=== PATIENT | male | born 1940 | race Caucasian/White ===

== ENCOUNTER 2016-09-10 22:28 | Inpatient (IN) | payer MEDICARE, MEDICAID ==
[~2016-09-10] VITALS: Ht 167.6 cm; Wt 72.6 kg
[~2016-09-10 22:28] MED LIST: ASPIRIN-LOW81 MG ORAL; ATIVAN2 MG ORAL; CELEBREX200 MG ORAL; FLOMAX0.4 MG ORAL; METFORMIN HCL500 M4 ORAL; MICARDIS HCT 81 EACH ORAL; NAMENDA5 MG ORAL; OSTERA TABLET1 EACH ORAL; TRADJENTA5 MG ORAL; ZYRTEC10 M3 ORAL
[2016-09-10] MEDS ORDERED: NS 1000ml 2,200 ML IVLG ONE (22:45)
[2016-09-10 23:05] VITALS: BP 90/38
[2016-09-10] MEDS ORDERED: NAMZARIC 28 MG1 EACH PO (23:11)
[2016-09-10] MEDS ORDERED: NITROFURANTOIN25 MG PO (23:11)
[2016-09-10] MEDS ORDERED: TRADJENTA5 MG PO (23:11)
[2016-09-10] MEDS ORDERED: ATORVASTATIN CA20 MG ORAL (23:11)
[2016-09-10] MEDS ORDERED: PROSCAR5 MG ORAL (23:11)
[2016-09-10] MEDS ORDERED: [UNRECOGNIZED DRUG - OTHER] PO (23:11)
[2016-09-10] MEDS ORDERED: METOPROLOL SUCC25 MG ORAL (23:11)
[2016-09-10 23:21] LABS: BASOPHILS % (AUTO) 1.3 % (0.0-2.0); EOSINOPHILS % (AUTO) 0.7 % (0.0-3.0); LYMPHOCYTES % (AUTO) 22.4 % (20.0-45.0); MEAN CORPUSCULAR HGB CONC 31.1 G/DL (32.0-36.0); MEAN CORPUSCULAR VOLUME 96 FL (80-99); MONOCYTES % (AUTO) 3.7 % (1.0-10.0); PLATELET COUNT 177 K/UL (150-450); RED CELL DISTRIBUTION WIDTH 15.7 % (11.6-14.8); WHITE BLOOD COUNT 9.8 K/UL (4.8-10.8)
[2016-09-10 23:27] LABS: INR 1.2 (0.9-1.1); PROTHROMBIN TIME 11.9 SEC (9.30-11.50)
[2016-09-10 23:46] LABS: APPEARANCE,URINE CLOUDY; PROTEIN,URINE 3+ (NEGATIVE)
[2016-09-10 23:47] LABS: KETONES,URINE 1+ (NEGATIVE); LEUKOCYTE ESTERASE ,URINE 3+ (NEGATIVE); NITRITE,URINE NEGATIVE (NEGATIVE); UROBILINOGEN,URINE NORMAL MG/DL (0.0-1.0)
[2016-09-10 23:48] LABS: BACTERIA,URINE MANY /HPF; COARSE GRANULAR CASTS,URINE 0-2 /LPF; RBC,URINE TNTC /HPF (0 - 0); WBC,URINE TNTC /HPF (0 - 0)
[2016-09-10 23:51] VITALS: BP 95/33
[2016-09-11] VITALS (38 sets, daily range): BP systolic 71–133; BP diastolic 35–96
[2016-09-11] MEDS ORDERED: cefTRIAXone 1 GM in NS 55 ML IVPB ONE ×2
[2016-09-11] MEDS ORDERED: NAMZARIC 28 MG1 EACH PO (00:11)
[2016-09-11] MEDS ORDERED: FERROUS GLUCON240 MG PO (00:11)
[2016-09-11] MEDS ORDERED: ASPIR 8181 MG ORAL (00:11)
[2016-09-11 00:22] LABS: TROPONIN I < 0.30 ng/mL (<=0.30)
[2016-09-11 00:26] LABS: ALANINE AMINOTRANSFERASE 8 U/L (3-41); ALBUMIN/GLOBULIN RATIO 1.3 (1.0-2.7); ANION GAP 36 (5-15); ASPARTATE AMINO TRANSFERASE 18 U/L (5-40); CALCIUM 8.7 mg/dL (8.6-10.2); CHLORIDE 96 mEQ/L (98-107); CREATININE 6.6 mg/dL (0.7-1.2); HEMOLYSIS 10; SODIUM 138 mEQ/L (135-145); TOTAL PROTEIN 6.6 g/dL (6.6-8.7)
[2016-09-11 00:30] LABS: REFLEX LACTIC ACID YES OR NO YES
[2016-09-11 00:31] LABS: CARBON DIOXIDE < 6 mEQ/L (20-30); POTASSIUM 7.8 mEQ/L (3.4-4.9)
[2016-09-11 00:36] LABS: CKMB 10.9 ng/mL (< 6.7)
[2016-09-11] MEDS ORDERED: NEXIUM40 MG ORAL (00:38)
[2016-09-11] MEDS ORDERED: Calcium Gluconate 1gm/10ml vial IVP ONE (00:45)
[2016-09-11] MEDS ORDERED: Sodium Bicarbonate 8.4% 50ml Carp IV ONE ×3 (00:45→09:45)
[2016-09-11] MEDS ORDERED: Levophed 4mg/4mL Inj IV ONE ×2 (01:02→05:29)
[2016-09-11] MEDS ORDERED: Vancomycin 1.5gm/D5W 300ml 325 ML IVPB ONE ×2 (02:30→08:00)
--- NOTE | 2016-09-11 03:14 | Emergency Room Report ---
History of Present Illness General Chief Complaint: Altered Level of Consciousness Source: Family Member, EMS Present Illness HPI Is a 76-year-old male with multiple medical history. He has a history of diabetes and hypertension. He has a history of UTI with recent course of Macrobid. He just finished a course of Cipro. He is running for chief complaint of altered mental status. At baseline he is awake and able to eat. He is bed bound however. According to his son, he is a full code. He hasn't been eating or drinking for the last 2 days. Has no appetite. Very weak. No fever or chills. No nausea or vomiting. Allergies: Coded Allergies: SULFA (SULFONAMIDE ANTIBIOTICS) (Verified Allergy, Unknown, 09/10/16) Uncoded Allergies: SULFA (Adverse Reaction, Mild, RASH, 04/01/13) Patient History Past Medical History: see triage record, old chart reviewed Past Surgical History: other Pertinent Family History: none Social History: Denies: smoking Immunizations: other Reviewed Nursing Documentation: PMH: Agreed, PSxH: Agreed Nursing Documentation-PMH Hx Cardiac Problems: Yes - HYPERLIPIDEMIA Hx Hypertension: Yes Hx Pacemaker: Yes Hx Diabetes: Yes Hx Cancer: No Hx Neurological Problems: No Hx Dementia: Yes Hx Alzheimer's Disease: Yes Hx Neurologic Surgery: No Review of Systems Constitutional: Reports: weakness Eye: Denies: blurred vision, eye pain ENT: Denies: ear pain, nose congestion, throat swelling Respiratory: Denies: cough, shortness of breath Cardiovascular: Denies: chest pain, palpitations Gastrointestinal: Denies: abdominal pain, diarrhea, nausea, vomiting Musculoskeletal: Denies: back pain, joint pain Skin: Denies: rash Neurological: Denies: headache, numbness Endocrine: Denies: increased thirst, increased urine Hematologic/Lymphatic: Denies: easy bruising All Other Systems: negative except mentioned in HPI Physical Exam Vital Signs Date Time Temp Pulse Resp B/P Pulse Ox O2 Delivery O2 Flow Rate FiO2 09/10/16 22:18 68 14 90/38 98 Room Air 09/10/16 23:05 97.9 09/11/16 02:44 50 diagnosed with hypotension and hypoxia Sp02 EP Interpretation: abnormal General Appearance: moderate distress, cachetic, Stupor Head: normocephalic, atraumatic Eyes: bilateral eye EOMI, bilateral eye PERRL ENT: dry mucus membranes - Extremely dry Neck: supple, no meningismus, limited range of motion - Secondary to arthritis Respiratory: chest non-tender, lungs clear, normal breath sounds Cardiovascular #1: regular rate, rhythm, no murmur Gastrointestinal: normal bowel sounds, non tender, no mass, no organomegaly, no bruit, non-distended Musculoskeletal: back normal, normal range of motion Neurologic: other - Patient moans to painful Stimuli Skin: warm/dry Procedures Critical Care Time Critical Care Time Critical care is mandated in this patient who presented with septic shock. Patient require my urgent intervention to attenuate the risks of metabolic collapse which may lead to cardiovascular collapse and . Critical care time is 75 minutes excluding any reportable procedure. Critical care time included evaluation, multiple reevaluation, looking at old charts, interpreting laboratory and diagnostic data, discussing case with patient and family and consultants, and charting. Central Line Central Line : Consent: Verbal - From son over the phone Central Line Lumen: triple Maximal Sterile Barrier Tech: yes cap, yes mask, yes sterile gown, yes sterile gloves, yes large sterile sheet, yes hand hygiene, yes chlorhexidine prep Central Line Postion: internal jugular (R) Anesthesia: Lidocaine cc's of anesthesia: 3 Complications: none Central Line Post Position: sutured, good blood return, position confirmed w / CXR Attempts: Other - 3 Patient Tolerated: Well Complications: None Progress Using ultrasound, was able to access the vein initially. It would only thread residential. This occurred twice. At that point he moved down to the right femoral vein. The vein was right on top of the artery. Was able to aspirated with a needle but when I went to inserted central line, it went through into the artery. I pulled this out and place pressure on it. I then went back to do the right internal jugular. This time I was able to canulized it in place a central line. There was no complication. X-ray confirm placement. Intubation Intubation : Consent: Emergent Intubation Method: orotracheal Tube Size (cm): 7.0 Medications: Etomidate, Succinylcholine Breath Sounds after Intubation: equal Intubation Complications: no complications Post Intubation Xray: Yes Progress/Xray Impression: Endotracheal tube in good position. No pneumothorax Attempts: Other - Twice. I gave the patient etomidate and succinylcholine. Oropharynx was very dry and sticky with food product. I removed this. I was unable to see the vocal cords with a Mac or Meyer blade. Using the Glidescope , I was able to intubate with 7-0 ETT. Patient Tolerated: Well Complications: None Medical Decision Making Diagnostic Impression: Primary Impression: Septic shock Additional Impressions: UTI (urinary tract infection) Qualified Codes: N30.00 - Acute cystitis without hematuria ARF (acute renal failure) Qualified Codes: N17.9 - Acute kidney failure, unspecified Dehydration, severe Respiratory failure requiring intubation Encephalopathy acute Anemia, chronic disease Hyperkalemia ER Course She presents with septic shock secondary to UTI and has multiorgan failure. Patient is intubated, central line placement on pressors. When spectrum antibiotics given. Prognosis extremely poor. I discussed the case with his son and grandson who were at bedside. He wanted to be a full code. He said that Dr. Sampson was one of his Dr. Will admit to him. Laboratory Tests Test 09/10/16 22:55 09/10/16 23:10 09/11/16 00:35 White Blood Count 9.8 K/UL (4.8-10.8) Red Blood Count 3.20 M/UL (4.70-6.10) L Hemoglobin 9.6 G/DL (14.2-18.0) L Hematocrit 30.8 % (42.0-52.0) L Mean Corpuscular Volume 96 FL (80-99) Mean Corpuscular Hemoglobin 30.0 PG (27.0-31.0) Mean Corpuscular Hemoglobin Concent 31.1 G/DL (32.0-36.0) L Red Cell Distribution Width 15.7 % (11.6-14.8) H Platelet Count 177 K/UL (150-450) Mean Platelet Volume 7.0 FL (6.5-10.1) Neutrophils (%) (Auto) 72.0 % (45.0-75.0) Lymphocytes (%) (Auto) 22.4 % (20.0-45.0) Monocytes (%) (Auto) 3.7 % (1.0-10.0) Eosinophils (%) (Auto) 0.7 % (0.0-3.0) Basophils (%) (Auto) 1.3 % (0.0-2.0) Prothrombin Time 11.9 SEC (9.30-11.50) H Prothromb Time International Ratio 1.2 (0.9-1.1) H Activated Partial Thromboplast Time 50 SEC (23-33) H Sodium Level 138 mEQ/L (135-145) Potassium Level 7.8 mEQ/L (3.4-4.9) *H Chloride Level 96 mEQ/L (98-107) L Carbon Dioxide Level < 6 mEQ/L (20-30) *L Anion Gap 36 (5-15) H Blood Urea Nitrogen 144 mg/dL (7-23) H Creatinine 6.6 mg/dL (0.7-1.2) H Estimat Glomerular Filtration Rate mL/min (>60) Glucose Level 155 mg/dL (74-106) H Calcium Level 8.7 mg/dL (8.6-10.2) Total Bilirubin 0.2 mg/dL (0.0-1.2) Aspartate Amino Transf (AST/SGOT) 18 U/L (5-40) Alanine Aminotransferase (ALT/SGPT) 8 U/L (3-41) Alkaline Phosphatase 66 U/L (40-129) Total Creatine Kinase 168 U/L (38-174) Creatine Kinase MB 10.9 ng/mL (< 6.7) H Creatine Kinase MB Relative Index 6.4 Troponin I < 0.30 ng/mL (<=0.30) Total Protein 6.6 g/dL (6.6-8.7) Albumin 3.8 g/dL (3.5-5.2) Globulin 2.8 g/dL Albumin/Globulin Ratio 1.3 (1.0-2.7) Urine Color Yellow Urine Appearance Cloudy Urine pH 5.0 (4.5-8.0) Urine Specific [place] 1.015 (1.005-1.035) Urine Protein 3+ (NEGATIVE) H Urine Glucose (UA) Negative (NEGATIVE) Urine Ketones 1+ (NEGATIVE) H Urine Occult Blood 5+ (NEGATIVE) H Urine Nitrite Negative (NEGATIVE) Urine Bilirubin Negative (NEGATIVE) Urine Urobilinogen Normal MG/DL (0.0-1.0) Urine Leukocyte Esterase 3+ (NEGATIVE) H Urine RBC Tntc /HPF (0 - 0) H Urine WBC Tntc /HPF (0 - 0) H Urine Squamous Epithelial Cells None /LPF (NONE/OCC) Urine Bacteria Many /HPF (NONE) H Urine Coarse Granular Casts 0-2 /LPF (NONE) H Lactic Acid Level 11.20 mmol/L (0.66-2.22) H 10.60 mmol/L (0.66-2.22) H Lab Results Impression Labs with multiple metabolic derangements. EKG Diagnostic Results Rate: normal Rhythm: NSR ST Segments: other - paced Rhythm Strip Diag. Results EP Interpretation: yes Rate: 70 Rhythm: NSR, no PVC's, no ectopy Chest X-Ray Diagnostic Results EP Interpretation: Yes Findings: no consolidation, no effusion, no pneumothorax, no acute cardiopulmonary disease Number of Views: 1 Other Impression CXR #2: interpreted by me. Central line in good position. ETT in good position. No PTX CT/MRI/US Diagnostic Results CT/MRI/US Diagnostic Results : Imaging Test Ordered: CT head Impression Read by radiologist. No acute process. Last Vital Signs Date Time Temp Pulse Resp B/P Pulse Ox O2 Delivery O2 Flow Rate FiO2 09/11/16 02:44 50 09/11/16 02:44 76 14 09/11/16 01:44 91/35 09/11/16 01:20 97.9 97 Room Air Status: worsened Disposition: ADMITTED INPATIENT Condition: Critical Referrals: NOT CHOSEN IPA/,REFERRING (PCP) INA MORENO M.D. Sep 11, 2016 03:14
[2016-09-11 03:51] LABS: CALCIUM 7.2 mg/dL (8.6-10.2); CHLORIDE 103 mEQ/L (98-107); CREATININE 5.3 mg/dL (0.7-1.2); HEMOLYSIS 5; SODIUM 140 mEQ/L (135-145)
[2016-09-11 03:52] LABS: ABG BASE EXCESS -36.1; ABG PCO2 19.9 mmHg (35.0-45.0)
[2016-09-11 03:53] LABS: ABG ALLEN TEST POSITIVE
[2016-09-11 03:56] LABS: ANION GAP 31 (5-15)
[2016-09-11] MEDS ORDERED: Sodium Bicarbonate 8.4% 50ml Inj ONE ×2 (03:57→04:05)
[2016-09-11] MEDS ORDERED: Sodium Bicarbonate 150 ML in D5W 1000ml 1,000 ML IV SCH (04:00)
[2016-09-11 04:01] LABS: CARBON DIOXIDE < 6 mEQ/L (20-30); POTASSIUM 6.8 mEQ/L (3.4-4.9)
[2016-09-11] MEDS ORDERED: Piperacillin/Tazobactam 2.25 GM in NS 55 ML IVPB ONE (08:00)
--- NOTE | 2016-09-11 08:04 | Consultation ---
History of Present Illness General Date patient seen: Sep 11, 2016 Time patient seen: 07:30 Chief Complaint: Altered Level of Consciousness Referring physician: dr Sampson Reason for Consultation: resp failure Present Illness HPI 76-year-old male with DM, HTN, recent UTI presented with a chief complaint of altered mental status. At baseline, as per his son, he is awake and able to eat, though bed bound . He was not eating or drinking for the last 2 days and was very weak. No fever or chills. No nausea or vomiting. Workup in ED revealed hypotension, the lowest 75/27, CL was placed for pressors ( RIJ) patient required emergent oral intubation patient was afebrile, lactic acid high K-7.8; BUN -144 and creat -6.6, HH with evidence of anemia troponin negative, ECG- NSR with pacing, CXR no acute process, verified correct placement of ET tube UA with gross evidence of UTI patient started on fluid resuscitation septic workup initiated patient was admitted to ICU for further management this am ABG with severe metabolic acidosis, minimal improvement on max dose of Levophed K down to 6.8; BUN down to 116 and creat to 5.3 Allergies: Coded Allergies: SULFA (SULFONAMIDE ANTIBIOTICS) (Verified Allergy, Unknown, 09/10/16) Uncoded Allergies: SULFA (Adverse Reaction, Mild, RASH, 04/01/13) Medication History Scheduled Aspirin (Aspirin EC), 81 MG ORAL DAILY, (Reported) Aspirin* (Aspir 81*), 81 MG ORAL DAILY, (Reported) Atorvastatin Calcium* (Atorvastatin Calcium*), 20 MG ORAL BEDTIME, (Reported) Celecoxib* (Celebrex*), 200 MG ORAL DAILY, (Reported) Cetirizine Hcl (Zyrtec), 10 MG ORAL DAILY, (Reported) Esomeprazole Magnesium (Nexium), 40 MG ORAL DAILY, (Reported) Finasteride* (Proscar*), 5 MG ORAL DAILY, (Reported) Linagliptin (Tradjenta), 5 MG ORAL DAILY, (Reported) Lorazepam* (Ativan*), 2 MG ORAL DAILY, (Reported) Memantine Hcl* (Namenda*), 5 MG ORAL BEDTIME, (Reported) Metformin Hcl (Metformin Hcl Er), 500 MG ORAL TWICE A DAY, (Reported) Metoprolol Succinate* (Metoprolol Succinate*), 25 MG ORAL DAILY, (Reported) Tamsulosin HCl (Flomax), 0.4 MG ORAL BEDTIME, (Reported) Telmisartan/Hydrochlorothiazid (Micardis Hct 80-12.5 Mg Tablet), 1 TAB ORAL DAILY, (Reported) Vit D3 & K/Berberine Hcl/Hops (Ostera Tablet), 1 TAB ORAL DAILY, (Reported) Miscellaneous Medications Cyproheptadine HCl (Cyproheptadine HCl), 4 MG PO, (Reported) Ferrous Gluconate (Ferrous Gluconate), 240 MG PO, (Reported) Linagliptin (Tradjenta), 5 MG PO, (Reported) Memantine HCl/Donepezil HCl (Namzaric 28 mg-10 mg Capsule), 1 EACH PO, (Reported ) Memantine HCl/Donepezil HCl (Namzaric 28 mg-10 mg Capsule), 1 EACH PO, (Reported ) Nitrofurantoin Macrocrystal (Nitrofurantoin), 50 MG PO, (Reported) Patient History Limited by: medical condition History Provided By: Medical Record Healthcare decision maker Resuscitation status Advanced Directive on File Past Medical/Surgical History Past Medical/Surgical History: (1) DM (diabetes mellitus) (2) HTN (hypertension) (3) Anemia, chronic disease Review of Systems ROS Narrative unable to obtain due to patient ALOC Physical Exam General Appearance: lethargic, other - intubated on vent AC 500-15-50% Lines, tubes and drains: central line - RIJ HEENT: normocephalic, atraumatic, anicteric, other - OP with ET in place, intact Neck: other - trachea midline Respiratory/Chest: no respiratory distress, decreased breath sounds Cardiovascular/Chest: normal peripheral pulses, normal rate, regular rhythm Abdomen: non tender, soft Extremities: normal capillary refill, no edema, no cyanosis Neurologic: abnormal gait - bedridden , other - lethargic Musculoskeletal: atrophy - BLE Last 24 Hour Vital Signs Date Time Temp Pulse Resp B/P Pulse Ox O2 Delivery O2 Flow Rate FiO2 09/11/16 07:15 97.9 59 23 113/43 99 Mechanical Ventilator 50 09/11/16 06:46 59 23 113/43 99 Mechanical Ventilator 50 09/11/16 05:54 97.9 66 15 115/46 100 Mechanical Ventilator 50 09/11/16 04:59 66 20 101/55 100 Mechanical Ventilator 09/11/16 04:56 96/46 09/11/16 04:50 64 21 97/43 100 Mechanical Ventilator 50 09/11/16 04:49 62 24 50 09/11/16 04:25 78/40 09/11/16 03:57 67 14 94/57 97 Mechanical Ventilator 50 09/11/16 03:30 92/39 09/11/16 03:25 89/42 09/11/16 03:12 90/49 09/11/16 03:07 89/48 09/11/16 02:44 50 09/11/16 02:44 76 14 50 09/11/16 01:44 91/35 09/11/16 01:39 89/40 09/11/16 01:34 86/36 09/11/16 01:29 84/36 09/11/16 01:24 75/27 09/11/16 01:20 97.9 67 21 71/35 97 Room Air 09/11/16 01:19 72/30 09/10/16 23:51 97.9 73 14 95/33 98 Room Air 09/10/16 23:05 97.9 60 14 90/38 98 Room Air 09/10/16 22:18 68 14 90/38 98 Room Air Intake and Output 09/10/16 09/11/16 19:00 07:00 Intake Total 5355 ml Output Total 10 ml Balance 5345 ml Intake IV Total 5355 ml Output Urine Total 10 ml Laboratory Tests Test 09/10/16 22:55 09/10/16 23:10 09/11/16 00:35 09/11/16 03:17 White Blood Count 9.8 K/UL (4.8-10.8) Red Blood Count 3.20 M/UL (4.70-6.10) L Hemoglobin 9.6 G/DL (14.2-18.0) L Hematocrit 30.8 % (42.0-52.0) L Mean Corpuscular Volume 96 FL (80-99) Mean Corpuscular Hemoglobin 30.0 PG (27.0-31.0) Mean Corpuscular Hemoglobin Concent 31.1 G/DL (32.0-36.0) L Red Cell Distribution Width 15.7 % (11.6-14.8) H Platelet Count 177 K/UL (150-450) Mean Platelet Volume 7.0 FL (6.5-10.1) Neutrophils (%) (Auto) 72.0 % (45.0-75.0) Lymphocytes (%) (Auto) 22.4 % (20.0-45.0) Monocytes (%) (Auto) 3.7 % (1.0-10.0) Eosinophils (%) (Auto) 0.7 % (0.0-3.0) Basophils (%) (Auto) 1.3 % (0.0-2.0) Prothrombin Time 11.9 SEC (9.30-11.50) H Prothromb Time International Ratio 1.2 (0.9-1.1) H Activated Partial Thromboplast Time 50 SEC (23-33) H Sodium Level 138 mEQ/L (135-145) Potassium Level 7.8 mEQ/L (3.4-4.9) *H Chloride Level 96 mEQ/L (98-107) L Carbon Dioxide Level < 6 mEQ/L (20-30) *L Anion Gap 36 (5-15) H Blood Urea Nitrogen 144 mg/dL (7-23) H Creatinine 6.6 mg/dL (0.7-1.2) H Estimat Glomerular Filtration Rate mL/min (>60) Glucose Level 155 mg/dL (74-106) H Calcium Level 8.7 mg/dL (8.6-10.2) Total Bilirubin 0.2 mg/dL (0.0-1.2) Aspartate Amino Transf (AST/SGOT) 18 U/L (5-40) Alanine Aminotransferase (ALT/SGPT) 8 U/L (3-41) Alkaline Phosphatase 66 U/L (40-129) Total Creatine Kinase 168 U/L (38-174) Creatine Kinase MB 10.9 ng/mL (< 6.7) H Creatine Kinase MB Relative Index 6.4 Troponin I < 0.30 ng/mL (<=0.30) Total Protein 6.6 g/dL (6.6-8.7) Albumin 3.8 g/dL (3.5-5.2) Globulin 2.8 g/dL Albumin/Globulin Ratio 1.3 (1.0-2.7) Urine Color Yellow Urine Appearance Cloudy Urine pH 5.0 (4.5-8.0) Urine Specific [place] 1.015 (1.005-1.035) Urine Protein 3+ (NEGATIVE) H Urine Glucose (UA) Negative (NEGATIVE) Urine Ketones 1+ (NEGATIVE) H Urine Occult Blood 5+ (NEGATIVE) H Urine Nitrite Negative (NEGATIVE) Urine Bilirubin Negative (NEGATIVE) Urine Urobilinogen Normal MG/DL (0.0-1.0) Urine Leukocyte Esterase 3+ (NEGATIVE) H Urine RBC Tntc /HPF (0 - 0) H Urine WBC Tntc /HPF (0 - 0) H Urine Squamous Epithelial Cells None /LPF (NONE/OCC) Urine Bacteria Many /HPF (NONE) H Urine Coarse Granular Casts 0-2 /LPF (NONE) H Lactic Acid Level 11.20 mmol/L (0.66-2.22) H 10.60 mmol/L (0.66-2.22) H Arterial Blood pH 6.512 (7.350-7.450) Arterial Blood Partial Pressure CO2 19.9 mmHg (35.0-45.0) *L Arterial Blood Partial Pressure O2 216.4 mmHg (75.0-100.0) H Arterial Blood HCO3 1.6 mmol/L (22.0-26.0) L Arterial Blood Oxygen Saturation 98.3 % (92.0-98.0) H Arterial Blood Base Excess -36.1 An[place]um Test Positive Test 09/11/16 03:30 Sodium Level 140 mEQ/L (135-145) Potassium Level 6.8 mEQ/L (3.4-4.9) *H Chloride Level 103 mEQ/L (98-107) Carbon Dioxide Level < 6 mEQ/L (20-30) *L Anion Gap 31 (5-15) H Blood Urea Nitrogen 116 mg/dL (7-23) #H Creatinine 5.3 mg/dL (0.7-1.2) H Estimat Glomerular Filtration Rate mL/min (>60) Glucose Level 230 mg/dL (74-106) H Calcium Level 7.2 mg/dL (8.6-10.2) L Height (Feet): 5 Height (Inches): 7.00 Weight (Pounds): 160 Medications Current Medications Medications (Trade) Dose Ordered Sig/Barrett Route PRN Reason Start Time Stop Time Status Last Admin Dose Admin Dextrose STAT PRN IV Hypoglycemia 09/11/16 05:30 5/30/17 05:29 Norepinephrine Bitartrate 4 mg/ Dextrose 250 ml @ 0 mls/hr Q24H IV 09/11/16 01:15 10/11/16 01:14 09/11/16 01:19 Piperacillin Sod/ Tazobactam Sod 2.25 gm/Sodium Chloride 55 ml @ 110 mls/hr ONCE ONCE IVPB 09/11/16 08:00 09/11/16 08:29 Sodium Bicarbonate/ Dextrose (Sodium Bicarbonate/D5W 1000ml) 1,150 ml @ 100 mls/hr [id number] IV 09/11/16 04:00 09/11/16 15:29 09/11/16 04:36 Sodium Chloride 1,000 ml @ 200 mls/hr Q5H IV 09/11/16 02:45 10/11/16 02:44 09/11/16 03:54 Vancomycin HCl/ Dextrose (Vancomycin 1.5gm/D5W 300ml) 325 ml @ 162.5 mls/ hr ONCE ONCE IVPB 09/11/16 08:00 09/11/16 09:59 Assessment/Plan Assessment/Plan ASSESSMENT septic shock sepsis acute metabolic acidosis UTI acute respiratory failure requiring intubation acute encephalopathy dehydration acute renal failure hyperkalemia anemia hypothermia PLAN OF CARE ICU care vent care pulmonary toilet CXR and ABG in am , initial CXR no acute findings cause of acute metabolic acidosis renal , not pulmonary pressure support, on Levophed, titrate to keep SBP above 90 abx, fup with cx ID consult pending IVF with bicarb , increase rate to 150 additional 1 amp of bicarb nephro consult pending renal US CT head no acute findings acute encephalopathy likely 2 to combination ofseptic shock and dehydration monitor anemia workup Venous Duplex BLE, SCD if negative Bare hugger condition guarded full code case discussed and evaluated by supervising physician Edita Alvares NP ([facility]) Sep 11, 2016 08:04
[2016-09-11 08:26] LABS: ABG BASE EXCESS -29.3; ABG PCO2 24.2 mmHg (35.0-45.0)
[2016-09-11 08:27] LABS: ABG ALLEN TEST POSITIVE
--- NOTE | 2016-09-11 08:42 | Diagnostic Imaging Report ---
Indications: Central line placement Technique: Portable AP chest Findings: Comparison: 09/10/16 Patient rotation limits evaluation. Endotracheal tube has been placed, tip 3 cm above kandace. Central venous catheter has been placed via right internal jugular vein, tip in right atrium. No pneumothorax, new apical pleural cap, or mediastinal widening demonstrated. Linear density persists in right lung base. Cardiac silhouette remains enlarged. Bilateral interstitial prominence is mildly increased. Left costophrenic angle indistinct. Gaseous distention of stomach has increased. IMPRESSION: Endotracheal tube in good position Central venous catheter deep in position and right atrium, recommend withdrawal 3 cm; no evidence of acute complication Apparent increase in interstitial markings may be technically related. Developing/worsening pulmonary edema in the setting of congestive heart failure must also be considered. Indistinctness of left costophrenic angle likely secondary to patient rotation. No pleural effusion not excludable. Increase in gastric gaseous distention, nonspecific. Consider nasogastric tube placement as clinically indicated.
--- NOTE | 2016-09-11 08:57 | Diagnostic Imaging Report ---
Indications: Altered mental status Technique: Continuous helical CT imaging of the brain was performed with automatic exposure control on a Siemens sensation [address] scanner. Axial and coronal images were reconstructed at 5 mm slice thickness and interval. CTDI volume(s): 70 mGy Total DLP: 1601 mGy-cm Findings: Comparison: None. Motion artifact degrades all images. Circumscribed foci of low attenuation/parenchymal loss and bilateral thalami, head of left caudate nucleus. Confluent low attenuation throughout the bilateral periventricular and deep white matter. Ventricles, cisterns, sulci are diffusely prominent. No evidence of mass or hemorrhage, other attenuation abnormality, mass effect, midline shift, hydrocephalus or increased intracranial pressure. Bone window images are unremarkable. Visualized paranasal sinuses and mastoid air cells are clear. 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 Chronic microvascular ischemic changes bilateral cerebral white matter Atrophy This correlates with [facility] preliminary report. The CT scanner at [facility] is accredited by the [employer] and the scans are performed using protocols designed to limit radiation exposure to as low as reasonably achievable to attain images of sufficient resolution adequate for diagnostic evaluation.
[2016-09-11] MEDS ORDERED: DuoNeb 0.5-3(2.5)mg/3ml neb HHN PRN (09:30)
--- NOTE | 2016-09-11 09:45 | Diagnostic Imaging Report ---
Indications: Shortness of breath Technique: Portable AP chest at 0813 Findings: Comparison: 0228 Left retrocardiac region now appears opacified. Left costophrenic angle remains indistinct. Linear density in right lung base has decreased. Cardiac silhouette remains mildly enlarged. Pulmonary vasculature remains within normal limits. Lines and tubes remain in place, central venous catheter tip still deep in the right atrium. Gaseous distention of the stomach has decreased. IMPRESSION: Suggestion of developing atelectasis versus pneumonia left lung base Persistent suggestion of small left pleural effusion Decrease in prominence of right basal atelectasis Persist in the position of central venous catheter, again recommend 3 cm withdrawal Partially decompression of stomach
[2016-09-11 10:42] LABS: MEAN CORPUSCULAR HEMOGLOBIN 29.2 PG (27.0-31.0); MEAN CORPUSCULAR HGB CONC 31.8 G/DL (32.0-36.0); MEAN CORPUSCULAR VOLUME 92 FL (80-99); MEAN PLATELET VOLUME 7.5 FL (6.5-10.1); PLATELET COUNT 143 K/UL (150-450); RED BLOOD COUNT 3.29 M/UL (4.70-6.10); RED CELL DISTRIBUTION WIDTH 15.6 % (11.6-14.8); WHITE BLOOD COUNT 5.7 K/UL (4.8-10.8)
--- NOTE | 2016-09-11 10:56 | Infectious Diseases Prog Note ---
Assessment/Plan Assessment/Plan ID consult dictated # [id number] Subjective Allergies: Coded Allergies: SULFA (SULFONAMIDE ANTIBIOTICS) (Verified Allergy, Unknown, 09/10/16) Uncoded Allergies: SULFA (Adverse Reaction, Mild, RASH, 04/01/13) Objective Vital Signs Last 24 Hour Vital Signs Date Time Temp Pulse Resp B/P Pulse Ox O2 Delivery O2 Flow Rate FiO2 09/11/16 08:44 73 25 45 09/11/16 08:30 45 09/11/16 07:15 97.9 59 23 113/43 99 Mechanical Ventilator 50 09/11/16 07:02 77 28 50 09/11/16 06:46 59 23 113/43 99 Mechanical Ventilator 50 09/11/16 05:54 97.9 66 15 115/46 100 Mechanical Ventilator 50 09/11/16 04:59 66 20 101/55 100 Mechanical Ventilator 09/11/16 04:56 96/46 09/11/16 04:50 64 21 97/43 100 Mechanical Ventilator 50 09/11/16 04:49 62 24 50 09/11/16 04:25 78/40 09/11/16 03:57 67 14 94/57 97 Mechanical Ventilator 50 09/11/16 03:30 92/39 09/11/16 03:25 89/42 09/11/16 03:12 90/49 09/11/16 03:07 89/48 09/11/16 02:44 50 09/11/16 02:44 76 14 50 09/11/16 01:44 91/35 09/11/16 01:39 89/40 09/11/16 01:34 86/36 09/11/16 01:29 84/36 09/11/16 01:24 75/27 09/11/16 01:20 97.9 67 21 71/35 97 Room Air 09/11/16 01:19 72/30 09/10/16 23:51 97.9 73 14 95/33 98 Room Air 09/10/16 23:05 97.9 60 14 90/38 98 Room Air 09/10/16 22:18 68 14 90/38 98 Room Air Height (Feet): 5 Height (Inches): 7.00 Weight (Pounds): 160 Laboratory Tests Test 09/10/16 22:55 09/10/16 23:10 09/11/16 00:35 09/11/16 03:17 White Blood Count 9.8 K/UL (4.8-10.8) Red Blood Count 3.20 M/UL (4.70-6.10) L Hemoglobin 9.6 G/DL (14.2-18.0) L Hematocrit 30.8 % (42.0-52.0) L Mean Corpuscular Volume 96 FL (80-99) Mean Corpuscular Hemoglobin 30.0 PG (27.0-31.0) Mean Corpuscular Hemoglobin Concent 31.1 G/DL (32.0-36.0) L Red Cell Distribution Width 15.7 % (11.6-14.8) H Platelet Count 177 K/UL (150-450) Mean Platelet Volume 7.0 FL (6.5-10.1) Neutrophils (%) (Auto) 72.0 % (45.0-75.0) Lymphocytes (%) (Auto) 22.4 % (20.0-45.0) Monocytes (%) (Auto) 3.7 % (1.0-10.0) Eosinophils (%) (Auto) 0.7 % (0.0-3.0) Basophils (%) (Auto) 1.3 % (0.0-2.0) Prothrombin Time 11.9 SEC (9.30-11.50) H Prothromb Time International Ratio 1.2 (0.9-1.1) H Activated Partial Thromboplast Time 50 SEC (23-33) H Sodium Level 138 mEQ/L (135-145) Potassium Level 7.8 mEQ/L (3.4-4.9) *H Chloride Level 96 mEQ/L (98-107) L Carbon Dioxide Level < 6 mEQ/L (20-30) *L Anion Gap 36 (5-15) H Blood Urea Nitrogen 144 mg/dL (7-23) H Creatinine 6.6 mg/dL (0.7-1.2) H Estimat Glomerular Filtration Rate mL/min (>60) Glucose Level 155 mg/dL (74-106) H Calcium Level 8.7 mg/dL (8.6-10.2) Total Bilirubin 0.2 mg/dL (0.0-1.2) Aspartate Amino Transf (AST/SGOT) 18 U/L (5-40) Alanine Aminotransferase (ALT/SGPT) 8 U/L (3-41) Alkaline Phosphatase 66 U/L (40-129) Total Creatine Kinase 168 U/L (38-174) Creatine Kinase MB 10.9 ng/mL (< 6.7) H Creatine Kinase MB Relative Index 6.4 Troponin I < 0.30 ng/mL (<=0.30) Total Protein 6.6 g/dL (6.6-8.7) Albumin 3.8 g/dL (3.5-5.2) Globulin 2.8 g/dL Albumin/Globulin Ratio 1.3 (1.0-2.7) Urine Color Yellow Urine Appearance Cloudy Urine pH 5.0 (4.5-8.0) Urine Specific [place] 1.015 (1.005-1.035) Urine Protein 3+ (NEGATIVE) H Urine Glucose (UA) Negative (NEGATIVE) Urine Ketones 1+ (NEGATIVE) H Urine Occult Blood 5+ (NEGATIVE) H Urine Nitrite Negative (NEGATIVE) Urine Bilirubin Negative (NEGATIVE) Urine Urobilinogen Normal MG/DL (0.0-1.0) Urine Leukocyte Esterase 3+ (NEGATIVE) H Urine RBC Tntc /HPF (0 - 0) H Urine WBC Tntc /HPF (0 - 0) H Urine Squamous Epithelial Cells None /LPF (NONE/OCC) Urine Bacteria Many /HPF (NONE) H Urine Coarse Granular Casts 0-2 /LPF (NONE) H Lactic Acid Level 11.20 mmol/L (0.66-2.22) H 10.60 mmol/L (0.66-2.22) H Arterial Blood pH 6.512 (7.350-7.450) Arterial Blood Partial Pressure CO2 19.9 mmHg (35.0-45.0) *L Arterial Blood Partial Pressure O2 216.4 mmHg (75.0-100.0) H Arterial Blood HCO3 1.6 mmol/L (22.0-26.0) L Arterial Blood Oxygen Saturation 98.3 % (92.0-98.0) H Arterial Blood Base Excess -36.1 Anjum Test Positive Test 09/11/16 03:30 09/11/16 08:00 09/11/16 10:15 Sodium Level 140 mEQ/L (135-145) Pending Potassium Level 6.8 mEQ/L (3.4-4.9) *H Pending Chloride Level 103 mEQ/L (98-107) Pending Carbon Dioxide Level < 6 mEQ/L (20-30) *L Pending Anion Gap 31 (5-15) H Blood Urea Nitrogen 116 mg/dL (7-23) #H Pending Creatinine 5.3 mg/dL (0.7-1.2) H Pending Estimat Glomerular Filtration Rate mL/min (>60) Pending Glucose Level 230 mg/dL (74-106) H Pending Calcium Level 7.2 mg/dL (8.6-10.2) L Pending Arterial Blood pH 6.800 (7.350-7.450) Arterial Blood Partial Pressure CO2 24.2 mmHg (35.0-45.0) *L Arterial Blood Partial Pressure O2 131.1 mmHg (75.0-100.0) H Arterial Blood HCO3 3.7 mmol/L (22.0-26.0) L Arterial Blood Oxygen Saturation 97.1 % (92.0-98.0) Arterial Blood Base Excess -29.3 Anjum Test Positive White Blood Count 5.7 K/UL (4.8-10.8) Red Blood Count 3.29 M/UL (4.70-6.10) L Hemoglobin 9.6 G/DL (14.2-18.0) L Hematocrit 30.2 % (42.0-52.0) L Mean Corpuscular Volume 92 FL (80-99) Mean Corpuscular Hemoglobin 29.2 PG (27.0-31.0) Mean Corpuscular Hemoglobin Concent 31.8 G/DL (32.0-36.0) L Red Cell Distribution Width 15.6 % (11.6-14.8) H Platelet Count 143 K/UL (150-450) L Mean Platelet Volume 7.5 FL (6.5-10.1) Neutrophils (%) (Auto) % (45.0-75.0) Lymphocytes (%) (Auto) % (20.0-45.0) Monocytes (%) (Auto) % (1.0-10.0) Eosinophils (%) (Auto) % (0.0-3.0) Basophils (%) (Auto) % (0.0-2.0) Neutrophils % (Manual) Pending Lymphocytes % (Manual) Pending Platelet Estimate Pending Platelet Morphology Pending Lactic Acid Level Pending Phosphorus Level Pending Magnesium Level Pending Current Medications Medications (Trade) Dose Ordered Sig/Barrett Route PRN Reason Start Time Stop Time Status Last Admin Dose Admin Albuterol/ Ipratropium 3 ml 3 ml Q4HRT PRN HHN sob 09/11/16 09:30 09/16/16 09:29 Dextrose (Dextrose 50%) STAT PRN IV Hypoglycemia 09/11/16 05:30 10/11/16 05:29 Norepinephrine Bitartrate/ Dextrose (Levophed/D5W) 250 ml @ 0 mls/hr Q24H IV 09/11/16 11:00 10/11/16 10:59 Sodium Bicarbonate 150 ml/Dextrose 1,150 ml @ 150 mls/hr Q0M IV 09/11/16 11:00 10/11/16 10:59 Sodium Chloride (Sodium Chloride 1000ml bag) 1,000 ml @ 200 mls/hr Q5H IV 09/11/16 02:45 10/11/16 02:44 09/11/16 03:54 REJI FLORES Sep 11, 2016 10:56
[2016-09-11] MEDS ORDERED: D5W IV SCH (11:00)
[2016-09-11] MEDS ORDERED: NOREPINEPHRINE IV SCH (11:00)
[2016-09-11 11:11] LABS: ANION GAP 34 (5-15); CHLORIDE 99 mEQ/L (98-107); CREATININE 5.4 mg/dL (0.7-1.2); HEMOLYSIS 9; MAGNESIUM 1.1 mg/dL (1.7-2.5); PHOSPHORUS 7.6 mg/dL (2.5-4.8); SODIUM 139 mEQ/L (135-145)
[2016-09-11 11:14] LABS: CARBON DIOXIDE 6 mEQ/L (20-30); POTASSIUM 6.7 mEQ/L (3.4-4.9)
[2016-09-11 11:16] LABS: REFLEX LACTIC ACID YES OR NO YES
[2016-09-11] MEDS ORDERED: Sodium Polystyrene Sulfonate 15gm Powder ORAL ONE (11:45)
[2016-09-11 11:46] LABS: ANISOCYTOSIS 1+; BAND NEUTROPHILS % (MANUAL) 0 % (0-8); BASOPHILS % (MANUAL) 0 % (0-2); EOSINOPHILS % (MANUAL) 0 % (0-3); HYPOCHROMASIA 2+; LYMPHOCYTES % (MANUAL) 4 % (20-45); NEUTROPHILS % (MANUAL) 87 % (45-75); PLATELET ESTIMATE DECREASED; PLATELET MORPHOLOGY NORMAL; TOTAL CELLS COUNTED 100
[2016-09-11] MEDS ORDERED: Zosyn 3.375gm q12h **Extended infusion IVPB SCH ×2 (12:00)
--- NOTE | 2016-09-11 13:57 | History & Physical ---
History and Physical History & Physicial Dictated for Int Med-Dr Sampson no. [id number]. ICU KING HAYNES Sep 11, 2016 13:57
[2016-09-11] MEDS ORDERED: Piperacillin/Tazobactam 2.25 GM in D5W 55 ML IVPB SCH (14:00)
[2016-09-11] MEDS: Sodium Bicarbonate 150 ML in D5W 1000ml 1,000 ML IV SCH (14:20)
--- NOTE | 2016-09-11 14:36 | Consultation ---
Consult Note Consult Note Is a 76-year-old male with multiple medical history. He has a history of diabetes and hypertension. He has a history of UTI with recent course of Macrobid. He just finished a course of Cipro. He is running for chief complaint of altered mental status. At baseline he is awake and able to eat. He is bed bound however. According to his son, he is a full code. He hasn't been eating or drinking for the last 2 days. Has no appetite. Very weak. No fever or chills. No nausea or vomiting. Allergies: Coded Allergies: SULFA (SULFONAMIDE ANTIBIOTICS) (Verified Allergy, Unknown, 09/10/16) Uncoded Allergies: SULFA (Adverse Reaction, Mild, RASH, 04/01/13) Hx Cardiac Problems: Yes - HYPERLIPIDEMIA Hx Hypertension: Yes Hx Pacemaker: Yes Hx Diabetes: Yes Hx Neurological Problems: No Hx Dementia: Yes Hx Alzheimer's Disease: Yes patient examined in ICU- [facility] Assessment/Plan status: Septic Shock leading to acute renal and multiOrgan failure Due to the above: Sever Acidosis , high Lactate , High K Sugg: Aggresive fluid challenge Hemodynamic support Bicarb Antibiotics POOR Prognosis not candidate for dialysis due to poor hemodynamics MARIAN KOTHARI Sep 11, 2016 14:36
[2016-09-11 16:43] LABS: ANION GAP 32 (5-15); CALCIUM 6.4 mg/dL (8.6-10.2); CARBON DIOXIDE 10 mEQ/L (20-30); CHLORIDE 95 mEQ/L (98-107); CREATININE 5.2 mg/dL (0.7-1.2); HEMOLYSIS 6; POTASSIUM 5.7 mEQ/L (3.4-4.9); SODIUM 137 mEQ/L (135-145)
[2016-09-11 17:05] LABS: REFLEX LACTIC ACID YES OR NO YES
[2016-09-11] MEDS ORDERED: Etomidate 40mg/20ml Inj IV ONE (19:37)
--- NOTE | 2016-09-11 22:08 | Consultation ---
DATE OF CONSULTATION: INFECTIOUS DISEASE CONSULTATION This consult is for coverage of Dr. Minor. PRIMARY ATTENDING PHYSICIAN: REASON FOR CONSULTATION: Sepsis, septic shock, pneumonia, and urinary tract infection. HISTORY OF PRESENT ILLNESS: The patient is a 76-year-old male admitted today from home with altered mental status. The patient was intubated in the ER. Central line placed in ER and transferred to ICU. The patient is on maximal dose of norepinephrine. He is hypothermic in addition has acute renal failure and lactic acidosis. The patient is getting sodium bicarbonate, norepinephrine, DuoNeb inhaler, dose of Zosyn, dose of vancomycin in the ER, getting sodium chloride. PAST MEDICAL HISTORY: Significant for diabetes mellitus, hypertension, history of pacemaker placement, Alzheimer dementia. SOCIAL HISTORY: . Bedbound before admission but could eat. REVIEW OF SYSTEMS: Unobtainable. PHYSICAL EXAMINATION: VITAL SIGNS: Temperature 97.9, pulse 73, respiratory rate 25, and blood pressure 113/43. HEENT: Head and neck, orally intubated. The patient has right intrajugular line. HEART: Pacemaker in the left side of the chest. . ABDOMEN: Soft. EXTREMITIES: No edema but has muscle atrophy. LABORATORY AND DIAGNOSTIC DATA: WBC 9.8, hemoglobin 9.6, and hematocrit 30.8, platelets 177,000. Sodium 140, potassium 6.8, chloride 103, carbon dioxide less than 6, BUN 116, creatinine 5.3. Lactic acid is 10.6. Chest x-ray showed atelectasis and pneumonia in the left lung base. Head CT was negative. Cultures are pending. UA showed WBC too numerous to count, RBC too numerous to count. IMPRESSION: Septic shock. The patient is on maximal dose of pressors. The patient has severe acidosis including lactic acidosis, has acute respiratory failure, acute renal failure, pneumonia, atelectasis in the left lung, pyuria, urinary tract infection, Alzheimer dementia. RECOMMENDATION: 1. We will continue with Zosyn. 2. We will followup culture. Prognosis seems to be poor. Stephan Schilling M.D. DR: Josefina JOB#: [id number] CC: PADMINI
[2016-09-11 22:43] LABS: REFLEX LACTIC ACID YES OR NO YES
--- NOTE | 2016-09-11 23:08 | History and Physical Report ---
DATE OF ADMISSION: 09/11/2016 CHIEF COMPLAINT: The patient is a 76-year-old Farsi-speaking male, who presents with a chief complaint of altered mental status. HISTORY OF PRESENT ILLNESS: The patient apparently is Farsi speaking. Much of the history and physical is obtained from the patient's son, who is at the bedside. According to the patient's son, the patient recently had a urinary tract infection. The patient was treated initially with Macrobid. The patient recently finished a course of ciprofloxacin. The patient's son states the patient has been having decreased appetite for the past several days. The patient presented to [facility] emergency room. The patient was found to be hypotensive in the 70s/40s. The patient then went into respiratory failure in the emergency room. The patient was emergently intubated in the emergency room. The patient is currently admitted to the intensive care unit with pressors. The patient was admitted for respiratory failure and probable sepsis secondary to urinary tract infection. PAST MEDICAL HISTORY: Significant for, 1. Type 2 diabetes. 2. Hypertension. 3. Recent urinary tract infection. 4. The patient is bedbound. PAST SURGICAL HISTORY: Unknown. CURRENT MEDICATIONS: 1. Aspirin 81 mg one tablet p.o. daily. 2. Lipitor 20 mg one tablet p.o. daily. 3. Celebrex 200 mg one tablet p.o. daily. 4. Zyrtec 10 mg one tablet p.o. daily. 5. Cyproheptadine 4 mg p.o. daily. 6. Nexium 40 mg one tablet p.o. daily. 7. Iron gluconate 240 mg one tablet p.o. daily. 8. Proscar 5 mg one tablet p.o. daily. 9. Tradjenta 5 mg one tablet p.o. daily. 10. Ativan 2 mg one tablet p.o. daily. 11. Namenda 5 mg one tablet p.o. at bedtime. 12. Methenamine/donepezil 28/10 one tablet p.o. daily. 13. Metformin 500 mg one tablet p.o. twice daily. 14. Metoprolol 25 mg one tablet p.o. daily. 15. Flomax 0.4 mg one tablet p.o. at bedtime. 16. Micardis/hydrochlorothiazide 80/12.5 mg one tablet p.o. daily. ALLERGIES: To sulfa. SOCIAL HISTORY: The patient is and lives with his . The patient denies tobacco or alcohol use. REVIEW OF SYSTEMS: Constitutional: Unable to assess secondary to the patient's mental condition. PHYSICAL EXAMINATION: VITAL SIGNS: Temperature 97.9 degrees, respirations 21, pulse 67, and blood pressure 71/35. GENERAL: The patient is thin-appearing white male, who is currently intubated and sedated. HEENT: Eyes, pupils are equal and responsive to light and accommodation. Extraocular movements are intact. NECK: Supple without lymphadenopathy. CHEST: Few scattered wheezes in bilateral bases, otherwise coarse upper breath sounds without wheezes or rales. CARDIOVASCULAR: Regular rate. S1 and S2. No murmurs, rubs, or gallops. ABDOMEN: Soft, nontender, and nondistended. Positive bowel sounds. No evidence of hepatosplenomegaly. Currently, no rebound or guarding noted. EXTREMITIES: No clubbing, cyanosis, or edema. RECTAL/GENITAL: Not performed. LABORATORY STUDIES: WBC 9.8, hemoglobin 9.6, hematocrit 30.8, and platelets 177,000. Sodium 138, potassium elevated at 7.8, chloride 96, CO2 less than 6, BUN 144, creatinine 6.6, and glucose 155. Chest x-ray revealed increased interstitial markings consistent with pulmonary edema. A CT scan of the brain revealed no acute hemorrhage or mass. ASSESSMENT: This is a 76-year-old white male. 1. Hypotension. 2. Altered mental status. 3. Respiratory failure. 4. Probable sepsis. 5. Urinary tract infection. 6. Renal failure. 7. Diabetes type 2. 8. Hypertension. 9. Benign prostatic hypertrophy. TREATMENT: 1. Hypotension/septic shock. An Infectious Disease consultation will be obtained with Dr. Castro. The patient has been started empirically on Zosyn. Urine and blood cultures are pending. We will follow recommendations of Infectious Disease. 2. Altered mental status probably secondary to hypotension and sepsis as above. Urine and blood cultures are pending. Sputum cultures are pending. We will follow recommendations of Infectious Disease. 3. Diabetes type 2. The patient will be placed on a NovoLog sliding scale. 4. Hypertension. The patient is currently hypotensive and on pressors. 5. Benign prostatic hypertrophy. Glynn Key M.D. DR: MAYA JOB#: [id number] CC:
[2016-09-11] MEDS: Zosyn 3.375gm q12h **Extended infusion IVPB SCH ×2 (23:31)
[2016-09-12] VITALS (32 sets, daily range): BP systolic 92–135; BP diastolic 44–84
[2016-09-12] MEDS: Sodium Bicarbonate 150 ML in D5W 1000ml 1,000 ML IV SCH ×3 (00:10→12:27)
[2016-09-12 06:31] LABS: TROPONIN I < 0.30 ng/mL (<=0.30)
[2016-09-12 06:38] LABS: ALANINE AMINOTRANSFERASE 80 U/L (3-41); ALBUMIN/GLOBULIN RATIO 1.1 (1.0-2.7); ANION GAP 26 (5-15); ASPARTATE AMINO TRANSFERASE 81 U/L (5-40); CALCIUM 6.3 mg/dL (8.6-10.2); CARBON DIOXIDE 17 mEQ/L (20-30); CHLORIDE 95 mEQ/L (98-107); CREATININE 5.6 mg/dL (0.7-1.2); FERRITIN 1329 ng/mL (10-230); HEMOLYSIS 8; POTASSIUM 4.5 mEQ/L (3.4-4.9); SODIUM 138 mEQ/L (135-145)
[2016-09-12 06:41] LABS: CRP QUANT 5.6 mg/dL (< 0.5); URIC ACID 12.3 mg/dL (3.0-7.5)
[2016-09-12 06:47] LABS: MAGNESIUM 0.8 mg/dL (1.7-2.5); REFLEX LACTIC ACID YES OR NO YES
[2016-09-12 07:26] LABS: HEMOLYSIS 18; IRON 109 ug/dL (59-158); TOTAL IRON BINDING CAPACITY 187 ug/dL (250-400)
[2016-09-12 08:02] LABS: MEAN CORPUSCULAR HEMOGLOBIN 28.5 PG (27.0-31.0); MEAN CORPUSCULAR VOLUME 84 FL (80-99); MEAN PLATELET VOLUME 7.6 FL (6.5-10.1); PLATELET COUNT 88 K/UL (150-450); RED BLOOD COUNT 2.73 M/UL (4.70-6.10); RED CELL DISTRIBUTION WIDTH 14.5 % (11.6-14.8); WHITE BLOOD COUNT 5.2 K/UL (4.8-10.8)
[2016-09-12 09:26] LABS: ABG ALLEN TEST POSITIVE; ABG BASE EXCESS -6.7; ABG PCO2 28.3 mmHg (35.0-45.0)
[2016-09-12 09:36] LABS: ANISOCYTOSIS 1+; BAND NEUTROPHILS % (MANUAL) 11 % (0-8); BASOPHILS % (MANUAL) 0 % (0-2); BURR CELLS OCCASIONAL; EOSINOPHILS % (MANUAL) 0 % (0-3); HYPOCHROMASIA 1+; LYMPHOCYTES % (MANUAL) 16 % (20-45); NEUTROPHILS % (MANUAL) 64 % (45-75); PLATELET ESTIMATE DECREASED; PLATELET MORPHOLOGY NORMAL; TOTAL CELLS COUNTED 100
--- NOTE | 2016-09-12 10:23 | Diagnostic Imaging Report ---
Indication: Abdominal pain Technique: Grayscale and duplex images of the kidneys, retroperitoneum, and bladder were obtained. Comparison:There is made to CT chest abdomen pelvis 04/10/2013 Findings: Right kidney measures 9 point cm in length. Left kidney measures 10 point cm in length. Both kidneys demonstrate increased echogenicity. No hydronephrosis. Calcifications are seen in the kidneys bilaterally. Uncertain as to whether these are calyceal, parenchymal, or both. Normal inferior vena cava. Bladder is empty, contains a catheter. Trace ascites fluid is demonstrated Impression: Bilateral echogenic kidneys, likely chronic medical renal disease Hydronephrosis Bilateral renal calyceal and/or parenchymal calcifications, nonobstructive Trace ascites.
--- NOTE | 2016-09-12 10:33 | Diagnostic Imaging Report ---
Indications: Chest pain Technique: Portable AP chest Findings: Comparison: None Cardiac silhouette enlarged. Pulmonary vasculature within normal limits. Linear density right lung base. Small nodular density left lung base. Lungs and pleura otherwise clear. Aortic arch calcified. Left chest wall pacemaker. IMPRESSION: No evidence of acute cardiopulmonary disease Subsegmental atelectasis versus scarring right lung base Apparent small nodule left lung base, may represent summation artifact, granuloma, less likely neoplasm Cardiomegaly with pacemaker Aortosclerosis
[2016-09-12] MEDS: Zosyn 3.375gm q12h **Extended infusion IVPB SCH ×4 (11:00→23:26)
--- NOTE | 2016-09-12 11:22 | Diagnostic Imaging Report ---
Indication: SOB Technique: One view of the chest Comparison: 09/11/2016 Findings: Stable satisfactory positions of endotracheal tube, right jugular central venous catheter, left chest pacemaker. There are placement of a nasogastric tube, tip which projects at the level gastric body antrum junction. Left-sided pleural fluid persists, unchanged. Right lung and pleural space are clear. Impression: Satisfactory nasogastric intubation Otherwise stable findings as described
--- NOTE | 2016-09-12 11:28 | Pulmonolgy Critical Care Note ---
Critical Care - Asmt/Plan Problems: (1) Respiratory failure requiring intubation (2) Septic shock (3) ARF (acute renal failure) (4) Encephalopathy acute (5) DM (diabetes mellitus) Respiratory: monitor respiratory rate, adjust FIO2, CXR, ABG Cardiac: continue to monitor HR/BP Renal: F/U I&O, keep IV fluid, check electrolytes Infectious Disease: check cultures, continue antibiotics Gastrointestinal: start feedings Endocrine: monitor blood sugar, start insulin drip, continue sliding scale insulin Hematologic: monitor H/H, transfuse if hgb<8.5 Neurologic: PRN Ativan Affect: PRN ativan Prophylaxis: Protonix Disposition: keep in ICU Time Spent (Minutes): 40 Notes 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, 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 Discussed with: nurses, consultants, 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 - Objective Last 24 Hour Vital Signs Date Time Temp Pulse Resp B/P Pulse Ox O2 Delivery O2 Flow Rate FiO2 09/12/16 11:03 98 17 45 09/12/16 10:00 76 18 114/59 100 Mechanical Ventilator 45 09/12/16 09:21 91 17 45 09/12/16 09:00 88 18 101/50 100 Mechanical Ventilator 45 09/12/16 08:00 98.5 93 18 114/60 100 Mechanical Ventilator 45 09/12/16 08:00 91 09/12/16 08:00 45 09/12/16 07:30 93 18 113/54 100 Mechanical Ventilator 45 09/12/16 07:23 124/50 09/12/16 07:00 92 20 45 09/12/16 07:00 92 18 124/50 100 Mechanical Ventilator 50 09/12/16 06:30 91 18 99/47 100 Mechanical Ventilator 50 09/12/16 06:00 91 19 112/56 100 Mechanical Ventilator 50 09/12/16 06:00 112/65 09/12/16 05:30 90 19 117/68 100 Mechanical Ventilator 50 09/12/16 05:02 70 19 45 09/12/16 05:00 113/61 09/12/16 05:00 88 20 113/61 100 Mechanical Ventilator 50 09/12/16 04:30 65 16 115/71 100 Mechanical Ventilator 50 09/12/16 04:00 45 09/12/16 04:00 66 09/12/16 04:00 119/50 09/12/16 04:00 98.0 66 18 119/50 100 Mechanical Ventilator 50 09/12/16 03:30 60 18 45 09/12/16 03:30 75 18 135/54 100 Mechanical Ventilator 50 09/12/16 03:00 80 16 129/63 100 Mechanical Ventilator 50 09/12/16 03:00 129/63 09/12/16 02:30 70 15 122/65 100 Mechanical Ventilator 50 09/12/16 02:00 67 17 115/53 100 Mechanical Ventilator 50 09/12/16 02:00 115/53 09/12/16 01:30 66 16 104/46 99 Mechanical Ventilator 50 09/12/16 01:30 66 17 45 09/12/16 01:00 66 17 124/70 99 Mechanical Ventilator 50 09/12/16 01:00 124/70 09/12/16 00:30 70 16 122/49 99 Mechanical Ventilator 50 09/12/16 00:00 98.5 68 16 132/55 100 Mechanical Ventilator 50 09/12/16 00:00 71 09/11/16 23:30 56 17 45 09/11/16 23:30 70 16 132/54 100 Mechanical Ventilator 50 09/11/16 23:00 68 18 120/59 100 Mechanical Ventilator 50 09/11/16 23:00 129/57 09/11/16 22:30 70 16 99/47 99 Mechanical Ventilator 50 09/11/16 22:00 108/64 09/11/16 22:00 69 16 108/64 100 Mechanical Ventilator 50 09/11/16 22:00 45 09/11/16 21:59 66 20 45 09/11/16 21:30 67 17 116/60 99 Mechanical Ventilator 50 09/11/16 21:00 108/38 09/11/16 21:00 70 19 108/38 100 Mechanical Ventilator 50 09/11/16 20:30 68 19 132/48 100 Mechanical Ventilator 50 09/11/16 20:00 97.5 77 18 119/40 100 Mechanical Ventilator 50 09/11/16 20:00 71 09/11/16 20:00 119/40 09/11/16 20:00 45 09/11/16 19:30 77 19 117/49 92 Mechanical Ventilator 50 09/11/16 19:30 70 18 45 09/11/16 19:00 117/49 09/11/16 19:00 79 24 124/79 99 Mechanical Ventilator 50 09/11/16 18:30 76 24 115/45 99 Mechanical Ventilator 50 09/11/16 18:00 117/42 09/11/16 18:00 84 24 117/42 99 Mechanical Ventilator 50 09/11/16 17:30 84 24 110/55 99 Mechanical Ventilator 50 09/11/16 17:00 77 24 117/75 99 Mechanical Ventilator 50 09/11/16 17:00 117/75 09/11/16 16:58 77 21 45 09/11/16 16:30 75 24 110/62 99 Mechanical Ventilator 50 09/11/16 16:00 45 09/11/16 16:00 97.3 74 24 94/40 99 Mechanical Ventilator 50 09/11/16 16:00 45 09/11/16 16:00 94/40 09/11/16 16:00 81 09/11/16 15:30 83 24 107/71 99 Mechanical Ventilator 50 09/11/16 15:18 71 25 45 09/11/16 15:00 111/96 09/11/16 15:00 84 24 111/96 99 Mechanical Ventilator 50 09/11/16 14:30 84 24 105/46 99 Mechanical Ventilator 50 09/11/16 14:22 128/30 09/11/16 14:00 85 23 130/75 99 Mechanical Ventilator 50 09/11/16 14:00 130/75 09/11/16 13:30 97.6 88 23 111/49 98 Mechanical Ventilator 50 09/11/16 13:04 90 27 45 09/11/16 13:00 115/42 09/11/16 13:00 87 24 115/42 98 Mechanical Ventilator 50 09/11/16 12:30 84 24 130/43 98 Mechanical Ventilator 50 09/11/16 12:00 98.4 87 23 113/43 99 Mechanical Ventilator 50 09/11/16 12:00 84 09/11/16 12:00 45 09/11/16 12:00 113/43 09/11/16 12:00 45 09/11/16 12:00 84 24 133/47 99 Mechanical Ventilator 50 09/11/16 11:30 83 23 130/44 99 Mechanical Ventilator 50 Status: sedated Condition: critical HEENT: atraumatic Neck: full ROM Lungs: chest wall tender Heart: HR/BP stable, HR/BP unstable Abdomen: feeding tube Extremities: no C/C/E, edema Decubiti: location Micro: Microbiology Date/Time Source Procedure Growth Status 09/10/16 23:00 Blood Blood Culture - Preliminary NO GROWTH AFTER 24 HOURS Resulted 09/10/16 22:55 Blood Blood Culture - Preliminary NO GROWTH AFTER 24 HOURS Resulted 09/11/16 17:45 Indwelling Cath Urine Culture - Preliminary Resulted 09/10/16 23:10 Urine,Clean Catch Urine Culture - Preliminary Resulted Accucheck: 219 Critical Care - Subjective ROS Limited/Unobtainable: Yes ICU Day: 2 Intubation Day: 2 Condition: critical EKG Rhythm: Sinus Rhythm FI02: 45 Vent Support Breath Rate: 15 Vent Support Mode: AC Vent Tidal Volume: 500 Sputum Amount: Small PEEP: 5.0 PIP: 15 Fluids: bicarb drip at 150 Drips: off levophed I&O: Intake and Output 09/11/16 09/12/16 19:00 07:00 Intake Total 759.67 ml 1192.30 ml Output Total 90 ml 120 ml Balance 669.67 ml 1072.30 ml Intake IV Total 759.67 ml 1192.30 ml Output Urine Total 90 ml 120 ml # Bowel Movements 4 CXR: no acute infiltrate ET-Tube: 7.0 ET Position: 24 Labs: Laboratory Tests Test 09/11/16 16:15 09/11/16 21:50 09/12/16 05:20 09/12/16 07:15 Sodium Level 137 mEQ/L (135-145) 138 mEQ/L (135-145) Potassium Level 5.7 mEQ/L (3.4-4.9) H 4.5 mEQ/L (3.4-4.9) Chloride Level 95 mEQ/L (98-107) L 95 mEQ/L (98-107) L Carbon Dioxide Level 10 mEQ/L (20-30) L 17 mEQ/L (20-30) L Anion Gap 32 (5-15) H 26 (5-15) H Blood Urea Nitrogen 121 mg/dL (7-23) H 120 mg/dL (7-23) H Creatinine 5.2 mg/dL (0.7-1.2) H 5.6 mg/dL (0.7-1.2) H Estimat Glomerular Filtration Rate mL/min (>60) mL/min (>60) Glucose Level 413 mg/dL (74-106) H 309 mg/dL (74-106) #H Lactic Acid Level 5.50 mmol/L (0.66-2.22) H 4.40 mmol/L (0.66-2.22) H 3.90 mmol/L (0.66-2.22) H Calcium Level 6.4 mg/dL (8.6-10.2) L 6.3 mg/dL (8.6-10.2) L Uric Acid 12.3 mg/dL (3.0-7.5) H Phosphorus Level 5.0 mg/dL (2.5-4.8) H Magnesium Level 0.8 mg/dL (1.7-2.5) *L Iron Level 109 ug/dL (59-158) Total Iron Binding Capacity 187 ug/dL (250-400) L Percent Iron Saturation 58 % (15-50) H Unsaturated Iron Binding 78 ug/dL (112-346) L Ferritin 1329 ng/mL (10-230) H Total Bilirubin < 0.2 mg/dL (0.0-1.2) Gamma Glutamyl Transpeptidase 29 U/L (8-61) Aspartate Amino Transf (AST/SGOT) 81 U/L (5-40) H Alanine Aminotransferase (ALT/SGPT) 80 U/L (3-41) H Alkaline Phosphatase 73 U/L (40-129) Total Creatine Kinase 697 U/L (38-174) H Troponin I < 0.30 ng/mL (<=0.30) C-Reactive Protein, Quantitative 5.6 mg/dL (< 0.5) H Pro-B-Type Natriuretic Peptide 50879 pg/mL (0-450) H Total Protein 5.0 g/dL (6.6-8.7) L Albumin 2.7 g/dL (3.5-5.2) L Globulin 2.3 g/dL Albumin/Globulin Ratio 1.1 (1.0-2.7) Vitamin B12 Level 1599 pg/mL (211-946) H Folate Pending White Blood Count 5.2 K/UL (4.8-10.8) Red Blood Count 2.73 M/UL (4.70-6.10) L Hemoglobin 7.8 G/DL (14.2-18.0) L Hematocrit 22.9 % (42.0-52.0) L Mean Corpuscular Volume 84 FL (80-99) # Mean Corpuscular Hemoglobin 28.5 PG (27.0-31.0) Mean Corpuscular Hemoglobin Concent 34.0 G/DL (32.0-36.0) Red Cell Distribution Width 14.5 % (11.6-14.8) Platelet Count 88 K/UL (150-450) L Mean Platelet Volume 7.6 FL (6.5-10.1) Neutrophils (%) (Auto) % (45.0-75.0) Lymphocytes (%) (Auto) % (20.0-45.0) Monocytes (%) (Auto) % (1.0-10.0) Eosinophils (%) (Auto) % (0.0-3.0) Basophils (%) (Auto) % (0.0-2.0) Differential Total Cells Counted 100 Neutrophils % (Manual) 64 % (45-75) Lymphocytes % (Manual) 16 % (20-45) L Monocytes % (Manual) 9 % (1-10) Eosinophils % (Manual) 0 % (0-3) Basophils % (Manual) 0 % (0-2) Band Neutrophils 11 % (0-8) H Platelet Estimate Decreased L Platelet Morphology Normal Hypochromasia 1+ Anisocytosis 1+ Dumas Cells Occasional Test 09/12/16 08:40 Arterial Blood pH 7.406 (7.350-7.450) Arterial Blood Partial Pressure CO2 28.3 mmHg (35.0-45.0) L Arterial Blood Partial Pressure O2 155.3 mmHg (75.0-100.0) H Arterial Blood HCO3 17.4 mmol/L (22.0-26.0) L Arterial Blood Oxygen Saturation 98.3 % (92.0-98.0) H Arterial Blood Base Excess -6.7 Anjum Test Positive LANDEN HERNANDEZ September 12, 2016 11:28
[2016-09-12] MEDS ORDERED: LORazepam Inj 2mg/ml 1ml IV PRN (11:30)
[2016-09-12] MEDS ORDERED: Morphine Sulfate 4mg/ml Inj IVP PRN (11:30)
--- NOTE | 2016-09-12 11:36 | Internal Med Progress Note ---
Subjective Date of Service: September 12, 2016 Physician Name King Haynes Attending Physician Jonathan Sampson MD Current Medications Medications (Trade) Dose Ordered Sig/Barrett Route PRN Reason Start Time Stop Time Status Last Admin Dose Admin Albuterol/ Ipratropium 3 ml 3 ml Q4HRT PRN HHN sob 09/11/16 09:30 09/16/16 09:29 Dextrose (Dextrose 50%) STAT PRN IV Hypoglycemia 09/11/16 05:30 10/11/16 05:29 Insulin Aspart (NovoLOG) BEFORE MEALS AND HS SUBQ 09/12/16 11:30 10/12/16 11:29 UNV Lorazepam (Ativan 2mg/ml 1ml) 2 mg Q4H PRN IV For Anxiety 09/12/16 11:30 09/19/16 11:29 UNV Magnesium Sulfate 100 ml @ 100 mls/hr Q1H IVPB 09/12/16 11:00 09/12/16 12:59 Morphine Sulfate (Morphine Sulfate) 4 mg Q4H PRN IVP For Pain 09/12/16 11:30 09/19/16 11:29 UNV Norepinephrine Bitartrate 16 mg/ Dextrose 516 ml @ 0 mls/hr Q24H IV 09/11/16 14:00 10/11/16 13:59 09/11/16 14:22 Pantoprazole (Protonix) 40 mg DAILY IV 09/13/16 09:00 10/13/16 08:59 UNV Piperacillin Sod/ Tazobactam Sod 3.375 gm/Dextrose 110 ml @ 27.5 mls/hr Q12H IVPB 09/11/16 23:00 09/18/16 22:59 09/11/16 23:31 Sodium Bicarbonate/ Dextrose (Sodium Bicarbonate/D5W 1000ml) 1,150 ml @ 50 mls/hr Q23H IV 09/13/16 11:00 10/13/16 10:59 UNV Allergies: Coded Allergies: SULFA (SULFONAMIDE ANTIBIOTICS) (Verified Allergy, Unknown, 09/10/16) Uncoded Allergies: SULFA (Adverse Reaction, Mild, RASH, 04/01/13) ROS Limited/Unobtainable: Yes Constitutional: Reports: no symptoms HEENT: Reports: no symptoms Cardiovascular: Reports: no symptoms Respiratory: Reports: no symptoms Gastrointestinal/Abdominal: Reports: no symptoms Genitourinary: Reports: no symptoms Neurologic/Psychiatric: Reports: no symptoms Subjective 76 YO M admitted with hypotension and sepsis. ICU. Intubated and sedated. Cover for Int Bart-Dr Sampson. Objective Last Vital Signs Date Time Temp Pulse Resp B/P Pulse Ox O2 Delivery O2 Flow Rate FiO2 09/12/16 11:03 98 17 45 09/12/16 10:00 114/59 100 Mechanical Ventilator 09/12/16 08:00 98.5 General Appearance: WD/WN, moderate distress EENT: normal ENT inspection Neck: non-tender, normal alignment, supple Cardiovascular: normal peripheral pulses, normal rate, regular rhythm, no gallop/murmur, no JVD Respiratory/Chest: respiratory distress, crackles/rales, rhonchi - bilaterally , expiratory wheezing Abdomen: normal bowel sounds, non tender, soft, no organomegaly, no mass Skin: normal pigmentation, warm/dry Laboratory Tests Test 09/11/16 16:15 09/11/16 21:50 09/12/16 05:20 09/12/16 07:15 Sodium Level 137 mEQ/L (135-145) 138 mEQ/L (135-145) Potassium Level 5.7 mEQ/L (3.4-4.9) H 4.5 mEQ/L (3.4-4.9) Chloride Level 95 mEQ/L (98-107) L 95 mEQ/L (98-107) L Carbon Dioxide Level 10 mEQ/L (20-30) L 17 mEQ/L (20-30) L Anion Gap 32 (5-15) H 26 (5-15) H Blood Urea Nitrogen 121 mg/dL (7-23) H 120 mg/dL (7-23) H Creatinine 5.2 mg/dL (0.7-1.2) H 5.6 mg/dL (0.7-1.2) H Estimat Glomerular Filtration Rate mL/min (>60) mL/min (>60) Glucose Level 413 mg/dL (74-106) H 309 mg/dL (74-106) #H Lactic Acid Level 5.50 mmol/L (0.66-2.22) H 4.40 mmol/L (0.66-2.22) H 3.90 mmol/L (0.66-2.22) H Calcium Level 6.4 mg/dL (8.6-10.2) L 6.3 mg/dL (8.6-10.2) L Uric Acid 12.3 mg/dL (3.0-7.5) H Phosphorus Level 5.0 mg/dL (2.5-4.8) H Magnesium Level 0.8 mg/dL (1.7-2.5) *L Iron Level 109 ug/dL (59-158) Total Iron Binding Capacity 187 ug/dL (250-400) L Percent Iron Saturation 58 % (15-50) H Unsaturated Iron Binding 78 ug/dL (112-346) L Ferritin 1329 ng/mL (10-230) H Total Bilirubin < 0.2 mg/dL (0.0-1.2) Gamma Glutamyl Transpeptidase 29 U/L (8-61) Aspartate Amino Transf (AST/SGOT) 81 U/L (5-40) H Alanine Aminotransferase (ALT/SGPT) 80 U/L (3-41) H Alkaline Phosphatase 73 U/L (40-129) Total Creatine Kinase 697 U/L (38-174) H Troponin I < 0.30 ng/mL (<=0.30) C-Reactive Protein, Quantitative 5.6 mg/dL (< 0.5) H Pro-B-Type Natriuretic Peptide 27637 pg/mL (0-450) H Total Protein 5.0 g/dL (6.6-8.7) L Albumin 2.7 g/dL (3.5-5.2) L Globulin 2.3 g/dL Albumin/Globulin Ratio 1.1 (1.0-2.7) Vitamin B12 Level 1599 pg/mL (211-946) H Folate Pending White Blood Count 5.2 K/UL (4.8-10.8) Red Blood Count 2.73 M/UL (4.70-6.10) L Hemoglobin 7.8 G/DL (14.2-18.0) L Hematocrit 22.9 % (42.0-52.0) L Mean Corpuscular Volume 84 FL (80-99) # Mean Corpuscular Hemoglobin 28.5 PG (27.0-31.0) Mean Corpuscular Hemoglobin Concent 34.0 G/DL (32.0-36.0) Red Cell Distribution Width 14.5 % (11.6-14.8) Platelet Count 88 K/UL (150-450) L Mean Platelet Volume 7.6 FL (6.5-10.1) Neutrophils (%) (Auto) % (45.0-75.0) Lymphocytes (%) (Auto) % (20.0-45.0) Monocytes (%) (Auto) % (1.0-10.0) Eosinophils (%) (Auto) % (0.0-3.0) Basophils (%) (Auto) % (0.0-2.0) Differential Total Cells Counted 100 Neutrophils % (Manual) 64 % (45-75) Lymphocytes % (Manual) 16 % (20-45) L Monocytes % (Manual) 9 % (1-10) Eosinophils % (Manual) 0 % (0-3) Basophils % (Manual) 0 % (0-2) Band Neutrophils 11 % (0-8) H Platelet Estimate Decreased L Platelet Morphology Normal Hypochromasia 1+ Anisocytosis 1+ Sharyn Cells Occasional Test 09/12/16 08:40 Arterial Blood pH 7.406 (7.350-7.450) Arterial Blood Partial Pressure CO2 28.3 mmHg (35.0-45.0) L Arterial Blood Partial Pressure O2 155.3 mmHg (75.0-100.0) H Arterial Blood HCO3 17.4 mmol/L (22.0-26.0) L Arterial Blood Oxygen Saturation 98.3 % (92.0-98.0) H Arterial Blood Base Excess -6.7 Anjum Test Positive Microbiology Date/Time Source Procedure Growth Status 09/10/16 23:00 Blood Blood Culture - Preliminary NO GROWTH AFTER 24 HOURS Resulted 09/10/16 22:55 Blood Blood Culture - Preliminary NO GROWTH AFTER 24 HOURS Resulted 09/11/16 17:45 Indwelling Cath Urine Culture - Preliminary Resulted 09/10/16 23:10 Urine,Clean Catch Urine Culture - Preliminary Resulted Intake and Output 09/11/16 09/12/16 19:00 07:00 Intake Total 759.67 ml 1192.30 ml Output Total 90 ml 120 ml Balance 669.67 ml 1072.30 ml Intake IV Total 759.67 ml 1192.30 ml Output Urine Total 90 ml 120 ml # Bowel Movements 4 Assessment/Plan Problem List: (1) Severe sepsis Assessment & Plan: Cont zosyn per ID. Await cultures. (2) Respiratory failure Assessment & Plan: Cont vent per pulmonary (3) Renal failure (4) Diabetes mellitus type II, uncontrolled Assessment & Plan: Cont novolog sliding scale. (5) BPH (benign prostatic hyperplasia) Status: not improved KING HAYNES September 12, 2016 11:36
--- NOTE | 2016-09-12 11:55 | Diagnostic Imaging Report ---
APPROVED REPORT CPT Code: 23596 Present Symptoms Lower Extremity Pain: BILATERAL: Imaging reveals a patent deep venous system bilaterally. There is no evidence of thrombus within the femoral, popliteal or tibial segments. The greater saphenous veins are also within normal limits. Doppler indicates normal spontaneous flow within these segments.
[2016-09-12 12:01] LABS: REFLEX LACTIC ACID YES OR NO YES
[2016-09-12] MEDS: NovoLOG Insulin Flexpen SUBQ SCH ×3 (12:37→21:00)
--- NOTE | 2016-09-12 13:28 | Infectious Diseases Prog Note ---
Assessment/Plan Assessment/Plan A: The patient is a 76-year-old male Sepsis improving Septic shock , off of pressors Pneumonia Chest x-ray : atelectasis and pneumonia in the left lung base UTI , probable LAC improving DM HTN SP pacemaker placement Alzheimer dementia [place] : may need HD soon P: Cont pt on Zosyn d# 2 Monitor culture Monitor CBC Monitor BMP Monitor LFT Nephro is following n Subjective Allergies: Coded Allergies: SULFA (SULFONAMIDE ANTIBIOTICS) (Verified Allergy, Unknown, 09/10/16) Uncoded Allergies: SULFA (Adverse Reaction, Mild, RASH, 04/01/13) Subjective afebrile Objective Vital Signs Last 24 Hour Vital Signs Date Time Temp Pulse Resp B/P Pulse Ox O2 Delivery O2 Flow Rate FiO2 09/12/16 12:55 93 19 45 09/12/16 12:00 45 09/12/16 11:03 98 17 45 09/12/16 10:00 76 18 114/59 100 Mechanical Ventilator 45 09/12/16 09:21 91 17 45 09/12/16 09:00 88 18 101/50 100 Mechanical Ventilator 45 09/12/16 08:00 98.5 93 18 114/60 100 Mechanical Ventilator 45 09/12/16 08:00 91 09/12/16 08:00 45 09/12/16 07:30 93 18 113/54 100 Mechanical Ventilator 45 09/12/16 07:23 124/50 09/12/16 07:00 92 20 45 09/12/16 07:00 92 18 124/50 100 Mechanical Ventilator 50 09/12/16 06:30 91 18 99/47 100 Mechanical Ventilator 50 09/12/16 06:00 91 19 112/56 100 Mechanical Ventilator 50 09/12/16 06:00 112/65 09/12/16 05:30 90 19 117/68 100 Mechanical Ventilator 50 09/12/16 05:02 70 19 45 09/12/16 05:00 113/61 09/12/16 05:00 88 20 113/61 100 Mechanical Ventilator 50 09/12/16 04:30 65 16 115/71 100 Mechanical Ventilator 50 09/12/16 04:00 45 09/12/16 04:00 66 09/12/16 04:00 119/50 09/12/16 04:00 98.0 66 18 119/50 100 Mechanical Ventilator 50 09/12/16 03:30 60 18 45 09/12/16 03:30 75 18 135/54 100 Mechanical Ventilator 50 09/12/16 03:00 80 16 129/63 100 Mechanical Ventilator 50 09/12/16 03:00 129/63 09/12/16 02:30 70 15 122/65 100 Mechanical Ventilator 50 09/12/16 02:00 67 17 115/53 100 Mechanical Ventilator 50 09/12/16 02:00 115/53 09/12/16 01:30 66 16 104/46 99 Mechanical Ventilator 50 09/12/16 01:30 66 17 45 09/12/16 01:00 66 17 124/70 99 Mechanical Ventilator 50 09/12/16 01:00 124/70 09/12/16 00:30 70 16 122/49 99 Mechanical Ventilator 50 09/12/16 00:00 98.5 68 16 132/55 100 Mechanical Ventilator 50 09/12/16 00:00 71 09/11/16 23:30 56 17 45 09/11/16 23:30 70 16 132/54 100 Mechanical Ventilator 50 09/11/16 23:00 68 18 120/59 100 Mechanical Ventilator 50 09/11/16 23:00 129/57 09/11/16 22:30 70 16 99/47 99 Mechanical Ventilator 50 09/11/16 22:00 108/64 09/11/16 22:00 69 16 108/64 100 Mechanical Ventilator 50 09/11/16 22:00 45 09/11/16 21:59 66 20 45 09/11/16 21:30 67 17 116/60 99 Mechanical Ventilator 50 09/11/16 21:00 108/38 09/11/16 21:00 70 19 108/38 100 Mechanical Ventilator 50 09/11/16 20:30 68 19 132/48 100 Mechanical Ventilator 50 09/11/16 20:00 97.5 77 18 119/40 100 Mechanical Ventilator 50 09/11/16 20:00 71 09/11/16 20:00 119/40 09/11/16 20:00 45 09/11/16 19:30 77 19 117/49 92 Mechanical Ventilator 50 09/11/16 19:30 70 18 45 09/11/16 19:00 117/49 09/11/16 19:00 79 24 124/79 99 Mechanical Ventilator 50 09/11/16 18:30 76 24 115/45 99 Mechanical Ventilator 50 09/11/16 18:00 117/42 09/11/16 18:00 84 24 117/42 99 Mechanical Ventilator 50 09/11/16 17:30 84 24 110/55 99 Mechanical Ventilator 50 09/11/16 17:00 77 24 117/75 99 Mechanical Ventilator 50 09/11/16 17:00 117/75 09/11/16 16:58 77 21 45 09/11/16 16:30 75 24 110/62 99 Mechanical Ventilator 50 09/11/16 16:00 45 09/11/16 16:00 97.3 74 24 94/40 99 Mechanical Ventilator 50 09/11/16 16:00 45 09/11/16 16:00 94/40 09/11/16 16:00 81 09/11/16 15:30 83 24 107/71 99 Mechanical Ventilator 50 09/11/16 15:18 71 25 45 09/11/16 15:00 111/96 09/11/16 15:00 84 24 111/96 99 Mechanical Ventilator 50 09/11/16 14:30 84 24 105/46 99 Mechanical Ventilator 50 09/11/16 14:22 128/30 09/11/16 14:00 85 23 130/75 99 Mechanical Ventilator 50 09/11/16 14:00 130/75 09/11/16 13:30 97.6 88 23 111/49 98 Mechanical Ventilator 50 Height (Feet): 5 Height (Inches): 6.00 Weight (Pounds): 160 HEENT: atraumatic Respiratory/Chest: lungs clear Cardiovascular: regularly irregular Abdomen: no organomegaly Microbiology Date/Time Source Procedure Growth Status 09/10/16 23:00 Blood Blood Culture - Preliminary NO GROWTH AFTER 24 HOURS Resulted 09/10/16 22:55 Blood Blood Culture - Preliminary NO GROWTH AFTER 24 HOURS Resulted 09/11/16 17:45 Indwelling Cath Urine Culture - Preliminary Resulted 09/10/16 23:10 Urine,Clean Catch Urine Culture - Preliminary Resulted Laboratory Tests Test 09/11/16 16:15 09/11/16 21:50 09/12/16 05:20 09/12/16 07:15 Sodium Level 137 mEQ/L (135-145) 138 mEQ/L (135-145) Potassium Level 5.7 mEQ/L (3.4-4.9) H 4.5 mEQ/L (3.4-4.9) Chloride Level 95 mEQ/L (98-107) L 95 mEQ/L (98-107) L Carbon Dioxide Level 10 mEQ/L (20-30) L 17 mEQ/L (20-30) L Anion Gap 32 (5-15) H 26 (5-15) H Blood Urea Nitrogen 121 mg/dL (7-23) H 120 mg/dL (7-23) H Creatinine 5.2 mg/dL (0.7-1.2) H 5.6 mg/dL (0.7-1.2) H Estimat Glomerular Filtration Rate mL/min (>60) mL/min (>60) Glucose Level 413 mg/dL (74-106) H 309 mg/dL (74-106) #H Lactic Acid Level 5.50 mmol/L (0.66-2.22) H 4.40 mmol/L (0.66-2.22) H 3.90 mmol/L (0.66-2.22) H Calcium Level 6.4 mg/dL (8.6-10.2) L 6.3 mg/dL (8.6-10.2) L Uric Acid 12.3 mg/dL (3.0-7.5) H Phosphorus Level 5.0 mg/dL (2.5-4.8) H Magnesium Level 0.8 mg/dL (1.7-2.5) *L Iron Level 109 ug/dL (59-158) Total Iron Binding Capacity 187 ug/dL (250-400) L Percent Iron Saturation 58 % (15-50) H Unsaturated Iron Binding 78 ug/dL (112-346) L Ferritin 1329 ng/mL (10-230) H Total Bilirubin < 0.2 mg/dL (0.0-1.2) Gamma Glutamyl Transpeptidase 29 U/L (8-61) Aspartate Amino Transf (AST/SGOT) 81 U/L (5-40) H Alanine Aminotransferase (ALT/SGPT) 80 U/L (3-41) H Alkaline Phosphatase 73 U/L (40-129) Total Creatine Kinase 697 U/L (38-174) H Troponin I < 0.30 ng/mL (<=0.30) C-Reactive Protein, Quantitative 5.6 mg/dL (< 0.5) H Pro-B-Type Natriuretic Peptide 70144 pg/mL (0-450) H Total Protein 5.0 g/dL (6.6-8.7) L Albumin 2.7 g/dL (3.5-5.2) L Globulin 2.3 g/dL Albumin/Globulin Ratio 1.1 (1.0-2.7) Vitamin B12 Level 1599 pg/mL (211-946) H Folate Pending White Blood Count 5.2 K/UL (4.8-10.8) Red Blood Count 2.73 M/UL (4.70-6.10) L Hemoglobin 7.8 G/DL (14.2-18.0) L Hematocrit 22.9 % (42.0-52.0) L Mean Corpuscular Volume 84 FL (80-99) # Mean Corpuscular Hemoglobin 28.5 PG (27.0-31.0) Mean Corpuscular Hemoglobin Concent 34.0 G/DL (32.0-36.0) Red Cell Distribution Width 14.5 % (11.6-14.8) Platelet Count 88 K/UL (150-450) L Mean Platelet Volume 7.6 FL (6.5-10.1) Neutrophils (%) (Auto) % (45.0-75.0) Lymphocytes (%) (Auto) % (20.0-45.0) Monocytes (%) (Auto) % (1.0-10.0) Eosinophils (%) (Auto) % (0.0-3.0) Basophils (%) (Auto) % (0.0-2.0) Differential Total Cells Counted 100 Neutrophils % (Manual) 64 % (45-75) Lymphocytes % (Manual) 16 % (20-45) L Monocytes % (Manual) 9 % (1-10) Eosinophils % (Manual) 0 % (0-3) Basophils % (Manual) 0 % (0-2) Band Neutrophils 11 % (0-8) H Platelet Estimate Decreased L Platelet Morphology Normal Hypochromasia 1+ Anisocytosis 1+ [place] Cells Occasional Test 09/12/16 08:40 09/12/16 11:25 Arterial Blood pH 7.406 (7.350-7.450) Arterial Blood Partial Pressure CO2 28.3 mmHg (35.0-45.0) L Arterial Blood Partial Pressure O2 155.3 mmHg (75.0-100.0) H Arterial Blood HCO3 17.4 mmol/L (22.0-26.0) L Arterial Blood Oxygen Saturation 98.3 % (92.0-98.0) H Arterial Blood Base Excess -6.7 [place] Test Positive Lactic Acid Level 3.50 mmol/L (0.66-2.22) H Current Medications Medications (Trade) Dose Ordered Sig/[place] Route PRN Reason Start Time Stop Time Status Last Admin Dose Admin Albuterol/ Ipratropium 3 ml 3 ml Q4HRT PRN HHN sob 09/11/16 09:30 09/16/16 09:29 Dextrose (Dextrose 50%) STAT PRN IV Hypoglycemia 09/11/16 05:30 10/11/16 05:29 Insulin Aspart (NovoLOG) BEFORE MEALS AND HS SUBQ 09/12/16 12:30 10/12/16 12:29 09/12/16 12:37 Lorazepam (Ativan 2mg/ml 1ml) 2 mg Q4H PRN IV For Anxiety 09/12/16 11:30 09/19/16 11:29 Morphine Sulfate (Morphine Sulfate) 4 mg Q4H PRN IVP PAIN 4-10 09/12/16 11:30 09/19/16 11:29 Norepinephrine Bitartrate 16 mg/ Dextrose 516 ml @ 0 mls/hr Q24H IV 09/11/16 14:00 10/11/16 13:59 09/11/16 14:22 Pantoprazole (Protonix) 40 mg DAILY IV 09/13/16 09:00 10/13/16 08:59 Piperacillin Sod/ Tazobactam Sod 3.375 gm/Dextrose 110 ml @ 27.5 mls/hr Q12H IVPB 09/11/16 23:00 09/18/16 22:59 09/12/16 11:00 Sodium Bicarbonate/ Dextrose (Sodium Bicarbonate/D5W 1000ml) 1,150 ml @ 50 mls/hr Q23H IV 09/12/16 12:30 10/12/16 12:29 09/12/16 12:27 CRISTEL DUFF M.D. September 12, 2016 13:28
--- NOTE | 2016-09-12 13:51 | Diagnostic Imaging Report ---
Indication: Post nasogastric tube placement Technique: Supine view of the abdomen Comparison: none Findings: There is a nasogastric tube in place, tip of which projects at the level gastric body fundus junction, proximal port below the gastroesophageal junction. There is a paucity of bowel gas. Pacemaker wires and a central venous catheter are seen in the lower chest Impression: Satisfactory nasogastric intubation This agrees with the preliminary interpretation provided overnight by Dr. [place]
--- NOTE | 2016-09-12 15:07 | Wound Care Consultation ---
Wound Assessment Wound Assessment #1: Wound Present on Admission: Yes New Wound: No Status Change of Wound: No Wound Location Body Site Modif: mid Wound Location Body Site: sacral Wound Type: pressure ulcer Mane Test: Does not Mane Pressure Ulcer Stage: deep tissue injury Wound Drainage Odor: None/Absent Tissue Surrounding Wound: Erythemic Wound General Appearance: Reddened Wound Assessment #2: Wound Number: #2 Wound Present on Admission: Yes New Wound: No Status Change of Wound: No Wound Location Body Site Modif: left, medial, dorsal Wound Location Body Site: foot Wound Type: scab Mane Test: Does not Mane Wound Thickness: Full Thickness Wound Length: 1.0 Wound Width: 2.0 Wound Depth: utd Percent of Wound Bed Yellow/Wh: 100 Wound Drainage Odor: None/Absent Tissue Surrounding Wound: Intact Wound General Appearance: Asymptomatic Wound Assessment #3: Wound Number: #3 Wound Present on Admission: Yes New Wound: No Status Change of Wound: No Wound Location Body Site Modif: left, lower Wound Location Body Site: leg Wound Type: scab - scattered scabs open small wounds Mane Test: Does not Mane Percent of Wound [place]/Red: 100 Wound Drainage Description: Serosanguineous Wound Drainage Odor: None/Absent Tissue Surrounding Wound: Intact Wound General Appearance: Reddened Wound Assessment #4: Wound Number: #4 Wound Present on Admission: Yes New Wound: No Status Change of Wound: No Wound Location Body Site Modif: left, upper Wound Location Body Site: back Wound Type: pressure ulcer Mane Test: Does not Mane Pressure Ulcer Stage: deep tissue injury Wound Thickness: Full Thickness Wound Length: 2.0 Wound Width: 3.0 Wound Depth: utd Percent of Wound Purple/Maroon: 100 Wound Drainage Amount: None Wound Drainage Odor: None/Absent Tissue Surrounding Wound: Intact Wound General Appearance: Asymptomatic, Reddened Wound Comment #1 Sacral DTI pressure ulcer #2 Left medial dorsal foot with dry scab #3 Left lower leg with scattered open and dry scabs #4 Left upper back DTI pressure ulcer Recommendation -Local wound care for DTI per protocol -Low air loss mattress -Optimize nutrition -Keep clean and dry -Turn and reposition -Offload both heels -Heel protector on both heels -Assess and f/u accordingly for any changes CLARIBEL ELISE RN September 12, 2016 15:07
--- NOTE | 2016-09-12 16:17 | General Progress Note ---
Assessment/Plan Status: unchanged Status Narrative probably more stable from hemodynamic stand Assessment/Plan Septic Shock leading to acute renal and multiOrgan failure Due to the above: Sever Acidosis , high Lactate , High K Sugg: Aggresive fluid challenge Hemodynamic support Bicarb Antibiotics POOR Prognosis trial of HD after dialysis cath inserted Subjective ROS Limited/Unobtainable: Yes Allergies: Coded Allergies: SULFA (SULFONAMIDE ANTIBIOTICS) (Verified Allergy, Unknown, 09/10/16) Uncoded Allergies: SULFA (Adverse Reaction, Mild, RASH, 04/01/13) Objective Last 24 Hour Vital Signs Date Time Temp Pulse Resp B/P Pulse Ox O2 Delivery O2 Flow Rate FiO2 09/12/16 15:01 89 15 45 09/12/16 15:00 87 18 112/57 100 Mechanical Ventilator 45 09/12/16 14:00 90 18 123/63 100 Mechanical Ventilator 45 09/12/16 14:00 104/49 09/12/16 13:00 90 18 114/53 100 Mechanical Ventilator 45 09/12/16 12:55 93 19 45 09/12/16 12:00 98.6 91 18 101/44 100 Mechanical Ventilator 45 09/12/16 12:00 45 09/12/16 11:03 98 17 45 09/12/16 11:00 76 18 92/55 100 Mechanical Ventilator 45 09/12/16 10:00 76 18 114/59 100 Mechanical Ventilator 45 09/12/16 09:21 91 17 45 09/12/16 09:00 88 18 101/50 100 Mechanical Ventilator 45 09/12/16 08:00 98.5 93 18 114/60 100 Mechanical Ventilator 45 09/12/16 08:00 91 09/12/16 08:00 45 09/12/16 07:30 93 18 113/54 100 Mechanical Ventilator 45 09/12/16 07:23 124/50 09/12/16 07:00 92 20 45 09/12/16 07:00 92 18 124/50 100 Mechanical Ventilator 50 09/12/16 06:30 91 18 99/47 100 Mechanical Ventilator 50 09/12/16 06:00 91 19 112/56 100 Mechanical Ventilator 50 09/12/16 06:00 112/65 09/12/16 05:30 90 19 117/68 100 Mechanical Ventilator 50 09/12/16 05:02 70 19 45 09/12/16 05:00 113/61 09/12/16 05:00 88 20 113/61 100 Mechanical Ventilator 50 09/12/16 04:30 65 16 115/71 100 Mechanical Ventilator 50 09/12/16 04:00 45 09/12/16 04:00 66 09/12/16 04:00 119/50 09/12/16 04:00 98.0 66 18 119/50 100 Mechanical Ventilator 50 09/12/16 03:30 60 18 45 09/12/16 03:30 75 18 135/54 100 Mechanical Ventilator 50 09/12/16 03:00 80 16 129/63 100 Mechanical Ventilator 50 09/12/16 03:00 129/63 09/12/16 02:30 70 15 122/65 100 Mechanical Ventilator 50 09/12/16 02:00 67 17 115/53 100 Mechanical Ventilator 50 09/12/16 02:00 115/53 09/12/16 01:30 66 16 104/46 99 Mechanical Ventilator 50 09/12/16 01:30 66 17 45 09/12/16 01:00 66 17 124/70 99 Mechanical Ventilator 50 09/12/16 01:00 124/70 09/12/16 00:30 70 16 122/49 99 Mechanical Ventilator 50 09/12/16 00:00 98.5 68 16 132/55 100 Mechanical Ventilator 50 09/12/16 00:00 71 09/11/16 23:30 56 17 45 09/11/16 23:30 70 16 132/54 100 Mechanical Ventilator 50 09/11/16 23:00 68 18 120/59 100 Mechanical Ventilator 50 09/11/16 23:00 129/57 09/11/16 22:30 70 16 99/47 99 Mechanical Ventilator 50 09/11/16 22:00 108/64 09/11/16 22:00 69 16 108/64 100 Mechanical Ventilator 50 09/11/16 22:00 45 09/11/16 21:59 66 20 45 09/11/16 21:30 67 17 116/60 99 Mechanical Ventilator 50 09/11/16 21:00 108/38 09/11/16 21:00 70 19 108/38 100 Mechanical Ventilator 50 09/11/16 20:30 68 19 132/48 100 Mechanical Ventilator 50 09/11/16 20:00 97.5 77 18 119/40 100 Mechanical Ventilator 50 09/11/16 20:00 71 09/11/16 20:00 119/40 09/11/16 20:00 45 09/11/16 19:30 77 19 117/49 92 Mechanical Ventilator 50 09/11/16 19:30 70 18 45 09/11/16 19:00 117/49 09/11/16 19:00 79 24 124/79 99 Mechanical Ventilator 50 09/11/16 18:30 76 24 115/45 99 Mechanical Ventilator 50 09/11/16 18:00 117/42 09/11/16 18:00 84 24 117/42 99 Mechanical Ventilator 50 09/11/16 17:30 84 24 110/55 99 Mechanical Ventilator 50 09/11/16 17:00 77 24 117/75 99 Mechanical Ventilator 50 09/11/16 17:00 117/75 09/11/16 16:58 77 21 45 09/11/16 16:30 75 24 110/62 99 Mechanical Ventilator 50 Intake and Output 09/11/16 09/12/16 19:00 07:00 Intake Total 759.67 ml 1192.30 ml Output Total 90 ml 120 ml Balance 669.67 ml 1072.30 ml Intake IV Total 759.67 ml 1192.30 ml Output Urine Total 90 ml 120 ml # Bowel Movements 4 Laboratory Tests 09/11/16 16:15: Sodium Level 137, Potassium Level 5.7H, Chloride Level 95L, Carbon Dioxide Level 10L, Anion Gap 32H, Blood Urea Nitrogen 121H, Creatinine 5.2H, Estimat Glomerular Filtration Rate , Glucose Level 413H, Lactic Acid Level 5.50H, Calcium Level 6.4L 09/11/16 21:50: Lactic Acid Level 4.40H 09/12/16 05:20: Sodium Level 138, Potassium Level 4.5, Chloride Level 95L, Carbon Dioxide Level 17L, Anion Gap 26H, Blood Urea Nitrogen 120H, Creatinine 5.6H, Estimat Glomerular Filtration Rate , Glucose Level 309#H, Lactic Acid Level 3.90H, Calcium Level 6.3L, Uric Acid 12.3H, Phosphorus Level 5.0H, Magnesium Level 0.8* L, Iron Level 109, Total Iron Binding Capacity 187L, Percent Iron Saturation 58H , Unsaturated Iron Binding 78L, Ferritin 1329H, Total Bilirubin < 0.2, Gamma Glutamyl Transpeptidase 29, Aspartate Amino Transf (AST/SGOT) 81H, Alanine Aminotransferase (ALT/SGPT) 80H, Alkaline Phosphatase 73, Total Creatine Kinase 697H, Troponin I < 0.30, C-Reactive Protein, Quantitative 5.6H, Pro-B-Type Natriuretic Peptide 26358H, Total Protein 5.0L, Albumin 2.7L, Globulin 2.3, Albumin/Globulin Ratio 1.1, Vitamin B12 Level 1599H, Folate [Pending] 09/12/16 07:15: White Blood Count 5.2, Red Blood Count 2.73L, Hemoglobin 7.8L, Hematocrit 22.9L , Mean Corpuscular Volume 84#, Mean Corpuscular Hemoglobin 28.5, Mean Corpuscular Hemoglobin Concent 34.0, Red Cell Distribution Width 14.5, Platelet Count 88L, Mean Platelet Volume 7.6, Neutrophils (%) (Auto) , Lymphocytes (%) ( Auto) , Monocytes (%) (Auto) , Eosinophils (%) (Auto) , Basophils (%) (Auto) , Differential Total Cells Counted 100, Neutrophils % (Manual) 64, Lymphocytes % ( Manual) 16L, Monocytes % (Manual) 9, Eosinophils % (Manual) 0, Basophils % ( Manual) 0, Band Neutrophils 11H, Platelet Estimate DecreasedL, Platelet Morphology Normal, Hypochromasia 1+, Anisocytosis 1+, [place] Cells Occasional 09/12/16 08:40: Arterial Blood pH 7.406, Arterial Blood Partial Pressure CO2 28.3L, Arterial Blood Partial Pressure O2 155.3H, Arterial Blood HCO3 17.4L, Arterial Blood Oxygen Saturation 98.3H, Arterial Blood Base Excess -6.7, Anjum Test Positive 09/12/16 11:25: Lactic Acid Level 3.50H Height (Feet): 5 Height (Inches): 6.00 Weight (Pounds): 160 General Appearance: no apparent distress Cardiovascular: tachycardia Respiratory/Chest: decreased breath sounds Abdomen: distended MARIAN KOTHARI September 12, 2016 16:17
--- NOTE | 2016-09-12 17:23 | Cardiology Progress Note ---
Assessment/Plan Assessment/Plan [id number] Objective Last 24 Hour Vital Signs Date Time Temp Pulse Resp B/P Pulse Ox O2 Delivery O2 Flow Rate FiO2 09/12/16 16:34 87 17 45 09/12/16 16:00 45 09/12/16 16:00 98.5 85 18 109/50 100 Mechanical Ventilator 45 09/12/16 15:01 89 15 45 09/12/16 15:00 87 18 112/57 100 Mechanical Ventilator 45 09/12/16 14:00 90 18 123/63 100 Mechanical Ventilator 45 09/12/16 14:00 104/49 09/12/16 13:00 90 18 114/53 100 Mechanical Ventilator 45 09/12/16 12:55 93 19 45 09/12/16 12:00 98.6 91 18 101/44 100 Mechanical Ventilator 45 09/12/16 12:00 45 09/12/16 11:03 98 17 45 09/12/16 11:00 76 18 92/55 100 Mechanical Ventilator 45 09/12/16 10:00 76 18 114/59 100 Mechanical Ventilator 45 09/12/16 09:21 91 17 45 09/12/16 09:00 88 18 101/50 100 Mechanical Ventilator 45 09/12/16 08:00 98.5 93 18 114/60 100 Mechanical Ventilator 45 09/12/16 08:00 91 09/12/16 08:00 45 09/12/16 07:30 93 18 113/54 100 Mechanical Ventilator 45 09/12/16 07:23 124/50 09/12/16 07:00 92 20 45 09/12/16 07:00 92 18 124/50 100 Mechanical Ventilator 50 09/12/16 06:30 91 18 99/47 100 Mechanical Ventilator 50 09/12/16 06:00 91 19 112/56 100 Mechanical Ventilator 50 09/12/16 06:00 112/65 09/12/16 05:30 90 19 117/68 100 Mechanical Ventilator 50 09/12/16 05:02 70 19 45 09/12/16 05:00 113/61 09/12/16 05:00 88 20 113/61 100 Mechanical Ventilator 50 09/12/16 04:30 65 16 115/71 100 Mechanical Ventilator 50 09/12/16 04:00 45 09/12/16 04:00 66 09/12/16 04:00 119/50 09/12/16 04:00 98.0 66 18 119/50 100 Mechanical Ventilator 50 09/12/16 03:30 60 18 45 09/12/16 03:30 75 18 135/54 100 Mechanical Ventilator 50 09/12/16 03:00 80 16 129/63 100 Mechanical Ventilator 50 09/12/16 03:00 129/63 09/12/16 02:30 70 15 122/65 100 Mechanical Ventilator 50 09/12/16 02:00 67 17 115/53 100 Mechanical Ventilator 50 09/12/16 02:00 115/53 09/12/16 01:30 66 16 104/46 99 Mechanical Ventilator 50 09/12/16 01:30 66 17 45 09/12/16 01:00 66 17 124/70 99 Mechanical Ventilator 50 09/12/16 01:00 124/70 09/12/16 00:30 70 16 122/49 99 Mechanical Ventilator 50 09/12/16 00:00 98.5 68 16 132/55 100 Mechanical Ventilator 50 09/12/16 00:00 71 09/11/16 23:30 56 17 45 09/11/16 23:30 70 16 132/54 100 Mechanical Ventilator 50 09/11/16 23:00 68 18 120/59 100 Mechanical Ventilator 50 09/11/16 23:00 129/57 09/11/16 22:30 70 16 99/47 99 Mechanical Ventilator 50 09/11/16 22:00 108/64 09/11/16 22:00 69 16 108/64 100 Mechanical Ventilator 50 09/11/16 22:00 45 09/11/16 21:59 66 20 45 09/11/16 21:30 67 17 116/60 99 Mechanical Ventilator 50 09/11/16 21:00 108/38 09/11/16 21:00 70 19 108/38 100 Mechanical Ventilator 50 09/11/16 20:30 68 19 132/48 100 Mechanical Ventilator 50 09/11/16 20:00 97.5 77 18 119/40 100 Mechanical Ventilator 50 09/11/16 20:00 71 09/11/16 20:00 119/40 09/11/16 20:00 45 09/11/16 19:30 77 19 117/49 92 Mechanical Ventilator 50 09/11/16 19:30 70 18 45 09/11/16 19:00 117/49 09/11/16 19:00 79 24 124/79 99 Mechanical Ventilator 50 09/11/16 18:30 76 24 115/45 99 Mechanical Ventilator 50 09/11/16 18:00 117/42 09/11/16 18:00 84 24 117/42 99 Mechanical Ventilator 50 09/11/16 17:30 84 24 110/55 99 Mechanical Ventilator 50 Intake and Output 09/11/16 09/12/16 19:00 07:00 Intake Total 759.67 ml 1192.30 ml Output Total 90 ml 120 ml Balance 669.67 ml 1072.30 ml Intake IV Total 759.67 ml 1192.30 ml Output Urine Total 90 ml 120 ml # Bowel Movements 4 Laboratory Tests Test 09/11/16 21:50 09/12/16 05:20 09/12/16 07:15 09/12/16 08:40 Lactic Acid Level 4.40 mmol/L (0.66-2.22) H 3.90 mmol/L (0.66-2.22) H Sodium Level 138 mEQ/L (135-145) Potassium Level 4.5 mEQ/L (3.4-4.9) Chloride Level 95 mEQ/L (98-107) L Carbon Dioxide Level 17 mEQ/L (20-30) L Anion Gap 26 (5-15) H Blood Urea Nitrogen 120 mg/dL (7-23) H Creatinine 5.6 mg/dL (0.7-1.2) H Estimat Glomerular Filtration Rate mL/min (>60) Glucose Level 309 mg/dL (74-106) #H Uric Acid 12.3 mg/dL (3.0-7.5) H Calcium Level 6.3 mg/dL (8.6-10.2) L Phosphorus Level 5.0 mg/dL (2.5-4.8) H Magnesium Level 0.8 mg/dL (1.7-2.5) *L Iron Level 109 ug/dL (59-158) Total Iron Binding Capacity 187 ug/dL (250-400) L Percent Iron Saturation 58 % (15-50) H Unsaturated Iron Binding 78 ug/dL (112-346) L Ferritin 1329 ng/mL (10-230) H Total Bilirubin < 0.2 mg/dL (0.0-1.2) Gamma Glutamyl Transpeptidase 29 U/L (8-61) Aspartate Amino Transf (AST/SGOT) 81 U/L (5-40) H Alanine Aminotransferase (ALT/SGPT) 80 U/L (3-41) H Alkaline Phosphatase 73 U/L (40-129) Total Creatine Kinase 697 U/L (38-174) H Troponin I < 0.30 ng/mL (<=0.30) C-Reactive Protein, Quantitative 5.6 mg/dL (< 0.5) H Pro-B-Type Natriuretic Peptide 25351 pg/mL (0-450) H Total Protein 5.0 g/dL (6.6-8.7) L Albumin 2.7 g/dL (3.5-5.2) L Globulin 2.3 g/dL Albumin/Globulin Ratio 1.1 (1.0-2.7) Vitamin B12 Level 1599 pg/mL (211-946) H Folate Pending White Blood Count 5.2 K/UL (4.8-10.8) Red Blood Count 2.73 M/UL (4.70-6.10) L Hemoglobin 7.8 G/DL (14.2-18.0) L Hematocrit 22.9 % (42.0-52.0) L Mean Corpuscular Volume 84 FL (80-99) # Mean Corpuscular Hemoglobin 28.5 PG (27.0-31.0) Mean Corpuscular Hemoglobin Concent 34.0 G/DL (32.0-36.0) Red Cell Distribution Width 14.5 % (11.6-14.8) Platelet Count 88 K/UL (150-450) L Mean Platelet Volume 7.6 FL (6.5-10.1) Neutrophils (%) (Auto) % (45.0-75.0) Lymphocytes (%) (Auto) % (20.0-45.0) Monocytes (%) (Auto) % (1.0-10.0) Eosinophils (%) (Auto) % (0.0-3.0) Basophils (%) (Auto) % (0.0-2.0) Differential Total Cells Counted 100 Neutrophils % (Manual) 64 % (45-75) Lymphocytes % (Manual) 16 % (20-45) L Monocytes % (Manual) 9 % (1-10) Eosinophils % (Manual) 0 % (0-3) Basophils % (Manual) 0 % (0-2) Band Neutrophils 11 % (0-8) H Platelet Estimate Decreased L Platelet Morphology Normal Hypochromasia 1+ Anisocytosis 1+ Sharyn Cells Occasional Arterial Blood pH 7.406 (7.350-7.450) Arterial Blood Partial Pressure CO2 28.3 mmHg (35.0-45.0) L Arterial Blood Partial Pressure O2 155.3 mmHg (75.0-100.0) H Arterial Blood HCO3 17.4 mmol/L (22.0-26.0) L Arterial Blood Oxygen Saturation 98.3 % (92.0-98.0) H Arterial Blood Base Excess -6.7 Anjum Test Positive Test 09/12/16 11:25 Lactic Acid Level 3.50 mmol/L (0.66-2.22) H Microbiology Date/Time Source Procedure Growth Status 09/10/16 23:00 Blood Blood Culture - Preliminary NO GROWTH AFTER 24 HOURS Resulted 09/10/16 22:55 Blood Blood Culture - Preliminary NO GROWTH AFTER 24 HOURS Resulted 09/11/16 17:45 Indwelling Cath Urine Culture - Preliminary Resulted 09/10/16 23:10 Urine,Clean Catch Urine Culture - Preliminary Resulted RAJ DEL ROSARIO September 12, 2016 17:23
--- NOTE | 2016-09-12 23:58 | Consultation ---
DATE OF CONSULTATION: 09/12/2016 CARDIOLOGY CONSULTATION CONSULTING PHYSICIAN: Paxton Olivarez M.D. REFERRING PHYSICIAN: Jonathan Sampson M.D. REASON FOR REFERRAL: Hypotension. HISTORY OF PRESENT ILLNESS: This is an elderly gentleman, who was brought to the emergency room at [facility] for altered mentation. He has just recently been treated with a course of antibiotics and has not been eating or drinking for the past two days. Very weak. No fevers. No chills. Subsequently, admitted to the hospital, he was intubated with hypotension, significantly, he was on pressors until this morning and those pressors were eventually discontinued. He received some intravenous fluids overnight as well. He is on a ventilator at the present time. He is not able to communicate at this time. PAST MEDICAL HISTORY: According to the [facility] record, he has history of Influenza A, status post transurethral resection of prostate, hematuria, bradycardia, anemia, upper gastrointestinal bleed, duodenal ulcers, elevated troponin, demand ischemia of myocardium, melena, coffee-grounds emesis status post 7 units of packed red cells, duodenal ulcer with visible bleeding vessel, H. pylori infection, acute on chronic renal sufficiency, metabolic acidosis, dementia, diabetes mellitus, history of bladder tumor/transitional cell carcinoma, Alzheimer's dementia, hyperkalemia, severe protein-calorie malnutrition, toxic metabolic encephalopathy, hyperlipidemia, and ischemia secondary to gastrointestinal bleed. SURGICAL HISTORY: He has a history of a transurethral resection of prostate in 2013 and status post coronary angioplasty and stent in 2013. SOCIAL HISTORY: Past smoker. Smoked infrequently. Denies alcohol use. Lives with son and at home. 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 REVIEW OF SYSTEMS: Unable to obtain. PHYSICAL EXAMINATION: GENERAL: Shows elderly gentleman, on a mechanical ventilator, awake, and responsive. NECK: Supple. No jugular venous distention. Good carotid upstrokes noted. LUNGS: Appear to be clear to auscultation and percussion bilaterally. CARDIAC: Regular rhythm. Tachycardic. No heaves or thrills noted. ABDOMEN: Soft and nontender. Positive bowel sounds. EXTREMITIES: There is no clubbing, cyanosis, nor is there any edema. NEUROLOGIC: The patient is responsive. LABORATORY DATA: White count is 5.2 with a hemoglobin of 11.8 and a platelet count of 88,000 down from 177,000 at peak. Lactic acid level is down to 3.5. Troponin on two separate occasions are normal. ProBNP of 12,000. Sodium 138, potassium 4.4, chloride 95, bicarbonate of 17, BUN of 120, creatinine of 5.6, and a glucose of 309. Magnesium was 0.8. Iron of 109, there is a 58% saturation, ferritin 1300, and vitamin B12 of . INR 1.2 and PTT of 20. Urinalysis, too numerous to count WBC and RBCs. Chest x-ray, satisfactory nasogastric tube in place with a left-sided pacemaker and left-sided pleural effusion persists and unchanged. Right lung and pleural spaces appear to be clear. The duplex has been negative. ASSESSMENT: 1. Globally weak/septic shock. 2. Renal failure, acute on chronic. 3. 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 4. Anemia. 5. History of upper gastrointestinal bleed with treatment of the visible bleeding vessel previously. 6. Chronic renal insufficiency. 7. Coronary artery disease status post percutaneous coronary intervention with what was felt to be a demand related ischemia. 8. History of aspiration. 9. Altered mental status. He has had some disease based on a report. 10. Hypertension. 11. Diabetes mellitus. PLAN: Dr. Sampson, this patient was seen in cardiac consultation. Hemodynamically, he seems much improved over the last few days, however, he has developed renal failure. This significant azotemia requires dialysis, which I understand is planned for tomorrow. Cardiovascularly, he is intact. There is no evidence of significant myonecroses and his electrocardiogram shows right bundle-branch conduction defect. His echocardiogram showed ejection fraction of 50% on a preliminary report, moderate tricuspid regurgitation, and elevated RA pressure as well as right ventricular systolic pressure suggestive of pulmonary hypertension. Venous duplex as well was negative. I will follow the patient along with you. Paxton Olivarez M.D. DR: ROSSI JOB#: [id number] CC:
[2016-09-13] VITALS (24 sets, daily range): BP systolic 113–149; BP diastolic 49–79
[2016-09-13] MEDS ORDERED: Lidocaine 1% Plain 30 ml INJ ONE (06:00)
[2016-09-13] MEDS ORDERED: Sodium Bicarbonate 8.4% 50ml Inj IV ONE (06:00)
[2016-09-13] MEDS ORDERED: Heparin 2000 units/Ns 1000ml IV ONE (06:00)
[2016-09-13] MEDS: NovoLOG Insulin Flexpen SUBQ SCH ×4 (06:17→21:55)
[2016-09-13 06:19] LABS: MEAN CORPUSCULAR HEMOGLOBIN 29.9 PG (27.0-31.0); MEAN CORPUSCULAR HGB CONC 35.4 G/DL (32.0-36.0); MEAN CORPUSCULAR VOLUME 84 FL (80-99); MEAN PLATELET VOLUME 7.5 FL (6.5-10.1); PLATELET COUNT 64 K/UL (150-450); RED BLOOD COUNT 2.57 M/UL (4.70-6.10); RED CELL DISTRIBUTION WIDTH 14.2 % (11.6-14.8); WHITE BLOOD COUNT 7.1 K/UL (4.8-10.8)
[2016-09-13 06:43] LABS: CRP QUANT 4.2 mg/dL (< 0.5); URIC ACID 11.9 mg/dL (3.0-7.5)
[2016-09-13 06:49] LABS: ALANINE AMINOTRANSFERASE 50 U/L (3-41); ALBUMIN/GLOBULIN RATIO 1.1 (1.0-2.7); ANION GAP 23 (5-15); ASPARTATE AMINO TRANSFERASE 41 U/L (5-40); CALCIUM 6.5 mg/dL (8.6-10.2); CARBON DIOXIDE 21 mEQ/L (20-30); CHLORIDE 95 mEQ/L (98-107); CREATININE 5.5 mg/dL (0.7-1.2); HEMOLYSIS 3; PHOSPHORUS 4.3 mg/dL (2.5-4.8); POTASSIUM 3.7 mEQ/L (3.4-4.9); SODIUM 139 mEQ/L (135-145); TOTAL PROTEIN 4.9 g/dL (6.6-8.7)
[2016-09-13 06:56] LABS: MAGNESIUM 0.9 mg/dL (1.7-2.5)
[2016-09-13] MEDS: Pantoprazole Inj IV SCH (08:10)
[2016-09-13 08:30] LABS: ANISOCYTOSIS 1+; BAND NEUTROPHILS % (MANUAL) 0 % (0-8); BASOPHILS % (MANUAL) 0 % (0-2); EOSINOPHILS % (MANUAL) 0 % (0-3); HYPOCHROMASIA 3+; LYMPHOCYTES % (MANUAL) 22 % (20-45); NEUTROPHILS % (MANUAL) 69 % (45-75); PLATELET ESTIMATE DECREASED; SPHEROCYTES 2+; TOTAL CELLS COUNTED 100
[2016-09-13 08:31] LABS: PLATELET MORPHOLOGY NORMAL
--- NOTE | 2016-09-13 08:32 | Cardiology Report ---
APPROVED REPORT EXAM: Two-dimensional and M-mode echocardiogram with Doppler and color Doppler. INDICATION Left ventricular function M-Mode DIMENSIONS IVSd1.0 (0.7-1.1cm)Left Atrium (MM)3.7 (1.6-4.0cm) LVDd4.5 (3.5-5.6cm)Aortic Root2.2 (2.0-3.7cm) PWd1.0 (0.7-1.1cm)Aortic Cusp Exc.1.5 (1.5-2.0cm) LVDs3.3 (2.5-4.0cm) PWs0.8 cm Normal left ventricular chamber size, systolic function and wall motion. Left ventricular ejection fraction estimated to be 50%. Apical wall hypokinesia may be due to ventricular paced effect. Mild left ventricular hypertrophy. No evidence of pericardial fat or effusion. Left cardiac chamber sizes are within normal limits. Mild right atrial enlargement by 2D. Focal aortic valve sclerosis with adequate cusp excursion Thickened mitral valve leaflets with normal excursion. Mitral annulus and aortic root calcification. Pulmonic valve not well visualized. Normal tricuspid valve structure. IVC dilated at 2.4cm with no physiological collapse. RA pressure of 20mmHg. Probable pacemaker wire present in the right side chambers. A color flow and spectral Doppler study was performed and revealed: Trace aortic regurgitation. No mitral regurgitation. Left ventricular diastolic dysfunction grade 1. Moderate tricuspid regurgitation. Tricuspid systolic velocities suggests peak right ventricular systolic pressure of 55 mmHg Consistent with severe pulmonary hypertension.
[2016-09-13 08:33] LABS: REFLEX LACTIC ACID YES OR NO YES
[2016-09-13 08:34] LABS: OTHERS PATHOLOGIST COMMENT
[2016-09-13 08:46] LABS: ABG PCO2 30.9 mmHg (35.0-45.0)
[2016-09-13 08:47] LABS: ABG ALLEN TEST POSITIVE
[2016-09-13] MEDS: Sodium Bicarbonate 150 ML in D5W 1000ml 1,000 ML IV SCH (08:53)
[2016-09-13] MEDS: Zosyn 3.375gm q12h **Extended infusion IVPB SCH ×2 (10:52)
--- NOTE | 2016-09-13 10:54 | Pulmonolgy Critical Care Note ---
Critical Care - Asmt/Plan Problems: (1) Respiratory failure requiring intubation (2) Septic shock (3) ARF (acute renal failure) (4) Encephalopathy acute (5) DM (diabetes mellitus) Respiratory: monitor respiratory rate, adjust FIO2 Cardiac: continue to monitor HR/BP Renal: F/U I&O, keep IV fluid, check electrolytes Infectious Disease: check cultures, continue antibiotics, other - GNB in urine Gastrointestinal: continue feedings/current rate Endocrine: monitor blood sugar, continue sliding scale insulin Hematologic: monitor H/H, transfuse if hgb<8.5 Neurologic: PRN Ativan, keep patient comfortable Affect: PRN ativan Prophylaxis: Protonix Disposition: keep in ICU Notes Reviewed: community outreach specialist, cardio, renal Discussed with: nurses, consultants, major case detectivemember certification manager - Objective Last 24 Hour Vital Signs Date Time Temp Pulse Resp B/P Pulse Ox O2 Delivery O2 Flow Rate FiO2 09/13/16 10:00 84 18 124/60 100 Mechanical Ventilator 45 09/13/16 09:29 88 15 45 09/13/16 09:00 89 18 127/64 100 Mechanical Ventilator 45 09/13/16 08:00 98.0 82 12 123/50 100 Mechanical Ventilator 45 09/13/16 08:00 45 09/13/16 07:29 78 15 45 09/13/16 07:00 80 16 120/67 100 Mechanical Ventilator 45 09/13/16 06:00 89 17 129/58 100 Mechanical Ventilator 45 09/13/16 05:09 89 19 45 09/13/16 05:00 89 16 127/78 100 Mechanical Ventilator 45 09/13/16 04:00 82 09/13/16 04:00 98.4 82 14 123/79 100 Mechanical Ventilator 45 09/13/16 04:00 45 09/13/16 03:30 92 17 45 09/13/16 03:00 88 16 116/58 100 Mechanical Ventilator 45 09/13/16 02:00 75 17 113/57 100 Mechanical Ventilator 45 09/13/16 01:30 89 16 45 09/13/16 01:00 87 17 122/57 100 Mechanical Ventilator 45 09/13/16 00:00 45 09/13/16 00:00 98.6 85 16 117/65 100 Mechanical Ventilator 45 09/13/16 00:00 85 09/12/16 23:30 92 16 45 09/12/16 23:00 85 16 118/84 100 Mechanical Ventilator 45 09/12/16 22:00 83 15 130/67 100 Mechanical Ventilator 45 09/12/16 21:12 93 16 45 09/12/16 21:00 80 15 118/57 100 Mechanical Ventilator 45 09/12/16 20:00 45 09/12/16 20:00 86 09/12/16 20:00 97.3 86 15 109/50 100 Mechanical Ventilator 45 09/12/16 19:30 95 18 45 09/12/16 19:00 85 18 118/65 100 Mechanical Ventilator 45 09/12/16 18:00 81 18 120/58 100 Mechanical Ventilator 45 09/12/16 17:00 86 18 120/62 100 Mechanical Ventilator 45 09/12/16 16:34 87 17 45 09/12/16 16:00 82 09/12/16 16:00 45 09/12/16 16:00 98.5 85 18 109/50 100 Mechanical Ventilator 45 09/12/16 15:01 89 15 45 09/12/16 15:00 87 18 112/57 100 Mechanical Ventilator 45 09/12/16 14:00 90 18 123/63 100 Mechanical Ventilator 45 09/12/16 14:00 104/49 09/12/16 13:00 90 18 114/53 100 Mechanical Ventilator 45 09/12/16 12:55 93 19 45 09/12/16 12:00 82 09/12/16 12:00 98.6 91 18 101/44 100 Mechanical Ventilator 45 09/12/16 12:00 45 09/12/16 11:03 98 17 45 09/12/16 11:00 76 18 92/55 100 Mechanical Ventilator 45 Status: awake Condition: critical, grave HEENT: atraumatic Lungs: clear Heart: HR/BP stable, HR/BP unstable Abdomen: soft, non-tender, active bowel sounds Decubiti: location Micro: Microbiology Date/Time Source Procedure Growth Status 09/10/16 23:00 Blood Blood Culture - Preliminary NO GROWTH AFTER 48 HOURS Resulted 09/10/16 22:55 Blood Blood Culture - Preliminary NO GROWTH AFTER 48 HOURS Resulted 09/11/16 03:50 Nasal Nares MRSA Culture - Final NO METHICILLIN RESISTANT STAPH AUREUS... Complete 09/11/16 17:45 Indwelling Cath Urine Culture - Preliminary Gram Negative Bacillus 1 Resulted 09/10/16 23:10 Urine,Clean Catch Urine Culture - Preliminary Gram Negative Bacillus 1 Resulted 09/11/16 03:50 Rectum VRE Culture - Final NO VANCOMYCIN RESISTANT ENTEROCOCCUS ... Complete Accucheck: 99 Critical Care - Subjective ROS Limited/Unobtainable: Yes ICU Day: 3 Intubation Day: 3 Condition: critical EKG Rhythm: Sinus Rhythm FI02: 45 Vent Support Breath Rate: 15 Vent Support Mode: AC Vent Tidal Volume: 500 Sputum Amount: Large PEEP: 5.0 PIP: 20 Fluids: bicarb drip 50 cc hour Tube Feeding Amount: 26 I&O: Intake and Output 09/12/16 09/13/16 19:00 07:00 Intake Total 1083.43 ml 922.00 ml Output Total 35 ml 190 ml Balance 1048.43 ml 732.00 ml Intake IV Total 979.43 ml 710.00 ml Tube Feeding 104 ml 212 ml Output Urine Total 35 ml 190 ml CXR: no changes ET-Tube: 7.0 ET Position: 24 Labs: Laboratory Tests Test 09/12/16 11:25 09/13/16 05:00 09/13/16 07:50 09/13/16 08:15 Lactic Acid Level 3.50 mmol/L (0.66-2.22) H 2.60 mmol/L (0.66-2.22) H White Blood Count 7.1 K/UL (4.8-10.8) Red Blood Count 2.57 M/UL (4.70-6.10) L Hemoglobin 7.7 G/DL (14.2-18.0) L Hematocrit 21.7 % (42.0-52.0) L Mean Corpuscular Volume 84 FL (80-99) Mean Corpuscular Hemoglobin 29.9 PG (27.0-31.0) Mean Corpuscular Hemoglobin Concent 35.4 G/DL (32.0-36.0) Red Cell Distribution Width 14.2 % (11.6-14.8) Platelet Count 64 K/UL (150-450) L Mean Platelet Volume 7.5 FL (6.5-10.1) Neutrophils (%) (Auto) % (45.0-75.0) Lymphocytes (%) (Auto) % (20.0-45.0) Monocytes (%) (Auto) % (1.0-10.0) Eosinophils (%) (Auto) % (0.0-3.0) Basophils (%) (Auto) % (0.0-2.0) Differential Total Cells Counted 100 Neutrophils % (Manual) 69 % (45-75) Lymphocytes % (Manual) 22 % (20-45) Monocytes % (Manual) 9 % (1-10) Eosinophils % (Manual) 0 % (0-3) Basophils % (Manual) 0 % (0-2) Band Neutrophils 0 % (0-8) Platelet Estimate Decreased L Platelet Morphology Normal Hypochromasia 3+ Anisocytosis 1+ Spherocytes 2+ Sodium Level 139 mEQ/L (135-145) Potassium Level 3.7 mEQ/L (3.4-4.9) Chloride Level 95 mEQ/L (98-107) L Carbon Dioxide Level 21 mEQ/L (20-30) Anion Gap 23 (5-15) H Blood Urea Nitrogen 114 mg/dL (7-23) H Creatinine 5.5 mg/dL (0.7-1.2) H Estimat Glomerular Filtration Rate mL/min (>60) Glucose Level 91 mg/dL (74-106) # Uric Acid 11.9 mg/dL (3.0-7.5) H Calcium Level 6.5 mg/dL (8.6-10.2) L Phosphorus Level 4.3 mg/dL (2.5-4.8) Magnesium Level 0.9 mg/dL (1.7-2.5) *L Total Bilirubin 0.2 mg/dL (0.0-1.2) Gamma Glutamyl Transpeptidase 24 U/L (8-61) Aspartate Amino Transf (AST/SGOT) 41 U/L (5-40) H Alanine Aminotransferase (ALT/SGPT) 50 U/L (3-41) H Alkaline Phosphatase 51 U/L (40-129) C-Reactive Protein, Quantitative 4.2 mg/dL (< 0.5) H Pro-B-Type Natriuretic Peptide 16349 pg/mL (0-450) H Total Protein 4.9 g/dL (6.6-8.7) L Albumin 2.6 g/dL (3.5-5.2) L Globulin 2.3 g/dL Albumin/Globulin Ratio 1.1 (1.0-2.7) Arterial Blood pH 7.475 (7.350-7.450) Arterial Blood Partial Pressure CO2 30.9 mmHg (35.0-45.0) L Arterial Blood Partial Pressure O2 189.0 mmHg (75.0-100.0) H Arterial Blood HCO3 22.2 mmol/L (22.0-26.0) Arterial Blood Oxygen Saturation 98.3 % (92.0-98.0) H Arterial Blood Base Excess -1.0 Anjum Test Positive LANDEN HERNANDEZ September 13, 2016 10:54
--- NOTE | 2016-09-13 11:04 | Diagnostic Imaging Report ---
Indication: Dyspnea Comparison: 09/12/16 A single view chest radiograph was obtained. Findings: Dense retrocardiac opacification again demonstrated. Suspect a small left pleural effusion. Heart size is stable. Tubes and lines are stable. Impression: No electronic data interchange specialist the last day
--- NOTE | 2016-09-13 11:06 | Cardiology Progress Note ---
Assessment/Plan Assessment/Plan 1. Globally weak/septic shock. 2. Renal failure, acute on chronic. 3. 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 4. Anemia. 5. History of upper gastrointestinal bleed with treatment of the visible bleeding vessel previously. 6. Chronic renal insufficiency. 7. Coronary artery disease status post percutaneous coronary intervention with what was felt to be a demand related ischemia. 8. History of aspiration. 9. Altered mental status. 10. Hypertension. 11. Diabetes mellitus bp is better vent ssupport dilaysis planned wean soon abx off pressors Subjective ROS Limited/Unobtainable: Yes Subjective on a vent havign ryan cath placed Objective Last 24 Hour Vital Signs Date Time Temp Pulse Resp B/P Pulse Ox O2 Delivery O2 Flow Rate FiO2 09/13/16 10:00 84 18 124/60 100 Mechanical Ventilator 45 09/13/16 09:29 88 15 45 09/13/16 09:00 89 18 127/64 100 Mechanical Ventilator 45 09/13/16 08:00 98.0 82 12 123/50 100 Mechanical Ventilator 45 09/13/16 08:00 45 09/13/16 07:29 78 15 45 09/13/16 07:00 80 16 120/67 100 Mechanical Ventilator 45 09/13/16 06:00 89 17 129/58 100 Mechanical Ventilator 45 09/13/16 05:09 89 19 45 09/13/16 05:00 89 16 127/78 100 Mechanical Ventilator 45 09/13/16 04:00 82 09/13/16 04:00 98.4 82 14 123/79 100 Mechanical Ventilator 45 09/13/16 04:00 45 09/13/16 03:30 92 17 45 09/13/16 03:00 88 16 116/58 100 Mechanical Ventilator 45 09/13/16 02:00 75 17 113/57 100 Mechanical Ventilator 45 09/13/16 01:30 89 16 45 09/13/16 01:00 87 17 122/57 100 Mechanical Ventilator 45 09/13/16 00:00 45 09/13/16 00:00 98.6 85 16 117/65 100 Mechanical Ventilator 45 09/13/16 00:00 85 09/12/16 23:30 92 16 45 09/12/16 23:00 85 16 118/84 100 Mechanical Ventilator 45 09/12/16 22:00 83 15 130/67 100 Mechanical Ventilator 45 09/12/16 21:12 93 16 45 09/12/16 21:00 80 15 118/57 100 Mechanical Ventilator 45 09/12/16 20:00 45 09/12/16 20:00 86 09/12/16 20:00 97.3 86 15 109/50 100 Mechanical Ventilator 45 09/12/16 19:30 95 18 45 09/12/16 19:00 85 18 118/65 100 Mechanical Ventilator 45 09/12/16 18:00 81 18 120/58 100 Mechanical Ventilator 45 09/12/16 17:00 86 18 120/62 100 Mechanical Ventilator 45 09/12/16 16:34 87 17 45 09/12/16 16:00 82 09/12/16 16:00 45 09/12/16 16:00 98.5 85 18 109/50 100 Mechanical Ventilator 45 09/12/16 15:01 89 15 45 09/12/16 15:00 87 18 112/57 100 Mechanical Ventilator 45 09/12/16 14:00 90 18 123/63 100 Mechanical Ventilator 45 09/12/16 14:00 104/49 09/12/16 13:00 90 18 114/53 100 Mechanical Ventilator 45 09/12/16 12:55 93 19 45 09/12/16 12:00 82 09/12/16 12:00 98.6 91 18 101/44 100 Mechanical Ventilator 45 09/12/16 12:00 45 General Appearance: no apparent distress, on vent Intake and Output 09/12/16 09/13/16 19:00 07:00 Intake Total 1083.43 ml 922.00 ml Output Total 35 ml 190 ml Balance 1048.43 ml 732.00 ml Intake IV Total 979.43 ml 710.00 ml Tube Feeding 104 ml 212 ml Output Urine Total 35 ml 190 ml Laboratory Tests Test 09/12/16 11:25 09/13/16 05:00 09/13/16 07:50 09/13/16 08:15 Lactic Acid Level 3.50 mmol/L (0.66-2.22) H 2.60 mmol/L (0.66-2.22) H White Blood Count 7.1 K/UL (4.8-10.8) Red Blood Count 2.57 M/UL (4.70-6.10) L Hemoglobin 7.7 G/DL (14.2-18.0) L Hematocrit 21.7 % (42.0-52.0) L Mean Corpuscular Volume 84 FL (80-99) Mean Corpuscular Hemoglobin 29.9 PG (27.0-31.0) Mean Corpuscular Hemoglobin Concent 35.4 G/DL (32.0-36.0) Red Cell Distribution Width 14.2 % (11.6-14.8) Platelet Count 64 K/UL (150-450) L Mean Platelet Volume 7.5 FL (6.5-10.1) Neutrophils (%) (Auto) % (45.0-75.0) Lymphocytes (%) (Auto) % (20.0-45.0) Monocytes (%) (Auto) % (1.0-10.0) Eosinophils (%) (Auto) % (0.0-3.0) Basophils (%) (Auto) % (0.0-2.0) Differential Total Cells Counted 100 Neutrophils % (Manual) 69 % (45-75) Lymphocytes % (Manual) 22 % (20-45) Monocytes % (Manual) 9 % (1-10) Eosinophils % (Manual) 0 % (0-3) Basophils % (Manual) 0 % (0-2) Band Neutrophils 0 % (0-8) Platelet Estimate Decreased L Platelet Morphology Normal Hypochromasia 3+ Anisocytosis 1+ Spherocytes 2+ Sodium Level 139 mEQ/L (135-145) Potassium Level 3.7 mEQ/L (3.4-4.9) Chloride Level 95 mEQ/L (98-107) L Carbon Dioxide Level 21 mEQ/L (20-30) Anion Gap 23 (5-15) H Blood Urea Nitrogen 114 mg/dL (7-23) H Creatinine 5.5 mg/dL (0.7-1.2) H Estimat Glomerular Filtration Rate mL/min (>60) Glucose Level 91 mg/dL (74-106) # Uric Acid 11.9 mg/dL (3.0-7.5) H Calcium Level 6.5 mg/dL (8.6-10.2) L Phosphorus Level 4.3 mg/dL (2.5-4.8) Magnesium Level 0.9 mg/dL (1.7-2.5) *L Total Bilirubin 0.2 mg/dL (0.0-1.2) Gamma Glutamyl Transpeptidase 24 U/L (8-61) Aspartate Amino Transf (AST/SGOT) 41 U/L (5-40) H Alanine Aminotransferase (ALT/SGPT) 50 U/L (3-41) H Alkaline Phosphatase 51 U/L (40-129) C-Reactive Protein, Quantitative 4.2 mg/dL (< 0.5) H Pro-B-Type Natriuretic Peptide 00114 pg/mL (0-450) H Total Protein 4.9 g/dL (6.6-8.7) L Albumin 2.6 g/dL (3.5-5.2) L Globulin 2.3 g/dL Albumin/Globulin Ratio 1.1 (1.0-2.7) Arterial Blood pH 7.475 (7.350-7.450) Arterial Blood Partial Pressure CO2 30.9 mmHg (35.0-45.0) L Arterial Blood Partial Pressure O2 189.0 mmHg (75.0-100.0) H Arterial Blood HCO3 22.2 mmol/L (22.0-26.0) Arterial Blood Oxygen Saturation 98.3 % (92.0-98.0) H Arterial Blood Base Excess -1.0 Anjum Test Positive Microbiology Date/Time Source Procedure Growth Status 09/10/16 23:00 Blood Blood Culture - Preliminary NO GROWTH AFTER 48 HOURS Resulted 09/10/16 22:55 Blood Blood Culture - Preliminary NO GROWTH AFTER 48 HOURS Resulted 09/11/16 03:50 Nasal Nares MRSA Culture - Final NO METHICILLIN RESISTANT STAPH AUREUS... Complete 09/11/16 17:45 Indwelling Cath Urine Culture - Preliminary Gram Negative Bacillus 1 Resulted 09/10/16 23:10 Urine,Clean Catch Urine Culture - Preliminary Gram Negative Bacillus 1 Resulted 09/11/16 03:50 Rectum VRE Culture - Final NO VANCOMYCIN RESISTANT ENTEROCOCCUS ... Complete RAJ DEL ROSARIO September 13, 2016 11:06
--- NOTE | 2016-09-13 11:21 | Infectious Diseases Prog Note ---
Assessment/Plan Assessment/Plan A: The patient is a 76-year-old male Sepsis improving Septic shock , off of pressors Pneumonia Chest x-ray : atelectasis and pneumonia in the left lung base UTI , UCc: GNR LAC improving DM HTN SP pacemaker placement Alzheimer dementia [place] : may need HD soon P: Cont pt on Zosyn d# 3 / 14 Monitor culture Monitor CBC Monitor BMP Monitor LFT Nephro is following HD Cath Subjective Allergies: Coded Allergies: SULFA (SULFONAMIDE ANTIBIOTICS) (Verified Allergy, Unknown, 09/10/16) Uncoded Allergies: SULFA (Adverse Reaction, Mild, RASH, 04/01/13) Subjective getting an HD cath , afebrile Objective Vital Signs Last 24 Hour Vital Signs Date Time Temp Pulse Resp B/P Pulse Ox O2 Delivery O2 Flow Rate FiO2 09/13/16 10:00 84 18 124/60 100 Mechanical Ventilator 45 09/13/16 09:29 88 15 45 09/13/16 09:00 89 18 127/64 100 Mechanical Ventilator 45 09/13/16 08:00 98.0 82 12 123/50 100 Mechanical Ventilator 45 09/13/16 08:00 45 09/13/16 07:29 78 15 45 09/13/16 07:00 80 16 120/67 100 Mechanical Ventilator 45 09/13/16 06:00 89 17 129/58 100 Mechanical Ventilator 45 09/13/16 05:09 89 19 45 09/13/16 05:00 89 16 127/78 100 Mechanical Ventilator 45 09/13/16 04:00 82 09/13/16 04:00 98.4 82 14 123/79 100 Mechanical Ventilator 45 09/13/16 04:00 45 09/13/16 03:30 92 17 45 09/13/16 03:00 88 16 116/58 100 Mechanical Ventilator 45 09/13/16 02:00 75 17 113/57 100 Mechanical Ventilator 45 09/13/16 01:30 89 16 45 09/13/16 01:00 87 17 122/57 100 Mechanical Ventilator 45 09/13/16 00:00 45 09/13/16 00:00 98.6 85 16 117/65 100 Mechanical Ventilator 45 09/13/16 00:00 85 09/12/16 23:30 92 16 45 09/12/16 23:00 85 16 118/84 100 Mechanical Ventilator 45 09/12/16 22:00 83 15 130/67 100 Mechanical Ventilator 45 09/12/16 21:12 93 16 45 09/12/16 21:00 80 15 118/57 100 Mechanical Ventilator 45 09/12/16 20:00 45 09/12/16 20:00 86 09/12/16 20:00 97.3 86 15 109/50 100 Mechanical Ventilator 45 09/12/16 19:30 95 18 45 09/12/16 19:00 85 18 118/65 100 Mechanical Ventilator 45 09/12/16 18:00 81 18 120/58 100 Mechanical Ventilator 45 09/12/16 17:00 86 18 120/62 100 Mechanical Ventilator 45 09/12/16 16:34 87 17 45 09/12/16 16:00 82 09/12/16 16:00 45 09/12/16 16:00 98.5 85 18 109/50 100 Mechanical Ventilator 45 09/12/16 15:01 89 15 45 09/12/16 15:00 87 18 112/57 100 Mechanical Ventilator 45 09/12/16 14:00 90 18 123/63 100 Mechanical Ventilator 45 09/12/16 14:00 104/49 09/12/16 13:00 90 18 114/53 100 Mechanical Ventilator 45 09/12/16 12:55 93 19 45 09/12/16 12:00 82 09/12/16 12:00 98.6 91 18 101/44 100 Mechanical Ventilator 45 09/12/16 12:00 45 Height (Feet): 5 Height (Inches): 6.00 Weight (Pounds): 160 HEENT: atraumatic Respiratory/Chest: accessory muscle use Abdomen: soft, non tender Skin: no rash Microbiology Date/Time Source Procedure Growth Status 09/10/16 23:00 Blood Blood Culture - Preliminary NO GROWTH AFTER 48 HOURS Resulted 09/10/16 22:55 Blood Blood Culture - Preliminary NO GROWTH AFTER 48 HOURS Resulted 09/11/16 03:50 Nasal Nares MRSA Culture - Final NO METHICILLIN RESISTANT STAPH AUREUS... Complete 09/11/16 17:45 Indwelling Cath Urine Culture - Preliminary Gram Negative Bacillus 1 Resulted 09/10/16 23:10 Urine,Clean Catch Urine Culture - Preliminary Gram Negative Bacillus 1 Resulted 09/11/16 03:50 Rectum VRE Culture - Final NO VANCOMYCIN RESISTANT ENTEROCOCCUS ... Complete Laboratory Tests Test 09/12/16 11:25 09/13/16 05:00 09/13/16 07:50 09/13/16 08:15 Lactic Acid Level 3.50 mmol/L (0.66-2.22) H 2.60 mmol/L (0.66-2.22) H White Blood Count 7.1 K/UL (4.8-10.8) Red Blood Count 2.57 M/UL (4.70-6.10) L Hemoglobin 7.7 G/DL (14.2-18.0) L Hematocrit 21.7 % (42.0-52.0) L Mean Corpuscular Volume 84 FL (80-99) Mean Corpuscular Hemoglobin 29.9 PG (27.0-31.0) Mean Corpuscular Hemoglobin Concent 35.4 G/DL (32.0-36.0) Red Cell Distribution Width 14.2 % (11.6-14.8) Platelet Count 64 K/UL (150-450) L Mean Platelet Volume 7.5 FL (6.5-10.1) Neutrophils (%) (Auto) % (45.0-75.0) Lymphocytes (%) (Auto) % (20.0-45.0) Monocytes (%) (Auto) % (1.0-10.0) Eosinophils (%) (Auto) % (0.0-3.0) Basophils (%) (Auto) % (0.0-2.0) Differential Total Cells Counted 100 Neutrophils % (Manual) 69 % (45-75) Lymphocytes % (Manual) 22 % (20-45) Monocytes % (Manual) 9 % (1-10) Eosinophils % (Manual) 0 % (0-3) Basophils % (Manual) 0 % (0-2) Band Neutrophils 0 % (0-8) Platelet Estimate Decreased L Platelet Morphology Normal Hypochromasia 3+ Anisocytosis 1+ Spherocytes 2+ Sodium Level 139 mEQ/L (135-145) Potassium Level 3.7 mEQ/L (3.4-4.9) Chloride Level 95 mEQ/L (98-107) L Carbon Dioxide Level 21 mEQ/L (20-30) Anion Gap 23 (5-15) H Blood Urea Nitrogen 114 mg/dL (7-23) H Creatinine 5.5 mg/dL (0.7-1.2) H Estimat Glomerular Filtration Rate mL/min (>60) Glucose Level 91 mg/dL (74-106) # Uric Acid 11.9 mg/dL (3.0-7.5) H Calcium Level 6.5 mg/dL (8.6-10.2) L Phosphorus Level 4.3 mg/dL (2.5-4.8) Magnesium Level 0.9 mg/dL (1.7-2.5) *L Total Bilirubin 0.2 mg/dL (0.0-1.2) Gamma Glutamyl Transpeptidase 24 U/L (8-61) Aspartate Amino Transf (AST/SGOT) 41 U/L (5-40) H Alanine Aminotransferase (ALT/SGPT) 50 U/L (3-41) H Alkaline Phosphatase 51 U/L (40-129) C-Reactive Protein, Quantitative 4.2 mg/dL (< 0.5) H Pro-B-Type Natriuretic Peptide 03597 pg/mL (0-450) H Total Protein 4.9 g/dL (6.6-8.7) L Albumin 2.6 g/dL (3.5-5.2) L Globulin 2.3 g/dL Albumin/Globulin Ratio 1.1 (1.0-2.7) Arterial Blood pH 7.475 (7.350-7.450) Arterial Blood Partial Pressure CO2 30.9 mmHg (35.0-45.0) L Arterial Blood Partial Pressure O2 189.0 mmHg (75.0-100.0) H Arterial Blood HCO3 22.2 mmol/L (22.0-26.0) Arterial Blood Oxygen Saturation 98.3 % (92.0-98.0) H Arterial Blood Base Excess -1.0 Anjum Test Positive Current Medications Medications (Trade) Dose Ordered Sig/Barrett Route PRN Reason Start Time Stop Time Status Last Admin Dose Admin Albuterol/ Ipratropium 3 ml 3 ml Q4HRT PRN HHN sob 09/11/16 09:30 09/16/16 09:29 Dextrose (Dextrose 50%) STAT PRN IV Hypoglycemia 09/11/16 05:30 10/11/16 05:29 Insulin Aspart BEFORE MEALS AND HS SUBQ 09/12/16 12:30 10/12/16 12:29 09/12/16 17:14 Lorazepam (Ativan 2mg/ml 1ml) 2 mg Q4H PRN IV For Anxiety 09/12/16 11:30 09/19/16 11:29 Magnesium Sulfate (Magnesium Sulfate 1gm/100ml) 100 ml @ 100 mls/hr Q1H IVPB 09/13/16 12:00 09/13/16 13:59 Morphine Sulfate (Morphine Sulfate) 4 mg Q4H PRN IVP PAIN 4-10 09/12/16 11:30 09/19/16 11:29 Norepinephrine Bitartrate 16 mg/ Dextrose 516 ml @ 0 mls/hr Q24H IV 09/11/16 14:00 10/11/16 13:59 09/11/16 14:22 Pantoprazole (Protonix) 40 mg DAILY IV 09/13/16 09:00 10/13/16 08:59 09/13/16 08:10 Piperacillin Sod/ Tazobactam Sod 3.375 gm/Dextrose 110 ml @ 27.5 mls/hr Q12H IVPB 09/11/16 23:00 09/18/16 22:59 09/13/16 10:52 Sodium Bicarbonate/ Dextrose (Sodium Bicarbonate/D5W 1000ml) 1,150 ml @ 50 mls/hr Q23H IV 09/12/16 12:30 10/12/16 12:29 09/13/16 08:53 CRISTEL DUFF M.D. September 13, 2016 11:21
--- NOTE | 2016-09-13 13:05 | General Progress Note ---
Assessment/Plan Status: unchanged Assessment/Plan status: Septic Shock leading to acute renal and multiOrgan failure Due to the above: Sever Acidosis , high Lactate , High K Sugg: Aggresive fluid challenge Hemodynamic support Bicarb Antibiotics POOR Prognosis trial of HD after dialysis cath inserted discussed with RN Subjective ROS Limited/Unobtainable: Yes Allergies: Coded Allergies: SULFA (SULFONAMIDE ANTIBIOTICS) (Verified Allergy, Unknown, 09/10/16) Uncoded Allergies: SULFA (Adverse Reaction, Mild, RASH, 04/01/13) Objective Last 24 Hour Vital Signs Date Time Temp Pulse Resp B/P Pulse Ox O2 Delivery O2 Flow Rate FiO2 09/13/16 12:00 45 09/13/16 12:00 98.5 86 18 129/72 100 Mechanical Ventilator 45 09/13/16 11:29 79 16 45 09/13/16 11:00 88 18 140/66 100 Mechanical Ventilator 45 09/13/16 10:00 84 18 124/60 100 Mechanical Ventilator 45 09/13/16 09:29 88 15 45 09/13/16 09:00 89 18 127/64 100 Mechanical Ventilator 45 09/13/16 08:00 98.0 82 12 123/50 100 Mechanical Ventilator 45 09/13/16 08:00 45 09/13/16 07:29 78 15 45 09/13/16 07:00 80 16 120/67 100 Mechanical Ventilator 45 09/13/16 06:00 89 17 129/58 100 Mechanical Ventilator 45 09/13/16 05:09 89 19 45 09/13/16 05:00 89 16 127/78 100 Mechanical Ventilator 45 09/13/16 04:00 82 09/13/16 04:00 98.4 82 14 123/79 100 Mechanical Ventilator 45 09/13/16 04:00 45 09/13/16 03:30 92 17 45 09/13/16 03:00 88 16 116/58 100 Mechanical Ventilator 45 09/13/16 02:00 75 17 113/57 100 Mechanical Ventilator 45 09/13/16 01:30 89 16 45 09/13/16 01:00 87 17 122/57 100 Mechanical Ventilator 45 09/13/16 00:00 45 09/13/16 00:00 98.6 85 16 117/65 100 Mechanical Ventilator 45 09/13/16 00:00 85 09/12/16 23:30 92 16 45 09/12/16 23:00 85 16 118/84 100 Mechanical Ventilator 45 09/12/16 22:00 83 15 130/67 100 Mechanical Ventilator 45 09/12/16 21:12 93 16 45 09/12/16 21:00 80 15 118/57 100 Mechanical Ventilator 45 09/12/16 20:00 45 09/12/16 20:00 86 09/12/16 20:00 97.3 86 15 109/50 100 Mechanical Ventilator 45 09/12/16 19:30 95 18 45 09/12/16 19:00 85 18 118/65 100 Mechanical Ventilator 45 09/12/16 18:00 81 18 120/58 100 Mechanical Ventilator 45 09/12/16 17:00 86 18 120/62 100 Mechanical Ventilator 45 09/12/16 16:34 87 17 45 09/12/16 16:00 82 09/12/16 16:00 45 09/12/16 16:00 98.5 85 18 109/50 100 Mechanical Ventilator 45 09/12/16 15:01 89 15 45 09/12/16 15:00 87 18 112/57 100 Mechanical Ventilator 45 09/12/16 14:00 90 18 123/63 100 Mechanical Ventilator 45 09/12/16 14:00 104/49 Intake and Output 09/12/16 09/13/16 19:00 07:00 Intake Total 1083.43 ml 922.00 ml Output Total 35 ml 190 ml Balance 1048.43 ml 732.00 ml Intake IV Total 979.43 ml 710.00 ml Tube Feeding 104 ml 212 ml Output Urine Total 35 ml 190 ml Laboratory Tests 09/13/16 05:00: White Blood Count 7.1, Red Blood Count 2.57L, Hemoglobin 7.7L, Hematocrit 21.7L , Mean Corpuscular Volume 84, Mean Corpuscular Hemoglobin 29.9, Mean Corpuscular Hemoglobin Concent 35.4, Red Cell Distribution Width 14.2, Platelet Count 64L, Mean Platelet Volume 7.5, Neutrophils (%) (Auto) , Lymphocytes (%) ( Auto) , Monocytes (%) (Auto) , Eosinophils (%) (Auto) , Basophils (%) (Auto) , Differential Total Cells Counted 100, Neutrophils % (Manual) 69, Lymphocytes % ( Manual) 22, Monocytes % (Manual) 9, Eosinophils % (Manual) 0, Basophils % ( Manual) 0, Band Neutrophils 0, Platelet Estimate DecreasedL, Platelet Morphology Normal, Hypochromasia 3+, Anisocytosis 1+, Spherocytes 2+, Sodium Level 139, Potassium Level 3.7, Chloride Level 95L, Carbon Dioxide Level 21, Anion Gap 23H, Blood Urea Nitrogen 114H, Creatinine 5.5H, Estimat Glomerular Filtration Rate , Glucose Level 91#, Uric Acid 11.9H, Calcium Level 6.5L, Phosphorus Level 4.3, Magnesium Level 0.9*L, Total Bilirubin 0.2, Gamma Glutamyl Transpeptidase 24, Aspartate Amino Transf (AST/SGOT) 41H, Alanine Aminotransferase (ALT/SGPT) 50H, Alkaline Phosphatase 51, C-Reactive Protein, Quantitative 4.2H, Pro-B-Type Natriuretic Peptide 75631L, Total Protein 4.9L, Albumin 2.6L, Globulin 2.3, Albumin/Globulin Ratio 1.1 09/13/16 07:50: Lactic Acid Level 2.60H 09/13/16 08:15: Arterial Blood pH 7.475H, Arterial Blood Partial Pressure CO2 30.9L, Arterial Blood Partial Pressure O2 189.0H, Arterial Blood HCO3 22.2, Arterial Blood Oxygen Saturation 98.3H, Arterial Blood Base Excess -1.0, Anjum Test Positive Height (Feet): 5 Height (Inches): 6.00 Weight (Pounds): 160 General Appearance: mild distress Cardiovascular: tachycardia Respiratory/Chest: decreased breath sounds Abdomen: soft Objective no change in PE MARIAN KOTHARI September 13, 2016 13:05
[2016-09-13] MEDS ORDERED: NS 275ml ONE (14:00)
[2016-09-13] MEDS ORDERED: Tubing IV Secondary IV ONE (14:00)
--- NOTE | 2016-09-13 14:10 | Diagnostic Imaging Report ---
Indication: Attempted Duc at the bedside. Removal of right jugular central venous catheter Comparison: Earlier at 07:35 A single view chest radiograph was obtained. Findings: Current study performed 13:43 Interval removal of a right jugular central line noted. Portable bedside attempted placement of a right jugular Marco Antonio catheter was not successful. The procedure was attempted as an exchange. Radiographically no significant change seen. There is dense left basilar opacification again noted. Some limitation due to rotation. Endotracheal tube and nasogastric tubes appear in good position unchanged. Pacemaker again noted. Impression: Status post right jugular central venous catheter removal. No significant radiographically changed otherwise. Bedside right femoral Marco Antonio catheter placement is pending.
[2016-09-13 14:22] LABS: REFLEX LACTIC ACID YES OR NO YES
--- NOTE | 2016-09-13 18:21 | Internal Med Progress Note ---
Subjective Date of Service: September 13, 2016 Physician Name King Haynes Attending Physician Jonathan Sampson MD Current Medications Medications (Trade) Dose Ordered Sig/Barrett Route PRN Reason Start Time Stop Time Status Last Admin Dose Admin Albuterol/ Ipratropium 3 ml 3 ml Q4HRT PRN HHN sob 09/11/16 09:30 09/16/16 09:29 Dextrose (Dextrose 50%) STAT PRN IV Hypoglycemia 09/11/16 05:30 10/11/16 05:29 Insulin Aspart BEFORE MEALS AND HS SUBQ 09/12/16 12:30 10/12/16 12:29 09/12/16 17:14 Lorazepam (Ativan 2mg/ml 1ml) 2 mg Q4H PRN IV For Anxiety 09/12/16 11:30 09/19/16 11:29 Morphine Sulfate (Morphine Sulfate) 4 mg Q4H PRN IVP PAIN 4-10 09/12/16 11:30 09/19/16 11:29 Norepinephrine Bitartrate 16 mg/ Dextrose 516 ml @ 0 mls/hr Q24H IV 09/11/16 14:00 10/11/16 13:59 09/11/16 14:22 Pantoprazole (Protonix) 40 mg DAILY IV 09/13/16 09:00 10/13/16 08:59 09/13/16 08:10 Piperacillin Sod/ Tazobactam Sod/ Dextrose (Zosyn/D5W) 55 ml @ 110 mls/hr Q8HR IV 09/13/16 22:00 09/18/16 21:59 Sodium Bicarbonate/ Dextrose (Sodium Bicarbonate/D5W 1000ml) 1,150 ml @ 50 mls/hr Q23H IV 09/12/16 12:30 10/12/16 12:29 09/13/16 08:53 Allergies: Coded Allergies: SULFA (SULFONAMIDE ANTIBIOTICS) (Verified Allergy, Unknown, 09/10/16) Uncoded Allergies: SULFA (Adverse Reaction, Mild, RASH, 04/01/13) ROS Limited/Unobtainable: Yes Subjective 76 YO M admitted with hypotension and sepsis. ICU. Intubated and sedated. Cover for Int Bryanna Sampson. Objective Last Vital Signs Date Time Temp Pulse Resp B/P Pulse Ox O2 Delivery O2 Flow Rate FiO2 09/13/16 18:00 73 7 116/54 98 Mechanical Ventilator 45 09/13/16 16:00 98.3 Laboratory Tests Test 09/13/16 05:00 09/13/16 07:50 09/13/16 08:15 09/13/16 13:40 White Blood Count 7.1 K/UL (4.8-10.8) Red Blood Count 2.57 M/UL (4.70-6.10) L Hemoglobin 7.7 G/DL (14.2-18.0) L Hematocrit 21.7 % (42.0-52.0) L Mean Corpuscular Volume 84 FL (80-99) Mean Corpuscular Hemoglobin 29.9 PG (27.0-31.0) Mean Corpuscular Hemoglobin Concent 35.4 G/DL (32.0-36.0) Red Cell Distribution Width 14.2 % (11.6-14.8) Platelet Count 64 K/UL (150-450) L Mean Platelet Volume 7.5 FL (6.5-10.1) Neutrophils (%) (Auto) % (45.0-75.0) Lymphocytes (%) (Auto) % (20.0-45.0) Monocytes (%) (Auto) % (1.0-10.0) Eosinophils (%) (Auto) % (0.0-3.0) Basophils (%) (Auto) % (0.0-2.0) Differential Total Cells Counted 100 Neutrophils % (Manual) 69 % (45-75) Lymphocytes % (Manual) 22 % (20-45) Monocytes % (Manual) 9 % (1-10) Eosinophils % (Manual) 0 % (0-3) Basophils % (Manual) 0 % (0-2) Band Neutrophils 0 % (0-8) Platelet Estimate Decreased L Platelet Morphology Normal Hypochromasia 3+ Anisocytosis 1+ Spherocytes 2+ Sodium Level 139 mEQ/L (135-145) Potassium Level 3.7 mEQ/L (3.4-4.9) Chloride Level 95 mEQ/L (98-107) L Carbon Dioxide Level 21 mEQ/L (20-30) Anion Gap 23 (5-15) H Blood Urea Nitrogen 114 mg/dL (7-23) H Creatinine 5.5 mg/dL (0.7-1.2) H Estimat Glomerular Filtration Rate mL/min (>60) Glucose Level 91 mg/dL (74-106) # Uric Acid 11.9 mg/dL (3.0-7.5) H Calcium Level 6.5 mg/dL (8.6-10.2) L Phosphorus Level 4.3 mg/dL (2.5-4.8) Magnesium Level 0.9 mg/dL (1.7-2.5) *L Total Bilirubin 0.2 mg/dL (0.0-1.2) Gamma Glutamyl Transpeptidase 24 U/L (8-61) Aspartate Amino Transf (AST/SGOT) 41 U/L (5-40) H Alanine Aminotransferase (ALT/SGPT) 50 U/L (3-41) H Alkaline Phosphatase 51 U/L (40-129) C-Reactive Protein, Quantitative 4.2 mg/dL (< 0.5) H Pro-B-Type Natriuretic Peptide 11603 pg/mL (0-450) H Total Protein 4.9 g/dL (6.6-8.7) L Albumin 2.6 g/dL (3.5-5.2) L Globulin 2.3 g/dL Albumin/Globulin Ratio 1.1 (1.0-2.7) Lactic Acid Level 2.60 mmol/L (0.66-2.22) H 2.50 mmol/L (0.66-2.22) H Arterial Blood pH 7.475 (7.350-7.450) Arterial Blood Partial Pressure CO2 30.9 mmHg (35.0-45.0) L Arterial Blood Partial Pressure O2 189.0 mmHg (75.0-100.0) H Arterial Blood HCO3 22.2 mmol/L (22.0-26.0) Arterial Blood Oxygen Saturation 98.3 % (92.0-98.0) H Arterial Blood Base Excess -1.0 Anjum Test Positive Microbiology Date/Time Source Procedure Growth Status 09/10/16 23:00 Blood Blood Culture - Preliminary NO GROWTH AFTER 48 HOURS Resulted 09/10/16 22:55 Blood Blood Culture - Preliminary NO GROWTH AFTER 48 HOURS Resulted 09/11/16 03:50 Nasal Nares MRSA Culture - Final NO METHICILLIN RESISTANT STAPH AUREUS... Complete 09/11/16 17:45 Indwelling Cath Urine Culture - Preliminary Gram Negative Bacillus 1 Resulted 09/10/16 23:10 Urine,Clean Catch Urine Culture - Preliminary Gram Negative Bacillus 1 Resulted 09/11/16 03:50 Rectum VRE Culture - Final NO VANCOMYCIN RESISTANT ENTEROCOCCUS ... Complete Intake and Output 09/12/16 09/13/16 19:00 07:00 Intake Total 1083.43 ml 922.00 ml Output Total 35 ml 190 ml Balance 1048.43 ml 732.00 ml Intake IV Total 979.43 ml 710.00 ml Tube Feeding 104 ml 212 ml Output Urine Total 35 ml 190 ml Objective General Appearance: WD/WN, moderate distress EENT: normal ENT inspection Neck: non-tender, normal alignment, supple Cardiovascular: normal peripheral pulses, normal rate, regular rhythm, no gallop/murmur, no JVD Respiratory/Chest: Mech Vent; respiratory distress, crackles/rales, rhonchi - bilaterally, expiratory wheezing Abdomen: normal bowel sounds, non tender, soft, no organomegaly, no mass Skin: normal pigmentation, warm/dry Assessment/Plan Problem List: (1) Severe sepsis Assessment & Plan: Cont zosyn per ID. Await cultures. (2) Respiratory failure Assessment & Plan: Cont vent per pulmonary (3) Renal failure (4) Diabetes mellitus type II, uncontrolled Assessment & Plan: Cont novolog sliding scale. (5) BPH (benign prostatic hyperplasia) Status: not improved KING HAYNES September 13, 2016 18:21
[2016-09-13] MEDS: Zosyn 2.25 gm in D5W 55ml IV SCH (22:05)
[2016-09-14] VITALS (24 sets, daily range): BP systolic 110–145; BP diastolic 41–68
[2016-09-14 05:47] LABS: MEAN CORPUSCULAR HEMOGLOBIN 28.8 PG (27.0-31.0); MEAN CORPUSCULAR HGB CONC 34.3 G/DL (32.0-36.0); MEAN CORPUSCULAR VOLUME 84 FL (80-99); MEAN PLATELET VOLUME 8.3 FL (6.5-10.1); PLATELET COUNT 53 K/UL (150-450); RED BLOOD COUNT 2.95 M/UL (4.70-6.10); RED CELL DISTRIBUTION WIDTH 13.5 % (11.6-14.8); WHITE BLOOD COUNT 7.8 K/UL (4.8-10.8)
[2016-09-14 06:14] LABS: ALANINE AMINOTRANSFERASE 36 U/L (3-41); ANION GAP 22 (5-15); ASPARTATE AMINO TRANSFERASE 30 U/L (5-40); CALCIUM 6.6 mg/dL (8.6-10.2); CARBON DIOXIDE 22 mEQ/L (20-30); CHLORIDE 93 mEQ/L (98-107); CREATININE 5.8 mg/dL (0.7-1.2); HEMOLYSIS 8; MAGNESIUM 1.6 mg/dL (1.7-2.5); PHOSPHORUS 4.2 mg/dL (2.5-4.8); POTASSIUM 3.2 mEQ/L (3.4-4.9); SODIUM 137 mEQ/L (135-145); TOTAL PROTEIN 4.8 g/dL (6.6-8.7)
[2016-09-14 06:20] LABS: URIC ACID 12.2 mg/dL (3.0-7.5)
[2016-09-14] MEDS: NovoLOG Insulin Flexpen SUBQ SCH ×3 (06:30→16:51)
[2016-09-14] MEDS: Zosyn 2.25 gm in D5W 55ml IV SCH ×2 (06:43→13:26)
[2016-09-14 08:08] LABS: BAND NEUTROPHILS % (MANUAL) 0 % (0-8); BASOPHILS % (MANUAL) 0 % (0-2); EOSINOPHILS % (MANUAL) 1 % (0-3); LYMPHOCYTES % (MANUAL) 16 % (20-45); NEUTROPHILS % (MANUAL) 81 % (45-75); PLATELET ESTIMATE DECREASED; PLATELET MORPHOLOGY NORMAL; TOTAL CELLS COUNTED 100
[2016-09-14 08:09] LABS: ANISOCYTOSIS 1+; HYPOCHROMASIA 1+
--- NOTE | 2016-09-14 08:27 | Diagnostic Imaging Report ---
Indication: Patient requires hemodialysis. Findings: After the indications, procedure, risks, complications, and alternatives of the procedure were explained, written informed consent was obtained. The neck was prepped with alcohol. All elements of maximal sterile barrier technique were followed including usage of a cap, mask, sterile gown, sterile gloves, hand hygiene and a large sterile sheet. 1% lidocaine was used to anesthetize the skin. Sonographic evaluation was performed demonstrating a patent and compressible jugular vein. Access was obtained under real-time ultrasound guidance using an 18 gauge needle and a digital image was saved in archive. An 0.035 wire was then advanced into the vein. Needle exchanged for a dilator. A temporary hemodialysis catheter was then advanced over the wire. Wire was removed. Catheter was secured to the skin using 2-0 Prolene suture. Both ports aspirate and flush easily. The procedure was performed at the bedside. Final position of the catheter was determined by chest x-ray which shows the catheter tip in the SVC. Impression: Successful placement of right jugular hemodialysis catheter.
[2016-09-14 08:35] LABS: ABG ALLEN TEST POSITIVE; ABG BASE EXCESS 1.8
[2016-09-14] MEDS: Pantoprazole Inj IV SCH (09:04)
--- NOTE | 2016-09-14 10:37 | Pulmonolgy Critical Care Note ---
Critical Care - Asmt/Plan Problems: (1) Respiratory failure requiring intubation (2) Septic shock (3) ARF (acute renal failure) (4) Encephalopathy acute (5) DM (diabetes mellitus) Respiratory: monitor respiratory rate, adjust FIO2, CXR, ABG Cardiac: stop pressors Renal: F/U I&O, other - dc bicarb drip Infectious Disease: check cultures, continue antibiotics Gastrointestinal: continue feedings/current rate Endocrine: monitor blood sugar, continue sliding scale insulin Hematologic: monitor H/H, transfuse if hgb<8.5 Neurologic: PRN Ativan, PRN Morphine, keep patient comfortable Affect: PRN ativan Prophylaxis: Protonix, Heparin Disposition: keep in ICU Notes Reviewed: ux researcher, cardio, renal Discussed with: nurses, consultants, lead case manager, family member Critical Care - Objective Last 24 Hour Vital Signs Date Time Temp Pulse Resp B/P Pulse Ox O2 Delivery O2 Flow Rate FiO2 09/14/16 10:00 62 17 118/53 100 Mechanical Ventilator 30 09/14/16 09:26 73 15 30 09/14/16 09:00 59 16 112/56 100 Mechanical Ventilator 30 09/14/16 09:00 30 09/14/16 08:00 98.7 66 16 121/58 100 Mechanical Ventilator 45 09/14/16 08:00 66 09/14/16 08:00 45 09/14/16 07:02 76 18 45 09/14/16 07:00 71 15 122/61 100 Mechanical Ventilator 45 09/14/16 06:00 67 17 127/67 99 Mechanical Ventilator 45 09/14/16 05:29 73 16 45 09/14/16 05:00 74 17 117/58 100 Mechanical Ventilator 45 09/14/16 04:00 97.6 65 16 125/63 100 Mechanical Ventilator 45 09/14/16 04:00 45 09/14/16 04:00 65 09/14/16 03:30 82 17 45 09/14/16 03:00 70 17 112/59 100 Mechanical Ventilator 45 09/14/16 02:00 70 16 119/59 100 Mechanical Ventilator 45 09/14/16 01:30 78 17 45 09/14/16 01:00 68 15 119/54 100 Mechanical Ventilator 45 09/14/16 00:00 70 09/14/16 00:00 45 09/14/16 00:00 97.6 70 18 118/63 100 Mechanical Ventilator 45 09/13/16 23:01 63 15 45 09/13/16 23:00 66 15 117/57 100 Mechanical Ventilator 45 09/13/16 22:00 65 16 119/49 100 Mechanical Ventilator 45 09/13/16 21:09 80 16 45 17 21:00 63 15 113/65 98 Mechanical Ventilator 45 09/13/16 20:00 98.4 78 16 116/60 93 Mechanical Ventilator 45 09/13/16 20:00 45 09/13/16 20:00 78 09/13/16 19:30 82 19 45 09/13/16 19:00 79 7 129/60 98 Mechanical Ventilator 45 09/13/16 18:00 73 7 116/54 98 Mechanical Ventilator 45 09/13/16 17:00 69 7 119/54 98 Mechanical Ventilator 45 09/13/16 16:56 81 20 45 09/13/16 16:00 67 09/13/16 16:00 45 09/13/16 16:00 98.3 75 7 135/67 98 Mechanical Ventilator 45 09/13/16 15:28 84 16 45 09/13/16 15:00 66 7 117/57 98 Mechanical Ventilator 45 09/13/16 14:00 104 16 149/66 100 Mechanical Ventilator 45 09/13/16 13:28 80 16 45 09/13/16 13:00 71 16 126/56 100 Mechanical Ventilator 45 09/13/16 12:00 71 09/13/16 12:00 45 09/13/16 12:00 98.5 86 18 129/72 100 Mechanical Ventilator 45 09/13/16 11:29 79 16 45 09/13/16 11:00 88 18 140/66 100 Mechanical Ventilator 45 Status: sedated Condition: critical HEENT: atraumatic, normocephalic Neck: full ROM Lungs: rales, rhonchi Heart: HR/BP stable Abdomen: soft, non-tender Micro: Microbiology Date/Time Source Procedure Growth Status 09/11/16 17:45 Indwelling Cath Urine Culture - Final Enterobacter Cloacae Complex Complete Accucheck: 104 Critical Care - Subjective ROS Limited/Unobtainable: Yes ICU Day: 3 Intubation Day: 3 Condition: critical IV Access: central EKG Rhythm: Sinus Rhythm FI02: 30 Vent Support Breath Rate: 15 Vent Support Mode: AC Vent Tidal Volume: 500 Sputum Amount: Moderate PEEP: 5.0 PIP: 20 Fluids: NHCO3 50 cc/hour Tube Feeding Amount: 30 I&O: Intake and Output 09/13/16 09/14/16 19:00 07:00 Intake Total 1146.0 ml 1300 ml Output Total 445 ml 410 ml Balance 701.0 ml 890 ml Intake IV Total 810.0 ml 660 ml Tube Feeding 336 ml 390 ml Blood Product 250 ml Output Urine Total 445 ml 410 ml CXR: No change, ET in good position ET-Tube: 7.0 ET Position: 24 Labs: Laboratory Tests Test 09/13/16 13:40 09/14/16 04:20 09/14/16 07:50 Lactic Acid Level 2.50 mmol/L (0.66-2.22) H White Blood Count 7.8 K/UL (4.8-10.8) Red Blood Count 2.95 M/UL (4.70-6.10) L Hemoglobin 8.5 G/DL (14.2-18.0) L Hematocrit 24.8 % (42.0-52.0) L Mean Corpuscular Volume 84 FL (80-99) Mean Corpuscular Hemoglobin 28.8 PG (27.0-31.0) Mean Corpuscular Hemoglobin Concent 34.3 G/DL (32.0-36.0) Red Cell Distribution Width 13.5 % (11.6-14.8) Platelet Count 53 K/UL (150-450) L Mean Platelet Volume 8.3 FL (6.5-10.1) Neutrophils (%) (Auto) % (45.0-75.0) Lymphocytes (%) (Auto) % (20.0-45.0) Monocytes (%) (Auto) % (1.0-10.0) Eosinophils (%) (Auto) % (0.0-3.0) Basophils (%) (Auto) % (0.0-2.0) Differential Total Cells Counted 100 Neutrophils % (Manual) 81 % (45-75) H Lymphocytes % (Manual) 16 % (20-45) L Monocytes % (Manual) 2 % (1-10) Eosinophils % (Manual) 1 % (0-3) Basophils % (Manual) 0 % (0-2) Band Neutrophils 0 % (0-8) Platelet Estimate Decreased L Platelet Morphology Normal Hypochromasia 1+ Anisocytosis 1+ Sodium Level 137 mEQ/L (135-145) Potassium Level 3.2 mEQ/L (3.4-4.9) L Chloride Level 93 mEQ/L (98-107) L Carbon Dioxide Level 22 mEQ/L (20-30) Anion Gap 22 (5-15) H Blood Urea Nitrogen 112 mg/dL (7-23) H Creatinine 5.8 mg/dL (0.7-1.2) H Estimat Glomerular Filtration Rate mL/min (>60) Glucose Level 91 mg/dL (74-106) Uric Acid 12.2 mg/dL (3.0-7.5) H Calcium Level 6.6 mg/dL (8.6-10.2) L Phosphorus Level 4.2 mg/dL (2.5-4.8) Magnesium Level 1.6 mg/dL (1.7-2.5) L Total Bilirubin 0.5 mg/dL (0.0-1.2) Aspartate Amino Transf (AST/SGOT) 30 U/L (5-40) Alanine Aminotransferase (ALT/SGPT) 36 U/L (3-41) Alkaline Phosphatase 49 U/L (40-129) Total Creatine Kinase 345 U/L (38-174) H C-Reactive Protein, Quantitative 4.0 mg/dL (< 0.5) H Pro-B-Type Natriuretic Peptide 18947 pg/mL (0-450) H Total Protein 4.8 g/dL (6.6-8.7) L Albumin 2.5 g/dL (3.5-5.2) L Globulin 2.3 g/dL Albumin/Globulin Ratio 1.0 (1.0-2.7) Arterial Blood pH 7.493 (7.350-7.450) Arterial Blood Partial Pressure CO2 33.0 mmHg (35.0-45.0) L Arterial Blood Partial Pressure O2 174.1 mmHg (75.0-100.0) H Arterial Blood HCO3 24.8 mmol/L (22.0-26.0) Arterial Blood Oxygen Saturation 98.3 % (92.0-98.0) H Arterial Blood Base Excess 1.8 Anjum Test Positive LANDEN HERNANDEZ September 14, 2016 10:37
--- NOTE | 2016-09-14 10:52 | General Progress Note ---
Assessment/Plan Status: unchanged Assessment/Plan status: Septic Shock leading to acute renal and multiOrgan failure Due to the above: Sever Acidosis , high Lactate , High K Sugg: Hemodynamic support Bicarb Antibiotics POOR Prognosis trial of HD today discussed with RN Subjective ROS Limited/Unobtainable: Yes Allergies: Coded Allergies: SULFA (SULFONAMIDE ANTIBIOTICS) (Verified Allergy, Unknown, 09/10/16) Uncoded Allergies: SULFA (Adverse Reaction, Mild, RASH, 04/01/13) Objective Last 24 Hour Vital Signs Date Time Temp Pulse Resp B/P Pulse Ox O2 Delivery O2 Flow Rate FiO2 09/14/16 10:00 62 17 118/53 100 Mechanical Ventilator 30 09/14/16 09:26 73 15 30 09/14/16 09:00 59 16 112/56 100 Mechanical Ventilator 30 09/14/16 09:00 30 09/14/16 08:00 98.7 66 16 121/58 100 Mechanical Ventilator 45 09/14/16 08:00 66 09/14/16 08:00 45 09/14/16 07:02 76 18 45 09/14/16 07:00 71 15 122/61 100 Mechanical Ventilator 45 09/14/16 06:00 67 17 127/67 99 Mechanical Ventilator 45 09/14/16 05:29 73 16 45 09/14/16 05:00 74 17 117/58 100 Mechanical Ventilator 45 09/14/16 04:00 97.6 65 16 125/63 100 Mechanical Ventilator 45 09/14/16 04:00 45 09/14/16 04:00 65 09/14/16 03:30 82 17 45 09/14/16 03:00 70 17 112/59 100 Mechanical Ventilator 45 09/14/16 02:00 70 16 119/59 100 Mechanical Ventilator 45 09/14/16 01:30 78 17 45 09/14/16 01:00 68 15 119/54 100 Mechanical Ventilator 45 09/14/16 00:00 70 09/14/16 00:00 45 09/14/16 00:00 97.6 70 18 118/63 100 Mechanical Ventilator 45 09/13/16 23:01 63 15 45 09/13/16 23:00 66 15 117/57 100 Mechanical Ventilator 45 09/13/16 22:00 65 16 119/49 100 Mechanical Ventilator 45 09/13/16 21:09 80 16 45 09/13/16 21:00 63 15 113/65 98 Mechanical Ventilator 45 09/13/16 20:00 98.4 78 16 116/60 93 Mechanical Ventilator 45 09/13/16 20:00 45 09/13/16 20:00 78 09/13/16 19:30 82 19 45 09/13/16 19:00 79 7 129/60 98 Mechanical Ventilator 45 09/13/16 18:00 73 7 116/54 98 Mechanical Ventilator 45 09/13/16 17:00 69 7 119/54 98 Mechanical Ventilator 45 09/13/16 16:56 81 20 45 09/13/16 16:00 67 09/13/16 16:00 45 09/13/16 16:00 98.3 75 7 135/67 98 Mechanical Ventilator 45 09/13/16 15:28 84 16 45 09/13/16 15:00 66 7 117/57 98 Mechanical Ventilator 45 09/13/16 14:00 104 16 149/66 100 Mechanical Ventilator 45 09/13/16 13:28 80 16 45 09/13/16 13:00 71 16 126/56 100 Mechanical Ventilator 45 09/13/16 12:00 71 09/13/16 12:00 45 09/13/16 12:00 98.5 86 18 129/72 100 Mechanical Ventilator 45 09/13/16 11:29 79 16 45 09/13/16 11:00 88 18 140/66 100 Mechanical Ventilator 45 Intake and Output 09/13/16 09/14/16 19:00 07:00 Intake Total 1146.0 ml 1300 ml Output Total 445 ml 410 ml Balance 701.0 ml 890 ml Intake IV Total 810.0 ml 660 ml Tube Feeding 336 ml 390 ml Blood Product 250 ml Output Urine Total 445 ml 410 ml Laboratory Tests 09/13/16 13:40: Lactic Acid Level 2.50H 09/14/16 04:20: White Blood Count 7.8, Red Blood Count 2.95L, Hemoglobin 8.5L, Hematocrit 24.8L , Mean Corpuscular Volume 84, Mean Corpuscular Hemoglobin 28.8, Mean Corpuscular Hemoglobin Concent 34.3, Red Cell Distribution Width 13.5, Platelet Count 53L, Mean Platelet Volume 8.3, Neutrophils (%) (Auto) , Lymphocytes (%) ( Auto) , Monocytes (%) (Auto) , Eosinophils (%) (Auto) , Basophils (%) (Auto) , Differential Total Cells Counted 100, Neutrophils % (Manual) 81H, Lymphocytes % (Manual) 16L, Monocytes % (Manual) 2, Eosinophils % (Manual) 1, Basophils % ( Manual) 0, Band Neutrophils 0, Platelet Estimate DecreasedL, Platelet Morphology Normal, Hypochromasia 1+, Anisocytosis 1+, Sodium Level 137, Potassium Level 3.2L, Chloride Level 93L, Carbon Dioxide Level 22, Anion Gap 22H , Blood Urea Nitrogen 112H, Creatinine 5.8H, Estimat Glomerular Filtration Rate , Glucose Level 91, Uric Acid 12.2H, Calcium Level 6.6L, Phosphorus Level 4.2, Magnesium Level 1.6L, Total Bilirubin 0.5, Aspartate Amino Transf (AST/SGOT) 30 , Alanine Aminotransferase (ALT/SGPT) 36, Alkaline Phosphatase 49, Total Creatine Kinase 345H, C-Reactive Protein, Quantitative 4.0H, Pro-B-Type Natriuretic Peptide 58277R, Total Protein 4.8L, Albumin 2.5L, Globulin 2.3, Albumin/Globulin Ratio 1.0 09/14/16 07:50: Arterial Blood pH 7.493H, Arterial Blood Partial Pressure CO2 33.0L, Arterial Blood Partial Pressure O2 174.1H, Arterial Blood HCO3 24.8, Arterial Blood Oxygen Saturation 98.3H, Arterial Blood Base Excess 1.8, Anjum Test Positive Height (Feet): 5 Height (Inches): 6.00 Weight (Pounds): 160 General Appearance: lethargic EENT: other - intubated Neck: limited range of motion Cardiovascular: normal rate Respiratory/Chest: decreased breath sounds Objective no change in PE MARIAN KOTHARI September 14, 2016 10:52
--- NOTE | 2016-09-14 12:03 | Internal Med Progress Note ---
Subjective Date of Service: September 14, 2016 Physician Name King Haynes Attending Physician Jonathan Sampson MD Current Medications Medications (Trade) Dose Ordered Sig/Barrett Route PRN Reason Start Time Stop Time Status Last Admin Dose Admin Albuterol/ Ipratropium 3 ml 3 ml Q4HRT PRN HHN sob 09/11/16 09:30 09/16/16 09:29 Dextrose (Dextrose 50%) STAT PRN IV Hypoglycemia 09/11/16 05:30 10/11/16 05:29 Insulin Aspart BEFORE MEALS AND HS SUBQ 09/12/16 12:30 10/12/16 12:29 09/14/16 11:45 Lorazepam (Ativan 2mg/ml 1ml) 2 mg Q4H PRN IV For Anxiety 09/12/16 11:30 09/19/16 11:29 Morphine Sulfate (Morphine Sulfate) 4 mg Q4H PRN IVP PAIN 4-10 09/12/16 11:30 09/19/16 11:29 Norepinephrine Bitartrate/ Dextrose (Levophed/D5W) 516 ml @ 0 mls/hr Q24H IV 09/11/16 14:00 10/11/16 13:59 09/11/16 14:22 Pantoprazole (Protonix) 40 mg DAILY IV 09/13/16 09:00 10/13/16 08:59 09/14/16 09:04 Piperacillin Sod/ Tazobactam Sod/ Dextrose (Zosyn/D5W) 55 ml @ 110 mls/hr Q8HR IV 09/13/16 22:00 09/18/16 21:59 09/14/16 06:43 Allergies: Coded Allergies: SULFA (SULFONAMIDE ANTIBIOTICS) (Verified Allergy, Unknown, 09/10/16) Uncoded Allergies: SULFA (Adverse Reaction, Mild, RASH, 04/01/13) ROS Limited/Unobtainable: Yes Subjective 76 YO M admitted with hypotension and sepsis. ICU. Intubated and sedated. Cover for Int Med-Dr Sampson. Objective Last Vital Signs Date Time Temp Pulse Resp B/P Pulse Ox O2 Delivery O2 Flow Rate FiO2 09/14/16 11:20 65 15 30 09/14/16 11:00 117/68 100 Mechanical Ventilator 09/14/16 08:00 98.7 Laboratory Tests Test 09/13/16 13:40 09/14/16 04:20 09/14/16 07:50 Lactic Acid Level 2.50 mmol/L (0.66-2.22) H White Blood Count 7.8 K/UL (4.8-10.8) Red Blood Count 2.95 M/UL (4.70-6.10) L Hemoglobin 8.5 G/DL (14.2-18.0) L Hematocrit 24.8 % (42.0-52.0) L Mean Corpuscular Volume 84 FL (80-99) Mean Corpuscular Hemoglobin 28.8 PG (27.0-31.0) Mean Corpuscular Hemoglobin Concent 34.3 G/DL (32.0-36.0) Red Cell Distribution Width 13.5 % (11.6-14.8) Platelet Count 53 K/UL (150-450) L Mean Platelet Volume 8.3 FL (6.5-10.1) Neutrophils (%) (Auto) % (45.0-75.0) Lymphocytes (%) (Auto) % (20.0-45.0) Monocytes (%) (Auto) % (1.0-10.0) Eosinophils (%) (Auto) % (0.0-3.0) Basophils (%) (Auto) % (0.0-2.0) Differential Total Cells Counted 100 Neutrophils % (Manual) 81 % (45-75) H Lymphocytes % (Manual) 16 % (20-45) L Monocytes % (Manual) 2 % (1-10) Eosinophils % (Manual) 1 % (0-3) Basophils % (Manual) 0 % (0-2) Band Neutrophils 0 % (0-8) Platelet Estimate Decreased L Platelet Morphology Normal Hypochromasia 1+ Anisocytosis 1+ Sodium Level 137 mEQ/L (135-145) Potassium Level 3.2 mEQ/L (3.4-4.9) L Chloride Level 93 mEQ/L (98-107) L Carbon Dioxide Level 22 mEQ/L (20-30) Anion Gap 22 (5-15) H Blood Urea Nitrogen 112 mg/dL (7-23) H Creatinine 5.8 mg/dL (0.7-1.2) H Estimat Glomerular Filtration Rate mL/min (>60) Glucose Level 91 mg/dL (74-106) Uric Acid 12.2 mg/dL (3.0-7.5) H Calcium Level 6.6 mg/dL (8.6-10.2) L Phosphorus Level 4.2 mg/dL (2.5-4.8) Magnesium Level 1.6 mg/dL (1.7-2.5) L Total Bilirubin 0.5 mg/dL (0.0-1.2) Aspartate Amino Transf (AST/SGOT) 30 U/L (5-40) Alanine Aminotransferase (ALT/SGPT) 36 U/L (3-41) Alkaline Phosphatase 49 U/L (40-129) Total Creatine Kinase 345 U/L (38-174) H C-Reactive Protein, Quantitative 4.0 mg/dL (< 0.5) H Pro-B-Type Natriuretic Peptide 10376 pg/mL (0-450) H Total Protein 4.8 g/dL (6.6-8.7) L Albumin 2.5 g/dL (3.5-5.2) L Globulin 2.3 g/dL Albumin/Globulin Ratio 1.0 (1.0-2.7) Arterial Blood pH 7.493 (7.350-7.450) Arterial Blood Partial Pressure CO2 33.0 mmHg (35.0-45.0) L Arterial Blood Partial Pressure O2 174.1 mmHg (75.0-100.0) H Arterial Blood HCO3 24.8 mmol/L (22.0-26.0) Arterial Blood Oxygen Saturation 98.3 % (92.0-98.0) H Arterial Blood Base Excess 1.8 Anjum Test Positive Microbiology Date/Time Source Procedure Growth Status 09/11/16 17:45 Indwelling Cath Urine Culture - Final Enterobacter Cloacae Complex Complete Intake and Output 09/13/16 09/14/16 19:00 07:00 Intake Total 1146.0 ml 1300 ml Output Total 445 ml 410 ml Balance 701.0 ml 890 ml Intake IV Total 810.0 ml 660 ml Tube Feeding 336 ml 390 ml Blood Product 250 ml Output Urine Total 445 ml 410 ml Objective General Appearance: WD/WN, moderate distress EENT: normal ENT inspection Neck: non-tender, normal alignment, supple Cardiovascular: normal peripheral pulses, normal rate, regular rhythm, no gallop/murmur, no JVD Respiratory/Chest: Mech Vent; respiratory distress, crackles/rales, rhonchi - bilaterally, expiratory wheezing Abdomen: normal bowel sounds, non tender, soft, no organomegaly, no mass Skin: normal pigmentation, warm/dry Assessment/Plan Problem List: (1) Severe sepsis Assessment & Plan: Cont zosyn per ID. Await cultures. (2) Respiratory failure Assessment & Plan: Cont vent per pulmonary (3) Renal failure Assessment & Plan: Hemodialysis today per nephrology. (4) Diabetes mellitus type II, uncontrolled Assessment & Plan: Cont novolog sliding scale. (5) BPH (benign prostatic hyperplasia) (6) Hypokalemia Status: not improved KING HAYNES September 14, 2016 12:03
--- NOTE | 2016-09-14 14:40 | Diagnostic Imaging Report ---
Indication: DYSPNEA Technique: One view of the chest Comparison: 09/13/2016 post dialysis catheter placement radiograph Findings: There is suggestion of slightly increased bilateral left greater than right interstitial congestion. Left sided pleural effusion persists, unchanged. There may be some pleural fluid now present on the right. Right jugular temporary dialysis catheter, nasogastric tube, endotracheal tube remain in stable satisfactory positions. Left chest pacemaker remains. Coronary stent is again demonstrated. Impression: Suggestive slightly increased bilateral left greater than right interstitial congestion and possible new right pleural effusion, since 09/13/2016. Other stable findings as described
--- NOTE | 2016-09-14 18:43 | Infectious Diseases Prog Note ---
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 ) LAC improving DM HTN SP pacemaker placement Alzheimer dementia [place] : on HD started 09/14 P: Change Zosyn d# 4 , to cefepime d# 1 Monitor culture Monitor CBC Monitor BMP Monitor LFT Nephro is following HD Cath Subjective Allergies: Coded Allergies: SULFA (SULFONAMIDE ANTIBIOTICS) (Verified Allergy, Unknown, 09/10/16) Uncoded Allergies: SULFA (Adverse Reaction, Mild, RASH, 04/01/13) Subjective getting HD cath , afebrile Objective Vital Signs Last 24 Hour Vital Signs Date Time Temp Pulse Resp B/P Pulse Ox O2 Delivery O2 Flow Rate FiO2 09/14/16 18:00 74 17 124/48 98 Mechanical Ventilator 30 09/14/16 17:00 61 17 122/56 98 Mechanical Ventilator 30 09/14/16 16:38 63 15 30 09/14/16 16:25 Mechanical Ventilator 30 09/14/16 16:00 98.7 65 16 110/52 100 Mechanical Ventilator 30 09/14/16 16:00 30 09/14/16 16:00 65 09/14/16 15:21 70 16 30 09/14/16 15:00 67 17 126/57 100 Mechanical Ventilator 30 09/14/16 14:00 62 17 114/54 99 Mechanical Ventilator 30 09/14/16 13:25 116/53 09/14/16 13:04 67 17 30 09/14/16 13:00 63 16 116/53 100 Mechanical Ventilator 30 09/14/16 12:00 98.5 61 16 117/55 100 Mechanical Ventilator 30 09/14/16 12:00 66 09/14/16 11:20 65 15 30 09/14/16 11:00 63 16 117/68 100 Mechanical Ventilator 30 09/14/16 10:00 62 17 118/53 100 Mechanical Ventilator 30 09/14/16 09:26 73 15 30 09/14/16 09:00 59 16 112/56 100 Mechanical Ventilator 30 09/14/16 09:00 30 09/14/16 08:00 98.7 66 16 121/58 100 Mechanical Ventilator 45 09/14/16 08:00 66 09/14/16 08:00 45 09/14/16 07:02 76 18 45 09/14/16 07:00 71 15 122/61 100 Mechanical Ventilator 45 09/14/16 06:00 67 17 127/67 99 Mechanical Ventilator 45 09/14/16 05:29 73 16 45 09/14/16 05:00 74 17 117/58 100 Mechanical Ventilator 45 09/14/16 04:00 97.6 65 16 125/63 100 Mechanical Ventilator 45 09/14/16 04:00 45 09/14/16 04:00 65 09/14/16 03:30 82 17 45 09/14/16 03:00 70 17 112/59 100 Mechanical Ventilator 45 09/14/16 02:00 70 16 119/59 100 Mechanical Ventilator 45 09/14/16 01:30 78 17 45 09/14/16 01:00 68 15 119/54 100 Mechanical Ventilator 45 09/14/16 00:00 70 09/14/16 00:00 45 09/14/16 00:00 97.6 70 18 118/63 100 Mechanical Ventilator 45 09/13/16 23:01 63 15 45 09/13/16 23:00 66 15 117/57 100 Mechanical Ventilator 45 09/13/16 22:00 65 16 119/49 100 Mechanical Ventilator 45 09/13/16 21:09 80 16 45 09/13/16 21:00 63 15 113/65 98 Mechanical Ventilator 45 09/13/16 20:00 98.4 78 16 116/60 93 Mechanical Ventilator 45 09/13/16 20:00 45 09/13/16 20:00 78 09/13/16 19:30 82 19 45 09/13/16 19:00 79 7 129/60 98 Mechanical Ventilator 45 Height (Feet): 5 Height (Inches): 6.00 Weight (Pounds): 160 HEENT: mucous membranes moist Respiratory/Chest: no accessory muscle use Abdomen: non distended Laboratory Tests Test 09/14/16 04:20 09/14/16 07:50 White Blood Count 7.8 K/UL (4.8-10.8) Red Blood Count 2.95 M/UL (4.70-6.10) L Hemoglobin 8.5 G/DL (14.2-18.0) L Hematocrit 24.8 % (42.0-52.0) L Mean Corpuscular Volume 84 FL (80-99) Mean Corpuscular Hemoglobin 28.8 PG (27.0-31.0) Mean Corpuscular Hemoglobin Concent 34.3 G/DL (32.0-36.0) Red Cell Distribution Width 13.5 % (11.6-14.8) Platelet Count 53 K/UL (150-450) L Mean Platelet Volume 8.3 FL (6.5-10.1) Neutrophils (%) (Auto) % (45.0-75.0) Lymphocytes (%) (Auto) % (20.0-45.0) Monocytes (%) (Auto) % (1.0-10.0) Eosinophils (%) (Auto) % (0.0-3.0) Basophils (%) (Auto) % (0.0-2.0) Differential Total Cells Counted 100 Neutrophils % (Manual) 81 % (45-75) H Lymphocytes % (Manual) 16 % (20-45) L Monocytes % (Manual) 2 % (1-10) Eosinophils % (Manual) 1 % (0-3) Basophils % (Manual) 0 % (0-2) Band Neutrophils 0 % (0-8) Platelet Estimate Decreased L Platelet Morphology Normal Hypochromasia 1+ Anisocytosis 1+ Sodium Level 137 mEQ/L (135-145) Potassium Level 3.2 mEQ/L (3.4-4.9) L Chloride Level 93 mEQ/L (98-107) L Carbon Dioxide Level 22 mEQ/L (20-30) Anion Gap 22 (5-15) H Blood Urea Nitrogen 112 mg/dL (7-23) H Creatinine 5.8 mg/dL (0.7-1.2) H Estimat Glomerular Filtration Rate mL/min (>60) Glucose Level 91 mg/dL (74-106) Uric Acid 12.2 mg/dL (3.0-7.5) H Calcium Level 6.6 mg/dL (8.6-10.2) L Phosphorus Level 4.2 mg/dL (2.5-4.8) Magnesium Level 1.6 mg/dL (1.7-2.5) L Total Bilirubin 0.5 mg/dL (0.0-1.2) Aspartate Amino Transf (AST/SGOT) 30 U/L (5-40) Alanine Aminotransferase (ALT/SGPT) 36 U/L (3-41) Alkaline Phosphatase 49 U/L (40-129) Total Creatine Kinase 345 U/L (38-174) H C-Reactive Protein, Quantitative 4.0 mg/dL (< 0.5) H Pro-B-Type Natriuretic Peptide 88499 pg/mL (0-450) H Total Protein 4.8 g/dL (6.6-8.7) L Albumin 2.5 g/dL (3.5-5.2) L Globulin 2.3 g/dL Albumin/Globulin Ratio 1.0 (1.0-2.7) Arterial Blood pH 7.493 (7.350-7.450) Arterial Blood Partial Pressure CO2 33.0 mmHg (35.0-45.0) L Arterial Blood Partial Pressure O2 174.1 mmHg (75.0-100.0) H Arterial Blood HCO3 24.8 mmol/L (22.0-26.0) Arterial Blood Oxygen Saturation 98.3 % (92.0-98.0) H Arterial Blood Base Excess 1.8 Anjum Test Positive Current Medications Medications (Trade) Dose Ordered Sig/Barrett Route PRN Reason Start Time Stop Time Status Last Admin Dose Admin Albuterol/ Ipratropium 3 ml 3 ml Q4HRT PRN HHN sob 09/11/16 09:30 09/16/16 09:29 Dextrose (Dextrose 50%) STAT PRN IV Hypoglycemia 09/11/16 05:30 10/11/16 05:29 Insulin Aspart BEFORE MEALS AND HS SUBQ 09/12/16 12:30 10/12/16 12:29 09/14/16 16:51 Lorazepam (Ativan 2mg/ml 1ml) 2 mg Q4H PRN IV For Anxiety 09/12/16 11:30 09/19/16 11:29 Morphine Sulfate (Morphine Sulfate) 4 mg Q4H PRN IVP PAIN 4-10 09/12/16 11:30 09/19/16 11:29 Norepinephrine Bitartrate/ Dextrose (Levophed/D5W) 516 ml @ 0 mls/hr Q24H IV 09/11/16 14:00 10/11/16 13:59 09/11/16 14:22 Pantoprazole (Protonix) 40 mg DAILY IV 09/13/16 09:00 10/13/16 08:59 09/14/16 09:04 Piperacillin Sod/ Tazobactam Sod/ Dextrose (Zosyn/D5W) 55 ml @ 110 mls/hr Q8HR IV 09/13/16 22:00 09/18/16 21:59 09/14/16 13:26 CRISTEL DUFF M.D. September 14, 2016 18:43
--- NOTE | 2016-09-14 19:30 | Cardiology Progress Note ---
Assessment/Plan Assessment/Plan 1. Globally weak/septic shock. 2. Renal failure, acute on chronic. 3. 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 4. Anemia. 5. History of upper gastrointestinal bleed with treatment of the visible bleeding vessel previously. 6. Chronic renal insufficiency. 7. Coronary artery disease status post percutaneous coronary intervention with what was felt to be a demand related ischemia. 8. History of aspiration. 9. Altered mental status. 10. Hypertension. 11. Diabetes mellitus 12. thrombocytopenia watch plt count consider heme eval check pt ptt bp is stable dialysis vent support wean as possible abx off pressors Subjective Subjective on a vent on dialysis Objective Last 24 Hour Vital Signs Date Time Temp Pulse Resp B/P Pulse Ox O2 Delivery O2 Flow Rate FiO2 09/14/16 19:00 68 17 145/63 100 Mechanical Ventilator 30 09/14/16 18:00 74 17 124/48 98 Mechanical Ventilator 30 09/14/16 17:00 61 17 122/56 98 Mechanical Ventilator 30 09/14/16 16:38 63 15 30 09/14/16 16:25 Mechanical Ventilator 30 09/14/16 16:00 98.7 65 16 110/52 100 Mechanical Ventilator 30 09/14/16 16:00 30 09/14/16 16:00 65 09/14/16 15:21 70 16 30 09/14/16 15:00 67 17 126/57 100 Mechanical Ventilator 30 09/14/16 14:00 62 17 114/54 99 Mechanical Ventilator 30 09/14/16 13:25 116/53 09/14/16 13:04 67 17 30 09/14/16 13:00 63 16 116/53 100 Mechanical Ventilator 30 09/14/16 12:00 98.5 61 16 117/55 100 Mechanical Ventilator 30 09/14/16 12:00 66 09/14/16 11:20 65 15 30 09/14/16 11:00 63 16 117/68 100 Mechanical Ventilator 30 09/14/16 10:00 62 17 118/53 100 Mechanical Ventilator 30 09/14/16 09:26 73 15 30 09/14/16 09:00 59 16 112/56 100 Mechanical Ventilator 30 09/14/16 09:00 30 09/14/16 08:00 98.7 66 16 121/58 100 Mechanical Ventilator 45 09/14/16 08:00 66 09/14/16 08:00 45 09/14/16 07:02 76 18 45 09/14/16 07:00 71 15 122/61 100 Mechanical Ventilator 45 09/14/16 06:00 67 17 127/67 99 Mechanical Ventilator 45 09/14/16 05:29 73 16 45 09/14/16 05:00 74 17 117/58 100 Mechanical Ventilator 45 09/14/16 04:00 97.6 65 16 125/63 100 Mechanical Ventilator 45 09/14/16 04:00 45 09/14/16 04:00 65 09/14/16 03:30 82 17 45 09/14/16 03:00 70 17 112/59 100 Mechanical Ventilator 45 09/14/16 02:00 70 16 119/59 100 Mechanical Ventilator 45 09/14/16 01:30 78 17 45 09/14/16 01:00 68 15 119/54 100 Mechanical Ventilator 45 09/14/16 00:00 70 09/14/16 00:00 45 09/14/16 00:00 97.6 70 18 118/63 100 Mechanical Ventilator 45 09/13/16 23:01 63 15 45 09/13/16 23:00 66 15 117/57 100 Mechanical Ventilator 45 09/13/16 22:00 65 16 119/49 100 Mechanical Ventilator 45 09/13/16 21:09 80 16 45 09/13/16 21:00 63 15 113/65 98 Mechanical Ventilator 45 09/13/16 20:00 98.4 78 16 116/60 93 Mechanical Ventilator 45 09/13/16 20:00 45 09/13/16 20:00 78 09/13/16 19:30 82 19 45 General Appearance: on vent, patient on isolation Intake and Output 09/13/16 09/14/16 19:00 07:00 Intake Total 1146.0 ml 1300 ml Output Total 445 ml 410 ml Balance 701.0 ml 890 ml Intake IV Total 810.0 ml 660 ml Tube Feeding 336 ml 390 ml Blood Product 250 ml Output Urine Total 445 ml 410 ml Laboratory Tests Test 09/14/16 04:20 09/14/16 07:50 White Blood Count 7.8 K/UL (4.8-10.8) Red Blood Count 2.95 M/UL (4.70-6.10) L Hemoglobin 8.5 G/DL (14.2-18.0) L Hematocrit 24.8 % (42.0-52.0) L Mean Corpuscular Volume 84 FL (80-99) Mean Corpuscular Hemoglobin 28.8 PG (27.0-31.0) Mean Corpuscular Hemoglobin Concent 34.3 G/DL (32.0-36.0) Red Cell Distribution Width 13.5 % (11.6-14.8) Platelet Count 53 K/UL (150-450) L Mean Platelet Volume 8.3 FL (6.5-10.1) Neutrophils (%) (Auto) % (45.0-75.0) Lymphocytes (%) (Auto) % (20.0-45.0) Monocytes (%) (Auto) % (1.0-10.0) Eosinophils (%) (Auto) % (0.0-3.0) Basophils (%) (Auto) % (0.0-2.0) Differential Total Cells Counted 100 Neutrophils % (Manual) 81 % (45-75) H Lymphocytes % (Manual) 16 % (20-45) L Monocytes % (Manual) 2 % (1-10) Eosinophils % (Manual) 1 % (0-3) Basophils % (Manual) 0 % (0-2) Band Neutrophils 0 % (0-8) Platelet Estimate Decreased L Platelet Morphology Normal Hypochromasia 1+ Anisocytosis 1+ Sodium Level 137 mEQ/L (135-145) Potassium Level 3.2 mEQ/L (3.4-4.9) L Chloride Level 93 mEQ/L (98-107) L Carbon Dioxide Level 22 mEQ/L (20-30) Anion Gap 22 (5-15) H Blood Urea Nitrogen 112 mg/dL (7-23) H Creatinine 5.8 mg/dL (0.7-1.2) H Estimat Glomerular Filtration Rate mL/min (>60) Glucose Level 91 mg/dL (74-106) Uric Acid 12.2 mg/dL (3.0-7.5) H Calcium Level 6.6 mg/dL (8.6-10.2) L Phosphorus Level 4.2 mg/dL (2.5-4.8) Magnesium Level 1.6 mg/dL (1.7-2.5) L Total Bilirubin 0.5 mg/dL (0.0-1.2) Aspartate Amino Transf (AST/SGOT) 30 U/L (5-40) Alanine Aminotransferase (ALT/SGPT) 36 U/L (3-41) Alkaline Phosphatase 49 U/L (40-129) Total Creatine Kinase 345 U/L (38-174) H C-Reactive Protein, Quantitative 4.0 mg/dL (< 0.5) H Pro-B-Type Natriuretic Peptide 45615 pg/mL (0-450) H Total Protein 4.8 g/dL (6.6-8.7) L Albumin 2.5 g/dL (3.5-5.2) L Globulin 2.3 g/dL Albumin/Globulin Ratio 1.0 (1.0-2.7) Arterial Blood pH 7.493 (7.350-7.450) Arterial Blood Partial Pressure CO2 33.0 mmHg (35.0-45.0) L Arterial Blood Partial Pressure O2 174.1 mmHg (75.0-100.0) H Arterial Blood HCO3 24.8 mmol/L (22.0-26.0) Arterial Blood Oxygen Saturation 98.3 % (92.0-98.0) H Arterial Blood Base Excess 1.8 Anjum Test Positive RAJ DEL ROSARIO September 14, 2016 19:30
[2016-09-14] MEDS ORDERED: Cefepime HCl 1 GM in D5W 110 ML IVPB ONE (20:00)
[2016-09-15] VITALS (24 sets, daily range): BP systolic 89–141; BP diastolic 47–68
[2016-09-15 06:02] LABS: MEAN CORPUSCULAR HEMOGLOBIN 29.5 PG (27.0-31.0); MEAN CORPUSCULAR HGB CONC 34.8 G/DL (32.0-36.0); MEAN CORPUSCULAR VOLUME 85 FL (80-99); MEAN PLATELET VOLUME 8.7 FL (6.5-10.1); PLATELET COUNT 51 K/UL (150-450); RED BLOOD COUNT 3.09 M/UL (4.70-6.10); RED CELL DISTRIBUTION WIDTH 13.8 % (11.6-14.8); WHITE BLOOD COUNT 7.7 K/UL (4.8-10.8)
[2016-09-15 06:21] LABS: INR 1.1 (0.9-1.1); PROTHROMBIN TIME 11.3 SEC (9.30-11.50)
[2016-09-15] MEDS: NovoLOG Insulin Flexpen SUBQ SCH ×4 (06:21→17:15)
[2016-09-15 06:32] LABS: ALANINE AMINOTRANSFERASE 28 U/L (3-41); ALBUMIN/GLOBULIN RATIO 0.8 (1.0-2.7); ANION GAP 18 (5-15); ASPARTATE AMINO TRANSFERASE 27 U/L (5-40); CALCIUM 7.3 mg/dL (8.6-10.2); CARBON DIOXIDE 28 mEQ/L (20-30); CHLORIDE 95 mEQ/L (98-107); CREATININE 3.9 mg/dL (0.7-1.2); HEMOLYSIS 4; MAGNESIUM 1.6 mg/dL (1.7-2.5); PHOSPHORUS 2.7 mg/dL (2.5-4.8); POTASSIUM 2.9 mEQ/L (3.4-4.9); SODIUM 141 mEQ/L (135-145); TOTAL PROTEIN 4.9 g/dL (6.6-8.7)
[2016-09-15] MEDS: Pantoprazole Inj IV SCH (08:15)
[2016-09-15 08:45] LABS: BAND NEUTROPHILS % (MANUAL) 0 % (0-8); BASOPHILS % (MANUAL) 0 % (0-2); EOSINOPHILS % (MANUAL) 0 % (0-3); LYMPHOCYTES % (MANUAL) 11 % (20-45); NEUTROPHILS % (MANUAL) 84 % (45-75); PLATELET ESTIMATE DECREASED; TOTAL CELLS COUNTED 100
[2016-09-15 08:46] LABS: ANISOCYTOSIS 1+; HYPOCHROMASIA 2+; PLATELET MORPHOLOGY NORMAL; SPHEROCYTES 2+
[2016-09-15] MEDS ORDERED: KCl 10% 40mEq/30ml liquid NG ONE (09:30)
[2016-09-15 09:45] LABS: ABG BASE EXCESS 7.4
--- NOTE | 2016-09-15 10:17 | Pulmonolgy Critical Care Note ---
Critical Care - Asmt/Plan Problems: (1) Respiratory failure requiring intubation (2) Septic shock (3) ARF (acute renal failure) (4) Encephalopathy acute (5) DM (diabetes mellitus) Respiratory: adjust tidal volume, monitor respiratory rate, adjust FIO2, CXR, ABG, other Cardiac: continue to monitor HR/BP, cardiac imaging Renal: F/U I&O, keep IV fluid Infectious Disease: check cultures, continue antibiotics Gastrointestinal: continue feedings/current rate, hold feedings Endocrine: monitor blood sugar, check HgA1C Hematologic: monitor H/H Neurologic: PRN Ativan, PRN Morphine Affect: PRN ativan Prophylaxis: Protonix, Heparin Time Spent (Minutes): 30 Notes 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, 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, 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 Discussed with: nurses, consultants, case resource managerconfiguration management manager - Objective Last 24 Hour Vital Signs Date Time Temp Pulse Resp B/P Pulse Ox O2 Delivery O2 Flow Rate FiO2 09/15/16 08:54 76 22 30 09/15/16 08:00 67 09/15/16 08:00 30 09/15/16 08:00 98.2 68 17 141/68 100 Mechanical Ventilator 30 09/15/16 07:00 68 16 110/54 100 Mechanical Ventilator 30 09/15/16 06:58 86 16 30 09/15/16 06:00 72 17 134/66 100 Mechanical Ventilator 30 09/15/16 05:24 72 15 30 09/15/16 05:00 70 16 120/60 100 Mechanical Ventilator 30 09/15/16 04:00 30 09/15/16 04:00 98.1 69 17 108/60 100 Mechanical Ventilator 30 09/15/16 04:00 69 09/15/16 03:00 67 18 110/58 100 Mechanical Ventilator 30 09/15/16 03:00 61 15 30 09/15/16 02:00 63 16 114/58 100 Mechanical Ventilator 30 09/15/16 01:06 65 18 30 09/15/16 01:00 63 18 123/51 100 Mechanical Ventilator 30 09/15/16 00:00 98.0 65 17 121/56 100 Mechanical Ventilator 30 09/15/16 00:00 30 09/15/16 00:00 73 09/14/16 23:20 59 15 30 09/14/16 23:00 68 18 116/51 100 Mechanical Ventilator 30 09/14/16 22:00 68 17 123/41 100 Mechanical Ventilator 30 09/14/16 21:00 70 18 126/57 100 Mechanical Ventilator 30 09/14/16 20:57 70 17 30 09/14/16 20:00 66 09/14/16 20:00 30 09/14/16 20:00 98.2 66 17 131/62 100 Mechanical Ventilator 30 09/14/16 19:30 Mechanical Ventilator 30.0 09/14/16 19:06 62 15 30 09/14/16 19:00 68 17 145/63 100 Mechanical Ventilator 30 09/14/16 18:00 74 17 124/48 98 Mechanical Ventilator 30 09/14/16 17:00 61 17 122/56 98 Mechanical Ventilator 30 09/14/16 16:38 63 15 30 09/14/16 16:25 Mechanical Ventilator 30 09/14/16 16:00 98.7 65 16 110/52 100 Mechanical Ventilator 30 09/14/16 16:00 30 09/14/16 16:00 65 09/14/16 15:21 70 16 30 09/14/16 15:00 67 17 126/57 100 Mechanical Ventilator 30 09/14/16 14:00 62 17 114/54 99 Mechanical Ventilator 30 09/14/16 13:25 116/53 09/14/16 13:04 67 17 30 09/14/16 13:00 63 16 116/53 100 Mechanical Ventilator 30 09/14/16 12:00 98.5 61 16 117/55 100 Mechanical Ventilator 30 09/14/16 12:00 66 09/14/16 11:20 65 15 30 09/14/16 11:00 63 16 117/68 100 Mechanical Ventilator 30 Status: sedated Condition: critical HEENT: atraumatic, normocephalic Neck: full ROM Lungs: clear Heart: HR/BP stable Abdomen: soft, non-tender, feeding tube Extremities: no C/C/E, edema Decubiti: location Accucheck: 126 Critical Care - Subjective ROS Limited/Unobtainable: Yes ICU Day: 4 Intubation Day: 4 Interval Events: self extubated but couldn't tolerate.off levophed. HD yesterday, Ultrafiltration EKG Rhythm: Sinus Rhythm FI02: 30 Vent Support Breath Rate: 15 Vent Support Mode: AC Vent Tidal Volume: 500 Sputum Amount: Moderate PEEP: 5.0 PIP: 24 Fluids: none Tube Feeding Amount: 30 I&O: Intake and Output 09/14/16 09/15/16 19:00 07:00 Intake Total 580 ml 420 ml Output Total 445 ml 410 ml Balance 135 ml 10 ml Intake Free Water 60 ml IV Total 310 ml Tube Feeding 270 ml 360 ml Output Urine Total 445 ml 410 ml Hemodialysis UF 0 ml # Bowel Movements 2 4 CXR: worsening infiltrate ET-Tube: 7.0 ET Position: 24 Labs: Laboratory Tests Test 09/15/16 04:30 09/15/16 09:29 White Blood Count 7.7 K/UL (4.8-10.8) Red Blood Count 3.09 M/UL (4.70-6.10) L Hemoglobin 9.1 G/DL (14.2-18.0) L Hematocrit 26.2 % (42.0-52.0) L Mean Corpuscular Volume 85 FL (80-99) Mean Corpuscular Hemoglobin 29.5 PG (27.0-31.0) Mean Corpuscular Hemoglobin Concent 34.8 G/DL (32.0-36.0) Red Cell Distribution Width 13.8 % (11.6-14.8) Platelet Count 51 K/UL (150-450) L Mean Platelet Volume 8.7 FL (6.5-10.1) Neutrophils (%) (Auto) % (45.0-75.0) Lymphocytes (%) (Auto) % (20.0-45.0) Monocytes (%) (Auto) % (1.0-10.0) Eosinophils (%) (Auto) % (0.0-3.0) Basophils (%) (Auto) % (0.0-2.0) Differential Total Cells Counted 100 Neutrophils % (Manual) 84 % (45-75) H Lymphocytes % (Manual) 11 % (20-45) L Monocytes % (Manual) 5 % (1-10) Eosinophils % (Manual) 0 % (0-3) Basophils % (Manual) 0 % (0-2) Band Neutrophils 0 % (0-8) Platelet Estimate Decreased L Platelet Morphology Normal Hypochromasia 2+ Anisocytosis 1+ Spherocytes 2+ Prothrombin Time 11.3 SEC (9.30-11.50) Prothromb Time International Ratio 1.1 (0.9-1.1) Activated Partial Thromboplast Time 33 SEC (23-33) Sodium Level 141 mEQ/L (135-145) Potassium Level 2.9 mEQ/L (3.4-4.9) L Chloride Level 95 mEQ/L (98-107) L Carbon Dioxide Level 28 mEQ/L (20-30) Anion Gap 18 (5-15) H Blood Urea Nitrogen 66 mg/dL (7-23) #H Creatinine 3.9 mg/dL (0.7-1.2) H Estimat Glomerular Filtration Rate mL/min (>60) Glucose Level 114 mg/dL (74-106) H Lactic Acid Level 1.50 mmol/L (0.66-2.22) Calcium Level 7.3 mg/dL (8.6-10.2) L Phosphorus Level 2.7 mg/dL (2.5-4.8) Magnesium Level 1.6 mg/dL (1.7-2.5) L Total Bilirubin 0.4 mg/dL (0.0-1.2) Aspartate Amino Transf (AST/SGOT) 27 U/L (5-40) Alanine Aminotransferase (ALT/SGPT) 28 U/L (3-41) Alkaline Phosphatase 65 U/L (40-129) Total Protein 4.9 g/dL (6.6-8.7) L Albumin 2.3 g/dL (3.5-5.2) L Globulin 2.6 g/dL Albumin/Globulin Ratio 0.8 (1.0-2.7) L Arterial Blood pH 7.590 (7.350-7.450) Arterial Blood Partial Pressure CO2 32.0 mmHg (35.0-45.0) L Arterial Blood Partial Pressure O2 109.0 mmHg (75.0-100.0) H Arterial Blood HCO3 29.3 mmol/L (22.0-26.0) H Arterial Blood Oxygen Saturation 98.0 % (92.0-98.0) Arterial Blood Base Excess 7.4 LANDEN Rivers September 15, 2016 10:17
--- NOTE | 2016-09-15 10:25 | Infectious Diseases Prog Note ---
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 ) LAC improving DM HTN SP pacemaker placement Alzheimer dementia [place] : on HD started 09/14 P: Cefepime d# 2 / 14 ( 09/14 SP Zosyn d# 4 ) Monitor culture Monitor CBC Monitor BMP Monitor LFT Nephro is following HD Cath Subjective Allergies: Coded Allergies: SULFA (SULFONAMIDE ANTIBIOTICS) (Verified Allergy, Unknown, 09/10/16) Uncoded Allergies: SULFA (Adverse Reaction, Mild, RASH, 04/01/13) Subjective SP HD , on vent Objective Vital Signs Last 24 Hour Vital Signs Date Time Temp Pulse Resp B/P Pulse Ox O2 Delivery O2 Flow Rate FiO2 09/15/16 08:54 76 22 30 09/15/16 08:00 67 09/15/16 08:00 30 09/15/16 08:00 98.2 68 17 141/68 100 Mechanical Ventilator 30 09/15/16 07:00 68 16 110/54 100 Mechanical Ventilator 30 09/15/16 06:58 86 16 30 09/15/16 06:00 72 17 134/66 100 Mechanical Ventilator 30 09/15/16 05:24 72 15 30 09/15/16 05:00 70 16 120/60 100 Mechanical Ventilator 30 09/15/16 04:00 30 09/15/16 04:00 98.1 69 17 108/60 100 Mechanical Ventilator 30 09/15/16 04:00 69 09/15/16 03:00 67 18 110/58 100 Mechanical Ventilator 30 09/15/16 03:00 61 15 30 09/15/16 02:00 63 16 114/58 100 Mechanical Ventilator 30 09/15/16 01:06 65 18 30 09/15/16 01:00 63 18 123/51 100 Mechanical Ventilator 30 09/15/16 00:00 98.0 65 17 121/56 100 Mechanical Ventilator 30 09/15/16 00:00 30 09/15/16 00:00 73 09/14/16 23:20 59 15 30 09/14/16 23:00 68 18 116/51 100 Mechanical Ventilator 30 09/14/16 22:00 68 17 123/41 100 Mechanical Ventilator 30 09/14/16 21:00 70 18 126/57 100 Mechanical Ventilator 30 09/14/16 20:57 70 17 30 09/14/16 20:00 66 09/14/16 20:00 30 09/14/16 20:00 98.2 66 17 131/62 100 Mechanical Ventilator 30 09/14/16 19:30 Mechanical Ventilator 30.0 09/14/16 19:06 62 15 30 09/14/16 19:00 68 17 145/63 100 Mechanical Ventilator 30 09/14/16 18:00 74 17 124/48 98 Mechanical Ventilator 30 09/14/16 17:00 61 17 122/56 98 Mechanical Ventilator 30 09/14/16 16:38 63 15 30 09/14/16 16:25 Mechanical Ventilator 30 09/14/16 16:00 98.7 65 16 110/52 100 Mechanical Ventilator 30 09/14/16 16:00 30 09/14/16 16:00 65 09/14/16 15:21 70 16 30 09/14/16 15:00 67 17 126/57 100 Mechanical Ventilator 30 09/14/16 14:00 62 17 114/54 99 Mechanical Ventilator 30 09/14/16 13:25 116/53 09/14/16 13:04 67 17 30 09/14/16 13:00 63 16 116/53 100 Mechanical Ventilator 30 09/14/16 12:00 98.5 61 16 117/55 100 Mechanical Ventilator 30 09/14/16 12:00 66 09/14/16 11:20 65 15 30 09/14/16 11:00 63 16 117/68 100 Mechanical Ventilator 30 Height (Feet): 5 Height (Inches): 6.00 Weight (Pounds): 160 HEENT: anicteric Respiratory/Chest: no respiratory distress Cardiovascular: no gallop/murmur Abdomen: no mass Laboratory Tests Test 09/15/16 04:30 09/15/16 09:29 White Blood Count 7.7 K/UL (4.8-10.8) Red Blood Count 3.09 M/UL (4.70-6.10) L Hemoglobin 9.1 G/DL (14.2-18.0) L Hematocrit 26.2 % (42.0-52.0) L Mean Corpuscular Volume 85 FL (80-99) Mean Corpuscular Hemoglobin 29.5 PG (27.0-31.0) Mean Corpuscular Hemoglobin Concent 34.8 G/DL (32.0-36.0) Red Cell Distribution Width 13.8 % (11.6-14.8) Platelet Count 51 K/UL (150-450) L Mean Platelet Volume 8.7 FL (6.5-10.1) Neutrophils (%) (Auto) % (45.0-75.0) Lymphocytes (%) (Auto) % (20.0-45.0) Monocytes (%) (Auto) % (1.0-10.0) Eosinophils (%) (Auto) % (0.0-3.0) Basophils (%) (Auto) % (0.0-2.0) Differential Total Cells Counted 100 Neutrophils % (Manual) 84 % (45-75) H Lymphocytes % (Manual) 11 % (20-45) L Monocytes % (Manual) 5 % (1-10) Eosinophils % (Manual) 0 % (0-3) Basophils % (Manual) 0 % (0-2) Band Neutrophils 0 % (0-8) Platelet Estimate Decreased L Platelet Morphology Normal Hypochromasia 2+ Anisocytosis 1+ Spherocytes 2+ Prothrombin Time 11.3 SEC (9.30-11.50) Prothromb Time International Ratio 1.1 (0.9-1.1) Activated Partial Thromboplast Time 33 SEC (23-33) Sodium Level 141 mEQ/L (135-145) Potassium Level 2.9 mEQ/L (3.4-4.9) L Chloride Level 95 mEQ/L (98-107) L Carbon Dioxide Level 28 mEQ/L (20-30) Anion Gap 18 (5-15) H Blood Urea Nitrogen 66 mg/dL (7-23) #H Creatinine 3.9 mg/dL (0.7-1.2) H Estimat Glomerular Filtration Rate mL/min (>60) Glucose Level 114 mg/dL (74-106) H Lactic Acid Level 1.50 mmol/L (0.66-2.22) Calcium Level 7.3 mg/dL (8.6-10.2) L Phosphorus Level 2.7 mg/dL (2.5-4.8) Magnesium Level 1.6 mg/dL (1.7-2.5) L Total Bilirubin 0.4 mg/dL (0.0-1.2) Aspartate Amino Transf (AST/SGOT) 27 U/L (5-40) Alanine Aminotransferase (ALT/SGPT) 28 U/L (3-41) Alkaline Phosphatase 65 U/L (40-129) Total Protein 4.9 g/dL (6.6-8.7) L Albumin 2.3 g/dL (3.5-5.2) L Globulin 2.6 g/dL Albumin/Globulin Ratio 0.8 (1.0-2.7) L Arterial Blood pH 7.590 (7.350-7.450) Arterial Blood Partial Pressure CO2 32.0 mmHg (35.0-45.0) L Arterial Blood Partial Pressure O2 109.0 mmHg (75.0-100.0) H Arterial Blood HCO3 29.3 mmol/L (22.0-26.0) H Arterial Blood Oxygen Saturation 98.0 % (92.0-98.0) Arterial Blood Base Excess 7.4 Anjum Test Current Medications Medications (Trade) Dose Ordered Sig/Barrett Route PRN Reason Start Time Stop Time Status Last Admin Dose Admin Albuterol/ Ipratropium 3 ml 3 ml Q4HRT PRN HHN sob 09/11/16 09:30 09/16/16 09:29 Cefepime HCl/ Dextrose (Maxipime/D5W) 55 ml @ 110 mls/hr Q24H IVPB 09/15/16 21:00 09/22/16 20:59 Dextrose (Dextrose 50%) STAT PRN IV Hypoglycemia 09/11/16 05:30 10/11/16 05:29 Insulin Aspart (NovoLOG) Q6HR SUBQ 09/15/16 00:00 10/15/16 00:00 09/15/16 06:21 Lorazepam (Ativan 2mg/ml 1ml) 2 mg Q4H PRN IV For Anxiety 09/12/16 11:30 09/19/16 11:29 Morphine Sulfate (Morphine Sulfate) 4 mg Q4H PRN IVP PAIN 4-10 09/12/16 11:30 09/19/16 11:29 Norepinephrine Bitartrate/ Dextrose (Levophed/D5W) 516 ml @ 0 mls/hr Q24H IV 09/11/16 14:00 10/11/16 13:59 09/11/16 14:22 Pantoprazole 40 mg 40 mg DAILY IV 09/13/16 09:00 10/13/16 08:59 09/15/16 08:15 CRISTEL DUFF M.D. September 15, 2016 10:25
--- NOTE | 2016-09-15 11:27 | General Progress Note ---
Assessment/Plan Assessment/Plan status: Septic Shock leading to acute renal and multiOrgan failure Due to the above: Sever Acidosis , high Lactate , High K ALL IMPROVED Sugg: K supplement Mag supplement Hemodynamic support Antibiotics HD done 08/15 discussed with RN monitor renal parameters and HD as needed Subjective ROS Limited/Unobtainable: Yes Allergies: Coded Allergies: SULFA (SULFONAMIDE ANTIBIOTICS) (Verified Allergy, Unknown, 09/10/16) Uncoded Allergies: SULFA (Adverse Reaction, Mild, RASH, 04/01/13) Objective Last 24 Hour Vital Signs Date Time Temp Pulse Resp B/P Pulse Ox O2 Delivery O2 Flow Rate FiO2 09/15/16 11:00 67 16 116/48 100 Mechanical Ventilator 30 09/15/16 10:50 71 22 30 09/15/16 10:00 68 16 114/61 100 Mechanical Ventilator 30 09/15/16 09:00 75 15 132/65 100 Mechanical Ventilator 30 09/15/16 08:54 76 22 30 09/15/16 08:00 67 09/15/16 08:00 30 09/15/16 08:00 98.2 68 17 141/68 100 Mechanical Ventilator 30 09/15/16 07:00 68 16 110/54 100 Mechanical Ventilator 30 09/15/16 06:58 86 16 30 09/15/16 06:00 72 17 134/66 100 Mechanical Ventilator 30 09/15/16 05:24 72 15 30 09/15/16 05:00 70 16 120/60 100 Mechanical Ventilator 30 09/15/16 04:00 30 09/15/16 04:00 98.1 69 17 108/60 100 Mechanical Ventilator 30 09/15/16 04:00 69 09/15/16 03:00 67 18 110/58 100 Mechanical Ventilator 30 09/15/16 03:00 61 15 30 09/15/16 02:00 63 16 114/58 100 Mechanical Ventilator 30 09/15/16 01:06 65 18 30 09/15/16 01:00 63 18 123/51 100 Mechanical Ventilator 30 09/15/16 00:00 98.0 65 17 121/56 100 Mechanical Ventilator 30 09/15/16 00:00 30 09/15/16 00:00 73 09/14/16 23:20 59 15 30 09/14/16 23:00 68 18 116/51 100 Mechanical Ventilator 30 09/14/16 22:00 68 17 123/41 100 Mechanical Ventilator 30 09/14/16 21:00 70 18 126/57 100 Mechanical Ventilator 30 09/14/16 20:57 70 17 30 09/14/16 20:00 66 09/14/16 20:00 30 09/14/16 20:00 98.2 66 17 131/62 100 Mechanical Ventilator 30 09/14/16 19:30 Mechanical Ventilator 30.0 09/14/16 19:06 62 15 30 09/14/16 19:00 68 17 145/63 100 Mechanical Ventilator 30 09/14/16 18:00 74 17 124/48 98 Mechanical Ventilator 30 09/14/16 17:00 61 17 122/56 98 Mechanical Ventilator 30 09/14/16 16:38 63 15 30 09/14/16 16:25 Mechanical Ventilator 30 09/14/16 16:00 98.7 65 16 110/52 100 Mechanical Ventilator 30 09/14/16 16:00 30 09/14/16 16:00 65 09/14/16 15:21 70 16 30 09/14/16 15:00 67 17 126/57 100 Mechanical Ventilator 30 09/14/16 14:00 62 17 114/54 99 Mechanical Ventilator 30 09/14/16 13:25 116/53 09/14/16 13:04 67 17 30 09/14/16 13:00 63 16 116/53 100 Mechanical Ventilator 30 09/14/16 12:00 98.5 61 16 117/55 100 Mechanical Ventilator 30 09/14/16 12:00 66 Intake and Output 09/14/16 09/15/16 19:00 07:00 Intake Total 580 ml 420 ml Output Total 445 ml 410 ml Balance 135 ml 10 ml Intake Free Water 60 ml IV Total 310 ml Tube Feeding 270 ml 360 ml Output Urine Total 445 ml 410 ml Hemodialysis UF 0 ml # Bowel Movements 2 4 Laboratory Tests 09/15/16 04:30: White Blood Count 7.7, Red Blood Count 3.09L, Hemoglobin 9.1L, Hematocrit 26.2L , Mean Corpuscular Volume 85, Mean Corpuscular Hemoglobin 29.5, Mean Corpuscular Hemoglobin Concent 34.8, Red Cell Distribution Width 13.8, Platelet Count 51L, Mean Platelet Volume 8.7, Neutrophils (%) (Auto) , Lymphocytes (%) ( Auto) , Monocytes (%) (Auto) , Eosinophils (%) (Auto) , Basophils (%) (Auto) , Differential Total Cells Counted 100, Neutrophils % (Manual) 84H, Lymphocytes % (Manual) 11L, Monocytes % (Manual) 5, Eosinophils % (Manual) 0, Basophils % ( Manual) 0, Band Neutrophils 0, Platelet Estimate DecreasedL, Platelet Morphology Normal, Hypochromasia 2+, Anisocytosis 1+, Spherocytes 2+, Prothrombin Time 11.3, Prothromb Time International Ratio 1.1, Activated Partial Thromboplast Time 33, Sodium Level 141, Potassium Level 2.9L, Chloride Level 95L, Carbon Dioxide Level 28, Anion Gap 18H, Blood Urea Nitrogen 66#H, Creatinine 3.9H, Estimat Glomerular Filtration Rate , Glucose Level 114H, Lactic Acid Level 1.50, Calcium Level 7.3L, Phosphorus Level 2.7, Magnesium Level 1.6L, Total Bilirubin 0.4, Aspartate Amino Transf (AST/SGOT) 27, Alanine Aminotransferase (ALT/SGPT) 28, Alkaline Phosphatase 65, Total Protein 4.9L, Albumin 2.3L, Globulin 2.6, Albumin/Globulin Ratio 0.8L 09/15/16 09:29: Arterial Blood pH 7.590*H, Arterial Blood Partial Pressure CO2 32.0L, Arterial Blood Partial Pressure O2 109.0H, Arterial Blood HCO3 29.3H, Arterial Blood Oxygen Saturation 98.0, Arterial Blood Base Excess 7.4, Anjum Test Height (Feet): 5 Height (Inches): 6.00 Weight (Pounds): 160 General Appearance: mild distress Neck: limited range of motion Cardiovascular: normal rate Respiratory/Chest: decreased breath sounds Abdomen: distended Objective no change in PE MARIAN KOTHARI September 15, 2016 11:27
--- NOTE | 2016-09-15 11:48 | Diagnostic Imaging Report ---
Indications: DYSPNEA Technique: Portable AP chest Findings: Comparison: 09/14/2016 Image remains blurred by motion. Cardiomegaly, bilateral interstitial infiltrates, hazy opacities in the/over both lung bases, left retrocardiac opacification, bibasal pleural effusions persist, unchanged. Lines and tubes remain in place. No new abnormality identified. IMPRESSION: Stable bilateral congestive changes
[2016-09-15] MEDS ORDERED: Tubing Blood Filter IV ONE (15:23)
[2016-09-15] MEDS ORDERED: NS 275ml ONE (15:23)
[2016-09-15] MEDS ORDERED: Tubing IV Secondary IV ONE (15:23)
--- NOTE | 2016-09-15 18:49 | Internal Med Progress Note ---
Subjective Date of Service: September 15, 2016 Physician Name King Haynes Attending Physician Jonathan Sampson MD Current Medications Medications (Trade) Dose Ordered Sig/Barrett Route PRN Reason Start Time Stop Time Status Last Admin Dose Admin Albuterol/ Ipratropium 3 ml 3 ml Q4HRT PRN HHN sob 09/11/16 09:30 09/16/16 09:29 Cefepime HCl/ Dextrose (Maxipime/D5W) 55 ml @ 110 mls/hr Q24H IVPB 09/15/16 21:00 09/22/16 20:59 Dextrose (Dextrose 50%) STAT PRN IV Hypoglycemia 09/11/16 05:30 10/11/16 05:29 Insulin Aspart (NovoLOG) Q6HR SUBQ 09/15/16 00:00 10/15/16 00:00 09/15/16 17:15 Lorazepam (Ativan 2mg/ml 1ml) 2 mg Q4H PRN IV For Anxiety 09/12/16 11:30 09/19/16 11:29 Morphine Sulfate (Morphine Sulfate) 4 mg Q4H PRN IVP PAIN 4-10 09/12/16 11:30 09/19/16 11:29 Norepinephrine Bitartrate/ Dextrose (Levophed/D5W) 516 ml @ 0 mls/hr Q24H IV 09/11/16 14:00 10/11/16 13:59 09/11/16 14:22 Pantoprazole 40 mg 40 mg DAILY IV 09/13/16 09:00 10/13/16 08:59 09/15/16 08:15 Allergies: Coded Allergies: SULFA (SULFONAMIDE ANTIBIOTICS) (Verified Allergy, Unknown, 09/10/16) Uncoded Allergies: SULFA (Adverse Reaction, Mild, RASH, 04/01/13) ROS Limited/Unobtainable: Yes Subjective 76 YO M admitted with hypotension and sepsis. ICU. Intubated and sedated. Cover for Int Bart-Dr Sampson. Objective Last Vital Signs Date Time Temp Pulse Resp B/P Pulse Ox O2 Delivery O2 Flow Rate FiO2 09/15/16 18:00 63 17 103/47 100 Mechanical Ventilator 30 09/15/16 16:00 97.9 09/14/16 19:30 30.0 Laboratory Tests Test 09/15/16 04:30 09/15/16 09:29 White Blood Count 7.7 K/UL (4.8-10.8) Red Blood Count 3.09 M/UL (4.70-6.10) L Hemoglobin 9.1 G/DL (14.2-18.0) L Hematocrit 26.2 % (42.0-52.0) L Mean Corpuscular Volume 85 FL (80-99) Mean Corpuscular Hemoglobin 29.5 PG (27.0-31.0) Mean Corpuscular Hemoglobin Concent 34.8 G/DL (32.0-36.0) Red Cell Distribution Width 13.8 % (11.6-14.8) Platelet Count 51 K/UL (150-450) L Mean Platelet Volume 8.7 FL (6.5-10.1) Neutrophils (%) (Auto) % (45.0-75.0) Lymphocytes (%) (Auto) % (20.0-45.0) Monocytes (%) (Auto) % (1.0-10.0) Eosinophils (%) (Auto) % (0.0-3.0) Basophils (%) (Auto) % (0.0-2.0) Differential Total Cells Counted 100 Neutrophils % (Manual) 84 % (45-75) H Lymphocytes % (Manual) 11 % (20-45) L Monocytes % (Manual) 5 % (1-10) Eosinophils % (Manual) 0 % (0-3) Basophils % (Manual) 0 % (0-2) Band Neutrophils 0 % (0-8) Platelet Estimate Decreased L Platelet Morphology Normal Hypochromasia 2+ Anisocytosis 1+ Spherocytes 2+ Prothrombin Time 11.3 SEC (9.30-11.50) Prothromb Time International Ratio 1.1 (0.9-1.1) Activated Partial Thromboplast Time 33 SEC (23-33) Sodium Level 141 mEQ/L (135-145) Potassium Level 2.9 mEQ/L (3.4-4.9) L Chloride Level 95 mEQ/L (98-107) L Carbon Dioxide Level 28 mEQ/L (20-30) Anion Gap 18 (5-15) H Blood Urea Nitrogen 66 mg/dL (7-23) #H Creatinine 3.9 mg/dL (0.7-1.2) H Estimat Glomerular Filtration Rate mL/min (>60) Glucose Level 114 mg/dL (74-106) H Lactic Acid Level 1.50 mmol/L (0.66-2.22) Calcium Level 7.3 mg/dL (8.6-10.2) L Phosphorus Level 2.7 mg/dL (2.5-4.8) Magnesium Level 1.6 mg/dL (1.7-2.5) L Total Bilirubin 0.4 mg/dL (0.0-1.2) Aspartate Amino Transf (AST/SGOT) 27 U/L (5-40) Alanine Aminotransferase (ALT/SGPT) 28 U/L (3-41) Alkaline Phosphatase 65 U/L (40-129) Total Protein 4.9 g/dL (6.6-8.7) L Albumin 2.3 g/dL (3.5-5.2) L Globulin 2.6 g/dL Albumin/Globulin Ratio 0.8 (1.0-2.7) L Arterial Blood pH 7.590 (7.350-7.450) Arterial Blood Partial Pressure CO2 32.0 mmHg (35.0-45.0) L Arterial Blood Partial Pressure O2 109.0 mmHg (75.0-100.0) H Arterial Blood HCO3 29.3 mmol/L (22.0-26.0) H Arterial Blood Oxygen Saturation 98.0 % (92.0-98.0) Arterial Blood Base Excess 7.4 Anjum Test Microbiology Date/Time Source Procedure Growth Status 09/14/16 10:45 Sputum Gram Stain - Final Resulted 09/14/16 10:45 Sputum Sputum Culture Pending Resulted Intake and Output 09/14/16 09/15/16 19:00 07:00 Intake Total 580 ml 420 ml Output Total 445 ml 410 ml Balance 135 ml 10 ml Intake Free Water 60 ml IV Total 310 ml Tube Feeding 270 ml 360 ml Output Urine Total 445 ml 410 ml Hemodialysis UF 0 ml # Bowel Movements 2 4 Objective General Appearance: WD/WN, moderate distress EENT: normal ENT inspection Neck: non-tender, normal alignment, supple Cardiovascular: normal peripheral pulses, normal rate, regular rhythm, no gallop/murmur, no JVD Respiratory/Chest: Mech Vent; respiratory distress, crackles/rales, rhonchi - bilaterally, expiratory wheezing Abdomen: normal bowel sounds, non tender, soft, no organomegaly, no mass Skin: normal pigmentation, warm/dry Assessment/Plan Problem List: (1) Severe sepsis Assessment & Plan: Cont zosyn per ID. Await cultures. (2) Respiratory failure Assessment & Plan: Cont vent per pulmonary (3) Renal failure Assessment & Plan: Last Hemodialysis 09/14/16 per nephrology. (4) Diabetes mellitus type II, uncontrolled Assessment & Plan: Cont novolog sliding scale. (5) BPH (benign prostatic hyperplasia) (6) Hypokalemia (7) Infection caused by Enterobacter cloacae (8) UTI (urinary tract infection) Assessment & Plan: Enterobacter. D/C zosyn. Start cefepime per ID Status: not improved KING HAYNES September 15, 2016 18:49
--- NOTE | 2016-09-15 20:20 | Cardiology Progress Note ---
Assessment/Plan Assessment/Plan 1. Globally weak/septic shock. 2. Renal failure, acute on chronic. 3. 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 4. Anemia. 5. History of upper gastrointestinal bleed with treatment of the visible bleeding vessel previously. 6. Chronic renal insufficiency. 7. Coronary artery disease status post percutaneous coronary intervention with what was felt to be a demand related ischemia. 8. History of aspiration. 9. Altered mental status. 10. Hypertension. 11. Diabetes mellitus 12. thrombocytopenia watch plt count consider heme eval pt , ptt normla so unlikey DIC bp is intermittenly low dialysis vent support wean as possible abx off pressors for nwo Subjective ROS Limited/Unobtainable: Yes Subjective on a vent not communicative Objective Last 24 Hour Vital Signs Date Time Temp Pulse Resp B/P Pulse Ox O2 Delivery O2 Flow Rate FiO2 09/15/16 19:04 70 19 30 09/15/16 19:03 63 17 30 09/15/16 18:00 63 17 103/47 100 Mechanical Ventilator 30 09/15/16 17:10 59 19 30 09/15/16 17:00 56 14 119/53 100 Mechanical Ventilator 30 09/15/16 16:00 30 09/15/16 16:00 67 09/15/16 16:00 97.9 66 17 114/52 100 Mechanical Ventilator 30 09/15/16 15:00 64 16 109/49 100 Mechanical Ventilator 30 09/15/16 14:39 66 16 30 09/15/16 14:00 65 18 103/54 100 Mechanical Ventilator 30 09/15/16 13:29 104/54 09/15/16 13:00 63 16 104/54 100 Mechanical Ventilator 30 09/15/16 12:38 63 16 30 09/15/16 12:00 98.1 59 17 111/57 100 Mechanical Ventilator 30 09/15/16 12:00 30 09/15/16 12:00 62 09/15/16 11:00 67 16 116/48 100 Mechanical Ventilator 30 09/15/16 10:50 71 22 30 09/15/16 10:00 68 16 114/61 100 Mechanical Ventilator 30 09/15/16 09:00 75 15 132/65 100 Mechanical Ventilator 30 09/15/16 08:54 76 22 30 09/15/16 08:00 67 09/15/16 08:00 30 09/15/16 08:00 98.2 68 17 141/68 100 Mechanical Ventilator 30 09/15/16 07:00 68 16 110/54 100 Mechanical Ventilator 30 09/15/16 06:58 86 16 30 09/15/16 06:00 72 17 134/66 100 Mechanical Ventilator 30 09/15/16 05:24 72 15 30 09/15/16 05:00 70 16 120/60 100 Mechanical Ventilator 09/15/16 04:00 30 09/15/16 04:00 98.1 69 17 108/60 100 Mechanical Ventilator 09/15/16 04:00 69 09/15/16 03:00 67 18 110/58 100 Mechanical Ventilator 30 09/15/16 03:00 61 15 30 09/15/16 02:00 63 16 114/58 100 Mechanical Ventilator 30 09/15/16 01:06 65 18 30 09/15/16 01:00 63 18 123/51 100 Mechanical Ventilator 30 09/15/16 00:00 98.0 65 17 121/56 100 Mechanical Ventilator 09/15/16 00:00 30 09/15/16 00:00 73 09/14/16 23:20 59 15 30 09/14/16 23:00 68 18 116/51 100 Mechanical Ventilator 30 09/14/16 22:00 68 17 123/41 100 Mechanical Ventilator 30 09/14/16 21:00 70 18 126/57 100 Mechanical Ventilator 30 09/14/16 20:57 70 17 30 General Appearance: no apparent distress, on vent Neck: supple Cardiovascular: normal rate, regular rhythm Respiratory/Chest: lungs clear - antriroly Abdomen: normal bowel sounds, non tender, soft Extremities: moderate edema Intake and Output 09/14/16 09/15/16 19:00 07:00 Intake Total 580 ml 420 ml Output Total 445 ml 410 ml Balance 135 ml 10 ml Intake Free Water 60 ml IV Total 310 ml Tube Feeding 270 ml 360 ml Output Urine Total 445 ml 410 ml Hemodialysis UF 0 ml # Bowel Movements 2 4 Laboratory Tests Test 09/15/16 04:30 09/15/16 09:29 White Blood Count 7.7 K/UL (4.8-10.8) Red Blood Count 3.09 M/UL (4.70-6.10) L Hemoglobin 9.1 G/DL (14.2-18.0) L Hematocrit 26.2 % (42.0-52.0) L Mean Corpuscular Volume 85 FL (80-99) Mean Corpuscular Hemoglobin 29.5 PG (27.0-31.0) Mean Corpuscular Hemoglobin Concent 34.8 G/DL (32.0-36.0) Red Cell Distribution Width 13.8 % (11.6-14.8) Platelet Count 51 K/UL (150-450) L Mean Platelet Volume 8.7 FL (6.5-10.1) Neutrophils (%) (Auto) % (45.0-75.0) Lymphocytes (%) (Auto) % (20.0-45.0) Monocytes (%) (Auto) % (1.0-10.0) Eosinophils (%) (Auto) % (0.0-3.0) Basophils (%) (Auto) % (0.0-2.0) Differential Total Cells Counted 100 Neutrophils % (Manual) 84 % (45-75) H Lymphocytes % (Manual) 11 % (20-45) L Monocytes % (Manual) 5 % (1-10) Eosinophils % (Manual) 0 % (0-3) Basophils % (Manual) 0 % (0-2) Band Neutrophils 0 % (0-8) Platelet Estimate Decreased L Platelet Morphology Normal Hypochromasia 2+ Anisocytosis 1+ Spherocytes 2+ Prothrombin Time 11.3 SEC (9.30-11.50) Prothromb Time International Ratio 1.1 (0.9-1.1) Activated Partial Thromboplast Time 33 SEC (23-33) Sodium Level 141 mEQ/L (135-145) Potassium Level 2.9 mEQ/L (3.4-4.9) L Chloride Level 95 mEQ/L (98-107) L Carbon Dioxide Level 28 mEQ/L (20-30) Anion Gap 18 (5-15) H Blood Urea Nitrogen 66 mg/dL (7-23) #H Creatinine 3.9 mg/dL (0.7-1.2) H Estimat Glomerular Filtration Rate mL/min (>60) Glucose Level 114 mg/dL (74-106) H Lactic Acid Level 1.50 mmol/L (0.66-2.22) Calcium Level 7.3 mg/dL (8.6-10.2) L Phosphorus Level 2.7 mg/dL (2.5-4.8) Magnesium Level 1.6 mg/dL (1.7-2.5) L Total Bilirubin 0.4 mg/dL (0.0-1.2) Aspartate Amino Transf (AST/SGOT) 27 U/L (5-40) Alanine Aminotransferase (ALT/SGPT) 28 U/L (3-41) Alkaline Phosphatase 65 U/L (40-129) Total Protein 4.9 g/dL (6.6-8.7) L Albumin 2.3 g/dL (3.5-5.2) L Globulin 2.6 g/dL Albumin/Globulin Ratio 0.8 (1.0-2.7) L Arterial Blood pH 7.590 (7.350-7.450) Arterial Blood Partial Pressure CO2 32.0 mmHg (35.0-45.0) L Arterial Blood Partial Pressure O2 109.0 mmHg (75.0-100.0) H Arterial Blood HCO3 29.3 mmol/L (22.0-26.0) H Arterial Blood Oxygen Saturation 98.0 % (92.0-98.0) Arterial Blood Base Excess 7.4 Anjum Test Microbiology Date/Time Source Procedure Growth Status 09/14/16 10:45 Sputum Gram Stain - Final Resulted 09/14/16 10:45 Sputum Sputum Culture Pending Resulted RAJ DEL ROSARIO September 15, 2016 20:20
[2016-09-15] MEDS: Cefepime 500mg in D5W 55ml IVPB SCH (21:24)
[2016-09-16] VITALS (24 sets, daily range): BP systolic 101–156; BP diastolic 49–87
[2016-09-16] MEDS: NovoLOG Insulin Flexpen SUBQ SCH ×4 (00:05→17:21)
[2016-09-16 05:26] LABS: MEAN CORPUSCULAR HEMOGLOBIN 29.2 PG (27.0-31.0); MEAN CORPUSCULAR HGB CONC 33.9 G/DL (32.0-36.0); MEAN CORPUSCULAR VOLUME 86 FL (80-99); MEAN PLATELET VOLUME 7.8 FL (6.5-10.1); PLATELET COUNT 53 K/UL (150-450); RED BLOOD COUNT 3.09 M/UL (4.70-6.10); RED CELL DISTRIBUTION WIDTH 13.8 % (11.6-14.8); WHITE BLOOD COUNT 6.1 K/UL (4.8-10.8)
[2016-09-16 06:01] LABS: ALANINE AMINOTRANSFERASE 24 U/L (3-41); ALBUMIN/GLOBULIN RATIO 0.8 (1.0-2.7); ANION GAP 15 (5-15); ASPARTATE AMINO TRANSFERASE 20 U/L (5-40); CALCIUM 7.6 mg/dL (8.6-10.2); CARBON DIOXIDE 29 mEQ/L (20-30); CHLORIDE 99 mEQ/L (98-107); CREATININE 4.1 mg/dL (0.7-1.2); HEMOLYSIS 5; PHOSPHORUS 2.5 mg/dL (2.5-4.8); POTASSIUM 3.5 mEQ/L (3.4-4.9); SODIUM 143 mEQ/L (135-145)
[2016-09-16 06:04] LABS: CRP QUANT 6.5 mg/dL (< 0.5)
[2016-09-16 07:21] LABS: ABG ALLEN TEST POSITIVE; ABG BASE EXCESS 8.3; ABG PCO2 32.5 mmHg (35.0-45.0)
[2016-09-16] MEDS: Pantoprazole Inj IV SCH (09:17)
--- NOTE | 2016-09-16 10:39 | Pulmonolgy Critical Care Note ---
Critical Care - Asmt/Plan Problems: (1) Respiratory failure requiring intubation (2) Septic shock (3) ARF (acute renal failure) (4) Encephalopathy acute (5) DM (diabetes mellitus) Respiratory: adjust tidal volume, monitor respiratory rate, adjust FIO2, CXR, weaning trial Cardiac: continue to monitor HR/BP Renal: F/U I&O, keep IV fluid, check electrolytes Infectious Disease: check cultures, continue antibiotics Gastrointestinal: continue feedings/current rate Endocrine: monitor blood sugar, check TSH, continue sliding scale insulin Hematologic: monitor H/H, transfuse if hgb<8.5 Neurologic: PRN Ativan, keep patient comfortable Prophylaxis: Heparin Notes Reviewed: manager of housekeeping, cardio, renal Discussed with: nurses, consultants, casework managerskilled nursing case manager - Objective Last 24 Hour Vital Signs Date Time Temp Pulse Resp B/P Pulse Ox O2 Delivery O2 Flow Rate FiO2 09/16/16 10:00 74 14 132/58 100 Mechanical Ventilator 30 09/16/16 09:12 59 16 30 09/16/16 09:00 61 16 112/56 97 Mechanical Ventilator 09/16/16 08:00 98.0 61 16 119/51 96 Mechanical Ventilator 30 09/16/16 08:00 30 09/16/16 08:00 65 09/16/16 07:14 74 17 30 09/16/16 07:00 65 17 109/51 97 Mechanical Ventilator 09/16/16 06:00 68 17 117/69 94 Mechanical Ventilator 30 09/16/16 05:29 77 19 30 09/16/16 05:00 66 16 117/69 98 Mechanical Ventilator 30 09/16/16 04:00 30 09/16/16 04:00 65 09/16/16 04:00 98.2 63 16 122/50 94 Mechanical Ventilator 30 09/16/16 03:21 69 16 30 09/16/16 03:00 65 16 130/65 94 Mechanical Ventilator 09/16/16 02:00 62 16 117/62 100 Mechanical Ventilator 09/16/16 01:17 73 22 30 09/16/16 01:00 71 17 101/71 99 Mechanical Ventilator 30 09/16/16 00:00 30 09/16/16 00:00 98.3 63 16 122/50 100 Mechanical Ventilator 30 09/16/16 00:00 69 09/15/16 23:25 61 17 30 09/15/16 23:00 64 17 122/50 99 Mechanical Ventilator 30 09/15/16 22:00 65 19 117/48 99 Mechanical Ventilator 30 09/15/16 21:07 61 18 30 09/15/16 21:00 63 19 112/52 99 Mechanical Ventilator 30 09/15/16 20:00 30 09/15/16 20:00 61 16 98/48 99 Mechanical Ventilator 30 09/15/16 20:00 61 09/15/16 19:04 70 19 30 09/15/16 19:03 63 17 30 09/15/16 19:00 66 18 89/54 99 Mechanical Ventilator 30 09/15/16 18:00 63 17 103/47 100 Mechanical Ventilator 30 09/15/16 17:10 59 19 30 09/15/16 17:00 56 14 119/53 100 Mechanical Ventilator 30 09/15/16 16:00 30 09/15/16 16:00 67 09/15/16 16:00 97.9 66 17 114/52 100 Mechanical Ventilator 30 09/15/16 15:00 64 16 109/49 100 Mechanical Ventilator 30 09/15/16 14:39 66 16 30 09/15/16 14:00 65 18 103/54 100 Mechanical Ventilator 30 09/15/16 13:29 104/54 09/15/16 13:00 63 16 104/54 100 Mechanical Ventilator 30 09/15/16 12:38 63 16 30 09/15/16 12:00 98.1 59 17 111/57 100 Mechanical Ventilator 30 09/15/16 12:00 30 09/15/16 12:00 62 09/15/16 11:00 67 16 116/48 100 Mechanical Ventilator 30 09/15/16 10:50 71 22 30 Status: awake Condition: critical HEENT: atraumatic, normocephalic Neck: full ROM Lungs: clear Heart: HR/BP stable Abdomen: soft, non-tender Extremities: no C/C/E, edema Decubiti: location, stage Micro: Microbiology Date/Time Source Procedure Growth Status 09/14/16 10:45 Sputum Gram Stain - Final Resulted 09/14/16 10:45 Sputum Culture - Preliminary Yeast Species Resulted Accucheck: 157 Critical Care - Subjective ROS Limited/Unobtainable: No ICU Day: 5 Intubation Day: 5 Condition: critical EKG Rhythm: Sinus Rhythm FI02: 30 Vent Support Breath Rate: 16 Vent Support Mode: IMV/SIMV Vent Tidal Volume: 500 Sputum Amount: Moderate PEEP: 5.0 PIP: 27 Secretions: small Tube Feeding Amount: 35 I&O: Intake and Output 09/15/16 09/16/16 19:00 07:00 Intake Total 330 ml 510 ml Output Total 375 ml 451 ml Balance -45 ml 59 ml Intake Free Water 90 ml Tube Feeding 330 ml 420 ml Output Urine Total 375 ml 450 ml Stool Total 1 ml # Bowel Movements 3 4 CXR: bilateral edema, ET in good position ET-Tube: 7.0 ET Position: 24 Labs: Laboratory Tests Test 09/16/16 03:45 09/16/16 07:00 White Blood Count 6.1 K/UL (4.8-10.8) Red Blood Count 3.09 M/UL (4.70-6.10) L Hemoglobin 9.0 G/DL (14.2-18.0) L Hematocrit 26.6 % (42.0-52.0) L Mean Corpuscular Volume 86 FL (80-99) Mean Corpuscular Hemoglobin 29.2 PG (27.0-31.0) Mean Corpuscular Hemoglobin Concent 33.9 G/DL (32.0-36.0) Red Cell Distribution Width 13.8 % (11.6-14.8) Platelet Count 53 K/UL (150-450) L Mean Platelet Volume 7.8 FL (6.5-10.1) Neutrophils (%) (Auto) % (45.0-75.0) Lymphocytes (%) (Auto) % (20.0-45.0) Monocytes (%) (Auto) % (1.0-10.0) Eosinophils (%) (Auto) % (0.0-3.0) Basophils (%) (Auto) % (0.0-2.0) Neutrophils % (Manual) Pending Lymphocytes % (Manual) Pending Platelet Estimate Pending Platelet Morphology Pending Sodium Level 143 mEQ/L (135-145) Potassium Level 3.5 mEQ/L (3.4-4.9) Chloride Level 99 mEQ/L (98-107) Carbon Dioxide Level 29 mEQ/L (20-30) Anion Gap 15 (5-15) Blood Urea Nitrogen 68 mg/dL (7-23) H Creatinine 4.1 mg/dL (0.7-1.2) H Estimat Glomerular Filtration Rate mL/min (>60) Glucose Level 149 mg/dL (74-106) H Uric Acid 7.2 mg/dL (3.0-7.5) Calcium Level 7.6 mg/dL (8.6-10.2) L Phosphorus Level 2.5 mg/dL (2.5-4.8) Magnesium Level 2.0 mg/dL (1.7-2.5) Total Bilirubin 0.4 mg/dL (0.0-1.2) Aspartate Amino Transf (AST/SGOT) 20 U/L (5-40) Alanine Aminotransferase (ALT/SGPT) 24 U/L (3-41) Alkaline Phosphatase 60 U/L (40-129) C-Reactive Protein, Quantitative 6.5 mg/dL (< 0.5) H Pro-B-Type Natriuretic Peptide 38084 pg/mL (0-450) H Total Protein 5.0 g/dL (6.6-8.7) L Albumin 2.3 g/dL (3.5-5.2) L Globulin 2.7 g/dL Albumin/Globulin Ratio 0.8 (1.0-2.7) L Arterial Blood pH 7.580 (7.350-7.450) Arterial Blood Partial Pressure CO2 32.5 mmHg (35.0-45.0) L Arterial Blood Partial Pressure O2 106.2 mmHg (75.0-100.0) H Arterial Blood HCO3 30.3 mmol/L (22.0-26.0) H Arterial Blood Oxygen Saturation 97.3 % (92.0-98.0) Arterial Blood Base Excess 8.3 Anjum Test Positive LANDEN HERNANDEZ September 16, 2016 10:39
--- NOTE | 2016-09-16 11:15 | Diagnostic Imaging Report ---
Indication: Dyspnea Comparison: 09/15/16 A single view chest radiograph was obtained. Findings: Perihilar and basilar groundglass opacities and prominent pulmonary vascularity are noted once again. There may be small pleural effusions bilaterally. Right jugular Marco Antonio catheter, endotracheal tube, nasogastric tube remain in good position. Impression: Suspected mild interstitial edema. No significant change
[2016-09-16 11:28] LABS: BAND NEUTROPHILS % (MANUAL) 0 % (0-8); BASOPHILS % (MANUAL) 0 % (0-2); EOSINOPHILS % (MANUAL) 1 % (0-3); HYPOCHROMASIA 1+; LYMPHOCYTES % (MANUAL) 19 % (20-45); NEUTROPHILS % (MANUAL) 78 % (45-75); PLATELET ESTIMATE DECREASED; PLATELET MORPHOLOGY NORMAL; TOTAL CELLS COUNTED 100
--- NOTE | 2016-09-16 13:35 | General Progress Note ---
Assessment/Plan Status: unchanged Status Narrative Cr higher Assessment/Plan status: Septic Shock leading to acute renal and multiOrgan failure Due to the above: Sever Acidosis , high Lactate , High K ALL IMPROVED Sugg: HD in am again Hemodynamic support Antibiotics discussed with RN monitor renal parameters and HD as needed Subjective ROS Limited/Unobtainable: Yes Constitutional: Reports: malaise Allergies: Coded Allergies: SULFA (SULFONAMIDE ANTIBIOTICS) (Verified Allergy, Unknown, 09/10/16) Uncoded Allergies: SULFA (Adverse Reaction, Mild, RASH, 04/01/13) Objective Last 24 Hour Vital Signs Date Time Temp Pulse Resp B/P Pulse Ox O2 Delivery O2 Flow Rate FiO2 09/16/16 13:00 58 17 104/54 100 Mechanical Ventilator 30 09/16/16 12:43 78 16 30 09/16/16 12:00 98.4 68 17 120/62 96 Mechanical Ventilator 30 09/16/16 12:00 30 09/16/16 12:00 60 09/16/16 11:00 65 17 110/57 100 Mechanical Ventilator 30 09/16/16 10:45 66 16 30 09/16/16 10:00 74 14 132/58 100 Mechanical Ventilator 30 09/16/16 09:12 59 16 30 09/16/16 09:00 61 16 112/56 97 Mechanical Ventilator 30 09/16/16 08:00 98.0 61 16 119/51 96 Mechanical Ventilator 30 09/16/16 08:00 30 09/16/16 08:00 65 09/16/16 07:14 74 17 30 09/16/16 07:00 65 17 109/51 97 Mechanical Ventilator 30 09/16/16 06:00 68 17 117/69 94 Mechanical Ventilator 30 09/16/16 05:29 77 19 30 09/16/16 05:00 66 16 117/69 98 Mechanical Ventilator 30 09/16/16 04:00 30 09/16/16 04:00 65 09/16/16 04:00 98.2 63 16 122/50 94 Mechanical Ventilator 30 09/16/16 03:21 69 16 30 09/16/16 03:00 65 16 130/65 94 Mechanical Ventilator 30 09/16/16 02:00 62 16 117/62 100 Mechanical Ventilator 30 09/16/16 01:17 73 22 30 09/16/16 01:00 71 17 101/71 99 Mechanical Ventilator 30 09/16/16 00:00 30 09/16/16 00:00 98.3 63 16 122/50 100 Mechanical Ventilator 30 09/16/16 00:00 69 09/15/16 23:25 61 17 30 09/15/16 23:00 64 17 122/50 99 Mechanical Ventilator 30 09/15/16 22:00 65 19 117/48 99 Mechanical Ventilator 30 09/15/16 21:07 61 18 30 09/15/16 21:00 63 19 112/52 99 Mechanical Ventilator 30 09/15/16 20:00 30 09/15/16 20:00 61 16 98/48 99 Mechanical Ventilator 30 09/15/16 20:00 61 09/15/16 19:04 70 19 30 09/15/16 19:03 63 17 30 09/15/16 19:00 66 18 89/54 99 Mechanical Ventilator 30 09/15/16 18:00 63 17 103/47 100 Mechanical Ventilator 30 09/15/16 17:10 59 19 30 09/15/16 17:00 56 14 119/53 100 Mechanical Ventilator 30 09/15/16 16:00 30 09/15/16 16:00 67 09/15/16 16:00 97.9 66 17 114/52 100 Mechanical Ventilator 30 09/15/16 15:00 64 16 109/49 100 Mechanical Ventilator 30 09/15/16 14:39 66 16 30 09/15/16 14:00 65 18 103/54 100 Mechanical Ventilator 30 Intake and Output 09/15/16 09/16/16 19:00 07:00 Intake Total 330 ml 510 ml Output Total 375 ml 451 ml Balance -45 ml 59 ml Intake Free Water 90 ml Tube Feeding 330 ml 420 ml Output Urine Total 375 ml 450 ml Stool Total 1 ml # Bowel Movements 3 4 Laboratory Tests 09/16/16 03:45: White Blood Count 6.1, Red Blood Count 3.09L, Hemoglobin 9.0L, Hematocrit 26.6L , Mean Corpuscular Volume 86, Mean Corpuscular Hemoglobin 29.2, Mean Corpuscular Hemoglobin Concent 33.9, Red Cell Distribution Width 13.8, Platelet Count 53L, Mean Platelet Volume 7.8, Neutrophils (%) (Auto) , Lymphocytes (%) ( Auto) , Monocytes (%) (Auto) , Eosinophils (%) (Auto) , Basophils (%) (Auto) , Differential Total Cells Counted 100, Neutrophils % (Manual) 78H, Lymphocytes % (Manual) 19L, Monocytes % (Manual) 2, Eosinophils % (Manual) 1, Basophils % ( Manual) 0, Band Neutrophils 0, Platelet Estimate DecreasedL, Platelet Morphology Normal, Hypochromasia 1+, Sodium Level 143, Potassium Level 3.5, Chloride Level 99, Carbon Dioxide Level 29, Anion Gap 15, Blood Urea Nitrogen 68H, Creatinine 4.1H, Estimat Glomerular Filtration Rate , Glucose Level 149H, Uric Acid 7.2, Calcium Level 7.6L, Phosphorus Level 2.5, Magnesium Level 2.0, Total Bilirubin 0.4, Aspartate Amino Transf (AST/SGOT) 20, Alanine Aminotransferase (ALT/SGPT) 24, Alkaline Phosphatase 60, C-Reactive Protein, Quantitative 6.5H, Pro-B-Type Natriuretic Peptide 20968V, Total Protein 5.0L, Albumin 2.3L, Globulin 2.7, Albumin/Globulin Ratio 0.8L 09/16/16 07:00: Arterial Blood pH 7.580*H, Arterial Blood Partial Pressure CO2 32.5L, Arterial Blood Partial Pressure O2 106.2H, Arterial Blood HCO3 30.3H, Arterial Blood Oxygen Saturation 97.3, Arterial Blood Base Excess 8.3, Anjum Test Positive Height (Feet): 5 Height (Inches): 6.00 Weight (Pounds): 160 General Appearance: no apparent distress Cardiovascular: normal rate Respiratory/Chest: decreased breath sounds Abdomen: soft Objective no change in PE MARIAN KOTHARI September 16, 2016 13:35
[2016-09-16] MEDS ORDERED: NS 275ml ONE (15:47)
--- NOTE | 2016-09-16 18:24 | Internal Med Progress Note ---
Subjective Date of Service: September 16, 2016 Physician Name King Haynes Attending Physician Jonathan Sampson MD Current Medications Medications (Trade) Dose Ordered Sig/Barrett Route PRN Reason Start Time Stop Time Status Last Admin Dose Admin Cefepime HCl/ Dextrose (Maxipime/D5W) 55 ml @ 110 mls/hr Q24H IVPB 09/15/16 21:00 09/22/16 20:59 09/15/16 21:24 Dextrose STAT PRN IV Hypoglycemia 09/11/16 05:30 10/11/16 05:29 Insulin Aspart (NovoLOG) Q6HR SUBQ 09/15/16 00:00 10/15/16 00:00 09/16/16 17:21 Lorazepam (Ativan 2mg/ml 1ml) 2 mg Q4H PRN IV For Anxiety 09/12/16 11:30 09/19/16 11:29 Morphine Sulfate (Morphine Sulfate) 4 mg Q4H PRN IVP PAIN 4-10 09/12/16 11:30 09/19/16 11:29 Norepinephrine Bitartrate/ Dextrose (Levophed/D5W) 516 ml @ 0 mls/hr Q24H IV 09/11/16 14:00 10/11/16 13:59 09/11/16 14:22 Pantoprazole 40 mg 40 mg DAILY IV 09/13/16 09:00 10/13/16 08:59 09/16/16 09:17 Allergies: Coded Allergies: SULFA (SULFONAMIDE ANTIBIOTICS) (Verified Allergy, Unknown, 09/10/16) Uncoded Allergies: SULFA (Adverse Reaction, Mild, RASH, 04/01/13) ROS Limited/Unobtainable: Yes Subjective 76 YO M admitted with hypotension and sepsis. ICU. Intubated and sedated. Cover for Int Med-Dr Sampson. Objective Last Vital Signs Date Time Temp Pulse Resp B/P Pulse Ox O2 Delivery O2 Flow Rate FiO2 09/16/16 18:00 63 17 139/64 100 Mechanical Ventilator 30 09/16/16 16:00 98.1 09/14/16 19:30 30.0 Laboratory Tests Test 09/16/16 03:45 09/16/16 07:00 White Blood Count 6.1 K/UL (4.8-10.8) Red Blood Count 3.09 M/UL (4.70-6.10) L Hemoglobin 9.0 G/DL (14.2-18.0) L Hematocrit 26.6 % (42.0-52.0) L Mean Corpuscular Volume 86 FL (80-99) Mean Corpuscular Hemoglobin 29.2 PG (27.0-31.0) Mean Corpuscular Hemoglobin Concent 33.9 G/DL (32.0-36.0) Red Cell Distribution Width 13.8 % (11.6-14.8) Platelet Count 53 K/UL (150-450) L Mean Platelet Volume 7.8 FL (6.5-10.1) Neutrophils (%) (Auto) % (45.0-75.0) Lymphocytes (%) (Auto) % (20.0-45.0) Monocytes (%) (Auto) % (1.0-10.0) Eosinophils (%) (Auto) % (0.0-3.0) Basophils (%) (Auto) % (0.0-2.0) Differential Total Cells Counted 100 Neutrophils % (Manual) 78 % (45-75) H Lymphocytes % (Manual) 19 % (20-45) L Monocytes % (Manual) 2 % (1-10) Eosinophils % (Manual) 1 % (0-3) Basophils % (Manual) 0 % (0-2) Band Neutrophils 0 % (0-8) Platelet Estimate Decreased L Platelet Morphology Normal Hypochromasia 1+ Sodium Level 143 mEQ/L (135-145) Potassium Level 3.5 mEQ/L (3.4-4.9) Chloride Level 99 mEQ/L (98-107) Carbon Dioxide Level 29 mEQ/L (20-30) Anion Gap 15 (5-15) Blood Urea Nitrogen 68 mg/dL (7-23) H Creatinine 4.1 mg/dL (0.7-1.2) H Estimat Glomerular Filtration Rate mL/min (>60) Glucose Level 149 mg/dL (74-106) H Uric Acid 7.2 mg/dL (3.0-7.5) Calcium Level 7.6 mg/dL (8.6-10.2) L Phosphorus Level 2.5 mg/dL (2.5-4.8) Magnesium Level 2.0 mg/dL (1.7-2.5) Total Bilirubin 0.4 mg/dL (0.0-1.2) Aspartate Amino Transf (AST/SGOT) 20 U/L (5-40) Alanine Aminotransferase (ALT/SGPT) 24 U/L (3-41) Alkaline Phosphatase 60 U/L (40-129) C-Reactive Protein, Quantitative 6.5 mg/dL (< 0.5) H Pro-B-Type Natriuretic Peptide 73454 pg/mL (0-450) H Total Protein 5.0 g/dL (6.6-8.7) L Albumin 2.3 g/dL (3.5-5.2) L Globulin 2.7 g/dL Albumin/Globulin Ratio 0.8 (1.0-2.7) L Arterial Blood pH 7.580 (7.350-7.450) Arterial Blood Partial Pressure CO2 32.5 mmHg (35.0-45.0) L Arterial Blood Partial Pressure O2 106.2 mmHg (75.0-100.0) H Arterial Blood HCO3 30.3 mmol/L (22.0-26.0) H Arterial Blood Oxygen Saturation 97.3 % (92.0-98.0) Arterial Blood Base Excess 8.3 Anjum Test Positive Microbiology Date/Time Source Procedure Growth Status 09/14/16 10:45 Sputum Gram Stain - Final Resulted 09/14/16 10:45 Sputum Culture - Preliminary Yeast Species Resulted Intake and Output 09/15/16 09/16/16 19:00 07:00 Intake Total 330 ml 510 ml Output Total 375 ml 451 ml Balance -45 ml 59 ml Intake Free Water 90 ml Tube Feeding 330 ml 420 ml Output Urine Total 375 ml 450 ml Stool Total 1 ml # Bowel Movements 3 4 Objective General Appearance: WD/WN, moderate distress EENT: normal ENT inspection Neck: non-tender, normal alignment, supple Cardiovascular: normal peripheral pulses, normal rate, regular rhythm, no gallop/murmur, no JVD Respiratory/Chest: Mech Vent; respiratory distress, crackles/rales, rhonchi - bilaterally, expiratory wheezing Abdomen: normal bowel sounds, non tender, soft, no organomegaly, no mass Skin: normal pigmentation, warm/dry Assessment/Plan Problem List: (1) Severe sepsis Assessment & Plan: Cont cefepime per ID (2) Respiratory failure Assessment & Plan: Cont vent per pulmonary (3) Renal failure Assessment & Plan: Last Hemodialysis 09/14/16 per nephrology. (4) Diabetes mellitus type II, uncontrolled Assessment & Plan: Cont novolog sliding scale. (5) BPH (benign prostatic hyperplasia) (6) Hypokalemia (7) Infection caused by Enterobacter cloacae (8) UTI (urinary tract infection) Assessment & Plan: Enterobacter. D/C zosyn. Start cefepime per ID Status: not improved KING HAYNES September 16, 2016 18:24
--- NOTE | 2016-09-16 19:30 | Cardiology Progress Note ---
Assessment/Plan Assessment/Plan 1. Globally weak/septic shock. 2. Renal failure, acute on chronic. 3. 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 4. Anemia. 5. History of upper gastrointestinal bleed with treatment of the visible bleeding vessel previously. 6. Chronic renal insufficiency. 7. Coronary artery disease status post percutaneous coronary intervention with what was felt to be a demand related ischemia. 8. History of aspiration. 9. Altered mental status. 10. Hypertension. 11. Diabetes mellitus 12. thrombocytopenia watch plt count consider heme eval pt , ptt normla so unlikey DIC bp is ok to day dialysis vent support wean as possible abx off pressors for nwo Subjective ROS Limited/Unobtainable: Yes Subjective on a vent not communicative Objective Last 24 Hour Vital Signs Date Time Temp Pulse Resp B/P Pulse Ox O2 Delivery O2 Flow Rate FiO2 09/16/16 19:00 65 18 121/54 100 Mechanical Ventilator 30 09/16/16 18:59 56 16 30 09/16/16 18:00 63 17 139/64 100 Mechanical Ventilator 30 09/16/16 18:00 66 16 139/64 100 Mechanical Ventilator 30 09/16/16 17:00 61 16 116/52 100 Mechanical Ventilator 30 09/16/16 16:45 68 16 30 09/16/16 16:00 98.1 72 14 119/51 100 Mechanical Ventilator 30 09/16/16 16:00 70 09/16/16 16:00 30 09/16/16 15:00 71 16 116/49 100 Mechanical Ventilator 30 09/16/16 14:57 66 14 30 09/16/16 14:00 60 16 110/52 100 Mechanical Ventilator 30 09/16/16 13:48 104/54 09/16/16 13:00 58 17 104/54 100 Mechanical Ventilator 30 09/16/16 12:43 78 16 30 09/16/16 12:00 98.4 68 17 120/62 96 Mechanical Ventilator 30 09/16/16 12:00 30 09/16/16 12:00 60 09/16/16 11:00 65 17 110/57 100 Mechanical Ventilator 30 09/16/16 10:45 66 16 30 09/16/16 10:00 74 14 132/58 100 Mechanical Ventilator 30 09/16/16 09:12 59 16 30 09/16/16 09:00 61 16 112/56 97 Mechanical Ventilator 30 09/16/16 08:00 98.0 61 16 119/51 96 Mechanical Ventilator 30 09/16/16 08:00 30 09/16/16 08:00 65 09/16/16 07:14 74 17 30 09/16/16 07:00 65 17 109/51 97 Mechanical Ventilator 30 09/16/16 06:00 68 17 117/69 94 Mechanical Ventilator 09/16/16 05:29 77 19 30 09/16/16 05:00 66 16 117/69 98 Mechanical Ventilator 09/16/16 04:00 30 09/16/16 04:00 65 09/16/16 04:00 98.2 63 16 122/50 94 Mechanical Ventilator 09/16/16 03:21 69 16 30 09/16/16 03:00 65 16 130/65 94 Mechanical Ventilator 09/16/16 02:00 62 16 117/62 100 Mechanical Ventilator 30 09/16/16 01:17 73 22 30 09/16/16 01:00 71 17 101/71 99 Mechanical Ventilator 09/16/16 00:00 30 09/16/16 00:00 98.3 63 16 122/50 100 Mechanical Ventilator 30 09/16/16 00:00 69 09/15/16 23:25 61 17 30 09/15/16 23:00 64 17 122/50 99 Mechanical Ventilator 30 09/15/16 22:00 65 19 117/48 99 Mechanical Ventilator 30 09/15/16 21:07 61 18 30 09/15/16 21:00 63 19 112/52 99 Mechanical Ventilator 30 09/15/16 20:00 30 09/15/16 20:00 61 16 98/48 99 Mechanical Ventilator 09/15/16 20:00 61 General Appearance: on vent, other - min responsive Cardiovascular: normal rate Respiratory/Chest: lungs clear - anteriroly Abdomen: normal bowel sounds, non tender, soft Extremities: no swelling Intake and Output 09/15/16 09/16/16 19:00 07:00 Intake Total 330 ml 510 ml Output Total 375 ml 451 ml Balance -45 ml 59 ml Intake Free Water 90 ml Tube Feeding 330 ml 420 ml Output Urine Total 375 ml 450 ml Stool Total 1 ml # Bowel Movements 3 4 Laboratory Tests Test 09/16/16 03:45 09/16/16 07:00 White Blood Count 6.1 K/UL (4.8-10.8) Red Blood Count 3.09 M/UL (4.70-6.10) L Hemoglobin 9.0 G/DL (14.2-18.0) L Hematocrit 26.6 % (42.0-52.0) L Mean Corpuscular Volume 86 FL (80-99) Mean Corpuscular Hemoglobin 29.2 PG (27.0-31.0) Mean Corpuscular Hemoglobin Concent 33.9 G/DL (32.0-36.0) Red Cell Distribution Width 13.8 % (11.6-14.8) Platelet Count 53 K/UL (150-450) L Mean Platelet Volume 7.8 FL (6.5-10.1) Neutrophils (%) (Auto) % (45.0-75.0) Lymphocytes (%) (Auto) % (20.0-45.0) Monocytes (%) (Auto) % (1.0-10.0) Eosinophils (%) (Auto) % (0.0-3.0) Basophils (%) (Auto) % (0.0-2.0) Differential Total Cells Counted 100 Neutrophils % (Manual) 78 % (45-75) H Lymphocytes % (Manual) 19 % (20-45) L Monocytes % (Manual) 2 % (1-10) Eosinophils % (Manual) 1 % (0-3) Basophils % (Manual) 0 % (0-2) Band Neutrophils 0 % (0-8) Platelet Estimate Decreased L Platelet Morphology Normal Hypochromasia 1+ Sodium Level 143 mEQ/L (135-145) Potassium Level 3.5 mEQ/L (3.4-4.9) Chloride Level 99 mEQ/L (98-107) Carbon Dioxide Level 29 mEQ/L (20-30) Anion Gap 15 (5-15) Blood Urea Nitrogen 68 mg/dL (7-23) H Creatinine 4.1 mg/dL (0.7-1.2) H Estimat Glomerular Filtration Rate mL/min (>60) Glucose Level 149 mg/dL (74-106) H Uric Acid 7.2 mg/dL (3.0-7.5) Calcium Level 7.6 mg/dL (8.6-10.2) L Phosphorus Level 2.5 mg/dL (2.5-4.8) Magnesium Level 2.0 mg/dL (1.7-2.5) Total Bilirubin 0.4 mg/dL (0.0-1.2) Aspartate Amino Transf (AST/SGOT) 20 U/L (5-40) Alanine Aminotransferase (ALT/SGPT) 24 U/L (3-41) Alkaline Phosphatase 60 U/L (40-129) C-Reactive Protein, Quantitative 6.5 mg/dL (< 0.5) H Pro-B-Type Natriuretic Peptide 64724 pg/mL (0-450) H Total Protein 5.0 g/dL (6.6-8.7) L Albumin 2.3 g/dL (3.5-5.2) L Globulin 2.7 g/dL Albumin/Globulin Ratio 0.8 (1.0-2.7) L Arterial Blood pH 7.580 (7.350-7.450) Arterial Blood Partial Pressure CO2 32.5 mmHg (35.0-45.0) L Arterial Blood Partial Pressure O2 106.2 mmHg (75.0-100.0) H Arterial Blood HCO3 30.3 mmol/L (22.0-26.0) H Arterial Blood Oxygen Saturation 97.3 % (92.0-98.0) Arterial Blood Base Excess 8.3 Anjum Test Positive Microbiology Date/Time Source Procedure Growth Status 09/14/16 10:45 Sputum Gram Stain - Final Resulted 09/14/16 10:45 Sputum Culture - Preliminary Yeast Species Resulted RAJ DEL ROSARIO September 16, 2016 19:30
--- NOTE | 2016-09-16 19:39 | Infectious Diseases Prog Note ---
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 ) LAC improving DM HTN SP pacemaker placement Alzheimer dementia [place] : on HD started 09/14 P: Cefepime d# 3 / 14 ( 09/14 SP Zosyn d# 4 ) Monitor culture Monitor CBC Monitor BMP Monitor LFT Nephro is following HD Cath Subjective Constitutional: Denies: anorexia, chills, drenching sweats, fatigue, fever, no symptoms, other Allergies: Coded Allergies: SULFA (SULFONAMIDE ANTIBIOTICS) (Verified Allergy, Unknown, 09/10/16) Uncoded Allergies: SULFA (Adverse Reaction, Mild, RASH, 04/01/13) Subjective SP HD , on vent Objective Vital Signs Last 24 Hour Vital Signs Date Time Temp Pulse Resp B/P Pulse Ox O2 Delivery O2 Flow Rate FiO2 09/16/16 19:00 65 18 121/54 100 Mechanical Ventilator 30 09/16/16 18:59 56 16 30 09/16/16 18:00 63 17 139/64 100 Mechanical Ventilator 30 09/16/16 18:00 66 16 139/64 100 Mechanical Ventilator 30 09/16/16 17:00 61 16 116/52 100 Mechanical Ventilator 30 09/16/16 16:45 68 16 30 09/16/16 16:00 98.1 72 14 119/51 100 Mechanical Ventilator 30 09/16/16 16:00 70 09/16/16 16:00 30 09/16/16 15:00 71 16 116/49 100 Mechanical Ventilator 30 09/16/16 14:57 66 14 30 09/16/16 14:00 60 16 110/52 100 Mechanical Ventilator 30 09/16/16 13:48 104/54 09/16/16 13:00 58 17 104/54 100 Mechanical Ventilator 30 09/16/16 12:43 78 16 30 09/16/16 12:00 98.4 68 17 120/62 96 Mechanical Ventilator 30 09/16/16 12:00 30 09/16/16 12:00 60 09/16/16 11:00 65 17 110/57 100 Mechanical Ventilator 30 09/16/16 10:45 66 16 30 09/16/16 10:00 74 14 132/58 100 Mechanical Ventilator 30 09/16/16 09:12 59 16 30 09/16/16 09:00 61 16 112/56 97 Mechanical Ventilator 30 09/16/16 08:00 98.0 61 16 119/51 96 Mechanical Ventilator 30 09/16/16 08:00 30 09/16/16 08:00 65 09/16/16 07:14 74 17 30 09/16/16 07:00 65 17 109/51 97 Mechanical Ventilator 30 09/16/16 06:00 68 17 117/69 94 Mechanical Ventilator 30 09/16/16 05:29 77 19 30 09/16/16 05:00 66 16 117/69 98 Mechanical Ventilator 30 09/16/16 04:00 30 09/16/16 04:00 65 09/16/16 04:00 98.2 63 16 122/50 94 Mechanical Ventilator 30 09/16/16 03:21 69 16 30 09/16/16 03:00 65 16 130/65 94 Mechanical Ventilator 30 09/16/16 02:00 62 16 117/62 100 Mechanical Ventilator 30 09/16/16 01:17 73 22 30 09/16/16 01:00 71 17 101/71 99 Mechanical Ventilator 30 09/16/16 00:00 30 09/16/16 00:00 98.3 63 16 122/50 100 Mechanical Ventilator 30 09/16/16 00:00 69 09/15/16 23:25 61 17 30 09/15/16 23:00 64 17 122/50 99 Mechanical Ventilator 30 09/15/16 22:00 65 19 117/48 99 Mechanical Ventilator 30 09/15/16 21:07 61 18 30 09/15/16 21:00 63 19 112/52 99 Mechanical Ventilator 30 09/15/16 20:00 30 09/15/16 20:00 61 16 98/48 99 Mechanical Ventilator 30 09/15/16 20:00 61 Height (Feet): 5 Height (Inches): 6.00 Weight (Pounds): 160 HEENT: anicteric Respiratory/Chest: no respiratory distress Cardiovascular: regular rhythm Abdomen: no organomegaly Microbiology Date/Time Source Procedure Growth Status 09/14/16 10:45 Sputum Gram Stain - Final Resulted 09/14/16 10:45 Sputum Culture - Preliminary Yeast Species Resulted Laboratory Tests Test 09/16/16 03:45 09/16/16 07:00 White Blood Count 6.1 K/UL (4.8-10.8) Red Blood Count 3.09 M/UL (4.70-6.10) L Hemoglobin 9.0 G/DL (14.2-18.0) L Hematocrit 26.6 % (42.0-52.0) L Mean Corpuscular Volume 86 FL (80-99) Mean Corpuscular Hemoglobin 29.2 PG (27.0-31.0) Mean Corpuscular Hemoglobin Concent 33.9 G/DL (32.0-36.0) Red Cell Distribution Width 13.8 % (11.6-14.8) Platelet Count 53 K/UL (150-450) L Mean Platelet Volume 7.8 FL (6.5-10.1) Neutrophils (%) (Auto) % (45.0-75.0) Lymphocytes (%) (Auto) % (20.0-45.0) Monocytes (%) (Auto) % (1.0-10.0) Eosinophils (%) (Auto) % (0.0-3.0) Basophils (%) (Auto) % (0.0-2.0) Differential Total Cells Counted 100 Neutrophils % (Manual) 78 % (45-75) H Lymphocytes % (Manual) 19 % (20-45) L Monocytes % (Manual) 2 % (1-10) Eosinophils % (Manual) 1 % (0-3) Basophils % (Manual) 0 % (0-2) Band Neutrophils 0 % (0-8) Platelet Estimate Decreased L Platelet Morphology Normal Hypochromasia 1+ Sodium Level 143 mEQ/L (135-145) Potassium Level 3.5 mEQ/L (3.4-4.9) Chloride Level 99 mEQ/L (98-107) Carbon Dioxide Level 29 mEQ/L (20-30) Anion Gap 15 (5-15) Blood Urea Nitrogen 68 mg/dL (7-23) H Creatinine 4.1 mg/dL (0.7-1.2) H Estimat Glomerular Filtration Rate mL/min (>60) Glucose Level 149 mg/dL (74-106) H Uric Acid 7.2 mg/dL (3.0-7.5) Calcium Level 7.6 mg/dL (8.6-10.2) L Phosphorus Level 2.5 mg/dL (2.5-4.8) Magnesium Level 2.0 mg/dL (1.7-2.5) Total Bilirubin 0.4 mg/dL (0.0-1.2) Aspartate Amino Transf (AST/SGOT) 20 U/L (5-40) Alanine Aminotransferase (ALT/SGPT) 24 U/L (3-41) Alkaline Phosphatase 60 U/L (40-129) C-Reactive Protein, Quantitative 6.5 mg/dL (< 0.5) H Pro-B-Type Natriuretic Peptide 71684 pg/mL (0-450) H Total Protein 5.0 g/dL (6.6-8.7) L Albumin 2.3 g/dL (3.5-5.2) L Globulin 2.7 g/dL Albumin/Globulin Ratio 0.8 (1.0-2.7) L Arterial Blood pH 7.580 (7.350-7.450) Arterial Blood Partial Pressure CO2 32.5 mmHg (35.0-45.0) L Arterial Blood Partial Pressure O2 106.2 mmHg (75.0-100.0) H Arterial Blood HCO3 30.3 mmol/L (22.0-26.0) H Arterial Blood Oxygen Saturation 97.3 % (92.0-98.0) Arterial Blood Base Excess 8.3 Anjum Test Positive Current Medications Medications (Trade) Dose Ordered Sig/Barrett Route PRN Reason Start Time Stop Time Status Last Admin Dose Admin Cefepime HCl/ Dextrose (Maxipime/D5W) 55 ml @ 110 mls/hr Q24H IVPB 09/15/16 21:00 09/22/16 20:59 09/15/16 21:24 Dextrose STAT PRN IV Hypoglycemia 09/11/16 05:30 10/11/16 05:29 Insulin Aspart (NovoLOG) Q6HR SUBQ 09/15/16 00:00 10/15/16 00:00 09/16/16 17:21 Lorazepam (Ativan 2mg/ml 1ml) 2 mg Q4H PRN IV For Anxiety 09/12/16 11:30 09/19/16 11:29 Morphine Sulfate (Morphine Sulfate) 4 mg Q4H PRN IVP PAIN 4-10 09/12/16 11:30 09/19/16 11:29 Norepinephrine Bitartrate/ Dextrose (Levophed/D5W) 516 ml @ 0 mls/hr Q24H IV 09/11/16 14:00 10/11/16 13:59 09/11/16 14:22 Pantoprazole 40 mg 40 mg DAILY IV 09/13/16 09:00 10/13/16 08:59 09/16/16 09:17 CRISTEL DUFF M.D. September 16, 2016 19:39
[2016-09-16] MEDS: Cefepime 500mg in D5W 55ml IVPB SCH (21:29)
[2016-09-17] VITALS (23 sets, daily range): BP systolic 109–160; BP diastolic 46–80
[2016-09-17] MEDS: NovoLOG Insulin Flexpen SUBQ SCH ×4 (00:06→18:00)
[2016-09-17 06:23] LABS: MEAN CORPUSCULAR HEMOGLOBIN 29.5 PG (27.0-31.0); MEAN CORPUSCULAR HGB CONC 33.3 G/DL (32.0-36.0); MEAN CORPUSCULAR VOLUME 88 FL (80-99); MEAN PLATELET VOLUME 12.3 FL (6.5-10.1); PLATELET COUNT 62 K/UL (150-450); RED BLOOD COUNT 3.45 M/UL (4.70-6.10); RED CELL DISTRIBUTION WIDTH 13.9 % (11.6-14.8); WHITE BLOOD COUNT 5.3 K/UL (4.8-10.8)
[2016-09-17 06:39] LABS: ALANINE AMINOTRANSFERASE 22 U/L (3-41); ALBUMIN/GLOBULIN RATIO 0.8 (1.0-2.7); ANION GAP 14 (5-15); ASPARTATE AMINO TRANSFERASE 21 U/L (5-40); CALCIUM 8.3 mg/dL (8.6-10.2); CARBON DIOXIDE 31 mEQ/L (20-30); CHLORIDE 98 mEQ/L (98-107); CREATININE 4.3 mg/dL (0.7-1.2); HEMOLYSIS 3; MAGNESIUM 2.2 mg/dL (1.7-2.5); PHOSPHORUS 2.9 mg/dL (2.5-4.8); POTASSIUM 3.3 mEQ/L (3.4-4.9); SODIUM 143 mEQ/L (135-145); TOTAL PROTEIN 5.8 g/dL (6.6-8.7)
[2016-09-17] MEDS: Pantoprazole Inj IV SCH (08:56)
--- NOTE | 2016-09-17 09:13 | Pulmonolgy Critical Care Note ---
Critical Care - Asmt/Plan Problems: (1) Respiratory failure requiring intubation (2) Septic shock (3) ARF (acute renal failure) (4) Encephalopathy acute (5) DM (diabetes mellitus) Respiratory: monitor respiratory rate, adjust FIO2, CXR Cardiac: continue to monitor HR/BP Renal: F/U I&O, keep IV fluid, check electrolytes Infectious Disease: check cultures Gastrointestinal: continue feedings/current rate, hold feedings Endocrine: monitor blood sugar, continue sliding scale insulin Hematologic: transfuse if hgb<8.5 Neurologic: PRN Ativan, PRN Morphine, keep patient comfortable Affect: PRN ativan Prophylaxis: Protonix, Heparin Time Spent (Minutes): 40 Notes Reviewed: 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 officer, cardio, renal Discussed with: nurses, consultants, 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 - Objective Last 24 Hour Vital Signs Date Time Temp Pulse Resp B/P Pulse Ox O2 Delivery O2 Flow Rate FiO2 09/17/16 07:10 72 16 30 09/17/16 07:00 78 18 122/80 100 Mechanical Ventilator 30 09/17/16 06:00 70 18 141/78 100 Mechanical Ventilator 30 09/17/16 05:16 86 16 30 09/17/16 05:00 72 18 145/73 100 Mechanical Ventilator 30 09/17/16 04:00 71 09/17/16 04:00 30 09/17/16 04:00 98.0 71 18 112/80 100 Mechanical Ventilator 30 09/17/16 03:10 71 16 30 09/17/16 03:00 68 16 155/74 100 Mechanical Ventilator 30 09/17/16 02:00 65 16 160/49 100 Mechanical Ventilator 30 09/17/16 01:05 67 14 30 09/17/16 01:00 73 16 147/77 100 Mechanical Ventilator 30 09/17/16 00:00 98.4 67 16 151/75 100 Mechanical Ventilator 30 09/17/16 00:00 71 09/17/16 00:00 30 09/16/16 23:13 70 15 30 09/16/16 23:00 65 16 153/79 100 Mechanical Ventilator 30 09/16/16 22:00 63 16 156/76 100 Mechanical Ventilator 30 09/16/16 21:00 30 09/16/16 21:00 63 16 143/87 100 Mechanical Ventilator 30 09/16/16 20:56 66 19 30 09/16/16 20:00 70 09/16/16 20:00 99.0 62 16 151/77 100 Mechanical Ventilator 30 09/16/16 19:00 65 18 121/54 100 Mechanical Ventilator 30 09/16/16 18:59 56 16 30 09/16/16 18:00 63 17 139/64 100 Mechanical Ventilator 30 09/16/16 18:00 66 16 139/64 100 Mechanical Ventilator 30 09/16/16 17:00 61 16 116/52 100 Mechanical Ventilator 30 09/16/16 16:45 68 16 30 09/16/16 16:00 98.1 72 14 119/51 100 Mechanical Ventilator 30 09/16/16 16:00 70 09/16/16 16:00 30 09/16/16 15:00 71 16 116/49 100 Mechanical Ventilator 30 09/16/16 14:57 66 14 30 09/16/16 14:00 60 16 110/52 100 Mechanical Ventilator 30 09/16/16 13:48 104/54 09/16/16 13:00 58 17 104/54 100 Mechanical Ventilator 30 09/16/16 12:43 78 16 30 09/16/16 12:00 98.4 68 17 120/62 96 Mechanical Ventilator 30 09/16/16 12:00 30 09/16/16 12:00 60 09/16/16 11:00 65 17 110/57 100 Mechanical Ventilator 30 09/16/16 10:45 66 16 30 09/16/16 10:00 74 14 132/58 100 Mechanical Ventilator 30 Status: awake Condition: critical HEENT: atraumatic Neck: full ROM Heart: HR/BP stable, HR/BP unstable Abdomen: soft, non-tender, feeding tube Extremities: no C/C/E Decubiti: location Micro: Microbiology Date/Time Source Procedure Growth Status 09/14/16 10:45 Sputum Gram Stain - Final Complete 09/14/16 10:45 Sputum Culture - Final Lori Albicans Complete Accucheck: 154 Critical Care - Subjective ROS Limited/Unobtainable: No ICU Day: 7 Intubation Day: 7 Interval Events: looks comfortable, no new events. FI02: 30 Vent Support Breath Rate: 16 Vent Support Mode: IMV/SIMV Vent Tidal Volume: 500 Sputum Amount: Moderate PEEP: 5.0 PIP: 23 Tube Feeding Amount: 35 I&O: Intake and Output 09/16/16 09/17/16 19:00 07:00 Intake Total 420 ml 480 ml Output Total 360 ml 530 ml Balance 60 ml -50 ml Intake Free Water 60 ml Tube Feeding 420 ml 420 ml Output Urine Total 360 ml 530 ml # Bowel Movements 3 2 CXR: ET in good position ET-Tube: 7.0 ET Position: 24 Labs: Laboratory Tests Test 09/17/16 05:00 White Blood Count 5.3 K/UL (4.8-10.8) Red Blood Count 3.45 M/UL (4.70-6.10) L Hemoglobin 10.2 G/DL (14.2-18.0) L Hematocrit 30.5 % (42.0-52.0) L Mean Corpuscular Volume 88 FL (80-99) Mean Corpuscular Hemoglobin 29.5 PG (27.0-31.0) Mean Corpuscular Hemoglobin Concent 33.3 G/DL (32.0-36.0) Red Cell Distribution Width 13.9 % (11.6-14.8) Platelet Count 62 K/UL (150-450) L Mean Platelet Volume 12.3 FL (6.5-10.1) H Neutrophils (%) (Auto) % (45.0-75.0) Lymphocytes (%) (Auto) % (20.0-45.0) Monocytes (%) (Auto) % (1.0-10.0) Eosinophils (%) (Auto) % (0.0-3.0) Basophils (%) (Auto) % (0.0-2.0) Sodium Level 143 mEQ/L (135-145) Potassium Level 3.3 mEQ/L (3.4-4.9) L Chloride Level 98 mEQ/L (98-107) Carbon Dioxide Level 31 mEQ/L (20-30) H Anion Gap 14 (5-15) Blood Urea Nitrogen 76 mg/dL (7-23) H Creatinine 4.3 mg/dL (0.7-1.2) H Estimat Glomerular Filtration Rate mL/min (>60) Glucose Level 166 mg/dL (74-106) H Calcium Level 8.3 mg/dL (8.6-10.2) L Phosphorus Level 2.9 mg/dL (2.5-4.8) Magnesium Level 2.2 mg/dL (1.7-2.5) Total Bilirubin 0.4 mg/dL (0.0-1.2) Aspartate Amino Transf (AST/SGOT) 21 U/L (5-40) Alanine Aminotransferase (ALT/SGPT) 22 U/L (3-41) Alkaline Phosphatase 64 U/L (40-129) Total Protein 5.8 g/dL (6.6-8.7) L Albumin 2.7 g/dL (3.5-5.2) L Globulin 3.1 g/dL Albumin/Globulin Ratio 0.8 (1.0-2.7) L LANDEN HERNANDEZ September 17, 2016 09:13
[2016-09-17 09:37] LABS: ABG ALLEN TEST POSITIVE; ABG BASE EXCESS 6.9; ABG PCO2 40.6 mmHg (35.0-45.0)
--- NOTE | 2016-09-17 10:01 | General Progress Note ---
Assessment/Plan Status: unchanged Assessment/Plan status: Septic Shock leading to acute renal and multiOrgan failure Due to the above: Sever Acidosis , high Lactate , High K ALL IMPROVED Sugg: HD today Hemodynamic support Antibiotics discussed with RN monitor renal parameters Subjective ROS Limited/Unobtainable: Yes Allergies: Coded Allergies: SULFA (SULFONAMIDE ANTIBIOTICS) (Verified Allergy, Unknown, 09/10/16) Uncoded Allergies: SULFA (Adverse Reaction, Mild, RASH, 04/01/13) Objective Last 24 Hour Vital Signs Date Time Temp Pulse Resp B/P Pulse Ox O2 Delivery O2 Flow Rate FiO2 09/17/16 09:10 71 16 30 09/17/16 08:00 30 09/17/16 07:10 72 16 30 09/17/16 07:00 78 18 122/80 100 Mechanical Ventilator 09/17/16 06:00 70 18 141/78 100 Mechanical Ventilator 09/17/16 05:16 86 16 30 09/17/16 05:00 72 18 145/73 100 Mechanical Ventilator 09/17/16 04:00 71 09/17/16 04:00 30 09/17/16 04:00 98.0 71 18 112/80 100 Mechanical Ventilator 30 09/17/16 03:10 71 16 30 09/17/16 03:00 68 16 155/74 100 Mechanical Ventilator 30 09/17/16 02:00 65 16 160/49 100 Mechanical Ventilator 30 09/17/16 01:05 67 14 30 09/17/16 01:00 73 16 147/77 100 Mechanical Ventilator 09/17/16 00:00 98.4 67 16 151/75 100 Mechanical Ventilator 09/17/16 00:00 71 09/17/16 00:00 30 09/16/16 23:13 70 15 30 09/16/16 23:00 65 16 153/79 100 Mechanical Ventilator 30 09/16/16 22:00 63 16 156/76 100 Mechanical Ventilator 30 09/16/16 21:00 30 09/16/16 21:00 63 16 143/87 100 Mechanical Ventilator 30 09/16/16 20:56 66 19 30 09/16/16 20:00 70 09/16/16 20:00 99.0 62 16 151/77 100 Mechanical Ventilator 09/16/16 19:00 65 18 121/54 100 Mechanical Ventilator 30 09/16/16 18:59 56 16 30 09/16/16 18:00 63 17 139/64 100 Mechanical Ventilator 30 09/16/16 18:00 66 16 139/64 100 Mechanical Ventilator 30 09/16/16 17:00 61 16 116/52 100 Mechanical Ventilator 30 09/16/16 16:45 68 16 30 09/16/16 16:00 98.1 72 14 119/51 100 Mechanical Ventilator 30 09/16/16 16:00 70 09/16/16 16:00 30 09/16/16 15:00 71 16 116/49 100 Mechanical Ventilator 30 09/16/16 14:57 66 14 30 09/16/16 14:00 60 16 110/52 100 Mechanical Ventilator 30 09/16/16 13:48 104/54 09/16/16 13:00 58 17 104/54 100 Mechanical Ventilator 30 09/16/16 12:43 78 16 30 09/16/16 12:00 98.4 68 17 120/62 96 Mechanical Ventilator 30 09/16/16 12:00 30 09/16/16 12:00 60 09/16/16 11:00 65 17 110/57 100 Mechanical Ventilator 30 09/16/16 10:45 66 16 30 09/16/16 10:00 74 14 132/58 100 Mechanical Ventilator 30 Intake and Output 09/16/16 09/17/16 19:00 07:00 Intake Total 420 ml 480 ml Output Total 360 ml 530 ml Balance 60 ml -50 ml Intake Free Water 60 ml Tube Feeding 420 ml 420 ml Output Urine Total 360 ml 530 ml # Bowel Movements 3 2 Laboratory Tests 09/17/16 05:00: White Blood Count 5.3, Red Blood Count 3.45L, Hemoglobin 10.2L, Hematocrit 30.5L , Mean Corpuscular Volume 88, Mean Corpuscular Hemoglobin 29.5, Mean Corpuscular Hemoglobin Concent 33.3, Red Cell Distribution Width 13.9, Platelet Count 62L, Mean Platelet Volume 12.3H, Neutrophils (%) (Auto) , Lymphocytes (%) (Auto) , Monocytes (%) (Auto) , Eosinophils (%) (Auto) , Basophils (%) (Auto) , Sodium Level 143, Potassium Level 3.3L, Chloride Level 98, Carbon Dioxide Level 31H, Anion Gap 14, Blood Urea Nitrogen 76H, Creatinine 4.3H, Estimat Glomerular Filtration Rate , Glucose Level 166H, Calcium Level 8.3L, Phosphorus Level 2.9, Magnesium Level 2.2, Total Bilirubin 0.4, Aspartate Amino Transf (AST/SGOT) 21, Alanine Aminotransferase (ALT/SGPT) 22, Alkaline Phosphatase 64, Total Protein 5.8L, Albumin 2.7L, Globulin 3.1, Albumin/Globulin Ratio 0.8L 09/17/16 09:30: Arterial Blood pH 7.496H, Arterial Blood Partial Pressure CO2 40.6, Arterial Blood Partial Pressure O2 86.6, Arterial Blood HCO3 30.7H, Arterial Blood Oxygen Saturation 95.6, Arterial Blood Base Excess 6.9, Anjum Test Positive Height (Feet): 5 Height (Inches): 6.00 Weight (Pounds): 160 General Appearance: no apparent distress EENT: other - intubated Cardiovascular: normal rate Respiratory/Chest: decreased breath sounds Abdomen: soft Objective no change in PE MARIAN KOTHARI September 17, 2016 10:01
--- NOTE | 2016-09-17 14:27 | Internal Med Progress Note ---
Subjective Date of Service: September 17, 2016 Physician Name King Haynes Attending Physician Jonathan Sampson MD Current Medications Medications (Trade) Dose Ordered Sig/Barrett Route PRN Reason Start Time Stop Time Status Last Admin Dose Admin Cefepime HCl/ Dextrose (Maxipime/D5W) 55 ml @ 110 mls/hr Q24H IVPB 09/15/16 21:00 09/22/16 20:59 09/16/16 21:29 Dextrose STAT PRN IV Hypoglycemia 09/11/16 05:30 10/11/16 05:29 Insulin Aspart (NovoLOG) Q6HR SUBQ 09/15/16 00:00 10/15/16 00:00 09/17/16 12:00 Lorazepam (Ativan 2mg/ml 1ml) 2 mg Q4H PRN IV For Anxiety 09/12/16 11:30 09/19/16 11:29 Morphine Sulfate (Morphine Sulfate) 4 mg Q4H PRN IVP PAIN 4-10 09/12/16 11:30 09/19/16 11:29 Norepinephrine Bitartrate/ Dextrose (Levophed/D5W) 516 ml @ 0 mls/hr Q24H IV 09/11/16 14:00 10/11/16 13:59 09/11/16 14:22 Pantoprazole 40 mg 40 mg DAILY IV 09/13/16 09:00 10/13/16 08:59 09/17/16 08:56 Allergies: Coded Allergies: SULFA (SULFONAMIDE ANTIBIOTICS) (Verified Allergy, Unknown, 09/10/16) Uncoded Allergies: SULFA (Adverse Reaction, Mild, RASH, 04/01/13) ROS Limited/Unobtainable: Yes Subjective 76 YO M admitted with hypotension and sepsis. ICU. Intubated and sedated. Cover for Int Med-Dr Sampson. Objective Last Vital Signs Date Time Temp Pulse Resp B/P Pulse Ox O2 Delivery O2 Flow Rate FiO2 09/17/16 14:00 125/67 09/17/16 14:00 76 17 97 Mechanical Ventilator 30 09/17/16 12:00 98.4 09/14/16 19:30 30.0 Laboratory Tests Test 09/17/16 05:00 09/17/16 09:30 White Blood Count 5.3 K/UL (4.8-10.8) Red Blood Count 3.45 M/UL (4.70-6.10) L Hemoglobin 10.2 G/DL (14.2-18.0) L Hematocrit 30.5 % (42.0-52.0) L Mean Corpuscular Volume 88 FL (80-99) Mean Corpuscular Hemoglobin 29.5 PG (27.0-31.0) Mean Corpuscular Hemoglobin Concent 33.3 G/DL (32.0-36.0) Red Cell Distribution Width 13.9 % (11.6-14.8) Platelet Count 62 K/UL (150-450) L Mean Platelet Volume 12.3 FL (6.5-10.1) H Neutrophils (%) (Auto) % (45.0-75.0) Lymphocytes (%) (Auto) % (20.0-45.0) Monocytes (%) (Auto) % (1.0-10.0) Eosinophils (%) (Auto) % (0.0-3.0) Basophils (%) (Auto) % (0.0-2.0) Sodium Level 143 mEQ/L (135-145) Potassium Level 3.3 mEQ/L (3.4-4.9) L Chloride Level 98 mEQ/L (98-107) Carbon Dioxide Level 31 mEQ/L (20-30) H Anion Gap 14 (5-15) Blood Urea Nitrogen 76 mg/dL (7-23) H Creatinine 4.3 mg/dL (0.7-1.2) H Estimat Glomerular Filtration Rate mL/min (>60) Glucose Level 166 mg/dL (74-106) H Calcium Level 8.3 mg/dL (8.6-10.2) L Phosphorus Level 2.9 mg/dL (2.5-4.8) Magnesium Level 2.2 mg/dL (1.7-2.5) Total Bilirubin 0.4 mg/dL (0.0-1.2) Aspartate Amino Transf (AST/SGOT) 21 U/L (5-40) Alanine Aminotransferase (ALT/SGPT) 22 U/L (3-41) Alkaline Phosphatase 64 U/L (40-129) Total Protein 5.8 g/dL (6.6-8.7) L Albumin 2.7 g/dL (3.5-5.2) L Globulin 3.1 g/dL Albumin/Globulin Ratio 0.8 (1.0-2.7) L Arterial Blood pH 7.496 (7.350-7.450) Arterial Blood Partial Pressure CO2 40.6 mmHg (35.0-45.0) Arterial Blood Partial Pressure O2 86.6 mmHg (75.0-100.0) Arterial Blood HCO3 30.7 mmol/L (22.0-26.0) H Arterial Blood Oxygen Saturation 95.6 % (92.0-98.0) Arterial Blood Base Excess 6.9 Anjum Test Positive Intake and Output 09/16/16 09/17/16 19:00 07:00 Intake Total 420 ml 480 ml Output Total 360 ml 530 ml Balance 60 ml -50 ml Intake Free Water 60 ml Tube Feeding 420 ml 420 ml Output Urine Total 360 ml 530 ml # Bowel Movements 3 2 Objective General Appearance: WD/WN, moderate distress EENT: normal ENT inspection Neck: non-tender, normal alignment, supple Cardiovascular: normal peripheral pulses, normal rate, regular rhythm, no gallop/murmur, no JVD Respiratory/Chest: Mech Vent; respiratory distress, crackles/rales, rhonchi - bilaterally, expiratory wheezing Abdomen: normal bowel sounds, non tender, soft, no organomegaly, no mass Skin: normal pigmentation, warm/dry Assessment/Plan Problem List: (1) Severe sepsis Assessment & Plan: Cont cefepime per ID (2) Respiratory failure Assessment & Plan: Cont vent per pulmonary (3) Renal failure Assessment & Plan: Last Hemodialysis 09/14/16 per nephrology. (4) Diabetes mellitus type II, uncontrolled Assessment & Plan: Cont novolog sliding scale. (5) BPH (benign prostatic hyperplasia) (6) Hypokalemia (7) Infection caused by Enterobacter cloacae (8) UTI (urinary tract infection) Assessment & Plan: Enterobacter. D/C zosyn. Start cefepime per ID Status: not improved KING HAYNES September 17, 2016 14:27
--- NOTE | 2016-09-17 15:57 | Cardiology Progress Note ---
Assessment/Plan Problem List: (1) ARF (acute renal failure) (2) Respiratory failure (3) Renal failure (4) Sepsis (5) UTI (urinary tract infection) (6) Infection caused by Enterobacter cloacae Status: stable, progressing Status Narrative Pt tolerating HD - 1 L fluid removed today. Appears w/ mild pulm congestion (CXR). BNP signif elevated, but inaccurate in setting of ARF Sepsis - improving - rx for Enterobact uti Assessment/Plan Continue fluid removal w HD Supportive care. ? weaning from vent as latoya Subjective ROS Limited/Unobtainable: Yes Subjective Intubated/ sedated Pt completing hemodialysis Objective Last 24 Hour Vital Signs Date Time Temp Pulse Resp B/P Pulse Ox O2 Delivery O2 Flow Rate FiO2 09/17/16 15:00 Mechanical Ventilator 30 09/17/16 15:00 71 16 111/48 100 Mechanical Ventilator 30 09/17/16 14:00 125/67 09/17/16 14:00 76 17 125/67 97 Mechanical Ventilator 30 09/17/16 13:20 76 16 30 09/17/16 13:00 78 16 109/51 98 Mechanical Ventilator 30 09/17/16 12:00 30 09/17/16 12:00 77 09/17/16 12:00 98.4 72 16 119/47 100 Mechanical Ventilator 30 09/17/16 11:55 Mechanical Ventilator 30 09/17/16 11:10 74 17 30 09/17/16 11:00 73 16 119/46 100 Mechanical Ventilator 30 09/17/16 10:00 70 16 116/51 100 Mechanical Ventilator 30 09/17/16 09:10 71 16 30 09/17/16 09:00 74 17 130/50 100 Mechanical Ventilator 30 09/17/16 08:00 30 09/17/16 08:00 81 09/17/16 08:00 97.8 74 16 138/79 100 Mechanical Ventilator 30 09/17/16 07:10 72 16 30 09/17/16 07:00 78 18 122/80 100 Mechanical Ventilator 30 09/17/16 06:00 70 18 141/78 100 Mechanical Ventilator 30 09/17/16 05:16 86 16 30 09/17/16 05:00 72 18 145/73 100 Mechanical Ventilator 30 09/17/16 04:00 71 09/17/16 04:00 30 09/17/16 04:00 98.0 71 18 112/80 100 Mechanical Ventilator 30 09/17/16 03:10 71 16 30 09/17/16 03:00 68 16 155/74 100 Mechanical Ventilator 30 09/17/16 02:00 65 16 160/49 100 Mechanical Ventilator 30 09/17/16 01:05 67 14 30 09/17/16 01:00 73 16 147/77 100 Mechanical Ventilator 09/17/16 00:00 98.4 67 16 151/75 100 Mechanical Ventilator 09/17/16 00:00 71 09/17/16 00:00 30 09/16/16 23:13 70 15 30 09/16/16 23:00 65 16 153/79 100 Mechanical Ventilator 09/16/16 22:00 63 16 156/76 100 Mechanical Ventilator 09/16/16 21:00 30 09/16/16 21:00 63 16 143/87 100 Mechanical Ventilator 30 09/16/16 20:56 66 19 30 09/16/16 20:00 70 09/16/16 20:00 99.0 62 16 151/77 100 Mechanical Ventilator 30 09/16/16 19:00 65 18 121/54 100 Mechanical Ventilator 30 09/16/16 18:59 56 16 30 09/16/16 18:00 63 17 139/64 100 Mechanical Ventilator 30 09/16/16 18:00 66 16 139/64 100 Mechanical Ventilator 30 09/16/16 17:00 61 16 116/52 100 Mechanical Ventilator 30 09/16/16 16:45 68 16 30 09/16/16 16:00 98.1 72 14 119/51 100 Mechanical Ventilator 09/16/16 16:00 70 09/16/16 16:00 30 General Appearance: other - thin, elderly wm on vent Neck: supple, other - R tunnelled ij HD catheter Rhythm: NSR Cardiovascular: normal rate, regular rhythm, no gallop/murmur Respiratory/Chest: lungs clear Abdomen: non tender, soft Extremities: no swelling Intake and Output 09/16/16 09/17/16 19:00 07:00 Intake Total 420 ml 480 ml Output Total 360 ml 530 ml Balance 60 ml -50 ml Intake Free Water 60 ml Tube Feeding 420 ml 420 ml Output Urine Total 360 ml 530 ml # Bowel Movements 3 2 Laboratory Tests Test 09/17/16 05:00 09/17/16 09:30 White Blood Count 5.3 K/UL (4.8-10.8) Red Blood Count 3.45 M/UL (4.70-6.10) L Hemoglobin 10.2 G/DL (14.2-18.0) L Hematocrit 30.5 % (42.0-52.0) L Mean Corpuscular Volume 88 FL (80-99) Mean Corpuscular Hemoglobin 29.5 PG (27.0-31.0) Mean Corpuscular Hemoglobin Concent 33.3 G/DL (32.0-36.0) Red Cell Distribution Width 13.9 % (11.6-14.8) Platelet Count 62 K/UL (150-450) L Mean Platelet Volume 12.3 FL (6.5-10.1) H Neutrophils (%) (Auto) % (45.0-75.0) Lymphocytes (%) (Auto) % (20.0-45.0) Monocytes (%) (Auto) % (1.0-10.0) Eosinophils (%) (Auto) % (0.0-3.0) Basophils (%) (Auto) % (0.0-2.0) Sodium Level 143 mEQ/L (135-145) Potassium Level 3.3 mEQ/L (3.4-4.9) L Chloride Level 98 mEQ/L (98-107) Carbon Dioxide Level 31 mEQ/L (20-30) H Anion Gap 14 (5-15) Blood Urea Nitrogen 76 mg/dL (7-23) H Creatinine 4.3 mg/dL (0.7-1.2) H Estimat Glomerular Filtration Rate mL/min (>60) Glucose Level 166 mg/dL (74-106) H Calcium Level 8.3 mg/dL (8.6-10.2) L Phosphorus Level 2.9 mg/dL (2.5-4.8) Magnesium Level 2.2 mg/dL (1.7-2.5) Total Bilirubin 0.4 mg/dL (0.0-1.2) Aspartate Amino Transf (AST/SGOT) 21 U/L (5-40) Alanine Aminotransferase (ALT/SGPT) 22 U/L (3-41) Alkaline Phosphatase 64 U/L (40-129) Total Protein 5.8 g/dL (6.6-8.7) L Albumin 2.7 g/dL (3.5-5.2) L Globulin 3.1 g/dL Albumin/Globulin Ratio 0.8 (1.0-2.7) L Arterial Blood pH 7.496 (7.350-7.450) Arterial Blood Partial Pressure CO2 40.6 mmHg (35.0-45.0) Arterial Blood Partial Pressure O2 86.6 mmHg (75.0-100.0) Arterial Blood HCO3 30.7 mmol/L (22.0-26.0) H Arterial Blood Oxygen Saturation 95.6 % (92.0-98.0) Arterial Blood Base Excess 6.9 Anjum Test Positive JOHN HAND September 17, 2016 15:57
--- NOTE | 2016-09-17 18:39 | Infectious Diseases Prog Note ---
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 ) LAC improving DM HTN SP pacemaker placement Alzheimer dementia [place] : on HD started 09/14 P: Cefepime d# 4 / 14 ( 09/14 SP Zosyn d# 4 ) Monitor culture Monitor CBC Monitor BMP Monitor LFT Nephro is following HD Cath Subjective Allergies: Coded Allergies: SULFA (SULFONAMIDE ANTIBIOTICS) (Verified Allergy, Unknown, 09/10/16) Uncoded Allergies: SULFA (Adverse Reaction, Mild, RASH, 04/01/13) Subjective SP HD , on vent Objective Vital Signs Last 24 Hour Vital Signs Date Time Temp Pulse Resp B/P Pulse Ox O2 Delivery O2 Flow Rate FiO2 09/17/16 18:00 78 16 119/53 96 Mechanical Ventilator 30 09/17/16 17:10 60 16 30 09/17/16 17:00 55 16 141/46 100 Mechanical Ventilator 30 09/17/16 16:00 98.1 65 16 119/57 98 Mechanical Ventilator 30 09/17/16 16:00 30 09/17/16 15:10 66 16 30 09/17/16 15:00 Mechanical Ventilator 30 09/17/16 15:00 71 16 111/48 100 Mechanical Ventilator 30 09/17/16 14:00 125/67 09/17/16 14:00 76 17 125/67 97 Mechanical Ventilator 30 09/17/16 13:20 76 16 30 09/17/16 13:00 78 16 109/51 98 Mechanical Ventilator 30 09/17/16 12:00 30 09/17/16 12:00 77 09/17/16 12:00 98.4 72 16 119/47 100 Mechanical Ventilator 30 09/17/16 11:55 Mechanical Ventilator 30 09/17/16 11:10 74 17 30 09/17/16 11:00 73 16 119/46 100 Mechanical Ventilator 30 09/17/16 10:00 70 16 116/51 100 Mechanical Ventilator 30 09/17/16 09:10 71 16 30 09/17/16 09:00 74 17 130/50 100 Mechanical Ventilator 30 09/17/16 08:00 30 09/17/16 08:00 81 09/17/16 08:00 97.8 74 16 138/79 100 Mechanical Ventilator 30 09/17/16 07:10 72 16 30 09/17/16 07:00 78 18 122/80 100 Mechanical Ventilator 30 09/17/16 06:00 70 18 141/78 100 Mechanical Ventilator 30 09/17/16 05:16 86 16 30 09/17/16 05:00 72 18 145/73 100 Mechanical Ventilator 30 09/17/16 04:00 71 09/17/16 04:00 30 09/17/16 04:00 98.0 71 18 112/80 100 Mechanical Ventilator 30 09/17/16 03:10 71 16 30 09/17/16 03:00 68 16 155/74 100 Mechanical Ventilator 30 09/17/16 02:00 65 16 160/49 100 Mechanical Ventilator 30 09/17/16 01:05 67 14 30 09/17/16 01:00 73 16 147/77 100 Mechanical Ventilator 30 09/17/16 00:00 98.4 67 16 151/75 100 Mechanical Ventilator 30 09/17/16 00:00 71 09/17/16 00:00 30 09/16/16 23:13 70 15 30 09/16/16 23:00 65 16 153/79 100 Mechanical Ventilator 30 09/16/16 22:00 63 16 156/76 100 Mechanical Ventilator 30 09/16/16 21:00 30 09/16/16 21:00 63 16 143/87 100 Mechanical Ventilator 30 09/16/16 20:56 66 19 30 09/16/16 20:00 70 09/16/16 20:00 99.0 62 16 151/77 100 Mechanical Ventilator 30 09/16/16 19:00 65 18 121/54 100 Mechanical Ventilator 30 09/16/16 18:59 56 16 30 Height (Feet): 5 Height (Inches): 6.00 Weight (Pounds): 160 HEENT: atraumatic Respiratory/Chest: no respiratory distress Cardiovascular: regular rhythm Abdomen: normal bowel sounds Laboratory Tests Test 09/17/16 05:00 09/17/16 09:30 White Blood Count 5.3 K/UL (4.8-10.8) Red Blood Count 3.45 M/UL (4.70-6.10) L Hemoglobin 10.2 G/DL (14.2-18.0) L Hematocrit 30.5 % (42.0-52.0) L Mean Corpuscular Volume 88 FL (80-99) Mean Corpuscular Hemoglobin 29.5 PG (27.0-31.0) Mean Corpuscular Hemoglobin Concent 33.3 G/DL (32.0-36.0) Red Cell Distribution Width 13.9 % (11.6-14.8) Platelet Count 62 K/UL (150-450) L Mean Platelet Volume 12.3 FL (6.5-10.1) H Neutrophils (%) (Auto) % (45.0-75.0) Lymphocytes (%) (Auto) % (20.0-45.0) Monocytes (%) (Auto) % (1.0-10.0) Eosinophils (%) (Auto) % (0.0-3.0) Basophils (%) (Auto) % (0.0-2.0) Sodium Level 143 mEQ/L (135-145) Potassium Level 3.3 mEQ/L (3.4-4.9) L Chloride Level 98 mEQ/L (98-107) Carbon Dioxide Level 31 mEQ/L (20-30) H Anion Gap 14 (5-15) Blood Urea Nitrogen 76 mg/dL (7-23) H Creatinine 4.3 mg/dL (0.7-1.2) H Estimat Glomerular Filtration Rate mL/min (>60) Glucose Level 166 mg/dL (74-106) H Calcium Level 8.3 mg/dL (8.6-10.2) L Phosphorus Level 2.9 mg/dL (2.5-4.8) Magnesium Level 2.2 mg/dL (1.7-2.5) Total Bilirubin 0.4 mg/dL (0.0-1.2) Aspartate Amino Transf (AST/SGOT) 21 U/L (5-40) Alanine Aminotransferase (ALT/SGPT) 22 U/L (3-41) Alkaline Phosphatase 64 U/L (40-129) Total Protein 5.8 g/dL (6.6-8.7) L Albumin 2.7 g/dL (3.5-5.2) L Globulin 3.1 g/dL Albumin/Globulin Ratio 0.8 (1.0-2.7) L Arterial Blood pH 7.496 (7.350-7.450) Arterial Blood Partial Pressure CO2 40.6 mmHg (35.0-45.0) Arterial Blood Partial Pressure O2 86.6 mmHg (75.0-100.0) Arterial Blood HCO3 30.7 mmol/L (22.0-26.0) H Arterial Blood Oxygen Saturation 95.6 % (92.0-98.0) Arterial Blood Base Excess 6.9 Anjum Test Positive Current Medications Medications (Trade) Dose Ordered Sig/Barrett Route PRN Reason Start Time Stop Time Status Last Admin Dose Admin Cefepime HCl/ Dextrose (Maxipime/D5W) 55 ml @ 110 mls/hr Q24H IVPB 09/15/16 21:00 09/22/16 20:59 09/16/16 21:29 Dextrose STAT PRN IV Hypoglycemia 09/11/16 05:30 10/11/16 05:29 Insulin Aspart (NovoLOG) Q6HR SUBQ 09/15/16 00:00 10/15/16 00:00 09/17/16 12:00 Lorazepam (Ativan 2mg/ml 1ml) 2 mg Q4H PRN IV For Anxiety 09/12/16 11:30 09/19/16 11:29 Morphine Sulfate (Morphine Sulfate) 4 mg Q4H PRN IVP PAIN 4-10 09/12/16 11:30 09/19/16 11:29 Norepinephrine Bitartrate/ Dextrose (Levophed/D5W) 516 ml @ 0 mls/hr Q24H IV 09/11/16 14:00 10/11/16 13:59 09/11/16 14:22 Pantoprazole 40 mg 40 mg DAILY IV 09/13/16 09:00 10/13/16 08:59 09/17/16 08:56 CRISTEL DUFF M.D. September 17, 2016 18:39
[2016-09-17] MEDS: Cefepime 500mg in D5W 55ml IVPB SCH (21:21)
[2016-09-18] VITALS (23 sets, daily range): BP systolic 101–151; BP diastolic 50–98
[2016-09-18] MEDS: NovoLOG Insulin Flexpen SUBQ SCH ×4 (00:13→17:39)
[2016-09-18 06:37] LABS: MEAN CORPUSCULAR HEMOGLOBIN 29.4 PG (27.0-31.0); MEAN CORPUSCULAR HGB CONC 32.2 G/DL (32.0-36.0); MEAN CORPUSCULAR VOLUME 91 FL (80-99); MEAN PLATELET VOLUME 8.8 FL (6.5-10.1); PLATELET COUNT 55 K/UL (150-450); RED BLOOD COUNT 3.45 M/UL (4.70-6.10); RED CELL DISTRIBUTION WIDTH 13.9 % (11.6-14.8); WHITE BLOOD COUNT 5.3 K/UL (4.8-10.8)
[2016-09-18 07:25] LABS: ALANINE AMINOTRANSFERASE 18 U/L (3-41); ALBUMIN/GLOBULIN RATIO 0.7 (1.0-2.7); ANION GAP 14 (5-15); ASPARTATE AMINO TRANSFERASE 20 U/L (5-40); CALCIUM 8.1 mg/dL (8.6-10.2); CARBON DIOXIDE 32 mEQ/L (20-30); CHLORIDE 99 mEQ/L (98-107); CREATININE 3.1 mg/dL (0.7-1.2); HEMOLYSIS 5; MAGNESIUM 1.9 mg/dL (1.7-2.5); POTASSIUM 3.6 mEQ/L (3.4-4.9); SODIUM 145 mEQ/L (135-145); TOTAL PROTEIN 5.3 g/dL (6.6-8.7)
[2016-09-18] MEDS: Pantoprazole Inj IV SCH (08:26)
--- NOTE | 2016-09-18 09:40 | Infectious Diseases Prog Note ---
Assessment/Plan Assessment/Plan A: Sepsis Pneumonia Enterobacter UTI Acute renal failure on HD Respiratory failure Alzheimer dementia DM P; Continue Cefepime Subjective ROS Limited/Unobtainable: Yes Allergies: Coded Allergies: SULFA (SULFONAMIDE ANTIBIOTICS) (Verified Allergy, Unknown, 09/10/16) Uncoded Allergies: SULFA (Adverse Reaction, Mild, RASH, 04/01/13) Objective Vital Signs Last 24 Hour Vital Signs Date Time Temp Pulse Resp B/P Pulse Ox O2 Delivery O2 Flow Rate FiO2 09/18/16 09:20 81 9 30 09/18/16 09:19 100 09/18/16 07:07 70 9 30 09/18/16 07:00 76 16 129/64 99 Mechanical Ventilator 30 09/18/16 06:00 65 16 120/52 99 Mechanical Ventilator 30 09/18/16 05:10 64 16 30 09/18/16 05:00 64 16 128/52 100 Mechanical Ventilator 30 09/18/16 04:00 98.4 59 16 127/55 100 Mechanical Ventilator 30 09/18/16 04:00 30 09/18/16 04:00 59 09/18/16 03:11 61 14 30 09/18/16 03:00 61 16 112/50 100 Mechanical Ventilator 30 09/18/16 02:00 69 17 151/51 99 Mechanical Ventilator 30 09/18/16 01:00 71 17 145/77 99 Mechanical Ventilator 30 09/18/16 00:59 78 22 30 09/18/16 00:00 30 09/18/16 00:00 98.2 69 17 126/52 100 Mechanical Ventilator 30 09/18/16 00:00 65 09/17/16 23:00 64 16 124/52 100 Mechanical Ventilator 30 09/17/16 22:49 73 18 30 09/17/16 22:00 66 16 133/51 100 Mechanical Ventilator 30 09/17/16 21:00 65 16 118/51 96 Mechanical Ventilator 30 09/17/16 20:52 76 16 30 09/17/16 20:00 30 09/17/16 20:00 65 09/17/16 20:00 98.0 68 16 121/51 96 Mechanical Ventilator 30 09/17/16 18:48 68 16 30 09/17/16 18:00 78 16 119/53 96 Mechanical Ventilator 30 09/17/16 17:10 60 16 30 09/17/16 17:00 55 16 141/46 100 Mechanical Ventilator 30 09/17/16 16:00 68 09/17/16 16:00 98.1 65 16 119/57 98 Mechanical Ventilator 30 09/17/16 16:00 30 09/17/16 15:10 66 16 30 09/17/16 15:00 Mechanical Ventilator 30 09/17/16 15:00 71 16 111/48 100 Mechanical Ventilator 30 09/17/16 14:00 125/67 09/17/16 14:00 76 17 125/67 97 Mechanical Ventilator 30 09/17/16 13:20 76 16 30 09/17/16 13:00 78 16 109/51 98 Mechanical Ventilator 30 09/17/16 12:00 30 09/17/16 12:00 77 09/17/16 12:00 98.4 72 16 119/47 100 Mechanical Ventilator 30 09/17/16 11:55 Mechanical Ventilator 30 09/17/16 11:10 74 17 30 09/17/16 11:00 73 16 119/46 100 Mechanical Ventilator 30 09/17/16 10:00 70 16 116/51 100 Mechanical Ventilator 30 Height (Feet): 5 Height (Inches): 6.00 Weight (Pounds): 160 HEENT: other - orally intubated Respiratory/Chest: lungs clear, other - on ventilator Cardiovascular: normal rate, other - RIJ Marco Antonio catheter Abdomen: soft, non tender, other - orogastric tube Extremities: no edema Laboratory Tests Test 09/18/16 05:25 White Blood Count 5.3 K/UL (4.8-10.8) Red Blood Count 3.45 M/UL (4.70-6.10) L Hemoglobin 10.1 G/DL (14.2-18.0) L Hematocrit 31.4 % (42.0-52.0) L Mean Corpuscular Volume 91 FL (80-99) Mean Corpuscular Hemoglobin 29.4 PG (27.0-31.0) Mean Corpuscular Hemoglobin Concent 32.2 G/DL (32.0-36.0) Red Cell Distribution Width 13.9 % (11.6-14.8) Platelet Count 55 K/UL (150-450) L Mean Platelet Volume 8.8 FL (6.5-10.1) Neutrophils (%) (Auto) % (45.0-75.0) Lymphocytes (%) (Auto) % (20.0-45.0) Monocytes (%) (Auto) % (1.0-10.0) Eosinophils (%) (Auto) % (0.0-3.0) Basophils (%) (Auto) % (0.0-2.0) Neutrophils % (Manual) Pending Lymphocytes % (Manual) Pending Platelet Estimate Pending Platelet Morphology Pending Sodium Level 145 mEQ/L (135-145) Potassium Level 3.6 mEQ/L (3.4-4.9) Chloride Level 99 mEQ/L (98-107) Carbon Dioxide Level 32 mEQ/L (20-30) H Anion Gap 14 (5-15) Blood Urea Nitrogen 44 mg/dL (7-23) #H Creatinine 3.1 mg/dL (0.7-1.2) H Estimat Glomerular Filtration Rate mL/min (>60) Glucose Level 151 mg/dL (74-106) H Calcium Level 8.1 mg/dL (8.6-10.2) L Phosphorus Level 2.0 mg/dL (2.5-4.8) L Magnesium Level 1.9 mg/dL (1.7-2.5) Total Bilirubin 0.5 mg/dL (0.0-1.2) Aspartate Amino Transf (AST/SGOT) 20 U/L (5-40) Alanine Aminotransferase (ALT/SGPT) 18 U/L (3-41) Alkaline Phosphatase 54 U/L (40-129) Total Protein 5.3 g/dL (6.6-8.7) L Albumin 2.3 g/dL (3.5-5.2) L Globulin 3.0 g/dL Albumin/Globulin Ratio 0.7 (1.0-2.7) L Current Medications Medications (Trade) Dose Ordered Sig/Barrett Route PRN Reason Start Time Stop Time Status Last Admin Dose Admin Cefepime HCl/ Dextrose (Maxipime/D5W) 55 ml @ 110 mls/hr Q24H IVPB 09/15/16 21:00 09/22/16 20:59 09/17/16 21:21 Dextrose STAT PRN IV Hypoglycemia 09/11/16 05:30 10/11/16 05:29 Insulin Aspart (NovoLOG) Q6HR SUBQ 09/15/16 00:00 6/3/17 00:00 09/18/16 05:48 Lorazepam (Ativan 2mg/ml 1ml) 2 mg Q4H PRN IV For Anxiety 09/12/16 11:30 09/19/16 11:29 09/18/16 02:00 Morphine Sulfate (Morphine Sulfate) 4 mg Q4H PRN IVP PAIN 4-10 09/12/16 11:30 09/19/16 11:29 Norepinephrine Bitartrate/ Dextrose (Levophed/D5W) 516 ml @ 0 mls/hr Q24H IV 09/11/16 14:00 10/11/16 13:59 09/11/16 14:22 Pantoprazole 40 mg 40 mg DAILY IV 09/13/16 09:00 10/13/16 08:59 09/18/16 08:26 REJI FLORES September 18, 2016 09:40
[2016-09-18 09:49] LABS: ABG ALLEN TEST POSITIVE; ABG BASE EXCESS 11.1; ABG PCO2 42.8 mmHg (35.0-45.0)
[2016-09-18 10:11] LABS: BAND NEUTROPHILS % (MANUAL) 0 % (0-8); BASOPHILS % (MANUAL) 0 % (0-2); EOSINOPHILS % (MANUAL) 0 % (0-3); HYPOCHROMASIA 1+; LYMPHOCYTES % (MANUAL) 32 % (20-45); NEUTROPHILS % (MANUAL) 57 % (45-75); PLATELET ESTIMATE DECREASED; PLATELET MORPHOLOGY NORMAL; TOTAL CELLS COUNTED 100
--- NOTE | 2016-09-18 10:53 | Diagnostic Imaging Report ---
Indication: Dyspnea Comparison: 09/16/16 A single view chest radiograph was obtained. Findings: Hazy perihilar and basilar opacities are demonstrated likely combination of atelectasis and pleural effusions. Tubes and lines are stable. Mild interstitial edema again demonstrated. Impression: No change compared to the prior day
--- NOTE | 2016-09-18 11:53 | General Progress Note ---
Assessment/Plan Status: stable Assessment/Plan status: Septic Shock leading to acute renal and multiOrgan failure Due to the above: Sever Acidosis , high Lactate , High K ALL IMPROVED Sugg: HD 09/17 Phos supplement Hemodynamic support Antibiotics discussed with RN monitor renal parameters Subjective ROS Limited/Unobtainable: Yes Constitutional: Reports: malaise Allergies: Coded Allergies: SULFA (SULFONAMIDE ANTIBIOTICS) (Verified Allergy, Unknown, 09/10/16) Uncoded Allergies: SULFA (Adverse Reaction, Mild, RASH, 04/01/13) Objective Last 24 Hour Vital Signs Date Time Temp Pulse Resp B/P Pulse Ox O2 Delivery O2 Flow Rate FiO2 09/18/16 10:45 69 11 30 09/18/16 09:20 81 9 30 09/18/16 09:19 100 09/18/16 09:00 70 16 122/55 99 Mechanical Ventilator 30 09/18/16 08:00 30 09/18/16 08:00 98.6 70 16 125/65 99 Mechanical Ventilator 30 09/18/16 07:07 70 9 30 09/18/16 07:00 76 16 129/64 99 Mechanical Ventilator 30 09/18/16 06:00 65 16 120/52 99 Mechanical Ventilator 30 09/18/16 05:10 64 16 30 09/18/16 05:00 64 16 128/52 100 Mechanical Ventilator 30 09/18/16 04:00 98.4 59 16 127/55 100 Mechanical Ventilator 30 09/18/16 04:00 30 09/18/16 04:00 59 09/18/16 03:11 61 14 30 09/18/16 03:00 61 16 112/50 100 Mechanical Ventilator 09/18/16 02:00 69 17 151/51 99 Mechanical Ventilator 30 09/18/16 01:00 71 17 145/77 99 Mechanical Ventilator 30 09/18/16 00:59 78 22 30 09/18/16 00:00 30 09/18/16 00:00 98.2 69 17 126/52 100 Mechanical Ventilator 30 09/18/16 00:00 65 09/17/16 23:00 64 16 124/52 100 Mechanical Ventilator 30 09/17/16 22:49 73 18 30 09/17/16 22:00 66 16 133/51 100 Mechanical Ventilator 30 09/17/16 21:00 65 16 118/51 96 Mechanical Ventilator 30 09/17/16 20:52 76 16 30 09/17/16 20:00 30 09/17/16 20:00 65 09/17/16 20:00 98.0 68 16 121/51 96 Mechanical Ventilator 30 09/17/16 18:48 68 16 30 09/17/16 18:00 78 16 119/53 96 Mechanical Ventilator 30 09/17/16 17:10 60 16 30 09/17/16 17:00 55 16 141/46 100 Mechanical Ventilator 30 09/17/16 16:00 68 09/17/16 16:00 98.1 65 16 119/57 98 Mechanical Ventilator 30 09/17/16 16:00 30 09/17/16 15:10 66 16 30 09/17/16 15:00 Mechanical Ventilator 30 09/17/16 15:00 71 16 111/48 100 Mechanical Ventilator 30 09/17/16 14:00 125/67 09/17/16 14:00 76 17 125/67 97 Mechanical Ventilator 30 09/17/16 13:20 76 16 30 09/17/16 13:00 78 16 109/51 98 Mechanical Ventilator 30 09/17/16 12:00 30 09/17/16 12:00 77 09/17/16 12:00 98.4 72 16 119/47 100 Mechanical Ventilator 30 09/17/16 11:55 Mechanical Ventilator 30 Intake and Output 09/17/16 09/18/16 19:00 07:00 Intake Total 705 ml 480 ml Output Total 1755 ml 421 ml Balance -1050 ml 59 ml Intake Free Water 300 ml 60 ml Tube Feeding 385 ml 420 ml Other 20 ml Output Urine Total 510 ml 420 ml Stool Total 1 ml Hemodialysis UF 1245 ml # Bowel Movements 4 Laboratory Tests 09/18/16 05:25: White Blood Count 5.3, Red Blood Count 3.45L, Hemoglobin 10.1L, Hematocrit 31.4L , Mean Corpuscular Volume 91, Mean Corpuscular Hemoglobin 29.4, Mean Corpuscular Hemoglobin Concent 32.2, Red Cell Distribution Width 13.9, Platelet Count 55L, Mean Platelet Volume 8.8, Neutrophils (%) (Auto) , Lymphocytes (%) ( Auto) , Monocytes (%) (Auto) , Eosinophils (%) (Auto) , Basophils (%) (Auto) , Differential Total Cells Counted 100, Neutrophils % (Manual) 57, Lymphocytes % ( Manual) 32, Monocytes % (Manual) 11H, Eosinophils % (Manual) 0, Basophils % ( Manual) 0, Band Neutrophils 0, Platelet Estimate DecreasedL, Platelet Morphology Normal, Hypochromasia 1+, Sodium Level 145, Potassium Level 3.6, Chloride Level 99, Carbon Dioxide Level 32H, Anion Gap 14, Blood Urea Nitrogen 44#H, Creatinine 3.1H, Estimat Glomerular Filtration Rate , Glucose Level 151H, Calcium Level 8.1L, Phosphorus Level 2.0L, Magnesium Level 1.9, Total Bilirubin 0.5, Aspartate Amino Transf (AST/SGOT) 20, Alanine Aminotransferase (ALT/SGPT) 18, Alkaline Phosphatase 54, Total Protein 5.3L, Albumin 2.3L, Globulin 3.0, Albumin/Globulin Ratio 0.7L 09/18/16 09:00: Arterial Blood pH 7.529H, Arterial Blood Partial Pressure CO2 42.8, Arterial Blood Partial Pressure O2 118.9H, Arterial Blood HCO3 34.9H, Arterial Blood Oxygen Saturation 97.9, Arterial Blood Base Excess 11.1, Anjum Test Positive Height (Feet): 5 Height (Inches): 6.00 Weight (Pounds): 160 General Appearance: no apparent distress EENT: other - on Vent Cardiovascular: normal rate Respiratory/Chest: decreased breath sounds Abdomen: soft Objective no change in PE MARIAN KOTHARI September 18, 2016 11:52
[2016-09-18 12:03] LABS: ABG ALLEN TEST POSITIVE; ABG BASE EXCESS 7.2; ABG PCO2 43.1 mmHg (35.0-45.0)
[2016-09-18] MEDS ORDERED: Phospha 250 Neutral tab GT ONE (12:30)
--- NOTE | 2016-09-18 16:47 | Cardiology Progress Note ---
Assessment/Plan Problem List: (1) ARF (acute renal failure) (2) Respiratory failure (3) Renal failure (4) Sepsis (5) UTI (urinary tract infection) (6) Infection caused by Enterobacter cloacae Status: stable, progressing Status Narrative Pt hemodynamically stable, remains on vent. Intermittent pacing - maintaining SR Pulm congestion and ? R lower field infilt or eff on XR Sepsis - improving - rx for Enterobact uti Assessment/Plan Continue fluid removal w HD continue iv antibiotics for UTI and ? pneumonia Wean from vent as per Dr. Guerra. Subjective Subjective intubated, awake Objective Last 24 Hour Vital Signs Date Time Temp Pulse Resp B/P Pulse Ox O2 Delivery O2 Flow Rate FiO2 09/18/16 16:00 79 09/18/16 16:00 30 09/18/16 15:16 75 19 30 09/18/16 14:00 70 16 127/61 99 Mechanical Ventilator 30 09/18/16 13:30 74 18 30 09/18/16 13:00 70 16 128/65 99 Mechanical Ventilator 30 09/18/16 12:00 84 09/18/16 12:00 30 09/18/16 12:00 98.0 71 16 101/78 99 Mechanical Ventilator 30 09/18/16 11:00 72 16 103/57 99 Mechanical Ventilator 30 09/18/16 10:45 69 11 30 09/18/16 10:45 30 09/18/16 10:00 70 16 135/54 99 Mechanical Ventilator 30 09/18/16 09:20 81 9 30 09/18/16 09:19 100 09/18/16 09:00 70 16 122/55 99 Mechanical Ventilator 30 09/18/16 08:00 73 09/18/16 08:00 30 09/18/16 08:00 98.6 70 16 125/65 99 Mechanical Ventilator 30 09/18/16 07:07 70 9 30 09/18/16 07:00 76 16 129/64 99 Mechanical Ventilator 30 09/18/16 06:00 65 16 120/52 99 Mechanical Ventilator 30 09/18/16 05:10 64 16 30 09/18/16 05:00 64 16 128/52 100 Mechanical Ventilator 30 09/18/16 04:00 98.4 59 16 127/55 100 Mechanical Ventilator 30 09/18/16 04:00 30 09/18/16 04:00 59 09/18/16 03:11 61 14 30 09/18/16 03:00 61 16 112/50 100 Mechanical Ventilator 30 09/18/16 02:00 69 17 151/51 99 Mechanical Ventilator 30 09/18/16 01:00 71 17 145/77 99 Mechanical Ventilator 30 09/18/16 00:59 78 22 30 09/18/16 00:00 30 09/18/16 00:00 98.2 69 17 126/52 100 Mechanical Ventilator 30 09/18/16 00:00 65 09/17/16 23:00 64 16 124/52 100 Mechanical Ventilator 30 09/17/16 22:49 73 18 30 09/17/16 22:00 66 16 133/51 100 Mechanical Ventilator 30 09/17/16 21:00 65 16 118/51 96 Mechanical Ventilator 30 09/17/16 20:52 76 16 30 09/17/16 20:00 30 09/17/16 20:00 65 09/17/16 20:00 98.0 68 16 121/51 96 Mechanical Ventilator 09/17/16 18:48 68 16 30 09/17/16 18:00 78 16 119/53 96 Mechanical Ventilator 30 09/17/16 17:10 60 16 30 09/17/16 17:00 55 16 141/46 100 Mechanical Ventilator 30 General Appearance: WD/WN, alert, on vent EENT: PERRL/EOMI Neck: no JVD, other - Tunnelled R Ij HD catheter Rhythm: NSR Cardiovascular: normal rate, regular rhythm, no gallop/murmur Respiratory/Chest: lungs clear - clear anteriorly Abdomen: non tender, soft Extremities: no swelling Intake and Output 09/17/16 09/18/16 19:00 07:00 Intake Total 705 ml 480 ml Output Total 1755 ml 421 ml Balance -1050 ml 59 ml Intake Free Water 300 ml 60 ml Tube Feeding 385 ml 420 ml Other 20 ml Output Urine Total 510 ml 420 ml Stool Total 1 ml Hemodialysis UF 1245 ml # Bowel Movements 4 Laboratory Tests Test 09/18/16 05:25 09/18/16 09:00 09/18/16 11:45 White Blood Count 5.3 K/UL (4.8-10.8) Red Blood Count 3.45 M/UL (4.70-6.10) L Hemoglobin 10.1 G/DL (14.2-18.0) L Hematocrit 31.4 % (42.0-52.0) L Mean Corpuscular Volume 91 FL (80-99) Mean Corpuscular Hemoglobin 29.4 PG (27.0-31.0) Mean Corpuscular Hemoglobin Concent 32.2 G/DL (32.0-36.0) Red Cell Distribution Width 13.9 % (11.6-14.8) Platelet Count 55 K/UL (150-450) L Mean Platelet Volume 8.8 FL (6.5-10.1) Neutrophils (%) (Auto) % (45.0-75.0) Lymphocytes (%) (Auto) % (20.0-45.0) Monocytes (%) (Auto) % (1.0-10.0) Eosinophils (%) (Auto) % (0.0-3.0) Basophils (%) (Auto) % (0.0-2.0) Differential Total Cells Counted 100 Neutrophils % (Manual) 57 % (45-75) Lymphocytes % (Manual) 32 % (20-45) Monocytes % (Manual) 11 % (1-10) H Eosinophils % (Manual) 0 % (0-3) Basophils % (Manual) 0 % (0-2) Band Neutrophils 0 % (0-8) Platelet Estimate Decreased L Platelet Morphology Normal Hypochromasia 1+ Sodium Level 145 mEQ/L (135-145) Potassium Level 3.6 mEQ/L (3.4-4.9) Chloride Level 99 mEQ/L (98-107) Carbon Dioxide Level 32 mEQ/L (20-30) H Anion Gap 14 (5-15) Blood Urea Nitrogen 44 mg/dL (7-23) #H Creatinine 3.1 mg/dL (0.7-1.2) H Estimat Glomerular Filtration Rate mL/min (>60) Glucose Level 151 mg/dL (74-106) H Calcium Level 8.1 mg/dL (8.6-10.2) L Phosphorus Level 2.0 mg/dL (2.5-4.8) L Magnesium Level 1.9 mg/dL (1.7-2.5) Total Bilirubin 0.5 mg/dL (0.0-1.2) Aspartate Amino Transf (AST/SGOT) 20 U/L (5-40) Alanine Aminotransferase (ALT/SGPT) 18 U/L (3-41) Alkaline Phosphatase 54 U/L (40-129) Total Protein 5.3 g/dL (6.6-8.7) L Albumin 2.3 g/dL (3.5-5.2) L Globulin 3.0 g/dL Albumin/Globulin Ratio 0.7 (1.0-2.7) L Arterial Blood pH 7.529 (7.350-7.450) 7.480 (7.350-7.450) Arterial Blood Partial Pressure CO2 42.8 mmHg (35.0-45.0) 43.1 mmHg (35.0-45.0) Arterial Blood Partial Pressure O2 118.9 mmHg (75.0-100.0) H 99.6 mmHg (75.0-100.0) Arterial Blood HCO3 34.9 mmol/L (22.0-26.0) H 31.4 mmol/L (22.0-26.0) H Arterial Blood Oxygen Saturation 97.9 % (92.0-98.0) 96.4 % (92.0-98.0) Arterial Blood Base Excess 11.1 7.2 Anjum Test Positive Positive JOHN HAND September 18, 2016 16:47
--- NOTE | 2016-09-18 17:31 | Internal Med Progress Note ---
Subjective Date of Service: September 18, 2016 Physician Name King Haynes Attending Physician Jonathan Sampson MD Current Medications Medications (Trade) Dose Ordered Sig/Barrett Route PRN Reason Start Time Stop Time Status Last Admin Dose Admin Cefepime HCl/ Dextrose (Maxipime/D5W) 55 ml @ 110 mls/hr Q24H IVPB 09/15/16 21:00 09/22/16 20:59 09/17/16 21:21 Dextrose STAT PRN IV Hypoglycemia 09/11/16 05:30 10/11/16 05:29 Insulin Aspart (NovoLOG) Q6HR SUBQ 09/15/16 00:00 10/15/16 00:00 09/18/16 11:52 Lorazepam (Ativan 2mg/ml 1ml) 2 mg Q4H PRN IV For Anxiety 09/12/16 11:30 09/19/16 11:29 09/18/16 02:00 Morphine Sulfate (Morphine Sulfate) 4 mg Q4H PRN IVP PAIN 4-10 09/12/16 11:30 09/19/16 11:29 Norepinephrine Bitartrate/ Dextrose (Levophed/D5W) 516 ml @ 0 mls/hr Q24H IV 09/11/16 14:00 10/11/16 13:59 09/11/16 14:22 Pantoprazole 40 mg 40 mg DAILY IV 09/13/16 09:00 10/13/16 08:59 09/18/16 08:26 Allergies: Coded Allergies: SULFA (SULFONAMIDE ANTIBIOTICS) (Verified Allergy, Unknown, 09/10/16) Uncoded Allergies: SULFA (Adverse Reaction, Mild, RASH, 04/01/13) ROS Limited/Unobtainable: Yes Subjective 76 YO M admitted with hypotension and sepsis. ICU. Intubated and sedated. Cover for Int Med-Dr Sampson.. Cont on levophed. Objective Last Vital Signs Date Time Temp Pulse Resp B/P Pulse Ox O2 Delivery O2 Flow Rate FiO2 09/18/16 17:12 77 22 30 09/18/16 16:00 97.7 123/63 100 Mechanical Ventilator 09/14/16 19:30 30.0 Laboratory Tests Test 09/18/16 05:25 09/18/16 09:00 09/18/16 11:45 White Blood Count 5.3 K/UL (4.8-10.8) Red Blood Count 3.45 M/UL (4.70-6.10) L Hemoglobin 10.1 G/DL (14.2-18.0) L Hematocrit 31.4 % (42.0-52.0) L Mean Corpuscular Volume 91 FL (80-99) Mean Corpuscular Hemoglobin 29.4 PG (27.0-31.0) Mean Corpuscular Hemoglobin Concent 32.2 G/DL (32.0-36.0) Red Cell Distribution Width 13.9 % (11.6-14.8) Platelet Count 55 K/UL (150-450) L Mean Platelet Volume 8.8 FL (6.5-10.1) Neutrophils (%) (Auto) % (45.0-75.0) Lymphocytes (%) (Auto) % (20.0-45.0) Monocytes (%) (Auto) % (1.0-10.0) Eosinophils (%) (Auto) % (0.0-3.0) Basophils (%) (Auto) % (0.0-2.0) Differential Total Cells Counted 100 Neutrophils % (Manual) 57 % (45-75) Lymphocytes % (Manual) 32 % (20-45) Monocytes % (Manual) 11 % (1-10) H Eosinophils % (Manual) 0 % (0-3) Basophils % (Manual) 0 % (0-2) Band Neutrophils 0 % (0-8) Platelet Estimate Decreased L Platelet Morphology Normal Hypochromasia 1+ Sodium Level 145 mEQ/L (135-145) Potassium Level 3.6 mEQ/L (3.4-4.9) Chloride Level 99 mEQ/L (98-107) Carbon Dioxide Level 32 mEQ/L (20-30) H Anion Gap 14 (5-15) Blood Urea Nitrogen 44 mg/dL (7-23) #H Creatinine 3.1 mg/dL (0.7-1.2) H Estimat Glomerular Filtration Rate mL/min (>60) Glucose Level 151 mg/dL (74-106) H Calcium Level 8.1 mg/dL (8.6-10.2) L Phosphorus Level 2.0 mg/dL (2.5-4.8) L Magnesium Level 1.9 mg/dL (1.7-2.5) Total Bilirubin 0.5 mg/dL (0.0-1.2) Aspartate Amino Transf (AST/SGOT) 20 U/L (5-40) Alanine Aminotransferase (ALT/SGPT) 18 U/L (3-41) Alkaline Phosphatase 54 U/L (40-129) Total Protein 5.3 g/dL (6.6-8.7) L Albumin 2.3 g/dL (3.5-5.2) L Globulin 3.0 g/dL Albumin/Globulin Ratio 0.7 (1.0-2.7) L Arterial Blood pH 7.529 (7.350-7.450) 7.480 (7.350-7.450) Arterial Blood Partial Pressure CO2 42.8 mmHg (35.0-45.0) 43.1 mmHg (35.0-45.0) Arterial Blood Partial Pressure O2 118.9 mmHg (75.0-100.0) H 99.6 mmHg (75.0-100.0) Arterial Blood HCO3 34.9 mmol/L (22.0-26.0) H 31.4 mmol/L (22.0-26.0) H Arterial Blood Oxygen Saturation 97.9 % (92.0-98.0) 96.4 % (92.0-98.0) Arterial Blood Base Excess 11.1 7.2 Anjum Test Positive Positive Intake and Output 09/17/16 09/18/16 19:00 07:00 Intake Total 705 ml 480 ml Output Total 1755 ml 421 ml Balance -1050 ml 59 ml Intake Free Water 300 ml 60 ml Tube Feeding 385 ml 420 ml Other 20 ml Output Urine Total 510 ml 420 ml Stool Total 1 ml Hemodialysis UF 1245 ml # Bowel Movements 4 Objective General Appearance: WD/WN, moderate distress EENT: normal ENT inspection Neck: non-tender, normal alignment, supple Cardiovascular: normal peripheral pulses, normal rate, regular rhythm, no gallop/murmur, no JVD Respiratory/Chest: Mech Vent; respiratory distress, crackles/rales, rhonchi - bilaterally, expiratory wheezing Abdomen: normal bowel sounds, non tender, soft, no organomegaly, no mass Skin: normal pigmentation, warm/dry Assessment/Plan Problem List: (1) Severe sepsis Assessment & Plan: Cont cefepime per ID (2) Respiratory failure Assessment & Plan: Cont vent per pulmonary (3) Renal failure Assessment & Plan: Last Hemodialysis 09/14/16 per nephrology. (4) Diabetes mellitus type II, uncontrolled Assessment & Plan: Cont novolog sliding scale. (5) BPH (benign prostatic hyperplasia) (6) Hypokalemia (7) Infection caused by Enterobacter cloacae (8) UTI (urinary tract infection) Assessment & Plan: Enterobacter. D/C zosyn. Start cefepime per ID (9) Hypotension Assessment & Plan: Cont levophed Status: not improved KING HAYNES September 18, 2016 17:31
[2016-09-18] MEDS: Cefepime 500mg in D5W 55ml IVPB SCH (21:22)
--- NOTE | 2016-09-18 23:04 | Pulmonolgy Critical Care Note ---
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 Discussed with: nurses, consultants, case brieferdietary manager - Objective Last 24 Hour Vital Signs Date Time Temp Pulse Resp B/P Pulse Ox O2 Delivery O2 Flow Rate FiO2 09/18/16 22:00 63 16 128/55 100 Mechanical Ventilator 30 09/18/16 21:30 70 18 30 09/18/16 21:00 65 16 131/51 100 Mechanical Ventilator 30 09/18/16 20:00 70 09/18/16 20:00 98.7 70 16 130/56 100 Mechanical Ventilator 30 09/18/16 19:30 67 17 30 09/18/16 19:00 67 18 125/55 100 Mechanical Ventilator 30 09/18/16 18:00 63 17 129/57 100 Mechanical Ventilator 30 09/18/16 18:00 30 09/18/16 17:12 77 22 30 09/18/16 16:00 97.7 70 16 123/63 100 Mechanical Ventilator 30 09/18/16 16:00 79 09/18/16 16:00 30 09/18/16 15:16 75 19 30 09/18/16 15:00 72 16 133/98 99 Mechanical Ventilator 30 09/18/16 14:00 70 16 127/61 99 Mechanical Ventilator 30 09/18/16 13:30 74 18 30 09/18/16 13:00 70 16 128/65 99 Mechanical Ventilator 30 09/18/16 12:00 84 09/18/16 12:00 30 09/18/16 12:00 98.0 71 16 101/78 99 Mechanical Ventilator 30 09/18/16 11:00 72 16 103/57 99 Mechanical Ventilator 30 09/18/16 10:45 69 11 30 09/18/16 10:45 30 09/18/16 10:00 70 16 135/54 99 Mechanical Ventilator 30 09/18/16 09:20 81 9 30 09/18/16 09:19 100 09/18/16 09:00 70 16 122/55 99 Mechanical Ventilator 09/18/16 08:00 73 09/18/16 08:00 30 09/18/16 08:00 98.6 70 16 125/65 99 Mechanical Ventilator 09/18/16 07:07 70 9 30 09/18/16 07:00 76 16 129/64 99 Mechanical Ventilator 09/18/16 06:00 65 16 120/52 99 Mechanical Ventilator 30 09/18/16 05:10 64 16 30 09/18/16 05:00 64 16 128/52 100 Mechanical Ventilator 09/18/16 04:00 98.4 59 16 127/55 100 Mechanical Ventilator 09/18/16 04:00 30 09/18/16 04:00 59 09/18/16 03:11 61 14 30 09/18/16 03:00 61 16 112/50 100 Mechanical Ventilator 09/18/16 02:00 69 17 151/51 99 Mechanical Ventilator 09/18/16 01:00 71 17 145/77 99 Mechanical Ventilator 30 09/18/16 00:59 78 22 30 09/18/16 00:00 30 09/18/16 00:00 98.2 69 17 126/52 100 Mechanical Ventilator 09/18/16 00:00 65 Status: awake Condition: critical HEENT: atraumatic Lungs: clear Heart: HR/BP stable, HR/BP unstable Abdomen: soft, non-tender, feeding tube Extremities: no C/C/E Decubiti: location Accucheck: 175 Critical Care - Subjective ROS Limited/Unobtainable: Yes EKG Rhythm: Sinus Rhythm FI02: 30 Vent Support Breath Rate: 16 Vent Support Mode: IMV/SIMV Vent Tidal Volume: 500 Sputum Amount: Small PEEP: 5.0 PIP: 28 Tube Feeding Amount: 35 I&O: Intake and Output 09/17/16 09/18/16 19:00 07:00 Intake Total 705 ml 480 ml Output Total 1755 ml 421 ml Balance -1050 ml 59 ml Intake Free Water 300 ml 60 ml Tube Feeding 385 ml 420 ml Other 20 ml Output Urine Total 510 ml 420 ml Stool Total 1 ml Hemodialysis UF 1245 ml # Bowel Movements 4 ET-Tube: 7.0 ET Position: 24 Labs: Laboratory Tests Test 09/18/16 05:25 09/18/16 09:00 09/18/16 11:45 White Blood Count 5.3 K/UL (4.8-10.8) Red Blood Count 3.45 M/UL (4.70-6.10) L Hemoglobin 10.1 G/DL (14.2-18.0) L Hematocrit 31.4 % (42.0-52.0) L Mean Corpuscular Volume 91 FL (80-99) Mean Corpuscular Hemoglobin 29.4 PG (27.0-31.0) Mean Corpuscular Hemoglobin Concent 32.2 G/DL (32.0-36.0) Red Cell Distribution Width 13.9 % (11.6-14.8) Platelet Count 55 K/UL (150-450) L Mean Platelet Volume 8.8 FL (6.5-10.1) Neutrophils (%) (Auto) % (45.0-75.0) Lymphocytes (%) (Auto) % (20.0-45.0) Monocytes (%) (Auto) % (1.0-10.0) Eosinophils (%) (Auto) % (0.0-3.0) Basophils (%) (Auto) % (0.0-2.0) Differential Total Cells Counted 100 Neutrophils % (Manual) 57 % (45-75) Lymphocytes % (Manual) 32 % (20-45) Monocytes % (Manual) 11 % (1-10) H Eosinophils % (Manual) 0 % (0-3) Basophils % (Manual) 0 % (0-2) Band Neutrophils 0 % (0-8) Platelet Estimate Decreased L Platelet Morphology Normal Hypochromasia 1+ Sodium Level 145 mEQ/L (135-145) Potassium Level 3.6 mEQ/L (3.4-4.9) Chloride Level 99 mEQ/L (98-107) Carbon Dioxide Level 32 mEQ/L (20-30) H Anion Gap 14 (5-15) Blood Urea Nitrogen 44 mg/dL (7-23) #H Creatinine 3.1 mg/dL (0.7-1.2) H Estimat Glomerular Filtration Rate mL/min (>60) Glucose Level 151 mg/dL (74-106) H Calcium Level 8.1 mg/dL (8.6-10.2) L Phosphorus Level 2.0 mg/dL (2.5-4.8) L Magnesium Level 1.9 mg/dL (1.7-2.5) Total Bilirubin 0.5 mg/dL (0.0-1.2) Aspartate Amino Transf (AST/SGOT) 20 U/L (5-40) Alanine Aminotransferase (ALT/SGPT) 18 U/L (3-41) Alkaline Phosphatase 54 U/L (40-129) Total Protein 5.3 g/dL (6.6-8.7) L Albumin 2.3 g/dL (3.5-5.2) L Globulin 3.0 g/dL Albumin/Globulin Ratio 0.7 (1.0-2.7) L Arterial Blood pH 7.529 (7.350-7.450) 7.480 (7.350-7.450) Arterial Blood Partial Pressure CO2 42.8 mmHg (35.0-45.0) 43.1 mmHg (35.0-45.0) Arterial Blood Partial Pressure O2 118.9 mmHg (75.0-100.0) H 99.6 mmHg (75.0-100.0) Arterial Blood HCO3 34.9 mmol/L (22.0-26.0) H 31.4 mmol/L (22.0-26.0) H Arterial Blood Oxygen Saturation 97.9 % (92.0-98.0) 96.4 % (92.0-98.0) Arterial Blood Base Excess 11.1 7.2 Anjum Test Positive Positive LANDEN HERNANDEZ September 18, 2016 23:04
[2016-09-19] VITALS (24 sets, daily range): BP systolic 106–142; BP diastolic 45–81
[2016-09-19] MEDS: NovoLOG Insulin Flexpen SUBQ SCH ×4 (00:42→17:51)
[2016-09-19 06:03] LABS: MEAN CORPUSCULAR HEMOGLOBIN 29.4 PG (27.0-31.0); MEAN CORPUSCULAR HGB CONC 32.8 G/DL (32.0-36.0); MEAN CORPUSCULAR VOLUME 90 FL (80-99); MEAN PLATELET VOLUME 7.9 FL (6.5-10.1); PLATELET COUNT 69 K/UL (150-450); RED BLOOD COUNT 2.82 M/UL (4.70-6.10); RED CELL DISTRIBUTION WIDTH 13.8 % (11.6-14.8); WHITE BLOOD COUNT 4.2 K/UL (4.8-10.8)
[2016-09-19 06:26] LABS: ALANINE AMINOTRANSFERASE 15 U/L (3-41); ALBUMIN/GLOBULIN RATIO 0.8 (1.0-2.7); ANION GAP 12 (5-15); ASPARTATE AMINO TRANSFERASE 20 U/L (5-40); CARBON DIOXIDE 33 mEQ/L (20-30); CHLORIDE 99 mEQ/L (98-107); CREATININE 3.3 mg/dL (0.7-1.2); CRP QUANT 3.1 mg/dL (< 0.5); HEMOLYSIS 4; MAGNESIUM 1.9 mg/dL (1.7-2.5); PHOSPHORUS 2.4 mg/dL (2.5-4.8); POTASSIUM 3.2 mEQ/L (3.4-4.9); SODIUM 144 mEQ/L (135-145); TOTAL PROTEIN 5.1 g/dL (6.6-8.7)
--- NOTE | 2016-09-19 08:07 | Diagnostic Imaging Report ---
Indication: Dyspnea Comparison: 09/17/16 A single view chest radiograph was obtained. Findings: Tubes and lines are stable. Hazy basilar opacities likely small effusions. Mild interstitial edema may be present. Impression: No significant change of address clerk the last day
[2016-09-19] MEDS: Pantoprazole Inj IV SCH (08:13)
[2016-09-19] MEDS ORDERED: Phospha 250 Neutral tab GT ONE (09:15)
[2016-09-19 09:56] LABS: BAND NEUTROPHILS % (MANUAL) 0 % (0-8); BASOPHILS % (MANUAL) 0 % (0-2); EOSINOPHILS % (MANUAL) 2 % (0-3); LYMPHOCYTES % (MANUAL) 28 % (20-45); NEUTROPHILS % (MANUAL) 62 % (45-75); PLATELET ESTIMATE DECREASED; PLATELET MORPHOLOGY NORMAL; TOTAL CELLS COUNTED 100
[2016-09-19 09:57] LABS: HYPOCHROMASIA 1+
--- NOTE | 2016-09-19 10:34 | General Progress Note ---
Assessment/Plan Status: stable Assessment/Plan status: Septic Shock leading to acute renal and multiOrgan failure Due to the above: Sever Acidosis , high Lactate , High K ALL IMPROVED- Seems like patient has CKD , unclear what is the baseline S Cr Sugg: HD 09/17 Phos supplement - K supplement Hemodynamic support Antibiotics discussed with RN monitor renal parameters Subjective ROS Limited/Unobtainable: Yes Allergies: Coded Allergies: SULFA (SULFONAMIDE ANTIBIOTICS) (Verified Allergy, Unknown, 09/10/16) Uncoded Allergies: SULFA (Adverse Reaction, Mild, RASH, 04/01/13) Objective Last 24 Hour Vital Signs Date Time Temp Pulse Resp B/P Pulse Ox O2 Delivery O2 Flow Rate FiO2 09/19/16 10:00 78 16 129/60 100 Mechanical Ventilator 30 09/19/16 09:00 68 16 118/62 100 Mechanical Ventilator 30 09/19/16 08:49 67 16 30 09/19/16 08:00 98.3 69 16 136/61 100 Mechanical Ventilator 30 09/19/16 08:00 30 09/19/16 07:23 60 16 30 09/19/16 07:00 84 16 109/81 100 Mechanical Ventilator 30 09/19/16 06:00 62 16 129/81 100 Mechanical Ventilator 30 09/19/16 05:13 73 16 30 09/19/16 05:00 64 16 129/69 100 Mechanical Ventilator 30 09/19/16 04:00 98.5 63 16 127/45 100 Mechanical Ventilator 30 09/19/16 04:00 30 09/19/16 04:00 63 09/19/16 03:30 79 16 30 09/19/16 03:00 60 16 117/54 100 Mechanical Ventilator 30 09/19/16 02:00 63 16 118/47 100 Mechanical Ventilator 30 09/19/16 01:30 74 16 30 09/19/16 01:00 64 16 129/54 100 Mechanical Ventilator 30 09/19/16 00:00 30 09/19/16 00:00 98.3 67 16 129/54 100 Mechanical Ventilator 30 09/19/16 00:00 67 09/18/16 23:30 63 16 30 09/18/16 23:00 66 16 131/56 100 Mechanical Ventilator 30 09/18/16 22:00 63 16 128/55 100 Mechanical Ventilator 30 09/18/16 21:30 70 18 30 09/18/16 21:00 65 16 131/51 100 Mechanical Ventilator 30 09/18/16 20:00 30 09/18/16 20:00 70 09/18/16 20:00 98.7 70 16 130/56 100 Mechanical Ventilator 30 09/18/16 19:30 67 17 30 09/18/16 19:00 67 18 125/55 100 Mechanical Ventilator 30 09/18/16 18:00 63 17 129/57 100 Mechanical Ventilator 30 09/18/16 18:00 30 09/18/16 17:12 77 22 30 09/18/16 16:00 97.7 70 16 123/63 100 Mechanical Ventilator 30 09/18/16 16:00 79 09/18/16 16:00 30 09/18/16 15:16 75 19 30 09/18/16 15:00 72 16 133/98 99 Mechanical Ventilator 30 09/18/16 14:00 70 16 127/61 99 Mechanical Ventilator 30 09/18/16 13:30 74 18 30 09/18/16 13:00 70 16 128/65 99 Mechanical Ventilator 09/18/16 12:00 84 09/18/16 12:00 30 09/18/16 12:00 98.0 71 16 101/78 99 Mechanical Ventilator 30 09/18/16 11:00 72 16 103/57 99 Mechanical Ventilator 30 09/18/16 10:45 69 11 30 09/18/16 10:45 30 Intake and Output 09/18/16 09/19/16 19:00 07:00 Intake Total 420 ml 475 ml Output Total 290 ml 355 ml Balance 130 ml 120 ml IV Total 55 ml Tube Feeding 420 ml 420 ml Output Urine Total 290 ml 355 ml Laboratory Tests 09/18/16 11:45: Arterial Blood pH 7.480H, Arterial Blood Partial Pressure CO2 43.1, Arterial Blood Partial Pressure O2 99.6, Arterial Blood HCO3 31.4H, Arterial Blood Oxygen Saturation 96.4, Arterial Blood Base Excess 7.2, Anjum Test Positive 09/19/16 03:35: White Blood Count 4.2L, Red Blood Count 2.82L, Hemoglobin 8.3L, Hematocrit 25.3L , Mean Corpuscular Volume 90, Mean Corpuscular Hemoglobin 29.4, Mean Corpuscular Hemoglobin Concent 32.8, Red Cell Distribution Width 13.8, Platelet Count 69L, Mean Platelet Volume 7.9, Neutrophils (%) (Auto) , Lymphocytes (%) ( Auto) , Monocytes (%) (Auto) , Eosinophils (%) (Auto) , Basophils (%) (Auto) , Differential Total Cells Counted 100, Neutrophils % (Manual) 62, Lymphocytes % ( Manual) 28, Monocytes % (Manual) 8, Eosinophils % (Manual) 2, Basophils % ( Manual) 0, Band Neutrophils 0, Platelet Estimate DecreasedL, Platelet Morphology Normal, Hypochromasia 1+, Sodium Level 144, Potassium Level 3.2L, Chloride Level 99, Carbon Dioxide Level 33H, Anion Gap 12, Blood Urea Nitrogen 52H, Creatinine 3.3H, Estimat Glomerular Filtration Rate , Glucose Level 182H, Uric Acid 5.0, Calcium Level 8.0L, Phosphorus Level 2.4L, Magnesium Level 1.9, Total Bilirubin 0.4, Aspartate Amino Transf (AST/SGOT) 20, Alanine Aminotransferase (ALT/SGPT) 15, Alkaline Phosphatase 66, C-Reactive Protein, Quantitative 3.1H, Pro-B-Type Natriuretic Peptide [id number], Total Protein 5.1L, Albumin 2.3L, Globulin 2.8, Albumin/Globulin Ratio 0.8L Height (Feet): 5 Height (Inches): 6.00 Weight (Pounds): 160 EENT: other - on vent Neck: limited range of motion Cardiovascular: regular rhythm Respiratory/Chest: decreased breath sounds Abdomen: soft Objective no change in PE MARIAN KOTHARI September 19, 2016 10:34
[2016-09-19] MEDS ORDERED: NS 275ml ONE (10:51)
--- NOTE | 2016-09-19 11:00 | Internal Med Progress Note ---
Subjective Date of Service: September 19, 2016 Physician Name King Haynes Attending Physician Jonathan Sampson MD Current Medications Medications (Trade) Dose Ordered Sig/Barrett Route PRN Reason Start Time Stop Time Status Last Admin Dose Admin Cefepime HCl/ Dextrose (Maxipime/D5W) 55 ml @ 110 mls/hr Q24H IVPB 09/15/16 21:00 09/22/16 20:59 09/18/16 21:22 Dextrose STAT PRN IV Hypoglycemia 09/11/16 05:30 10/11/16 05:29 Insulin Aspart Q6HR SUBQ 09/15/16 00:00 10/15/16 00:00 09/19/16 05:47 Lorazepam (Ativan 2mg/ml 1ml) 2 mg Q4H PRN IV For Anxiety 09/12/16 11:30 09/19/16 11:29 09/18/16 02:00 Morphine Sulfate (Morphine Sulfate) 4 mg Q4H PRN IVP PAIN 4-10 09/12/16 11:30 09/19/16 11:29 Norepinephrine Bitartrate/ Dextrose (Levophed/D5W) 516 ml @ 0 mls/hr Q24H IV 09/11/16 14:00 10/11/16 13:59 09/11/16 14:22 Pantoprazole 40 mg 40 mg DAILY IV 09/13/16 09:00 10/13/16 08:59 09/19/16 08:13 Potassium Chloride (KCl 10mEq/100ml Premix) 100 ml @ 100 mls/hr Q1H IV 09/19/16 10:15 09/19/16 13:16 09/19/16 10:39 Allergies: Coded Allergies: SULFA (SULFONAMIDE ANTIBIOTICS) (Verified Allergy, Unknown, 09/10/16) Uncoded Allergies: SULFA (Adverse Reaction, Mild, RASH, 04/01/13) ROS Limited/Unobtainable: Yes Subjective 76 YO M admitted with hypotension and UTI/sepsis. ICU. Intubated and sedated. Cover for Int Med-Dr Sampson.. Cont on levophed. Objective Last Vital Signs Date Time Temp Pulse Resp B/P Pulse Ox O2 Delivery O2 Flow Rate FiO2 09/19/16 10:50 65 16 30 09/19/16 10:00 129/60 100 Mechanical Ventilator 09/19/16 08:00 98.3 09/14/16 19:30 30.0 Laboratory Tests Test 09/18/16 11:45 09/19/16 03:35 Arterial Blood pH 7.480 (7.350-7.450) Arterial Blood Partial Pressure CO2 43.1 mmHg (35.0-45.0) Arterial Blood Partial Pressure O2 99.6 mmHg (75.0-100.0) Arterial Blood HCO3 31.4 mmol/L (22.0-26.0) H Arterial Blood Oxygen Saturation 96.4 % (92.0-98.0) Arterial Blood Base Excess 7.2 Anjum Test Positive White Blood Count 4.2 K/UL (4.8-10.8) L Red Blood Count 2.82 M/UL (4.70-6.10) L Hemoglobin 8.3 G/DL (14.2-18.0) L Hematocrit 25.3 % (42.0-52.0) L Mean Corpuscular Volume 90 FL (80-99) Mean Corpuscular Hemoglobin 29.4 PG (27.0-31.0) Mean Corpuscular Hemoglobin Concent 32.8 G/DL (32.0-36.0) Red Cell Distribution Width 13.8 % (11.6-14.8) Platelet Count 69 K/UL (150-450) L Mean Platelet Volume 7.9 FL (6.5-10.1) Neutrophils (%) (Auto) % (45.0-75.0) Lymphocytes (%) (Auto) % (20.0-45.0) Monocytes (%) (Auto) % (1.0-10.0) Eosinophils (%) (Auto) % (0.0-3.0) Basophils (%) (Auto) % (0.0-2.0) Differential Total Cells Counted 100 Neutrophils % (Manual) 62 % (45-75) Lymphocytes % (Manual) 28 % (20-45) Monocytes % (Manual) 8 % (1-10) Eosinophils % (Manual) 2 % (0-3) Basophils % (Manual) 0 % (0-2) Band Neutrophils 0 % (0-8) Platelet Estimate Decreased L Platelet Morphology Normal Hypochromasia 1+ Sodium Level 144 mEQ/L (135-145) Potassium Level 3.2 mEQ/L (3.4-4.9) L Chloride Level 99 mEQ/L (98-107) Carbon Dioxide Level 33 mEQ/L (20-30) H Anion Gap 12 (5-15) Blood Urea Nitrogen 52 mg/dL (7-23) H Creatinine 3.3 mg/dL (0.7-1.2) H Estimat Glomerular Filtration Rate mL/min (>60) Glucose Level 182 mg/dL (74-106) H Uric Acid 5.0 mg/dL (3.0-7.5) Calcium Level 8.0 mg/dL (8.6-10.2) L Phosphorus Level 2.4 mg/dL (2.5-4.8) L Magnesium Level 1.9 mg/dL (1.7-2.5) Total Bilirubin 0.4 mg/dL (0.0-1.2) Aspartate Amino Transf (AST/SGOT) 20 U/L (5-40) Alanine Aminotransferase (ALT/SGPT) 15 U/L (3-41) Alkaline Phosphatase 66 U/L (40-129) C-Reactive Protein, Quantitative 3.1 mg/dL (< 0.5) H Pro-B-Type Natriuretic Peptide 69785 pg/mL (0-450) H Total Protein 5.1 g/dL (6.6-8.7) L Albumin 2.3 g/dL (3.5-5.2) L Globulin 2.8 g/dL Albumin/Globulin Ratio 0.8 (1.0-2.7) L Intake and Output 09/18/16 09/19/16 19:00 07:00 Intake Total 420 ml 475 ml Output Total 290 ml 355 ml Balance 130 ml 120 ml IV Total 55 ml Tube Feeding 420 ml 420 ml Output Urine Total 290 ml 355 ml Objective General Appearance: WD/WN, moderate distress EENT: normal ENT inspection Neck: non-tender, normal alignment, supple Cardiovascular: normal peripheral pulses, normal rate, regular rhythm, no gallop/murmur, no JVD Respiratory/Chest: Mech Vent; respiratory distress, crackles/rales, rhonchi - bilaterally, expiratory wheezing Abdomen: normal bowel sounds, non tender, soft, no organomegaly, no mass Skin: normal pigmentation, warm/dry Assessment/Plan Problem List: (1) Severe sepsis Assessment & Plan: Cont cefepime per ID (2) Respiratory failure Assessment & Plan: Cont vent per pulmonary (3) Renal failure Assessment & Plan: Last Hemodialysis 09/14/16 per nephrology. (4) Diabetes mellitus type II, uncontrolled Assessment & Plan: Cont novolog sliding scale. (5) BPH (benign prostatic hyperplasia) (6) Hypokalemia (7) Infection caused by Enterobacter cloacae (8) UTI (urinary tract infection) Assessment & Plan: Enterobacter. D/C zosyn. Start cefepime per ID (9) Hypotension Assessment & Plan: Cont levophed Status: not improved KING HAYNES September 19, 2016 11:00
--- NOTE | 2016-09-19 11:21 | Pulmonolgy Critical Care Note ---
Critical Care - Asmt/Plan Problems: (1) Respiratory failure requiring intubation (2) Septic shock (3) ARF (acute renal failure) (4) Encephalopathy acute (5) DM (diabetes mellitus) Respiratory: monitor respiratory rate, adjust FIO2, weaning trial, other - extubate if tolerated Cardiac: continue to monitor HR/BP Renal: F/U I&O Infectious Disease: check cultures, continue antibiotics Gastrointestinal: continue feedings/current rate Endocrine: monitor blood sugar, continue sliding scale insulin Hematologic: monitor H/H, transfuse if hgb<8.5 Neurologic: PRN Ativan, keep patient comfortable Affect: PRN ativan Prophylaxis: Protonix Notes Reviewed: supervisor roving department, renal Discussed with: nurses, shelter case managerproduct communications manager - Objective Last 24 Hour Vital Signs Date Time Temp Pulse Resp B/P Pulse Ox O2 Delivery O2 Flow Rate FiO2 09/19/16 10:50 65 16 30 09/19/16 10:00 78 16 129/60 100 Mechanical Ventilator 30 09/19/16 09:00 68 16 118/62 100 Mechanical Ventilator 30 09/19/16 08:49 67 16 30 09/19/16 08:00 98.3 69 16 136/61 100 Mechanical Ventilator 30 09/19/16 08:00 30 09/19/16 07:23 60 16 30 09/19/16 07:00 84 16 109/81 100 Mechanical Ventilator 30 09/19/16 06:00 62 16 129/81 100 Mechanical Ventilator 30 09/19/16 05:13 73 16 30 09/19/16 05:00 64 16 129/69 100 Mechanical Ventilator 30 09/19/16 04:00 98.5 63 16 127/45 100 Mechanical Ventilator 30 09/19/16 04:00 30 09/19/16 04:00 63 09/19/16 03:30 79 16 30 09/19/16 03:00 60 16 117/54 100 Mechanical Ventilator 30 09/19/16 02:00 63 16 118/47 100 Mechanical Ventilator 30 09/19/16 01:30 74 16 30 09/19/16 01:00 64 16 129/54 100 Mechanical Ventilator 30 09/19/16 00:00 30 09/19/16 00:00 98.3 67 16 129/54 100 Mechanical Ventilator 30 09/19/16 00:00 67 09/18/16 23:30 63 16 30 09/18/16 23:00 66 16 131/56 100 Mechanical Ventilator 30 09/18/16 22:00 63 16 128/55 100 Mechanical Ventilator 30 09/18/16 21:30 70 18 30 09/18/16 21:00 65 16 131/51 100 Mechanical Ventilator 30 09/18/16 20:00 30 09/18/16 20:00 70 09/18/16 20:00 98.7 70 16 130/56 100 Mechanical Ventilator 30 09/18/16 19:30 67 17 30 09/18/16 19:00 67 18 125/55 100 Mechanical Ventilator 30 09/18/16 18:00 63 17 129/57 100 Mechanical Ventilator 30 09/18/16 18:00 30 09/18/16 17:12 77 22 30 09/18/16 16:00 97.7 70 16 123/63 100 Mechanical Ventilator 30 09/18/16 16:00 79 09/18/16 16:00 30 09/18/16 15:16 75 19 30 09/18/16 15:00 72 16 133/98 99 Mechanical Ventilator 30 09/18/16 14:00 70 16 127/61 99 Mechanical Ventilator 30 09/18/16 13:30 74 18 30 09/18/16 13:00 70 16 128/65 99 Mechanical Ventilator 30 09/18/16 12:00 84 09/18/16 12:00 30 09/18/16 12:00 98.0 71 16 101/78 99 Mechanical Ventilator 30 Status: awake Condition: critical HEENT: atraumatic Neck: full ROM Lungs: rales, rhonchi Heart: HR/BP stable Abdomen: soft, non-tender Extremities: no C/C/E, edema Decubiti: location Accucheck: 186 Critical Care - Subjective ROS Limited/Unobtainable: Yes ICU Day: 8 Intubation Day: 8 Condition: critical EKG Rhythm: Sinus Rhythm FI02: 30 Vent Support Breath Rate: 16 Vent Support Mode: IMV/SIMV Vent Tidal Volume: 500 Sputum Amount: Small PEEP: 5.0 PIP: 18 Tube Feeding Amount: 35 I&O: Intake and Output 09/18/16 09/19/16 19:00 07:00 Intake Total 420 ml 475 ml Output Total 290 ml 355 ml Balance 130 ml 120 ml IV Total 55 ml Tube Feeding 420 ml 420 ml Output Urine Total 290 ml 355 ml CXR: bilateral infiltrate ET-Tube: 7.0 ET Position: 21 Labs: Laboratory Tests Test 09/18/16 11:45 09/19/16 03:35 Arterial Blood pH 7.480 (7.350-7.450) Arterial Blood Partial Pressure CO2 43.1 mmHg (35.0-45.0) Arterial Blood Partial Pressure O2 99.6 mmHg (75.0-100.0) Arterial Blood HCO3 31.4 mmol/L (22.0-26.0) H Arterial Blood Oxygen Saturation 96.4 % (92.0-98.0) Arterial Blood Base Excess 7.2 Anjum Test Positive White Blood Count 4.2 K/UL (4.8-10.8) L Red Blood Count 2.82 M/UL (4.70-6.10) L Hemoglobin 8.3 G/DL (14.2-18.0) L Hematocrit 25.3 % (42.0-52.0) L Mean Corpuscular Volume 90 FL (80-99) Mean Corpuscular Hemoglobin 29.4 PG (27.0-31.0) Mean Corpuscular Hemoglobin Concent 32.8 G/DL (32.0-36.0) Red Cell Distribution Width 13.8 % (11.6-14.8) Platelet Count 69 K/UL (150-450) L Mean Platelet Volume 7.9 FL (6.5-10.1) Neutrophils (%) (Auto) % (45.0-75.0) Lymphocytes (%) (Auto) % (20.0-45.0) Monocytes (%) (Auto) % (1.0-10.0) Eosinophils (%) (Auto) % (0.0-3.0) Basophils (%) (Auto) % (0.0-2.0) Differential Total Cells Counted 100 Neutrophils % (Manual) 62 % (45-75) Lymphocytes % (Manual) 28 % (20-45) Monocytes % (Manual) 8 % (1-10) Eosinophils % (Manual) 2 % (0-3) Basophils % (Manual) 0 % (0-2) Band Neutrophils 0 % (0-8) Platelet Estimate Decreased L Platelet Morphology Normal Hypochromasia 1+ Sodium Level 144 mEQ/L (135-145) Potassium Level 3.2 mEQ/L (3.4-4.9) L Chloride Level 99 mEQ/L (98-107) Carbon Dioxide Level 33 mEQ/L (20-30) H Anion Gap 12 (5-15) Blood Urea Nitrogen 52 mg/dL (7-23) H Creatinine 3.3 mg/dL (0.7-1.2) H Estimat Glomerular Filtration Rate mL/min (>60) Glucose Level 182 mg/dL (74-106) H Uric Acid 5.0 mg/dL (3.0-7.5) Calcium Level 8.0 mg/dL (8.6-10.2) L Phosphorus Level 2.4 mg/dL (2.5-4.8) L Magnesium Level 1.9 mg/dL (1.7-2.5) Total Bilirubin 0.4 mg/dL (0.0-1.2) Aspartate Amino Transf (AST/SGOT) 20 U/L (5-40) Alanine Aminotransferase (ALT/SGPT) 15 U/L (3-41) Alkaline Phosphatase 66 U/L (40-129) C-Reactive Protein, Quantitative 3.1 mg/dL (< 0.5) H Pro-B-Type Natriuretic Peptide 01856 pg/mL (0-450) H Total Protein 5.1 g/dL (6.6-8.7) L Albumin 2.3 g/dL (3.5-5.2) L Globulin 2.8 g/dL Albumin/Globulin Ratio 0.8 (1.0-2.7) L LANDEN HERNANDEZ September 19, 2016 11:21
--- NOTE | 2016-09-19 11:41 | Infectious Diseases Prog Note ---
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 ) LAC improving DM HTN SP pacemaker placement Alzheimer dementia [place] : on HD started 09/14 P: Cefepime d# 6 / 14 ( 09/14 SP Zosyn d# 4 ) Monitor culture Monitor CBC Monitor BMP Monitor LFT Nephro is following HD Cath Subjective Constitutional: Denies: anorexia, chills, drenching sweats, fatigue, fever, no symptoms, other Allergies: Coded Allergies: SULFA (SULFONAMIDE ANTIBIOTICS) (Verified Allergy, Unknown, 09/10/16) Uncoded Allergies: SULFA (Adverse Reaction, Mild, RASH, 04/01/13) Subjective SP HD , on vent Objective Vital Signs Last 24 Hour Vital Signs Date Time Temp Pulse Resp B/P Pulse Ox O2 Delivery O2 Flow Rate FiO2 09/19/16 10:50 65 16 30 09/19/16 10:00 78 16 129/60 100 Mechanical Ventilator 30 09/19/16 09:00 68 16 118/62 100 Mechanical Ventilator 30 09/19/16 08:49 67 16 30 09/19/16 08:00 98.3 69 16 136/61 100 Mechanical Ventilator 30 09/19/16 08:00 30 09/19/16 07:23 60 16 30 09/19/16 07:00 84 16 109/81 100 Mechanical Ventilator 30 09/19/16 06:00 62 16 129/81 100 Mechanical Ventilator 30 09/19/16 05:13 73 16 30 09/19/16 05:00 64 16 129/69 100 Mechanical Ventilator 30 09/19/16 04:00 98.5 63 16 127/45 100 Mechanical Ventilator 30 09/19/16 04:00 30 09/19/16 04:00 63 09/19/16 03:30 79 16 30 09/19/16 03:00 60 16 117/54 100 Mechanical Ventilator 30 09/19/16 02:00 63 16 118/47 100 Mechanical Ventilator 30 09/19/16 01:30 74 16 30 09/19/16 01:00 64 16 129/54 100 Mechanical Ventilator 30 09/19/16 00:00 30 09/19/16 00:00 98.3 67 16 129/54 100 Mechanical Ventilator 30 09/19/16 00:00 67 09/18/16 23:30 63 16 30 09/18/16 23:00 66 16 131/56 100 Mechanical Ventilator 30 09/18/16 22:00 63 16 128/55 100 Mechanical Ventilator 30 09/18/16 21:30 70 18 30 09/18/16 21:00 65 16 131/51 100 Mechanical Ventilator 30 09/18/16 20:00 30 09/18/16 20:00 70 09/18/16 20:00 98.7 70 16 130/56 100 Mechanical Ventilator 30 09/18/16 19:30 67 17 30 09/18/16 19:00 67 18 125/55 100 Mechanical Ventilator 30 09/18/16 18:00 63 17 129/57 100 Mechanical Ventilator 30 09/18/16 18:00 30 09/18/16 17:12 77 22 30 09/18/16 16:00 97.7 70 16 123/63 100 Mechanical Ventilator 30 09/18/16 16:00 79 09/18/16 16:00 30 09/18/16 15:16 75 19 30 09/18/16 15:00 72 16 133/98 99 Mechanical Ventilator 30 09/18/16 14:00 70 16 127/61 99 Mechanical Ventilator 30 09/18/16 13:30 74 18 30 09/18/16 13:00 70 16 128/65 99 Mechanical Ventilator 30 09/18/16 12:00 84 09/18/16 12:00 30 09/18/16 12:00 98.0 71 16 101/78 99 Mechanical Ventilator 30 Height (Feet): 5 Height (Inches): 6.00 Weight (Pounds): 160 HEENT: anicteric Respiratory/Chest: normal breath sounds Cardiovascular: regular rhythm Abdomen: no organomegaly Laboratory Tests Test 09/18/16 11:45 09/19/16 03:35 Arterial Blood pH 7.480 (7.350-7.450) Arterial Blood Partial Pressure CO2 43.1 mmHg (35.0-45.0) Arterial Blood Partial Pressure O2 99.6 mmHg (75.0-100.0) Arterial Blood HCO3 31.4 mmol/L (22.0-26.0) H Arterial Blood Oxygen Saturation 96.4 % (92.0-98.0) Arterial Blood Base Excess 7.2 Anjum Test Positive White Blood Count 4.2 K/UL (4.8-10.8) L Red Blood Count 2.82 M/UL (4.70-6.10) L Hemoglobin 8.3 G/DL (14.2-18.0) L Hematocrit 25.3 % (42.0-52.0) L Mean Corpuscular Volume 90 FL (80-99) Mean Corpuscular Hemoglobin 29.4 PG (27.0-31.0) Mean Corpuscular Hemoglobin Concent 32.8 G/DL (32.0-36.0) Red Cell Distribution Width 13.8 % (11.6-14.8) Platelet Count 69 K/UL (150-450) L Mean Platelet Volume 7.9 FL (6.5-10.1) Neutrophils (%) (Auto) % (45.0-75.0) Lymphocytes (%) (Auto) % (20.0-45.0) Monocytes (%) (Auto) % (1.0-10.0) Eosinophils (%) (Auto) % (0.0-3.0) Basophils (%) (Auto) % (0.0-2.0) Differential Total Cells Counted 100 Neutrophils % (Manual) 62 % (45-75) Lymphocytes % (Manual) 28 % (20-45) Monocytes % (Manual) 8 % (1-10) Eosinophils % (Manual) 2 % (0-3) Basophils % (Manual) 0 % (0-2) Band Neutrophils 0 % (0-8) Platelet Estimate Decreased L Platelet Morphology Normal Hypochromasia 1+ Sodium Level 144 mEQ/L (135-145) Potassium Level 3.2 mEQ/L (3.4-4.9) L Chloride Level 99 mEQ/L (98-107) Carbon Dioxide Level 33 mEQ/L (20-30) H Anion Gap 12 (5-15) Blood Urea Nitrogen 52 mg/dL (7-23) H Creatinine 3.3 mg/dL (0.7-1.2) H Estimat Glomerular Filtration Rate mL/min (>60) Glucose Level 182 mg/dL (74-106) H Uric Acid 5.0 mg/dL (3.0-7.5) Calcium Level 8.0 mg/dL (8.6-10.2) L Phosphorus Level 2.4 mg/dL (2.5-4.8) L Magnesium Level 1.9 mg/dL (1.7-2.5) Total Bilirubin 0.4 mg/dL (0.0-1.2) Aspartate Amino Transf (AST/SGOT) 20 U/L (5-40) Alanine Aminotransferase (ALT/SGPT) 15 U/L (3-41) Alkaline Phosphatase 66 U/L (40-129) C-Reactive Protein, Quantitative 3.1 mg/dL (< 0.5) H Pro-B-Type Natriuretic Peptide 46552 pg/mL (0-450) H Total Protein 5.1 g/dL (6.6-8.7) L Albumin 2.3 g/dL (3.5-5.2) L Globulin 2.8 g/dL Albumin/Globulin Ratio 0.8 (1.0-2.7) L Current Medications Medications (Trade) Dose Ordered Sig/Barrett Route PRN Reason Start Time Stop Time Status Last Admin Dose Admin Cefepime HCl/ Dextrose (Maxipime/D5W) 55 ml @ 110 mls/hr Q24H IVPB 09/15/16 21:00 09/22/16 20:59 09/18/16 21:22 Dextrose STAT PRN IV Hypoglycemia 09/11/16 05:30 10/11/16 05:29 Insulin Aspart Q6HR SUBQ 09/15/16 00:00 10/15/16 00:00 09/19/16 05:47 Norepinephrine Bitartrate/ Dextrose (Levophed/D5W) 516 ml @ 0 mls/hr Q24H IV 09/11/16 14:00 10/11/16 13:59 09/11/16 14:22 Pantoprazole 40 mg 40 mg DAILY IV 09/13/16 09:00 10/13/16 08:59 09/19/16 08:13 Potassium Chloride (KCl 10mEq/100ml Premix) 100 ml @ 100 mls/hr Q1H IV 09/19/16 10:15 09/19/16 13:16 09/19/16 10:39 CRISTEL DUFF M.D. September 19, 2016 11:41
--- NOTE | 2016-09-19 14:02 | Wound Care Consultation ---
Wound Assessment Wound Assessment #1: Wound Present on Admission: Yes New Wound: No Status Change of Wound: No Wound Location Body Site Modif: left, upper Wound Location Body Site: back Wound Type: pressure ulcer Mane Test: Does not Mane Pressure Ulcer Stage: deep tissue injury Wound Thickness: Full Thickness - still intact Wound Length: 2.0 Wound Width: 3.0 Wound Depth: utd Percent of Wound Purple/Maroon: 100 Wound Drainage Amount: None Wound Drainage Odor: None/Absent Tissue Surrounding Wound: Intact Wound General Appearance: Asymptomatic, Reddened Wound Assessment #2: Wound Number: #2 Wound Present on Admission: Yes New Wound: No Status Change of Wound: No Wound Location Body Site Modif: mid Wound Location Body Site: sacral Wound Type: pressure ulcer Mane Test: Does not Mane Pressure Ulcer Stage: deep tissue injury - still intact Wound Thickness: Full Thickness Wound Length: 7.0 Wound Width: 3.0 Wound Depth: utd Percent of Wound Purple/Maroon: 100 Wound Drainage Amount: None Wound Drainage Odor: None/Absent Tissue Surrounding Wound: Erythemic Wound General Appearance: Asymptomatic, Reddened Wound Assessment #3: Wound Number: #3 Wound Present on Admission: Yes New Wound: No Status Change of Wound: No Wound Location Body Site Modif: left, medial, dorsal Wound Location Body Site: foot Wound Type: scab Mane Test: Does not Mane Wound Thickness: Full Thickness Wound Length: 1.0 Wound Width: 2.0 Wound Depth: utd Percent of Wound Bed Yellow/Wh: 100 Wound Drainage Amount: None Wound Drainage Odor: None/Absent Tissue Surrounding Wound: Intact Wound General Appearance: Asymptomatic Wound Assessment #4: Wound Number: #4 Wound Present on Admission: Yes New Wound: No Status Change of Wound: No Wound Location Body Site Modif: left, lower Wound Location Body Site: leg Wound Type: scab - and scattered open scabs Mane Test: Does not Mane Wound Thickness: Full Thickness Wound Depth: utd Percent of Wound [place]/Red: 100 Wound Drainage Amount: None Wound Drainage Odor: None/Absent Tissue Surrounding Wound: Intact Wound General Appearance: Reddened Wound Assessment #5: Wound Number: #5 Wound Present on Admission: No New Wound: Yes Status Change of Wound: No Wound Location Body Site Modif: left, lateral Wound Location Body Site: metatarsal head - 1st Wound Type: pressure ulcer Mane Test: Does not Mane Pressure Ulcer Stage: deep tissue injury Wound Thickness: Full Thickness Wound Length: 0.5 Wound Width: 0.5 Wound Depth: utd Percent of Wound Purple/Maroon: 100 Wound Drainage Amount: None Wound Drainage Odor: None/Absent Tissue Surrounding Wound: Intact Wound General Appearance: Asymptomatic, Reddened Wound Comment #1 Sacral DTI pressure ulcer. Still intact #2 Left medial dorsal foot with dry scab. Still intact #3 Left lower leg with scattered open and dry scabs #4 Left upper back DTI pressure ulcer. Still intact #5 Left lateral 1st metatarsal head DTI pressure ulcer. Recommendation -Local wound care for DTI per protocol -Low air loss mattress -Optimize nutrition -Keep clean and dry -Turn and reposition -Offload both heels -Heel protector on both heels -Assess and f/u accordingly for any changes CLARIBEL ELISE RN September 19, 2016 14:02
--- NOTE | 2016-09-19 18:37 | Cardiology Progress Note ---
Assessment/Plan Assessment/Plan 1. Globally weak/septic shock. 2. Renal failure, acute on chronic. 3. 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 4. Anemia. 5. History of upper gastrointestinal bleed with treatment of the visible bleeding vessel previously. 6. Chronic renal insufficiency. 7. Coronary artery disease status post percutaneous coronary intervention with what was felt to be a demand related ischemia. 8. History of aspiration. 9. Altered mental status. 10. Hypertension. 11. Diabetes mellitus 12. thrombocytopenia plt imporoved little bp is ok to day dialysis vent support wean as possible abx off pressors for nwo tele reviwed cxr reviewed Subjective ROS Limited/Unobtainable: Yes Subjective on a vent not communicative Objective Last 24 Hour Vital Signs Date Time Temp Pulse Resp B/P Pulse Ox O2 Delivery O2 Flow Rate FiO2 09/19/16 18:00 61 15 106/47 100 Mechanical Ventilator 30 09/19/16 17:00 60 15 133/52 100 Mechanical Ventilator 30 09/19/16 17:00 70 12 30 09/19/16 16:00 70 09/19/16 16:00 98.7 66 16 120/67 100 Mechanical Ventilator 30 09/19/16 16:00 30 09/19/16 15:11 59 10 30 09/19/16 15:00 64 15 125/48 100 Mechanical Ventilator 30 09/19/16 14:00 69 16 122/55 100 Mechanical Ventilator 30 09/19/16 13:18 76 16 30 09/19/16 13:00 66 16 131/64 100 Mechanical Ventilator 30 09/19/16 12:00 70 09/19/16 12:00 98.3 70 16 142/69 100 Mechanical Ventilator 30 09/19/16 12:00 30 09/19/16 11:00 64 16 126/52 100 Mechanical Ventilator 30 09/19/16 10:50 65 16 30 09/19/16 10:00 78 16 129/60 100 Mechanical Ventilator 30 09/19/16 09:00 68 16 118/62 100 Mechanical Ventilator 30 09/19/16 08:49 67 16 30 09/19/16 08:00 98.3 69 16 136/61 100 Mechanical Ventilator 30 09/19/16 08:00 70 09/19/16 08:00 30 09/19/16 07:23 60 16 30 09/19/16 07:00 84 16 109/81 100 Mechanical Ventilator 30 09/19/16 06:00 62 16 129/81 100 Mechanical Ventilator 30 09/19/16 05:13 73 16 30 09/19/16 05:00 64 16 129/69 100 Mechanical Ventilator 30 09/19/16 04:00 98.5 63 16 127/45 100 Mechanical Ventilator 30 09/19/16 04:00 30 09/19/16 04:00 63 09/19/16 03:30 79 16 30 09/19/16 03:00 60 16 117/54 100 Mechanical Ventilator 30 09/19/16 02:00 63 16 118/47 100 Mechanical Ventilator 30 09/19/16 01:30 74 16 30 09/19/16 01:00 64 16 129/54 100 Mechanical Ventilator 30 09/19/16 00:00 30 09/19/16 00:00 98.3 67 16 129/54 100 Mechanical Ventilator 30 09/19/16 00:00 67 09/18/16 23:30 63 16 30 09/18/16 23:00 66 16 131/56 100 Mechanical Ventilator 30 09/18/16 22:00 63 16 128/55 100 Mechanical Ventilator 30 09/18/16 21:30 70 18 30 09/18/16 21:00 65 16 131/51 100 Mechanical Ventilator 30 09/18/16 20:00 30 09/18/16 20:00 70 09/18/16 20:00 98.7 70 16 130/56 100 Mechanical Ventilator 30 09/18/16 19:30 67 17 30 09/18/16 19:00 67 18 125/55 100 Mechanical Ventilator 30 General Appearance: on vent Neck: supple Cardiovascular: normal rate, regular rhythm Respiratory/Chest: lungs clear Abdomen: normal bowel sounds, non tender, soft Extremities: no swelling Intake and Output 09/18/16 09/19/16 19:00 07:00 Intake Total 420 ml 475 ml Output Total 290 ml 355 ml Balance 130 ml 120 ml IV Total 55 ml Tube Feeding 420 ml 420 ml Output Urine Total 290 ml 355 ml Laboratory Tests Test 09/19/16 03:35 White Blood Count 4.2 K/UL (4.8-10.8) L Red Blood Count 2.82 M/UL (4.70-6.10) L Hemoglobin 8.3 G/DL (14.2-18.0) L Hematocrit 25.3 % (42.0-52.0) L Mean Corpuscular Volume 90 FL (80-99) Mean Corpuscular Hemoglobin 29.4 PG (27.0-31.0) Mean Corpuscular Hemoglobin Concent 32.8 G/DL (32.0-36.0) Red Cell Distribution Width 13.8 % (11.6-14.8) Platelet Count 69 K/UL (150-450) L Mean Platelet Volume 7.9 FL (6.5-10.1) Neutrophils (%) (Auto) % (45.0-75.0) Lymphocytes (%) (Auto) % (20.0-45.0) Monocytes (%) (Auto) % (1.0-10.0) Eosinophils (%) (Auto) % (0.0-3.0) Basophils (%) (Auto) % (0.0-2.0) Differential Total Cells Counted 100 Neutrophils % (Manual) 62 % (45-75) Lymphocytes % (Manual) 28 % (20-45) Monocytes % (Manual) 8 % (1-10) Eosinophils % (Manual) 2 % (0-3) Basophils % (Manual) 0 % (0-2) Band Neutrophils 0 % (0-8) Platelet Estimate Decreased L Platelet Morphology Normal Hypochromasia 1+ Sodium Level 144 mEQ/L (135-145) Potassium Level 3.2 mEQ/L (3.4-4.9) L Chloride Level 99 mEQ/L (98-107) Carbon Dioxide Level 33 mEQ/L (20-30) H Anion Gap 12 (5-15) Blood Urea Nitrogen 52 mg/dL (7-23) H Creatinine 3.3 mg/dL (0.7-1.2) H Estimat Glomerular Filtration Rate mL/min (>60) Glucose Level 182 mg/dL (74-106) H Uric Acid 5.0 mg/dL (3.0-7.5) Calcium Level 8.0 mg/dL (8.6-10.2) L Phosphorus Level 2.4 mg/dL (2.5-4.8) L Magnesium Level 1.9 mg/dL (1.7-2.5) Total Bilirubin 0.4 mg/dL (0.0-1.2) Aspartate Amino Transf (AST/SGOT) 20 U/L (5-40) Alanine Aminotransferase (ALT/SGPT) 15 U/L (3-41) Alkaline Phosphatase 66 U/L (40-129) C-Reactive Protein, Quantitative 3.1 mg/dL (< 0.5) H Pro-B-Type Natriuretic Peptide 84616 pg/mL (0-450) H Total Protein 5.1 g/dL (6.6-8.7) L Albumin 2.3 g/dL (3.5-5.2) L Globulin 2.8 g/dL Albumin/Globulin Ratio 0.8 (1.0-2.7) L RAJ DEL ROSARIO September 19, 2016 18:37
[2016-09-19] MEDS: Cefepime 500mg in D5W 55ml IVPB SCH (22:03)
[2016-09-20] VITALS (25 sets, daily range): BP systolic 122–149; BP diastolic 48–78
[2016-09-20] MEDS: NovoLOG Insulin Flexpen SUBQ SCH ×4 (00:07→18:24)
[2016-09-20 05:59] LABS: MEAN CORPUSCULAR HEMOGLOBIN 28.8 PG (27.0-31.0); MEAN CORPUSCULAR HGB CONC 31.8 G/DL (32.0-36.0); MEAN CORPUSCULAR VOLUME 91 FL (80-99); MEAN PLATELET VOLUME 8.2 FL (6.5-10.1); PLATELET COUNT 76 K/UL (150-450); RED BLOOD COUNT 2.92 M/UL (4.70-6.10); RED CELL DISTRIBUTION WIDTH 13.9 % (11.6-14.8); WHITE BLOOD COUNT 4.6 K/UL (4.8-10.8)
[2016-09-20 06:42] LABS: ALANINE AMINOTRANSFERASE 16 U/L (3-41); ALBUMIN/GLOBULIN RATIO 0.9 (1.0-2.7); ANION GAP 11 (5-15); ASPARTATE AMINO TRANSFERASE 24 U/L (5-40); CALCIUM 8.4 mg/dL (8.6-10.2); CARBON DIOXIDE 34 mEQ/L (20-30); CHLORIDE 99 mEQ/L (98-107); CREATININE 3.6 mg/dL (0.7-1.2); CRP QUANT 2.8 mg/dL (< 0.5); HEMOLYSIS 6; MAGNESIUM 1.9 mg/dL (1.7-2.5); PHOSPHORUS 2.9 mg/dL (2.5-4.8); SODIUM 144 mEQ/L (135-145); TOTAL PROTEIN 5.4 g/dL (6.6-8.7); URIC ACID 5.2 mg/dL (3.0-7.5)
[2016-09-20] MEDS: Pantoprazole Inj IV SCH (08:00)
[2016-09-20 08:37] LABS: EOSINOPHILS % (MANUAL) 1 % (0-3); LYMPHOCYTES % (MANUAL) 9 % (20-45); NEUTROPHILS % (MANUAL) 85 % (45-75); TOTAL CELLS COUNTED 100
[2016-09-20 08:38] LABS: ANISOCYTOSIS 1+; BAND NEUTROPHILS % (MANUAL) 0 % (0-8); BASOPHILS % (MANUAL) 0 % (0-2); HYPOCHROMASIA 2+; PLATELET ESTIMATE DECREASED; PLATELET MORPHOLOGY NORMAL
--- NOTE | 2016-09-20 09:17 | General Progress Note ---
Assessment/Plan Status: unchanged Status Narrative Cr creeping up Assessment/Plan status: Septic Shock leading to acute renal and multiOrgan failure Due to the above: Sever Acidosis , high Lactate , High K ALL IMPROVED- Seems like patient has CKD , unclear what is the baseline S Cr Sugg: Trial of Lasix IV 100 mg Last HD 09/17, next HD as needed Phos supplement - K supplement as needed Hemodynamic support Antibiotics discussed with RN monitor renal parameters Subjective ROS Limited/Unobtainable: Yes Allergies: Coded Allergies: SULFA (SULFONAMIDE ANTIBIOTICS) (Verified Allergy, Unknown, 09/10/16) Uncoded Allergies: SULFA (Adverse Reaction, Mild, RASH, 04/01/13) Objective Last 24 Hour Vital Signs Date Time Temp Pulse Resp B/P Pulse Ox O2 Delivery O2 Flow Rate FiO2 09/20/16 08:46 70 22 30 09/20/16 08:21 99 09/20/16 08:00 30 09/20/16 08:00 98.4 75 23 134/70 97 Mechanical Ventilator 30 09/20/16 08:00 76 09/20/16 07:00 87 23 134/61 97 Mechanical Ventilator 30 09/20/16 06:58 91 27 30 09/20/16 06:00 73 16 122/48 97 Mechanical Ventilator 30 09/20/16 05:15 69 16 30 09/20/16 05:00 79 21 130/62 98 Mechanical Ventilator 30 09/20/16 04:00 97.7 83 22 139/69 96 Mechanical Ventilator 30 09/20/16 04:00 83 09/20/16 04:00 30 09/20/16 03:30 81 21 30 09/20/16 03:00 75 19 135/68 97 Mechanical Ventilator 30 09/20/16 02:00 65 18 125/52 98 Mechanical Ventilator 30 09/20/16 01:30 64 11 30 09/20/16 01:00 69 20 138/56 98 Mechanical Ventilator 30 09/20/16 00:00 97.8 65 16 129/64 96 Mechanical Ventilator 30 09/20/16 00:00 30 09/20/16 00:00 65 09/19/16 23:30 77 19 30 09/19/16 23:00 74 19 130/62 97 Mechanical Ventilator 30 09/19/16 22:00 65 15 121/54 98 Mechanical Ventilator 30 09/19/16 21:30 82 16 30 09/19/16 21:00 62 13 128/49 99 Mechanical Ventilator 30 09/19/16 20:45 67 09/19/16 20:00 30 09/19/16 20:00 97.4 67 16 132/55 100 Mechanical Ventilator 30 09/19/16 19:30 62 12 30 09/19/16 19:00 80 15 121/46 100 Mechanical Ventilator 30 09/19/16 18:00 61 15 106/47 100 Mechanical Ventilator 30 09/19/16 17:00 60 15 133/52 100 Mechanical Ventilator 30 09/19/16 17:00 70 12 30 09/19/16 16:00 70 09/19/16 16:00 98.7 66 16 120/67 100 Mechanical Ventilator 09/19/16 16:00 30 09/19/16 15:11 59 10 30 09/19/16 15:00 64 15 125/48 100 Mechanical Ventilator 30 09/19/16 14:10 30 09/19/16 14:00 69 16 122/55 100 Mechanical Ventilator 09/19/16 13:35 30 09/19/16 13:18 76 16 30 09/19/16 13:00 66 16 131/64 100 Mechanical Ventilator 30 09/19/16 12:00 70 09/19/16 12:00 98.3 70 16 142/69 100 Mechanical Ventilator 30 09/19/16 12:00 30 09/19/16 11:00 64 16 126/52 100 Mechanical Ventilator 30 09/19/16 10:50 65 16 30 09/19/16 10:00 78 16 129/60 100 Mechanical Ventilator 30 Intake and Output 09/19/16 09/20/16 19:00 07:00 Intake Total 485 ml 475 ml Output Total 305 ml 635 ml Balance 180 ml -160 ml IV Total 100 ml 55 ml Tube Feeding 385 ml 420 ml Output Urine Total 305 ml 635 ml # Bowel Movements 1 Laboratory Tests 09/20/16 05:00: White Blood Count 4.6L, Red Blood Count 2.92L, Hemoglobin 8.4L, Hematocrit 26.5L , Mean Corpuscular Volume 91, Mean Corpuscular Hemoglobin 28.8, Mean Corpuscular Hemoglobin Concent 31.8L, Red Cell Distribution Width 13.9, Platelet Count 76L, Mean Platelet Volume 8.2, Neutrophils (%) (Auto) , Lymphocytes (%) (Auto) , Monocytes (%) (Auto) , Eosinophils (%) (Auto) , Basophils (%) (Auto) , Differential Total Cells Counted 100, Neutrophils % ( Manual) 85H, Lymphocytes % (Manual) 9L, Monocytes % (Manual) 5, Eosinophils % ( Manual) 1, Basophils % (Manual) 0, Band Neutrophils 0, Platelet Estimate DecreasedL, Platelet Morphology Normal, Hypochromasia 2+, Anisocytosis 1+, Sodium Level 144, Potassium Level 4.0, Chloride Level 99, Carbon Dioxide Level 34H, Anion Gap 11, Blood Urea Nitrogen 58H, Creatinine 3.6H, Estimat Glomerular Filtration Rate , Glucose Level 206H, Uric Acid 5.2, Calcium Level 8.4L, Phosphorus Level 2.9, Magnesium Level 1.9, Total Bilirubin 0.4, Aspartate Amino Transf (AST/SGOT) 24, Alanine Aminotransferase (ALT/SGPT) 16, Alkaline Phosphatase 56, C-Reactive Protein, Quantitative 2.8H, Pro-B-Type Natriuretic Peptide 70433O, Total Protein 5.4L, Albumin 2.6L, Globulin 2.8, Albumin/ Globulin Ratio 0.9L Height (Feet): 5 Height (Inches): 6.00 Weight (Pounds): 160 General Appearance: no apparent distress Neck: limited range of motion Cardiovascular: normal rate Respiratory/Chest: decreased breath sounds Abdomen: soft Objective no change in PE MARIAN KOTHARI September 20, 2016 09:17
[2016-09-20 09:23] LABS: ABG ALLEN TEST POSITIVE; ABG BASE EXCESS 12.5; ABG PCO2 50.7 mmHg (35.0-45.0)
[2016-09-20] MEDS ORDERED: Tubing IV Secondary IV ONE (10:12)
[2016-09-20] MEDS ORDERED: NS 275ml ONE (10:12)
--- NOTE | 2016-09-20 11:07 | Pulmonolgy Critical Care Note ---
Critical Care - Asmt/Plan Problems: (1) Respiratory failure requiring intubation (2) Septic shock (3) ARF (acute renal failure) (4) Encephalopathy acute (5) DM (diabetes mellitus) Respiratory: monitor respiratory rate Cardiac: continue to monitor HR/BP Renal: F/U I&O, keep IV fluid Infectious Disease: check cultures Gastrointestinal: continue feedings/current rate Endocrine: monitor blood sugar, continue sliding scale insulin Hematologic: monitor H/H, transfuse if hgb<8.5 Neurologic: PRN Ativan, PRN Morphine, keep patient comfortable Prophylaxis: Protonix, Heparin Disposition: keep in ICU Notes Reviewed: office clerk routine, cardio, renal Discussed with: nurses, consultants, case operatorpublic relations manager - Objective Last 24 Hour Vital Signs Date Time Temp Pulse Resp B/P Pulse Ox O2 Delivery O2 Flow Rate FiO2 09/20/16 10:00 76 21 129/59 97 Mechanical Ventilator 30 09/20/16 09:00 72 22 130/69 99 Mechanical Ventilator 30 09/20/16 08:46 70 22 30 09/20/16 08:21 99 09/20/16 08:00 98.4 75 23 134/70 97 Mechanical Ventilator 30 09/20/16 08:00 30 09/20/16 08:00 76 09/20/16 07:00 87 23 134/61 97 Mechanical Ventilator 30 09/20/16 06:58 91 27 30 09/20/16 06:00 73 16 122/48 97 Mechanical Ventilator 30 09/20/16 05:15 69 16 30 09/20/16 05:00 79 21 130/62 98 Mechanical Ventilator 30 09/20/16 04:00 97.7 83 22 139/69 96 Mechanical Ventilator 30 09/20/16 04:00 83 09/20/16 04:00 30 09/20/16 03:30 81 21 30 09/20/16 03:00 75 19 135/68 97 Mechanical Ventilator 30 09/20/16 02:00 65 18 125/52 98 Mechanical Ventilator 30 09/20/16 01:30 64 11 30 09/20/16 01:00 69 20 138/56 98 Mechanical Ventilator 30 09/20/16 00:00 97.8 65 16 129/64 96 Mechanical Ventilator 30 09/20/16 00:00 30 09/20/16 00:00 65 09/19/16 23:30 77 19 30 09/19/16 23:00 74 19 130/62 97 Mechanical Ventilator 30 09/19/16 22:00 65 15 121/54 98 Mechanical Ventilator 30 09/19/16 21:30 82 16 30 09/19/16 21:00 62 13 128/49 99 Mechanical Ventilator 30 09/19/16 20:45 67 09/19/16 20:00 30 09/19/16 20:00 97.4 67 16 132/55 100 Mechanical Ventilator 09/19/16 19:30 62 12 30 09/19/16 19:00 80 15 121/46 100 Mechanical Ventilator 30 09/19/16 18:00 61 15 106/47 100 Mechanical Ventilator 30 09/19/16 17:00 60 15 133/52 100 Mechanical Ventilator 30 09/19/16 17:00 70 12 30 09/19/16 16:00 70 09/19/16 16:00 98.7 66 16 120/67 100 Mechanical Ventilator 09/19/16 16:00 30 09/19/16 15:11 59 10 30 09/19/16 15:00 64 15 125/48 100 Mechanical Ventilator 30 09/19/16 14:10 30 09/19/16 14:00 69 16 122/55 100 Mechanical Ventilator 30 09/19/16 13:35 30 09/19/16 13:18 76 16 30 09/19/16 13:00 66 16 131/64 100 Mechanical Ventilator 09/19/16 12:00 70 09/19/16 12:00 98.3 70 16 142/69 100 Mechanical Ventilator 30 09/19/16 12:00 30 Status: sedated, somnolent Condition: critical HEENT: atraumatic, normocephalic Lungs: clear, chest wall tender Heart: HR/BP stable Abdomen: soft, non-tender Extremities: no C/C/E, edema Decubiti: location Accucheck: 203 Critical Care - Subjective ROS Limited/Unobtainable: No ICU Day: 9 Intubation Day: 9 Condition: critical EKG Rhythm: Sinus Rhythm FI02: 30 Vent Support Breath Rate: 10 Vent Support Mode: CPAP Vent Tidal Volume: 500 Sputum Amount: Small PEEP: 5.0 PIP: 27 Tube Feeding Amount: 35 I&O: Intake and Output 09/19/16 09/20/16 19:00 07:00 Intake Total 485 ml 475 ml Output Total 305 ml 635 ml Balance 180 ml -160 ml IV Total 100 ml 55 ml Tube Feeding 385 ml 420 ml Output Urine Total 305 ml 635 ml # Bowel Movements 1 CXR: no change ET-Tube: 7.0 ET Position: 24 Labs: Laboratory Tests Test 09/20/16 05:00 09/20/16 08:45 White Blood Count 4.6 K/UL (4.8-10.8) L Red Blood Count 2.92 M/UL (4.70-6.10) L Hemoglobin 8.4 G/DL (14.2-18.0) L Hematocrit 26.5 % (42.0-52.0) L Mean Corpuscular Volume 91 FL (80-99) Mean Corpuscular Hemoglobin 28.8 PG (27.0-31.0) Mean Corpuscular Hemoglobin Concent 31.8 G/DL (32.0-36.0) L Red Cell Distribution Width 13.9 % (11.6-14.8) Platelet Count 76 K/UL (150-450) L Mean Platelet Volume 8.2 FL (6.5-10.1) Neutrophils (%) (Auto) % (45.0-75.0) Lymphocytes (%) (Auto) % (20.0-45.0) Monocytes (%) (Auto) % (1.0-10.0) Eosinophils (%) (Auto) % (0.0-3.0) Basophils (%) (Auto) % (0.0-2.0) Differential Total Cells Counted 100 Neutrophils % (Manual) 85 % (45-75) H Lymphocytes % (Manual) 9 % (20-45) L Monocytes % (Manual) 5 % (1-10) Eosinophils % (Manual) 1 % (0-3) Basophils % (Manual) 0 % (0-2) Band Neutrophils 0 % (0-8) Platelet Estimate Decreased L Platelet Morphology Normal Hypochromasia 2+ Anisocytosis 1+ Sodium Level 144 mEQ/L (135-145) Potassium Level 4.0 mEQ/L (3.4-4.9) Chloride Level 99 mEQ/L (98-107) Carbon Dioxide Level 34 mEQ/L (20-30) H Anion Gap 11 (5-15) Blood Urea Nitrogen 58 mg/dL (7-23) H Creatinine 3.6 mg/dL (0.7-1.2) H Estimat Glomerular Filtration Rate mL/min (>60) Glucose Level 206 mg/dL (74-106) H Uric Acid 5.2 mg/dL (3.0-7.5) Calcium Level 8.4 mg/dL (8.6-10.2) L Phosphorus Level 2.9 mg/dL (2.5-4.8) Magnesium Level 1.9 mg/dL (1.7-2.5) Total Bilirubin 0.4 mg/dL (0.0-1.2) Aspartate Amino Transf (AST/SGOT) 24 U/L (5-40) Alanine Aminotransferase (ALT/SGPT) 16 U/L (3-41) Alkaline Phosphatase 56 U/L (40-129) C-Reactive Protein, Quantitative 2.8 mg/dL (< 0.5) H Pro-B-Type Natriuretic Peptide 44990 pg/mL (0-450) H Total Protein 5.4 g/dL (6.6-8.7) L Albumin 2.6 g/dL (3.5-5.2) L Globulin 2.8 g/dL Albumin/Globulin Ratio 0.9 (1.0-2.7) L Arterial Blood pH 7.484 (7.350-7.450) Arterial Blood Partial Pressure CO2 50.7 mmHg (35.0-45.0) H Arterial Blood Partial Pressure O2 89.5 mmHg (75.0-100.0) Arterial Blood HCO3 37.3 mmol/L (22.0-26.0) H Arterial Blood Oxygen Saturation 96.2 % (92.0-98.0) Arterial Blood Base Excess 12.5 Anjum Test Positive LANDEN HERNANDEZ September 20, 2016 11:07
--- NOTE | 2016-09-20 11:21 | Infectious Diseases Prog Note ---
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 ) LAC improving DM HTN SP pacemaker placement Alzheimer dementia [place] : on HD started 09/14 P: Cefepime d# 7 / 14 ( 09/14 SP Zosyn d# 4 ) Monitor culture Monitor CBC Monitor BMP Monitor LFT Nephro is following HD Cath Subjective Constitutional: Denies: anorexia, chills, drenching sweats, fatigue, fever, no symptoms, other Allergies: Coded Allergies: SULFA (SULFONAMIDE ANTIBIOTICS) (Verified Allergy, Unknown, 09/10/16) Uncoded Allergies: SULFA (Adverse Reaction, Mild, RASH, 04/01/13) Subjective SP HD , on vent Objective Vital Signs Last 24 Hour Vital Signs Date Time Temp Pulse Resp B/P Pulse Ox O2 Delivery O2 Flow Rate FiO2 09/20/16 10:00 76 21 129/59 97 Mechanical Ventilator 30 09/20/16 09:00 72 22 130/69 99 Mechanical Ventilator 30 09/20/16 08:46 70 22 30 09/20/16 08:21 99 09/20/16 08:00 98.4 75 23 134/70 97 Mechanical Ventilator 30 09/20/16 08:00 30 09/20/16 08:00 76 09/20/16 07:00 87 23 134/61 97 Mechanical Ventilator 30 09/20/16 06:58 91 27 30 09/20/16 06:00 73 16 122/48 97 Mechanical Ventilator 30 09/20/16 05:15 69 16 30 09/20/16 05:00 79 21 130/62 98 Mechanical Ventilator 30 09/20/16 04:00 97.7 83 22 139/69 96 Mechanical Ventilator 30 09/20/16 04:00 83 09/20/16 04:00 30 09/20/16 03:30 81 21 30 09/20/16 03:00 75 19 135/68 97 Mechanical Ventilator 30 09/20/16 02:00 65 18 125/52 98 Mechanical Ventilator 30 09/20/16 01:30 64 11 30 09/20/16 01:00 69 20 138/56 98 Mechanical Ventilator 30 09/20/16 00:00 97.8 65 16 129/64 96 Mechanical Ventilator 30 09/20/16 00:00 30 09/20/16 00:00 65 09/19/16 23:30 77 19 30 09/19/16 23:00 74 19 130/62 97 Mechanical Ventilator 30 09/19/16 22:00 65 15 121/54 98 Mechanical Ventilator 30 09/19/16 21:30 82 16 30 09/19/16 21:00 62 13 128/49 99 Mechanical Ventilator 30 09/19/16 20:45 67 09/19/16 20:00 30 09/19/16 20:00 97.4 67 16 132/55 100 Mechanical Ventilator 30 09/19/16 19:30 62 12 30 09/19/16 19:00 80 15 121/46 100 Mechanical Ventilator 30 09/19/16 18:00 61 15 106/47 100 Mechanical Ventilator 30 09/19/16 17:00 60 15 133/52 100 Mechanical Ventilator 30 09/19/16 17:00 70 12 30 09/19/16 16:00 70 09/19/16 16:00 98.7 66 16 120/67 100 Mechanical Ventilator 30 09/19/16 16:00 30 09/19/16 15:11 59 10 30 09/19/16 15:00 64 15 125/48 100 Mechanical Ventilator 30 09/19/16 14:10 30 09/19/16 14:00 69 16 122/55 100 Mechanical Ventilator 30 09/19/16 13:35 30 09/19/16 13:18 76 16 30 09/19/16 13:00 66 16 131/64 100 Mechanical Ventilator 30 09/19/16 12:00 70 09/19/16 12:00 98.3 70 16 142/69 100 Mechanical Ventilator 30 09/19/16 12:00 30 Height (Feet): 5 Height (Inches): 6.00 Weight (Pounds): 160 HEENT: mucous membranes moist Respiratory/Chest: no respiratory distress Cardiovascular: regular rhythm Abdomen: non distended Laboratory Tests Test 09/20/16 05:00 09/20/16 08:45 White Blood Count 4.6 K/UL (4.8-10.8) L Red Blood Count 2.92 M/UL (4.70-6.10) L Hemoglobin 8.4 G/DL (14.2-18.0) L Hematocrit 26.5 % (42.0-52.0) L Mean Corpuscular Volume 91 FL (80-99) Mean Corpuscular Hemoglobin 28.8 PG (27.0-31.0) Mean Corpuscular Hemoglobin Concent 31.8 G/DL (32.0-36.0) L Red Cell Distribution Width 13.9 % (11.6-14.8) Platelet Count 76 K/UL (150-450) L Mean Platelet Volume 8.2 FL (6.5-10.1) Neutrophils (%) (Auto) % (45.0-75.0) Lymphocytes (%) (Auto) % (20.0-45.0) Monocytes (%) (Auto) % (1.0-10.0) Eosinophils (%) (Auto) % (0.0-3.0) Basophils (%) (Auto) % (0.0-2.0) Differential Total Cells Counted 100 Neutrophils % (Manual) 85 % (45-75) H Lymphocytes % (Manual) 9 % (20-45) L Monocytes % (Manual) 5 % (1-10) Eosinophils % (Manual) 1 % (0-3) Basophils % (Manual) 0 % (0-2) Band Neutrophils 0 % (0-8) Platelet Estimate Decreased L Platelet Morphology Normal Hypochromasia 2+ Anisocytosis 1+ Sodium Level 144 mEQ/L (135-145) Potassium Level 4.0 mEQ/L (3.4-4.9) Chloride Level 99 mEQ/L (98-107) Carbon Dioxide Level 34 mEQ/L (20-30) H Anion Gap 11 (5-15) Blood Urea Nitrogen 58 mg/dL (7-23) H Creatinine 3.6 mg/dL (0.7-1.2) H Estimat Glomerular Filtration Rate mL/min (>60) Glucose Level 206 mg/dL (74-106) H Uric Acid 5.2 mg/dL (3.0-7.5) Calcium Level 8.4 mg/dL (8.6-10.2) L Phosphorus Level 2.9 mg/dL (2.5-4.8) Magnesium Level 1.9 mg/dL (1.7-2.5) Total Bilirubin 0.4 mg/dL (0.0-1.2) Aspartate Amino Transf (AST/SGOT) 24 U/L (5-40) Alanine Aminotransferase (ALT/SGPT) 16 U/L (3-41) Alkaline Phosphatase 56 U/L (40-129) C-Reactive Protein, Quantitative 2.8 mg/dL (< 0.5) H Pro-B-Type Natriuretic Peptide 42258 pg/mL (0-450) H Total Protein 5.4 g/dL (6.6-8.7) L Albumin 2.6 g/dL (3.5-5.2) L Globulin 2.8 g/dL Albumin/Globulin Ratio 0.9 (1.0-2.7) L Arterial Blood pH 7.484 (7.350-7.450) Arterial Blood Partial Pressure CO2 50.7 mmHg (35.0-45.0) H Arterial Blood Partial Pressure O2 89.5 mmHg (75.0-100.0) Arterial Blood HCO3 37.3 mmol/L (22.0-26.0) H Arterial Blood Oxygen Saturation 96.2 % (92.0-98.0) Arterial Blood Base Excess 12.5 Anjum Test Positive Current Medications Medications (Trade) Dose Ordered Sig/Barrett Route PRN Reason Start Time Stop Time Status Last Admin Dose Admin Cefepime HCl/ Dextrose (Maxipime/D5W) 55 ml @ 110 mls/hr Q24H IVPB 09/15/16 21:00 09/22/16 20:59 09/19/16 22:03 Dextrose STAT PRN IV Hypoglycemia 09/11/16 05:30 10/11/16 05:29 Insulin Aspart (NovoLOG) Q6HR SUBQ 09/15/16 00:00 10/15/16 00:00 09/20/16 06:24 Norepinephrine Bitartrate/ Dextrose (Levophed/D5W) 516 ml @ 0 mls/hr Q24H IV 09/11/16 14:00 10/11/16 13:59 09/11/16 14:22 Pantoprazole 40 mg 40 mg DAILY IV 09/13/16 09:00 10/13/16 08:59 09/20/16 08:00 CRISTEL DUFF M.D. September 20, 2016 11:21
--- NOTE | 2016-09-20 16:46 | Cardiology Progress Note ---
Assessment/Plan Assessment/Plan 1. Globally weak/septic shock. 2. Renal failure, acute on chronic. 3. 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 4. Anemia. 5. History of upper gastrointestinal bleed with treatment of the visible bleeding vessel previously. 6. Chronic renal insufficiency. 7. Coronary artery disease status post percutaneous coronary intervention with what was felt to be a demand related ischemia. 8. History of aspiration. 9. Altered mental status. 10. Hypertension. 11. Diabetes mellitus 12. thrombocytopenia plt imporoved more bp is ok to day dialysis extubated doign well abx off pressors for nwo tele reviwed Subjective ROS Limited/Unobtainable: Yes Subjective off vent responsive tries to communicate Objective Last 24 Hour Vital Signs Date Time Temp Pulse Resp B/P Pulse Ox O2 Delivery O2 Flow Rate FiO2 09/20/16 15:00 71 21 137/72 97 Mechanical Ventilator 30 09/20/16 14:38 98 Venturi Mask 4.0 30 09/20/16 14:37 Venturi Mask 4.0 30 09/20/16 14:30 Venturi Mask 4.0 30 09/20/16 14:00 85 21 149/76 97 Mechanical Ventilator 30 09/20/16 13:46 137/69 09/20/16 13:25 97 28 30 09/20/16 13:00 89 21 137/69 97 Mechanical Ventilator 30 09/20/16 12:00 30 09/20/16 12:00 98.6 76 21 127/54 98 Mechanical Ventilator 30 09/20/16 11:16 73 23 30 09/20/16 11:00 72 21 126/66 97 Mechanical Ventilator 30 09/20/16 10:00 76 21 129/59 97 Mechanical Ventilator 30 09/20/16 09:00 72 22 130/69 99 Mechanical Ventilator 30 09/20/16 08:46 70 22 30 09/20/16 08:21 99 09/20/16 08:00 98.4 75 23 134/70 97 Mechanical Ventilator 30 09/20/16 08:00 30 09/20/16 08:00 76 09/20/16 07:00 87 23 134/61 97 Mechanical Ventilator 30 09/20/16 06:58 91 27 30 09/20/16 06:00 73 16 122/48 97 Mechanical Ventilator 30 09/20/16 05:15 69 16 30 09/20/16 05:00 79 21 130/62 98 Mechanical Ventilator 30 09/20/16 04:00 97.7 83 22 139/69 96 Mechanical Ventilator 30 09/20/16 04:00 83 09/20/16 04:00 30 09/20/16 03:30 81 21 30 09/20/16 03:00 75 19 135/68 97 Mechanical Ventilator 30 09/20/16 02:00 65 18 125/52 98 Mechanical Ventilator 30 09/20/16 01:30 64 11 30 09/20/16 01:00 69 20 138/56 98 Mechanical Ventilator 30 09/20/16 00:00 97.8 65 16 129/64 96 Mechanical Ventilator 30 09/20/16 00:00 30 09/20/16 00:00 65 09/19/16 23:30 77 19 30 09/19/16 23:00 74 19 130/62 97 Mechanical Ventilator 30 09/19/16 22:00 65 15 121/54 98 Mechanical Ventilator 30 09/19/16 21:30 82 16 30 09/19/16 21:00 62 13 128/49 99 Mechanical Ventilator 30 09/19/16 20:45 67 09/19/16 20:00 30 09/19/16 20:00 97.4 67 16 132/55 100 Mechanical Ventilator 09/19/16 19:30 62 12 30 09/19/16 19:00 80 15 121/46 100 Mechanical Ventilator 30 09/19/16 18:00 61 15 106/47 100 Mechanical Ventilator 30 09/19/16 17:00 60 15 133/52 100 Mechanical Ventilator 30 09/19/16 17:00 70 12 30 General Appearance: no apparent distress, alert Cardiovascular: normal rate, regular rhythm Respiratory/Chest: rhonchi - bilaterally Abdomen: normal bowel sounds, non tender, soft Extremities: no swelling Intake and Output 09/19/16 09/20/16 19:00 07:00 Intake Total 485 ml 475 ml Output Total 305 ml 635 ml Balance 180 ml -160 ml IV Total 100 ml 55 ml Tube Feeding 385 ml 420 ml Output Urine Total 305 ml 635 ml # Bowel Movements 1 Laboratory Tests Test 09/20/16 05:00 09/20/16 08:45 White Blood Count 4.6 K/UL (4.8-10.8) L Red Blood Count 2.92 M/UL (4.70-6.10) L Hemoglobin 8.4 G/DL (14.2-18.0) L Hematocrit 26.5 % (42.0-52.0) L Mean Corpuscular Volume 91 FL (80-99) Mean Corpuscular Hemoglobin 28.8 PG (27.0-31.0) Mean Corpuscular Hemoglobin Concent 31.8 G/DL (32.0-36.0) L Red Cell Distribution Width 13.9 % (11.6-14.8) Platelet Count 76 K/UL (150-450) L Mean Platelet Volume 8.2 FL (6.5-10.1) Neutrophils (%) (Auto) % (45.0-75.0) Lymphocytes (%) (Auto) % (20.0-45.0) Monocytes (%) (Auto) % (1.0-10.0) Eosinophils (%) (Auto) % (0.0-3.0) Basophils (%) (Auto) % (0.0-2.0) Differential Total Cells Counted 100 Neutrophils % (Manual) 85 % (45-75) H Lymphocytes % (Manual) 9 % (20-45) L Monocytes % (Manual) 5 % (1-10) Eosinophils % (Manual) 1 % (0-3) Basophils % (Manual) 0 % (0-2) Band Neutrophils 0 % (0-8) Platelet Estimate Decreased L Platelet Morphology Normal Hypochromasia 2+ Anisocytosis 1+ Sodium Level 144 mEQ/L (135-145) Potassium Level 4.0 mEQ/L (3.4-4.9) Chloride Level 99 mEQ/L (98-107) Carbon Dioxide Level 34 mEQ/L (20-30) H Anion Gap 11 (5-15) Blood Urea Nitrogen 58 mg/dL (7-23) H Creatinine 3.6 mg/dL (0.7-1.2) H Estimat Glomerular Filtration Rate mL/min (>60) Glucose Level 206 mg/dL (74-106) H Uric Acid 5.2 mg/dL (3.0-7.5) Calcium Level 8.4 mg/dL (8.6-10.2) L Phosphorus Level 2.9 mg/dL (2.5-4.8) Magnesium Level 1.9 mg/dL (1.7-2.5) Total Bilirubin 0.4 mg/dL (0.0-1.2) Aspartate Amino Transf (AST/SGOT) 24 U/L (5-40) Alanine Aminotransferase (ALT/SGPT) 16 U/L (3-41) Alkaline Phosphatase 56 U/L (40-129) C-Reactive Protein, Quantitative 2.8 mg/dL (< 0.5) H Pro-B-Type Natriuretic Peptide 07912 pg/mL (0-450) H Total Protein 5.4 g/dL (6.6-8.7) L Albumin 2.6 g/dL (3.5-5.2) L Globulin 2.8 g/dL Albumin/Globulin Ratio 0.9 (1.0-2.7) L Arterial Blood pH 7.484 (7.350-7.450) Arterial Blood Partial Pressure CO2 50.7 mmHg (35.0-45.0) H Arterial Blood Partial Pressure O2 89.5 mmHg (75.0-100.0) Arterial Blood HCO3 37.3 mmol/L (22.0-26.0) H Arterial Blood Oxygen Saturation 96.2 % (92.0-98.0) Arterial Blood Base Excess 12.5 Anjum Test Positive RAJ DEL ROSARIO September 20, 2016 16:46
--- NOTE | 2016-09-20 17:10 | Internal Med Progress Note ---
Subjective Date of Service: September 20, 2016 Physician Name King Key Attending Physician Jonathan Sampson MD Current Medications Medications (Trade) Dose Ordered Sig/Barrett Route PRN Reason Start Time Stop Time Status Last Admin Dose Admin Cefepime HCl/ Dextrose (Maxipime/D5W) 55 ml @ 110 mls/hr Q24H IVPB 09/15/16 21:00 09/22/16 20:59 09/19/16 22:03 Dextrose STAT PRN IV Hypoglycemia 09/11/16 05:30 10/11/16 05:29 Insulin Aspart (NovoLOG) Q6HR SUBQ 09/15/16 00:00 10/15/16 00:00 09/20/16 11:57 Norepinephrine Bitartrate/ Dextrose (Levophed/D5W) 516 ml @ 0 mls/hr Q24H IV 09/11/16 14:00 10/11/16 13:59 09/11/16 14:22 Pantoprazole 40 mg 40 mg DAILY IV 09/13/16 09:00 10/13/16 08:59 09/20/16 08:00 Allergies: Coded Allergies: SULFA (SULFONAMIDE ANTIBIOTICS) (Verified Allergy, Unknown, 09/10/16) Uncoded Allergies: SULFA (Adverse Reaction, Mild, RASH, 04/01/13) ROS Limited/Unobtainable: No Constitutional: Reports: no symptoms HEENT: Reports: no symptoms Cardiovascular: Reports: no symptoms Respiratory: Reports: shortness of breath Gastrointestinal/Abdominal: Reports: no symptoms Genitourinary: Reports: no symptoms Neurologic/Psychiatric: Reports: no symptoms Subjective 76 YO M admitted with hypotension and UTI/sepsis. ICU. Extubated this afternoon at 1430; tolerating venturi mask. Cover for Int Med-Dr Sampson.. Cont off levophed. Objective Last Vital Signs Date Time Temp Pulse Resp B/P Pulse Ox O2 Delivery O2 Flow Rate FiO2 09/20/16 15:00 71 21 137/72 97 Mechanical Ventilator 30 09/20/16 14:38 4.0 09/20/16 12:00 98.6 Laboratory Tests Test 09/20/16 05:00 09/20/16 08:45 White Blood Count 4.6 K/UL (4.8-10.8) L Red Blood Count 2.92 M/UL (4.70-6.10) L Hemoglobin 8.4 G/DL (14.2-18.0) L Hematocrit 26.5 % (42.0-52.0) L Mean Corpuscular Volume 91 FL (80-99) Mean Corpuscular Hemoglobin 28.8 PG (27.0-31.0) Mean Corpuscular Hemoglobin Concent 31.8 G/DL (32.0-36.0) L Red Cell Distribution Width 13.9 % (11.6-14.8) Platelet Count 76 K/UL (150-450) L Mean Platelet Volume 8.2 FL (6.5-10.1) Neutrophils (%) (Auto) % (45.0-75.0) Lymphocytes (%) (Auto) % (20.0-45.0) Monocytes (%) (Auto) % (1.0-10.0) Eosinophils (%) (Auto) % (0.0-3.0) Basophils (%) (Auto) % (0.0-2.0) Differential Total Cells Counted 100 Neutrophils % (Manual) 85 % (45-75) H Lymphocytes % (Manual) 9 % (20-45) L Monocytes % (Manual) 5 % (1-10) Eosinophils % (Manual) 1 % (0-3) Basophils % (Manual) 0 % (0-2) Band Neutrophils 0 % (0-8) Platelet Estimate Decreased L Platelet Morphology Normal Hypochromasia 2+ Anisocytosis 1+ Sodium Level 144 mEQ/L (135-145) Potassium Level 4.0 mEQ/L (3.4-4.9) Chloride Level 99 mEQ/L (98-107) Carbon Dioxide Level 34 mEQ/L (20-30) H Anion Gap 11 (5-15) Blood Urea Nitrogen 58 mg/dL (7-23) H Creatinine 3.6 mg/dL (0.7-1.2) H Estimat Glomerular Filtration Rate mL/min (>60) Glucose Level 206 mg/dL (74-106) H Uric Acid 5.2 mg/dL (3.0-7.5) Calcium Level 8.4 mg/dL (8.6-10.2) L Phosphorus Level 2.9 mg/dL (2.5-4.8) Magnesium Level 1.9 mg/dL (1.7-2.5) Total Bilirubin 0.4 mg/dL (0.0-1.2) Aspartate Amino Transf (AST/SGOT) 24 U/L (5-40) Alanine Aminotransferase (ALT/SGPT) 16 U/L (3-41) Alkaline Phosphatase 56 U/L (40-129) C-Reactive Protein, Quantitative 2.8 mg/dL (< 0.5) H Pro-B-Type Natriuretic Peptide 52385 pg/mL (0-450) H Total Protein 5.4 g/dL (6.6-8.7) L Albumin 2.6 g/dL (3.5-5.2) L Globulin 2.8 g/dL Albumin/Globulin Ratio 0.9 (1.0-2.7) L Arterial Blood pH 7.484 (7.350-7.450) Arterial Blood Partial Pressure CO2 50.7 mmHg (35.0-45.0) H Arterial Blood Partial Pressure O2 89.5 mmHg (75.0-100.0) Arterial Blood HCO3 37.3 mmol/L (22.0-26.0) H Arterial Blood Oxygen Saturation 96.2 % (92.0-98.0) Arterial Blood Base Excess 12.5 Anjum Test Positive Intake and Output 09/19/16 09/20/16 19:00 07:00 Intake Total 485 ml 475 ml Output Total 305 ml 635 ml Balance 180 ml -160 ml IV Total 100 ml 55 ml Tube Feeding 385 ml 420 ml Output Urine Total 305 ml 635 ml # Bowel Movements 1 Objective General Appearance: WD/WN, moderate distress EENT: normal ENT inspection Neck: non-tender, normal alignment, supple Cardiovascular: normal peripheral pulses, normal rate, regular rhythm, no gallop/murmur, no JVD Respiratory/Chest: Mech Vent; respiratory distress, crackles/rales, rhonchi - bilaterally, expiratory wheezing Abdomen: normal bowel sounds, non tender, soft, no organomegaly, no mass Skin: normal pigmentation, warm/dry Assessment/Plan Problem List: (1) Severe sepsis Assessment & Plan: Cont cefepime per ID (2) Respiratory failure Assessment & Plan: Extubated today per pulmonary (3) Renal failure Assessment & Plan: Last Hemodialysis 09/17/16 per nephrology. (4) Diabetes mellitus type II, uncontrolled Assessment & Plan: Cont novolog sliding scale. (5) BPH (benign prostatic hyperplasia) (6) Hypokalemia (7) Infection caused by Enterobacter cloacae (8) UTI (urinary tract infection) Assessment & Plan: Enterobacter. D/C zosyn. Start cefepime per ID (9) Hypotension Assessment & Plan: Cont levophed (10) Dysphagia Assessment & Plan: Swallow KNIG Ramos September 20, 2016 17:10
[2016-09-20] MEDS: Cefepime 500mg in D5W 55ml IVPB SCH (21:34)
[2016-09-21] VITALS (20 sets, daily range): BP systolic 12–139; BP diastolic 53–76
[2016-09-21 05:35] LABS: MEAN CORPUSCULAR HEMOGLOBIN 29.2 PG (27.0-31.0); MEAN CORPUSCULAR VOLUME 91 FL (80-99); MEAN PLATELET VOLUME 6.8 FL (6.5-10.1); PLATELET COUNT 84 K/UL (150-450); RED BLOOD COUNT 2.67 M/UL (4.70-6.10); RED CELL DISTRIBUTION WIDTH 14.2 % (11.6-14.8); WHITE BLOOD COUNT 4.9 K/UL (4.8-10.8)
[2016-09-21 05:43] LABS: ALANINE AMINOTRANSFERASE 16 U/L (3-41); ALBUMIN/GLOBULIN RATIO 0.8 (1.0-2.7); ANION GAP 13 (5-15); ASPARTATE AMINO TRANSFERASE 23 U/L (5-40); CALCIUM 8.4 mg/dL (8.6-10.2); CARBON DIOXIDE 32 mEQ/L (20-30); CHLORIDE 101 mEQ/L (98-107); CREATININE 4.1 mg/dL (0.7-1.2); HEMOLYSIS 3; MAGNESIUM 1.9 mg/dL (1.7-2.5); PHOSPHORUS 3.8 mg/dL (2.5-4.8); POTASSIUM 3.5 mEQ/L (3.4-4.9); SODIUM 146 mEQ/L (135-145); TOTAL PROTEIN 5.5 g/dL (6.6-8.7); URIC ACID 5.9 mg/dL (3.0-7.5)
[2016-09-21] MEDS: NovoLOG Insulin Flexpen SUBQ SCH ×4 (06:00→18:00)
[2016-09-21] MEDS: Pantoprazole Inj IV SCH (08:17)
[2016-09-21 08:43] LABS: ANISOCYTOSIS 1+; BAND NEUTROPHILS % (MANUAL) 0 % (0-8); BASOPHILS % (MANUAL) 1 % (0-2); EOSINOPHILS % (MANUAL) 1 % (0-3); HYPOCHROMASIA 3+; LYMPHOCYTES % (MANUAL) 18 % (20-45); NEUTROPHILS % (MANUAL) 72 % (45-75); PLATELET ESTIMATE DECREASED; PLATELET MORPHOLOGY NORMAL; TOTAL CELLS COUNTED 100
--- NOTE | 2016-09-21 10:44 | Pulmonolgy Critical Care Note ---
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 Renal: F/U I&O, keep IV fluid, check electrolytes Infectious Disease: check cultures, continue antibiotics Gastrointestinal: other - swallow study Endocrine: check TSH Hematologic: monitor H/H, transfuse if hgb<8.5 Neurologic: PRN Ativan, PRN Morphine, keep patient comfortable Affect: PRN ativan Prophylaxis: Protonix Time Spent (Minutes): 40 Notes 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: 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, 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, 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 Discussed with: nurses, consultants, ed case managerdistribution sales manager - Objective Last 24 Hour Vital Signs Date Time Temp Pulse Resp B/P Pulse Ox O2 Delivery O2 Flow Rate FiO2 09/21/16 10:00 75 20 122/53 100 Nasal Cannula 2.0 09/21/16 08:56 70 22 117/62 100 Nasal Cannula 2.0 09/21/16 08:00 67 09/21/16 08:00 97.7 67 21 130/64 100 Nasal Cannula 2.0 09/21/16 07:38 122/58 09/21/16 07:00 75 23 122/58 100 Mechanical Ventilator 40 09/21/16 06:32 99 Nasal Cannula 2.0 09/21/16 06:32 Nasal Cannula 2.0 09/21/16 06:00 77 22 125/62 100 Mechanical Ventilator 40 09/21/16 05:00 68 20 119/63 93 Mechanical Ventilator 40 09/21/16 04:00 76 25 124/62 98 Mechanical Ventilator 40 09/21/16 04:00 76 09/21/16 03:00 77 23 124/62 100 Mechanical Ventilator 40 09/21/16 02:00 72 23 135/67 100 Mechanical Ventilator 40 09/21/16 01:00 69 23 125/65 100 Mechanical Ventilator 40 09/21/16 00:00 72 09/21/16 00:00 97.8 72 23 139/62 100 Mechanical Ventilator 30 09/20/16 23:00 88 20 128/59 100 Mechanical Ventilator 40 09/20/16 22:00 74 20 135/74 100 Mechanical Ventilator 40 09/20/16 21:00 70 23 131/65 100 Mechanical Ventilator 40 09/20/16 20:00 73 09/20/16 20:00 97.8 72 23 125/54 99 Mechanical Ventilator 30 09/20/16 19:00 74 21 133/78 100 Mechanical Ventilator 40 09/20/16 19:00 100 Nasal Cannula 2.0 09/20/16 19:00 Nasal Cannula 2.0 09/20/16 18:00 71 21 126/66 100 Mechanical Ventilator 40 09/20/16 17:00 68 21 144/71 98 Mechanical Ventilator 30 09/20/16 16:00 98.3 75 21 138/75 98 Mechanical Ventilator 30 09/20/16 16:00 82 09/20/16 15:00 71 21 134/68 97 Mechanical Ventilator 30 09/20/16 14:38 98 Venturi Mask 4.0 30 09/20/16 14:37 Venturi Mask 4.0 30 09/20/16 14:30 Venturi Mask 4.0 30 09/20/16 14:00 85 21 149/76 97 Mechanical Ventilator 30 09/20/16 13:46 137/69 09/20/16 13:25 97 28 30 09/20/16 13:00 89 21 137/69 97 Mechanical Ventilator 30 09/20/16 12:00 72 09/20/16 12:00 30 09/20/16 12:00 98.6 76 21 127/54 98 Mechanical Ventilator 30 09/20/16 11:16 73 23 30 09/20/16 11:00 72 21 126/66 97 Mechanical Ventilator 30 Status: awake Condition: critical Neck: full ROM Lungs: clear, chest wall tender Heart: HR/BP stable, HR/BP unstable Abdomen: soft, non-tender, active bowel sounds Extremities: no C/C/E, edema Decubiti: location Accucheck: 96 Critical Care - Subjective ROS Limited/Unobtainable: No ICU Day: 10 Intubation Day: extubated yesterday Condition: critical, improving EKG Rhythm: Sinus Rhythm Vent Support Breath Rate: 10 Vent Support Mode: CPAP Vent Tidal Volume: 500 Sputum Amount: Large PEEP: 5.0 PIP: 27 Tube Feeding Amount: 35 I&O: Intake and Output 09/20/16 09/21/16 18:59 06:59 Intake Total 280 ml 880 ml Output Total 885 ml 685 ml Balance -605 ml 195 ml IV Total 880 ml Tube Feeding 280 ml Output Urine Total 885 ml 685 ml CXR: no change ET-Tube: 7.0 ET Position: 24 Labs: Laboratory Tests Test 09/21/16 04:15 White Blood Count 4.9 K/UL (4.8-10.8) Red Blood Count 2.67 M/UL (4.70-6.10) L Hemoglobin 7.8 G/DL (14.2-18.0) L Hematocrit 24.4 % (42.0-52.0) L Mean Corpuscular Volume 91 FL (80-99) Mean Corpuscular Hemoglobin 29.2 PG (27.0-31.0) Mean Corpuscular Hemoglobin Concent 32.0 G/DL (32.0-36.0) Red Cell Distribution Width 14.2 % (11.6-14.8) Platelet Count 84 K/UL (150-450) L Mean Platelet Volume 6.8 FL (6.5-10.1) Neutrophils (%) (Auto) % (45.0-75.0) Lymphocytes (%) (Auto) % (20.0-45.0) Monocytes (%) (Auto) % (1.0-10.0) Eosinophils (%) (Auto) % (0.0-3.0) Basophils (%) (Auto) % (0.0-2.0) Differential Total Cells Counted 100 Neutrophils % (Manual) 72 % (45-75) Lymphocytes % (Manual) 18 % (20-45) L Monocytes % (Manual) 8 % (1-10) Eosinophils % (Manual) 1 % (0-3) Basophils % (Manual) 1 % (0-2) Band Neutrophils 0 % (0-8) Platelet Estimate Decreased L Platelet Morphology Normal Hypochromasia 3+ Anisocytosis 1+ Sodium Level 146 mEQ/L (135-145) H Potassium Level 3.5 mEQ/L (3.4-4.9) Chloride Level 101 mEQ/L (98-107) Carbon Dioxide Level 32 mEQ/L (20-30) H Anion Gap 13 (5-15) Blood Urea Nitrogen 62 mg/dL (7-23) H Creatinine 4.1 mg/dL (0.7-1.2) H Estimat Glomerular Filtration Rate mL/min (>60) Glucose Level 98 mg/dL (74-106) # Uric Acid 5.9 mg/dL (3.0-7.5) Calcium Level 8.4 mg/dL (8.6-10.2) L Phosphorus Level 3.8 mg/dL (2.5-4.8) Magnesium Level 1.9 mg/dL (1.7-2.5) Total Bilirubin 0.4 mg/dL (0.0-1.2) Gamma Glutamyl Transpeptidase 21 U/L (8-61) Aspartate Amino Transf (AST/SGOT) 23 U/L (5-40) Alanine Aminotransferase (ALT/SGPT) 16 U/L (3-41) Alkaline Phosphatase 55 U/L (40-129) Total Creatine Kinase 33 U/L (38-174) L Pro-B-Type Natriuretic Peptide > 19291 pg/mL (0-450) H Total Protein 5.5 g/dL (6.6-8.7) L Albumin 2.5 g/dL (3.5-5.2) L Globulin 3.0 g/dL Albumin/Globulin Ratio 0.8 (1.0-2.7) L LANDEN HERNANDEZ September 21, 2016 10:44
--- NOTE | 2016-09-21 11:46 | General Progress Note ---
Assessment/Plan Status: unchanged Status Narrative Cr creeping up Assessment/Plan status: Septic Shock leading to acute renal and multiOrgan failure Due to the above: Sever Acidosis , high Lactate , High K ALL IMPROVED- Seems like patient has CKD , unclear what is the baseline S Cr Sugg: HD today- Last HD 09/17, Phos supplement - K supplement as needed Hemodynamic support Antibiotics discussed with RN monitor renal parameters Subjective ROS Limited/Unobtainable: Yes Allergies: Coded Allergies: SULFA (SULFONAMIDE ANTIBIOTICS) (Verified Allergy, Unknown, 09/10/16) Uncoded Allergies: SULFA (Adverse Reaction, Mild, RASH, 04/01/13) Objective Last 24 Hour Vital Signs Date Time Temp Pulse Resp B/P Pulse Ox O2 Delivery O2 Flow Rate FiO2 09/21/16 11:00 68 20 125/57 96 Nasal Cannula 2.0 09/21/16 10:00 75 20 122/53 100 Nasal Cannula 2.0 09/21/16 08:56 70 22 117/62 100 Nasal Cannula 2.0 09/21/16 08:00 67 09/21/16 08:00 97.7 67 21 130/64 100 Nasal Cannula 2.0 09/21/16 07:38 122/58 09/21/16 07:00 75 23 122/58 100 Mechanical Ventilator 40 09/21/16 06:32 99 Nasal Cannula 2.0 09/21/16 06:32 Nasal Cannula 2.0 09/21/16 06:00 77 22 125/62 100 Mechanical Ventilator 40 09/21/16 05:00 68 20 119/63 93 Mechanical Ventilator 40 09/21/16 04:00 76 25 124/62 98 Mechanical Ventilator 40 09/21/16 04:00 76 09/21/16 03:00 77 23 124/62 100 Mechanical Ventilator 40 09/21/16 02:00 72 23 135/67 100 Mechanical Ventilator 40 09/21/16 01:00 69 23 125/65 100 Mechanical Ventilator 40 09/21/16 00:00 72 09/21/16 00:00 97.8 72 23 139/62 100 Mechanical Ventilator 30 09/20/16 23:00 88 20 128/59 100 Mechanical Ventilator 40 09/20/16 22:00 74 20 135/74 100 Mechanical Ventilator 40 09/20/16 21:00 70 23 131/65 100 Mechanical Ventilator 40 09/20/16 20:00 73 09/20/16 20:00 97.8 72 23 125/54 99 Mechanical Ventilator 30 09/20/16 19:00 74 21 133/78 100 Mechanical Ventilator 40 09/20/16 19:00 100 Nasal Cannula 2.0 09/20/16 19:00 Nasal Cannula 2.0 09/20/16 18:00 71 21 126/66 100 Mechanical Ventilator 40 09/20/16 17:00 68 21 144/71 98 Mechanical Ventilator 30 09/20/16 16:00 98.3 75 21 138/75 98 Mechanical Ventilator 30 09/20/16 16:00 82 09/20/16 15:00 71 21 134/68 97 Mechanical Ventilator 30 09/20/16 14:38 98 Venturi Mask 4.0 30 09/20/16 14:37 Venturi Mask 4.0 30 09/20/16 14:30 Venturi Mask 4.0 30 09/20/16 14:00 85 21 149/76 97 Mechanical Ventilator 30 09/20/16 13:46 137/69 09/20/16 13:25 97 28 30 09/20/16 13:00 89 21 137/69 97 Mechanical Ventilator 30 09/20/16 12:00 72 09/20/16 12:00 30 09/20/16 12:00 98.6 76 21 127/54 98 Mechanical Ventilator 30 Intake and Output 09/20/16 09/21/16 19:00 07:00 Intake Total 245 ml 980 ml Output Total 1005 ml 535 ml Balance -760 ml 445 ml IV Total 980 ml Tube Feeding 245 ml Output Urine Total 1005 ml 535 ml Laboratory Tests 09/21/16 04:15: White Blood Count 4.9, Red Blood Count 2.67L, Hemoglobin 7.8L, Hematocrit 24.4L , Mean Corpuscular Volume 91, Mean Corpuscular Hemoglobin 29.2, Mean Corpuscular Hemoglobin Concent 32.0, Red Cell Distribution Width 14.2, Platelet Count 84L, Mean Platelet Volume 6.8, Neutrophils (%) (Auto) , Lymphocytes (%) ( Auto) , Monocytes (%) (Auto) , Eosinophils (%) (Auto) , Basophils (%) (Auto) , Differential Total Cells Counted 100, Neutrophils % (Manual) 72, Lymphocytes % ( Manual) 18L, Monocytes % (Manual) 8, Eosinophils % (Manual) 1, Basophils % ( Manual) 1, Band Neutrophils 0, Platelet Estimate DecreasedL, Platelet Morphology Normal, Hypochromasia 3+, Anisocytosis 1+, Sodium Level 146H, Potassium Level 3.5, Chloride Level 101, Carbon Dioxide Level 32H, Anion Gap 13 , Blood Urea Nitrogen 62H, Creatinine 4.1H, Estimat Glomerular Filtration Rate , Glucose Level 98#, Uric Acid 5.9, Calcium Level 8.4L, Phosphorus Level 3.8, Magnesium Level 1.9, Total Bilirubin 0.4, Gamma Glutamyl Transpeptidase 21, Aspartate Amino Transf (AST/SGOT) 23, Alanine Aminotransferase (ALT/SGPT) 16, Alkaline Phosphatase 55, Total Creatine Kinase 33L, Pro-B-Type Natriuretic Peptide > 69033K, Total Protein 5.5L, Albumin 2.5L, Globulin 3.0, Albumin/ Globulin Ratio 0.8L Height (Feet): 5 Height (Inches): 6.00 Weight (Pounds): 160 Neck: limited range of motion Cardiovascular: normal rate Respiratory/Chest: decreased breath sounds Abdomen: soft, other - feeding on hold Objective no change in PE MARIAN KOTHARI September 21, 2016 11:46
--- NOTE | 2016-09-21 11:57 | Diagnostic Imaging Report ---
Indication: Dyspnea Comparison: 09/18/16 A single view chest radiograph was obtained. Findings: Interstitial pulmonary edema has increased since the last study. Heart is mildly enlarged. There is a right jugular catheter in good position. A small effusion may be present on the left. Impression: Slightly worsening CHF
[2016-09-21] MEDS ORDERED: 1/2 NS 1000ml IV ONE (15:09)
--- NOTE | 2016-09-21 17:00 | Internal Med Progress Note ---
Subjective Physician Name Jonathan Sampson Attending Physician Jonathan Sampson MD Current Medications Medications (Trade) Dose Ordered Sig/Barrett Route PRN Reason Start Time Stop Time Status Last Admin Dose Admin Cefepime HCl/ Dextrose (Maxipime/D5W) 55 ml @ 110 mls/hr Q24H IVPB 09/15/16 21:00 09/27/16 20:59 09/20/16 21:34 Dextrose STAT PRN IV Hypoglycemia 09/11/16 05:30 10/11/16 05:29 Insulin Aspart Q6HR SUBQ 09/15/16 00:00 10/15/16 00:00 09/20/16 18:24 Norepinephrine Bitartrate/ Dextrose (Levophed/D5W) 516 ml @ 0 mls/hr Q24H IV 09/11/16 14:00 10/11/16 13:59 09/11/16 14:22 Pantoprazole 40 mg 40 mg DAILY IV 09/13/16 09:00 10/13/16 08:59 09/21/16 08:17 Sodium Chloride (0.45% NS 1000ml) 1,000 ml @ 40 mls/hr Q24H IV 09/21/16 12:00 10/21/16 11:59 09/21/16 11:00 Allergies: Coded Allergies: SULFA (SULFONAMIDE ANTIBIOTICS) (Verified Allergy, Unknown, 09/10/16) Uncoded Allergies: SULFA (Adverse Reaction, Mild, RASH, 04/01/13) Subjective awake, alert, responsive, in ICU, getting Dialysis, NAD Objective Last Vital Signs Date Time Temp Pulse Resp B/P Pulse Ox O2 Delivery O2 Flow Rate FiO2 09/21/16 16:00 98.4 67 20 115/61 100 Nasal Cannula 2.0 09/21/16 08:00 Laboratory Tests Test 09/21/16 04:15 White Blood Count 4.9 K/UL (4.8-10.8) Red Blood Count 2.67 M/UL (4.70-6.10) L Hemoglobin 7.8 G/DL (14.2-18.0) L Hematocrit 24.4 % (42.0-52.0) L Mean Corpuscular Volume 91 FL (80-99) Mean Corpuscular Hemoglobin 29.2 PG (27.0-31.0) Mean Corpuscular Hemoglobin Concent 32.0 G/DL (32.0-36.0) Red Cell Distribution Width 14.2 % (11.6-14.8) Platelet Count 84 K/UL (150-450) L Mean Platelet Volume 6.8 FL (6.5-10.1) Neutrophils (%) (Auto) % (45.0-75.0) Lymphocytes (%) (Auto) % (20.0-45.0) Monocytes (%) (Auto) % (1.0-10.0) Eosinophils (%) (Auto) % (0.0-3.0) Basophils (%) (Auto) % (0.0-2.0) Differential Total Cells Counted 100 Neutrophils % (Manual) 72 % (45-75) Lymphocytes % (Manual) 18 % (20-45) L Monocytes % (Manual) 8 % (1-10) Eosinophils % (Manual) 1 % (0-3) Basophils % (Manual) 1 % (0-2) Band Neutrophils 0 % (0-8) Platelet Estimate Decreased L Platelet Morphology Normal Hypochromasia 3+ Anisocytosis 1+ Sodium Level 146 mEQ/L (135-145) H Potassium Level 3.5 mEQ/L (3.4-4.9) Chloride Level 101 mEQ/L (98-107) Carbon Dioxide Level 32 mEQ/L (20-30) H Anion Gap 13 (5-15) Blood Urea Nitrogen 62 mg/dL (7-23) H Creatinine 4.1 mg/dL (0.7-1.2) H Estimat Glomerular Filtration Rate mL/min (>60) Glucose Level 98 mg/dL (74-106) # Uric Acid 5.9 mg/dL (3.0-7.5) Calcium Level 8.4 mg/dL (8.6-10.2) L Phosphorus Level 3.8 mg/dL (2.5-4.8) Magnesium Level 1.9 mg/dL (1.7-2.5) Total Bilirubin 0.4 mg/dL (0.0-1.2) Gamma Glutamyl Transpeptidase 21 U/L (8-61) Aspartate Amino Transf (AST/SGOT) 23 U/L (5-40) Alanine Aminotransferase (ALT/SGPT) 16 U/L (3-41) Alkaline Phosphatase 55 U/L (40-129) Total Creatine Kinase 33 U/L (38-174) L Pro-B-Type Natriuretic Peptide > 88985 pg/mL (0-450) H Total Protein 5.5 g/dL (6.6-8.7) L Albumin 2.5 g/dL (3.5-5.2) L Globulin 3.0 g/dL Albumin/Globulin Ratio 0.8 (1.0-2.7) L Intake and Output 09/20/16 09/21/16 19:00 07:00 Intake Total 245 ml 980 ml Output Total 1005 ml 535 ml Balance -760 ml 445 ml IV Total 980 ml Tube Feeding 245 ml Output Urine Total 1005 ml 535 ml Objective General: No acute distress, awake and alert, Cachexia. HEENT: NCAT, sclera anicteric, PERRL, EOMI. Neck: Supple, Right IJ dialysis cath. Lungs: fair inspiratory effort, no Wheeze or Rales, decrease air on bases. Heart: Regular rate and rhythm, normal S1/S2, Left side Pacemaker. Abdomen: soft, nontender, nondistended. Normoactive bowel sounds. : Perry cath Extremities: No Cyanosis , clubbing or edema. Muscle atrophy. Neuro: A&O x 3, Able to move all extremities Psych: Normal mood and affect Assessment/Plan Assessment/Plan 1. Septic shock. 2. Acidosis. 3. 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 4. Anemia. 5. History of upper gastrointestinal bleed with treatment of the visible bleeding vessel previously. 6. [place] on Chronic renal insufficiency on hemodialysis. 7. Coronary artery disease status post percutaneous coronary intervention with what was felt to be a demand related ischemia. 8. History of aspiration. 9. toxic Metabolic encephalopathy due to CKD and infection.. 10. Hypertension. 11. Diabetes mellitus Type 2. 12. thrombocytopenia 13. UTI 14. Hyperkalemia resolved. Plan: Transfer to [facility] today Monitor Labs and cultures Abx: Cefepime IV PT Mobility Full code DVT prophylaxis: SCD Jonathan Sampson MD September 21, 2016 17:00
--- NOTE | 2016-09-21 20:42 | Cardiology Progress Note ---
Assessment/Plan Assessment/Plan 1. Globally weak/septic shock. 2. Renal failure, acute on chronic. 3. 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 4. Anemia. 5. History of upper gastrointestinal bleed with treatment of the visible bleeding vessel previously. 6. Chronic renal insufficiency. 7. Coronary artery disease status post percutaneous coronary intervention with what was felt to be a demand related ischemia. 8. History of aspiration. 9. Altered mental status. 10. Hypertension. 11. Diabetes mellitus 12. thrombocytopenia plt imporoved more bp is ok to day dialysis remains extubated doign well abx off pressors for nwo tele reviwed sinus with occasion atrial pacing watch hgb Subjective ROS Limited/Unobtainable: Yes Subjective off vent responsive tries to communicate Objective Last 24 Hour Vital Signs Date Time Temp Pulse Resp B/P Pulse Ox O2 Delivery O2 Flow Rate FiO2 09/21/16 19:08 99 Nasal Cannula 2.0 28 09/21/16 19:08 Nasal Cannula 2.0 28 09/21/16 18:00 69 19 115/59 100 Nasal Cannula 2.0 09/21/16 17:30 Nasal Cannula 2.0 09/21/16 17:00 70 20 125/61 100 Nasal Cannula 2.0 09/21/16 16:00 98.4 67 20 115/61 100 Nasal Cannula 2.0 09/21/16 15:00 70 20 121/59 100 Nasal Cannula 2.0 09/21/16 14:25 Nasal Cannula 2.0 09/21/16 14:00 69 09/21/16 14:00 69 20 131/67 100 Nasal Cannula 2.0 09/21/16 13:01 70 20 125/64 96 Nasal Cannula 2.0 09/21/16 12:00 98.1 70 20 117/63 99 Nasal Cannula 2.0 09/21/16 12:00 68 09/21/16 11:00 68 20 125/57 96 Nasal Cannula 2.0 09/21/16 10:00 75 20 122/53 100 Nasal Cannula 2.0 09/21/16 08:56 70 22 117/62 100 Nasal Cannula 2.0 09/21/16 08:00 67 09/21/16 08:00 97.7 67 21 130/64 100 Nasal Cannula 2.0 09/21/16 07:38 122/58 09/21/16 07:00 75 23 122/58 100 Mechanical Ventilator 40 5/10/17 06:32 99 Nasal Cannula 2.0 09/21/16 06:32 Nasal Cannula 2.0 09/21/16 06:00 77 22 125/62 100 Mechanical Ventilator 40 09/21/16 05:00 68 20 119/63 93 Mechanical Ventilator 40 09/21/16 04:00 76 25 124/62 98 Mechanical Ventilator 40 09/21/16 04:00 76 09/21/16 03:00 77 23 124/62 100 Mechanical Ventilator 40 09/21/16 02:00 72 23 135/67 100 Mechanical Ventilator 40 09/21/16 01:00 69 23 125/65 100 Mechanical Ventilator 40 09/21/16 00:00 72 09/21/16 00:00 97.8 72 23 139/62 100 Mechanical Ventilator 30 09/20/16 23:00 88 20 128/59 100 Mechanical Ventilator 40 09/20/16 22:00 74 20 135/74 100 Mechanical Ventilator 40 09/20/16 21:00 70 23 131/65 100 Mechanical Ventilator 40 General Appearance: lethargic Neck: supple Cardiovascular: normal rate, regular rhythm Respiratory/Chest: lungs clear - ante Abdomen: non tender, soft Extremities: trace edema Intake and Output 09/20/16 09/21/16 19:00 07:00 Intake Total 245 ml 980 ml Output Total 1005 ml 535 ml Balance -760 ml 445 ml IV Total 980 ml Tube Feeding 245 ml Output Urine Total 1005 ml 535 ml Laboratory Tests Test 09/21/16 04:15 White Blood Count 4.9 K/UL (4.8-10.8) Red Blood Count 2.67 M/UL (4.70-6.10) L Hemoglobin 7.8 G/DL (14.2-18.0) L Hematocrit 24.4 % (42.0-52.0) L Mean Corpuscular Volume 91 FL (80-99) Mean Corpuscular Hemoglobin 29.2 PG (27.0-31.0) Mean Corpuscular Hemoglobin Concent 32.0 G/DL (32.0-36.0) Red Cell Distribution Width 14.2 % (11.6-14.8) Platelet Count 84 K/UL (150-450) L Mean Platelet Volume 6.8 FL (6.5-10.1) Neutrophils (%) (Auto) % (45.0-75.0) Lymphocytes (%) (Auto) % (20.0-45.0) Monocytes (%) (Auto) % (1.0-10.0) Eosinophils (%) (Auto) % (0.0-3.0) Basophils (%) (Auto) % (0.0-2.0) Differential Total Cells Counted 100 Neutrophils % (Manual) 72 % (45-75) Lymphocytes % (Manual) 18 % (20-45) L Monocytes % (Manual) 8 % (1-10) Eosinophils % (Manual) 1 % (0-3) Basophils % (Manual) 1 % (0-2) Band Neutrophils 0 % (0-8) Platelet Estimate Decreased L Platelet Morphology Normal Hypochromasia 3+ Anisocytosis 1+ Sodium Level 146 mEQ/L (135-145) H Potassium Level 3.5 mEQ/L (3.4-4.9) Chloride Level 101 mEQ/L (98-107) Carbon Dioxide Level 32 mEQ/L (20-30) H Anion Gap 13 (5-15) Blood Urea Nitrogen 62 mg/dL (7-23) H Creatinine 4.1 mg/dL (0.7-1.2) H Estimat Glomerular Filtration Rate mL/min (>60) Glucose Level 98 mg/dL (74-106) # Uric Acid 5.9 mg/dL (3.0-7.5) Calcium Level 8.4 mg/dL (8.6-10.2) L Phosphorus Level 3.8 mg/dL (2.5-4.8) Magnesium Level 1.9 mg/dL (1.7-2.5) Total Bilirubin 0.4 mg/dL (0.0-1.2) Gamma Glutamyl Transpeptidase 21 U/L (8-61) Aspartate Amino Transf (AST/SGOT) 23 U/L (5-40) Alanine Aminotransferase (ALT/SGPT) 16 U/L (3-41) Alkaline Phosphatase 55 U/L (40-129) Total Creatine Kinase 33 U/L (38-174) L Pro-B-Type Natriuretic Peptide > 51501 pg/mL (0-450) H Total Protein 5.5 g/dL (6.6-8.7) L Albumin 2.5 g/dL (3.5-5.2) L Globulin 3.0 g/dL Albumin/Globulin Ratio 0.8 (1.0-2.7) RAJ CLEMENS September 21, 2016 20:42
[2016-09-21] MEDS: Cefepime HCl 500 MG in D5W 55 ML IVPB SCH (21:00)
--- NOTE | 2016-09-21 22:05 | Infectious Diseases Prog Note ---
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 ) LAC improving DM HTN SP pacemaker placement Alzheimer dementia [place] : on HD started 09/14 P: Cefepime d# 8 / 14 ( 09/14 SP Zosyn d# 4 ) Monitor culture Monitor CBC Monitor BMP Monitor LFT Nephro is following HD Cath Subjective Constitutional: Denies: anorexia, chills, drenching sweats, fatigue, fever, no symptoms, other Allergies: Coded Allergies: SULFA (SULFONAMIDE ANTIBIOTICS) (Verified Allergy, Unknown, 09/10/16) Uncoded Allergies: SULFA (Adverse Reaction, Mild, RASH, 04/01/13) Subjective on vent Objective Vital Signs Last 24 Hour Vital Signs Date Time Temp Pulse Resp B/P Pulse Ox O2 Delivery O2 Flow Rate FiO2 09/21/16 20:00 98.4 65 24 139/76 100 Mechanical Ventilator 09/21/16 20:00 59 09/21/16 19:08 99 Nasal Cannula 2.0 28 09/21/16 19:08 Nasal Cannula 2.0 28 09/21/16 18:00 69 19 115/59 100 Nasal Cannula 2.0 09/21/16 17:30 Nasal Cannula 2.0 09/21/16 17:00 70 20 125/61 100 Nasal Cannula 2.0 09/21/16 16:00 98.4 67 20 115/61 100 Nasal Cannula 2.0 09/21/16 15:00 70 20 121/59 100 Nasal Cannula 2.0 09/21/16 14:25 Nasal Cannula 2.0 09/21/16 14:00 69 09/21/16 14:00 69 20 131/67 100 Nasal Cannula 2.0 09/21/16 13:01 70 20 125/64 96 Nasal Cannula 2.0 09/21/16 12:00 98.1 70 20 117/63 99 Nasal Cannula 2.0 09/21/16 12:00 68 09/21/16 11:00 68 20 125/57 96 Nasal Cannula 2.0 09/21/16 10:00 75 20 122/53 100 Nasal Cannula 2.0 09/21/16 08:56 70 22 117/62 100 Nasal Cannula 2.0 09/21/16 08:00 67 09/21/16 08:00 97.7 67 21 130/64 100 Nasal Cannula 2.0 09/21/16 07:38 122/58 09/21/16 07:00 75 23 122/58 100 Mechanical Ventilator 40 09/21/16 06:32 99 Nasal Cannula 2.0 09/21/16 06:32 Nasal Cannula 2.0 09/21/16 06:00 77 22 125/62 100 Mechanical Ventilator 40 09/21/16 05:00 68 20 119/63 93 Mechanical Ventilator 40 09/21/16 04:00 76 25 124/62 98 Mechanical Ventilator 40 09/21/16 04:00 76 09/21/16 03:00 77 23 124/62 100 Mechanical Ventilator 40 09/21/16 02:00 72 23 135/67 100 Mechanical Ventilator 40 09/21/16 01:00 69 23 125/65 100 Mechanical Ventilator 40 09/21/16 00:00 72 09/21/16 00:00 97.8 72 23 139/62 100 Mechanical Ventilator 30 09/20/16 23:00 88 20 128/59 100 Mechanical Ventilator 40 Height (Feet): 5 Height (Inches): 6.00 Weight (Pounds): 160 HEENT: anicteric Respiratory/Chest: no accessory muscle use Cardiovascular: no gallop/murmur Abdomen: no organomegaly Laboratory Tests Test 09/21/16 04:15 White Blood Count 4.9 K/UL (4.8-10.8) Red Blood Count 2.67 M/UL (4.70-6.10) L Hemoglobin 7.8 G/DL (14.2-18.0) L Hematocrit 24.4 % (42.0-52.0) L Mean Corpuscular Volume 91 FL (80-99) Mean Corpuscular Hemoglobin 29.2 PG (27.0-31.0) Mean Corpuscular Hemoglobin Concent 32.0 G/DL (32.0-36.0) Red Cell Distribution Width 14.2 % (11.6-14.8) Platelet Count 84 K/UL (150-450) L Mean Platelet Volume 6.8 FL (6.5-10.1) Neutrophils (%) (Auto) % (45.0-75.0) Lymphocytes (%) (Auto) % (20.0-45.0) Monocytes (%) (Auto) % (1.0-10.0) Eosinophils (%) (Auto) % (0.0-3.0) Basophils (%) (Auto) % (0.0-2.0) Differential Total Cells Counted 100 Neutrophils % (Manual) 72 % (45-75) Lymphocytes % (Manual) 18 % (20-45) L Monocytes % (Manual) 8 % (1-10) Eosinophils % (Manual) 1 % (0-3) Basophils % (Manual) 1 % (0-2) Band Neutrophils 0 % (0-8) Platelet Estimate Decreased L Platelet Morphology Normal Hypochromasia 3+ Anisocytosis 1+ Sodium Level 146 mEQ/L (135-145) H Potassium Level 3.5 mEQ/L (3.4-4.9) Chloride Level 101 mEQ/L (98-107) Carbon Dioxide Level 32 mEQ/L (20-30) H Anion Gap 13 (5-15) Blood Urea Nitrogen 62 mg/dL (7-23) H Creatinine 4.1 mg/dL (0.7-1.2) H Estimat Glomerular Filtration Rate mL/min (>60) Glucose Level 98 mg/dL (74-106) # Uric Acid 5.9 mg/dL (3.0-7.5) Calcium Level 8.4 mg/dL (8.6-10.2) L Phosphorus Level 3.8 mg/dL (2.5-4.8) Magnesium Level 1.9 mg/dL (1.7-2.5) Total Bilirubin 0.4 mg/dL (0.0-1.2) Gamma Glutamyl Transpeptidase 21 U/L (8-61) Aspartate Amino Transf (AST/SGOT) 23 U/L (5-40) Alanine Aminotransferase (ALT/SGPT) 16 U/L (3-41) Alkaline Phosphatase 55 U/L (40-129) Total Creatine Kinase 33 U/L (38-174) L Pro-B-Type Natriuretic Peptide > 64891 pg/mL (0-450) H Total Protein 5.5 g/dL (6.6-8.7) L Albumin 2.5 g/dL (3.5-5.2) L Globulin 3.0 g/dL Albumin/Globulin Ratio 0.8 (1.0-2.7) L Current Medications Medications (Trade) Dose Ordered Sig/Barrett Route PRN Reason Start Time Stop Time Status Last Admin Dose Admin Cefepime HCl/ Dextrose (Maxipime/D5W) 55 ml @ 110 mls/hr Q24H IVPB 09/21/16 21:00 09/28/16 20:59 09/21/16 21:00 Dextrose (Dextrose 50%) STAT PRN IV Hypoglycemia 09/21/16 19:00 10/21/16 18:59 Insulin Aspart (NovoLOG) Q6HR SUBQ 09/22/16 00:00 10/22/16 00:00 Pantoprazole (Protonix) 40 mg DAILY IV 09/22/16 09:00 10/22/16 08:59 Sodium Chloride 1,000 ml @ 40 mls/hr Q24H IV 09/21/16 19:00 10/21/16 18:59 09/21/16 21:37 CRISTEL DUFF M.D. September 21, 2016 22:05
[2016-09-22] VITALS: BP 128/68
[2016-09-22 04:00] VITALS: BP 141/73
[2016-09-22 04:57] LABS: MEAN CORPUSCULAR HEMOGLOBIN 30.4 PG (27.0-31.0); MEAN CORPUSCULAR HGB CONC 33.1 G/DL (32.0-36.0); MEAN CORPUSCULAR VOLUME 92 FL (80-99); MEAN PLATELET VOLUME 7.8 FL (6.5-10.1); PLATELET COUNT 86 K/UL (150-450); RED BLOOD COUNT 3.77 M/UL (4.70-6.10); WHITE BLOOD COUNT 6.9 K/UL (4.8-10.8)
[2016-09-22 05:30] LABS: CRP QUANT 2.6 mg/dL (< 0.5); MAGNESIUM 1.8 mg/dL (1.7-2.5); PHOSPHORUS 3.1 mg/dL (2.5-4.8); URIC ACID 4.1 mg/dL (3.0-7.5)
[2016-09-22 05:34] LABS: ALANINE AMINOTRANSFERASE 18 U/L (3-41); ALBUMIN/GLOBULIN RATIO 0.8 (1.0-2.7); ANION GAP 17 (5-15); ASPARTATE AMINO TRANSFERASE 29 U/L (5-40); CALCIUM 8.4 mg/dL (8.6-10.2); CARBON DIOXIDE 30 mEQ/L (20-30); CHLORIDE 95 mEQ/L (98-107); CREATININE 2.8 mg/dL (0.7-1.2); HEMOLYSIS 10; POTASSIUM 4.3 mEQ/L (3.4-4.9); SODIUM 142 mEQ/L (135-145); TOTAL PROTEIN 5.9 g/dL (6.6-8.7)
[2016-09-22] MEDS: NovoLOG Insulin Flexpen SUBQ SCH ×4 (05:53→18:00)
--- NOTE | 2016-09-22 07:26 | Cardiology Progress Note ---
Assessment/Plan Assessment/Plan 1. Globally weak/septic shock. 2. Renal failure, acute on chronic. 3. 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 4. Anemia. 5. History of upper gastrointestinal bleed with treatment of the visible bleeding vessel previously. 6. Chronic renal insufficiency. 7. Coronary artery disease status post percutaneous coronary intervention with what was felt to be a demand related ischemia. 8. History of aspiration. 9. Altered mental status. 10. Hypertension. 11. Diabetes mellitus 12. thrombocytopenia plt stable bp is ok to day dialysis as planned remains extubated doign well today the first day he is able to carry landon conversation with me and sounds good abx tele reviwed sinus with occasion atrial pacing watch hgb it seem queti bit higher pos tx Subjective Cardiovascular: Denies: chest pain, lightheadedness, palpitations Respiratory: Denies: shortness of breath Gastrointestinal/Abdominal: Denies: abdominal pain Genitourinary: Denies: burning Subjective is hungry wants to eat Objective Last 24 Hour Vital Signs Date Time Temp Pulse Resp B/P Pulse Ox O2 Delivery O2 Flow Rate FiO2 09/22/16 04:00 79 09/22/16 04:00 98.4 82 24 141/73 98 Room Air 09/22/16 00:00 98.0 66 20 128/68 100 Room Air 09/22/16 00:00 63 09/21/16 20:00 98.4 65 24 139/76 100 Mechanical Ventilator 09/21/16 20:00 59 09/21/16 19:08 99 Nasal Cannula 2.0 28 09/21/16 19:08 Nasal Cannula 2.0 28 09/21/16 18:00 69 19 115/59 100 Nasal Cannula 2.0 09/21/16 17:30 Nasal Cannula 2.0 09/21/16 17:00 70 20 125/61 100 Nasal Cannula 2.0 09/21/16 16:00 98.4 67 20 115/61 100 Nasal Cannula 2.0 09/21/16 15:00 70 20 121/59 100 Nasal Cannula 2.0 09/21/16 14:25 Nasal Cannula 2.0 09/21/16 14:00 69 09/21/16 14:00 69 20 131/67 100 Nasal Cannula 2.0 09/21/16 13:01 70 20 125/64 96 Nasal Cannula 2.0 09/21/16 12:00 98.1 70 20 117/63 99 Nasal Cannula 2.0 09/21/16 12:00 68 09/21/16 11:00 68 20 125/57 96 Nasal Cannula 2.0 09/21/16 10:00 75 20 122/53 100 Nasal Cannula 2.0 09/21/16 08:56 70 22 117/62 100 Nasal Cannula 2.0 09/21/16 08:00 67 09/21/16 08:00 97.7 67 21 130/64 100 Nasal Cannula 2.0 09/21/16 07:38 122/58 General Appearance: no apparent distress Neck: supple Cardiovascular: normal rate, regular rhythm Respiratory/Chest: lungs clear Abdomen: normal bowel sounds, non tender, soft Extremities: no swelling Intake and Output 09/21/16 09/22/16 19:00 07:00 Intake Total 480 ml 495 ml Output Total 1700 ml 800 ml Balance -1220 ml -305 ml IV Total 480 ml 495 ml Output Urine Total 630 ml 800 ml Hemodialysis UF 1070 ml Laboratory Tests Test 09/22/16 03:30 White Blood Count 6.9 K/UL (4.8-10.8) Red Blood Count 3.77 M/UL (4.70-6.10) L Hemoglobin 11.5 G/DL (14.2-18.0) #L Hematocrit 34.6 % (42.0-52.0) #L Mean Corpuscular Volume 92 FL (80-99) Mean Corpuscular Hemoglobin 30.4 PG (27.0-31.0) Mean Corpuscular Hemoglobin Concent 33.1 G/DL (32.0-36.0) Red Cell Distribution Width 14.0 % (11.6-14.8) Platelet Count 86 K/UL (150-450) L Mean Platelet Volume 7.8 FL (6.5-10.1) Neutrophils (%) (Auto) % (45.0-75.0) Lymphocytes (%) (Auto) % (20.0-45.0) Monocytes (%) (Auto) % (1.0-10.0) Eosinophils (%) (Auto) % (0.0-3.0) Basophils (%) (Auto) % (0.0-2.0) Neutrophils % (Manual) Pending Lymphocytes % (Manual) Pending Platelet Estimate Pending Platelet Morphology Pending Sodium Level 142 mEQ/L (135-145) Potassium Level 4.3 mEQ/L (3.4-4.9) Chloride Level 95 mEQ/L (98-107) L Carbon Dioxide Level 30 mEQ/L (20-30) Anion Gap 17 (5-15) H Blood Urea Nitrogen 37 mg/dL (7-23) #H Creatinine 2.8 mg/dL (0.7-1.2) H Estimat Glomerular Filtration Rate mL/min (>60) Glucose Level 109 mg/dL (74-106) H Uric Acid 4.1 mg/dL (3.0-7.5) Calcium Level 8.4 mg/dL (8.6-10.2) L Phosphorus Level 3.1 mg/dL (2.5-4.8) Magnesium Level 1.8 mg/dL (1.7-2.5) Total Bilirubin 0.7 mg/dL (0.0-1.2) Aspartate Amino Transf (AST/SGOT) 29 U/L (5-40) Alanine Aminotransferase (ALT/SGPT) 18 U/L (3-41) Alkaline Phosphatase 68 U/L (40-129) C-Reactive Protein, Quantitative 2.6 mg/dL (< 0.5) H Pro-B-Type Natriuretic Peptide 79875 pg/mL (0-450) H Total Protein 5.9 g/dL (6.6-8.7) L Albumin 2.7 g/dL (3.5-5.2) L Globulin 3.2 g/dL Albumin/Globulin Ratio 0.8 (1.0-2.7) L RAJ DEL ROSARIO September 22, 2016 07:26
[2016-09-22 07:53] VITALS: BP 136/74
[2016-09-22 08:04] LABS: BAND NEUTROPHILS % (MANUAL) 0 % (0-8); BASOPHILS % (MANUAL) 0 % (0-2); EOSINOPHILS % (MANUAL) 3 % (0-3); LYMPHOCYTES % (MANUAL) 17 % (20-45); NEUTROPHILS % (MANUAL) 72 % (45-75); PLATELET ESTIMATE DECREASED; PLATELET MORPHOLOGY NORMAL; TOTAL CELLS COUNTED 100
[2016-09-22] MEDS: Pantoprazole Inj IV SCH (09:26)
[2016-09-22] MEDS ORDERED: 1/2 NS 1000ml IV ONE (09:32)
[2016-09-22] MEDS ORDERED: NS 275ml ONE (09:32)
[2016-09-22] MEDS ORDERED: Tubing Blood Filter IV ONE (09:32)
--- NOTE | 2016-09-22 10:39 | General Progress Note ---
Assessment/Plan Status: stable Status Narrative in [facility] - extubated Assessment/Plan status: Septic Shock leading to acute renal and multiOrgan failure Due to the above: Sever Acidosis , high Lactate , High K ALL IMPROVED- Seems like patient has CKD , unclear what is the baseline S Cr Sugg: HD 09/21 done post extubation care Phos supplement - K supplement as needed Hemodynamic support Antibiotics discussed with RN monitor renal parameters Subjective ROS Limited/Unobtainable: No Constitutional: Reports: other - now extubated Allergies: Coded Allergies: SULFA (SULFONAMIDE ANTIBIOTICS) (Verified Allergy, Unknown, 09/10/16) Uncoded Allergies: SULFA (Adverse Reaction, Mild, RASH, 04/01/13) Objective Last 24 Hour Vital Signs Date Time Temp Pulse Resp B/P Pulse Ox O2 Delivery O2 Flow Rate FiO2 09/22/16 07:53 97.7 69 19 136/74 09/22/16 04:00 79 09/22/16 04:00 98.4 82 24 141/73 98 Room Air 09/22/16 00:00 98.0 66 20 128/68 100 Room Air 09/22/16 00:00 63 09/21/16 20:00 98.4 65 24 139/76 100 Mechanical Ventilator 09/21/16 20:00 59 09/21/16 19:08 99 Nasal Cannula 2.0 28 09/21/16 19:08 Nasal Cannula 2.0 28 09/21/16 18:00 69 19 115/59 100 Nasal Cannula 2.0 09/21/16 17:30 Nasal Cannula 2.0 09/21/16 17:00 70 20 125/61 100 Nasal Cannula 2.0 09/21/16 16:00 98.4 67 20 115/61 100 Nasal Cannula 2.0 09/21/16 15:00 70 20 121/59 100 Nasal Cannula 2.0 09/21/16 14:25 Nasal Cannula 2.0 09/21/16 14:00 69 09/21/16 14:00 69 20 131/67 100 Nasal Cannula 2.0 09/21/16 13:01 70 20 125/64 96 Nasal Cannula 2.0 09/21/16 12:00 98.1 70 20 117/63 99 Nasal Cannula 2.0 09/21/16 12:00 68 09/21/16 11:00 68 20 125/57 96 Nasal Cannula 2.0 Intake and Output 09/21/16 09/22/16 19:00 07:00 Intake Total 480 ml 495 ml Output Total 1700 ml 800 ml Balance -1220 ml -305 ml IV Total 480 ml 495 ml Output Urine Total 630 ml 800 ml Hemodialysis UF 1070 ml Laboratory Tests 09/22/16 03:30: White Blood Count 6.9, Red Blood Count 3.77L, Hemoglobin 11.5#L, Hematocrit 34.6 #L, Mean Corpuscular Volume 92, Mean Corpuscular Hemoglobin 30.4, Mean Corpuscular Hemoglobin Concent 33.1, Red Cell Distribution Width 14.0, Platelet Count 86L, Mean Platelet Volume 7.8, Neutrophils (%) (Auto) , Lymphocytes (%) ( Auto) , Monocytes (%) (Auto) , Eosinophils (%) (Auto) , Basophils (%) (Auto) , Differential Total Cells Counted 100, Neutrophils % (Manual) 72, Lymphocytes % ( Manual) 17L, Monocytes % (Manual) 8, Eosinophils % (Manual) 3, Basophils % ( Manual) 0, Band Neutrophils 0, Platelet Estimate DecreasedL, Platelet Morphology Normal, Red Blood Cell Morphology Normal, Sodium Level 142, Potassium Level 4.3, Chloride Level 95L, Carbon Dioxide Level 30, Anion Gap 17H , Blood Urea Nitrogen 37#H, Creatinine 2.8H, Estimat Glomerular Filtration Rate , Glucose Level 109H, Uric Acid 4.1, Calcium Level 8.4L, Phosphorus Level 3.1, Magnesium Level 1.8, Total Bilirubin 0.7, Aspartate Amino Transf (AST/SGOT) 29, Alanine Aminotransferase (ALT/SGPT) 18, Alkaline Phosphatase 68, C-Reactive Protein, Quantitative 2.6H, Pro-B-Type Natriuretic Peptide [id number], Total Protein 5.9L, Albumin 2.7L, Globulin 3.2, Albumin/Globulin Ratio 0.8L Height (Feet): 5 Height (Inches): 6.00 Weight (Pounds): 160 General Appearance: no apparent distress, lethargic, confused EENT: other - dislysis Cath right Jugular Neck: limited range of motion Cardiovascular: normal rate Respiratory/Chest: decreased breath sounds Abdomen: soft, other - PEG Objective no change in PE MARIAN KOTHARI September 22, 2016 10:39
[2016-09-22 12:00] VITALS: BP 153/78
--- NOTE | 2016-09-22 12:12 | Pulmonology Progress Note ---
Assessment/Plan Problems: (1) Respiratory failure (2) Severe sepsis (3) Renal failure (4) Anemia, chronic disease (5) ARF (acute renal failure) (6) Diabetes mellitus type II, uncontrolled Assessment/Plan tolerating extubation failed swallow study pt/ot check labs HD by nephrology might need feeding tube Subjective Interval Events: sitting up in bed , looks comfortable, asking for physical therpay Allergies: Coded Allergies: SULFA (SULFONAMIDE ANTIBIOTICS) (Verified Allergy, Unknown, 09/10/16) Uncoded Allergies: SULFA (Adverse Reaction, Mild, RASH, 04/01/13) Objective Last 24 Hour Vital Signs Date Time Temp Pulse Resp B/P Pulse Ox O2 Delivery O2 Flow Rate FiO2 09/22/16 07:53 97.7 69 19 136/74 09/22/16 04:00 79 09/22/16 04:00 98.4 82 24 141/73 98 Room Air 09/22/16 00:00 98.0 66 20 128/68 100 Room Air 09/22/16 00:00 63 09/21/16 20:00 98.4 65 24 139/76 100 Mechanical Ventilator 09/21/16 20:00 59 09/21/16 19:08 99 Nasal Cannula 2.0 28 09/21/16 19:08 Nasal Cannula 2.0 28 09/21/16 18:00 69 19 115/59 100 Nasal Cannula 2.0 09/21/16 17:30 Nasal Cannula 2.0 09/21/16 17:00 70 20 125/61 100 Nasal Cannula 2.0 09/21/16 16:00 98.4 67 20 115/61 100 Nasal Cannula 2.0 09/21/16 15:00 70 20 121/59 100 Nasal Cannula 2.0 09/21/16 14:25 Nasal Cannula 2.0 09/21/16 14:00 69 09/21/16 14:00 69 20 131/67 100 Nasal Cannula 2.0 09/21/16 13:01 70 20 125/64 96 Nasal Cannula 2.0 Intake and Output 09/21/16 09/22/16 19:00 07:00 Intake Total 480 ml 495 ml Output Total 1700 ml 800 ml Balance -1220 ml -305 ml IV Total 480 ml 495 ml Output Urine Total 630 ml 800 ml Hemodialysis UF 1070 ml General Appearance: WD/WN, no acute distress HEENT: normocephalic, atraumatic Respiratory/Chest: chest wall non-tender, lungs clear Cardiovascular: normal peripheral pulses, normal rate Abdomen: normal bowel sounds, soft, non tender Genitourinary: normal external genitalia Skin: no rash Lymphatic: no neck adenopathy Laboratory Tests 09/22/16 03:30: White Blood Count 6.9, Red Blood Count 3.77L, Hemoglobin 11.5#L, Hematocrit 34.6 #L, Mean Corpuscular Volume 92, Mean Corpuscular Hemoglobin 30.4, Mean Corpuscular Hemoglobin Concent 33.1, Red Cell Distribution Width 14.0, Platelet Count 86L, Mean Platelet Volume 7.8, Neutrophils (%) (Auto) , Lymphocytes (%) ( Auto) , Monocytes (%) (Auto) , Eosinophils (%) (Auto) , Basophils (%) (Auto) , Differential Total Cells Counted 100, Neutrophils % (Manual) 72, Lymphocytes % ( Manual) 17L, Monocytes % (Manual) 8, Eosinophils % (Manual) 3, Basophils % ( Manual) 0, Band Neutrophils 0, Platelet Estimate DecreasedL, Platelet Morphology Normal, Red Blood Cell Morphology Normal, Sodium Level 142, Potassium Level 4.3, Chloride Level 95L, Carbon Dioxide Level 30, Anion Gap 17H , Blood Urea Nitrogen 37#H, Creatinine 2.8H, Estimat Glomerular Filtration Rate , Glucose Level 109H, Uric Acid 4.1, Calcium Level 8.4L, Phosphorus Level 3.1, Magnesium Level 1.8, Total Bilirubin 0.7, Aspartate Amino Transf (AST/SGOT) 29, Alanine Aminotransferase (ALT/SGPT) 18, Alkaline Phosphatase 68, C-Reactive Protein, Quantitative 2.6H, Pro-B-Type Natriuretic Peptide 63646F, Total Protein 5.9L, Albumin 2.7L, Globulin 3.2, Albumin/Globulin Ratio 0.8L Current Medications Medications (Trade) Dose Ordered Sig/Barrett Route PRN Reason Start Time Stop Time Status Last Admin Dose Admin Cefepime HCl/ Dextrose (Maxipime/D5W) 55 ml @ 110 mls/hr Q24H IVPB 09/21/16 21:00 09/28/16 20:59 09/21/16 21:00 Dextrose (Dextrose 50%) STAT PRN IV Hypoglycemia 09/21/16 19:00 10/21/16 18:59 Insulin Aspart (NovoLOG) Q6HR SUBQ 09/22/16 00:00 10/22/16 00:00 Pantoprazole (Protonix) 40 mg DAILY IV 09/22/16 09:00 10/22/16 08:59 09/22/16 09:26 Sodium Chloride 1,000 ml @ 40 mls/hr Q24H IV 09/21/16 19:00 10/21/16 18:59 09/21/16 21:37 LANDEN HERNANDEZ September 22, 2016 12:12
--- NOTE | 2016-09-22 14:15 | Diagnostic Imaging Report ---
Indication: Dyspnea Comparison: 09/21/2016 A single view chest radiograph was obtained. Findings: Worsening interstitial/alveolar edema demonstrated with pulmonary vascular prominence, interstitial/alveolar opacities. There maybe small bilateral effusions as well. Right jugular Marco Antonio catheter noted once again. Impression: Worsening pulmonary edema
[2016-09-22 16:00] VITALS: BP 148/83
[2016-09-22 20:00] VITALS: BP 138/76
[2016-09-22] MEDS: Cefepime HCl 500 MG in D5W 55 ML IVPB SCH (20:49)
--- NOTE | 2016-09-22 23:07 | Internal Med Progress Note ---
Subjective Physician Name Jonathan Sampson Attending Physician Jonathan Sampson MD Current Medications Medications (Trade) Dose Ordered Sig/Barrett Route PRN Reason Start Time Stop Time Status Last Admin Dose Admin Cefepime HCl/ Dextrose (Maxipime/D5W) 55 ml @ 110 mls/hr Q24H IVPB 09/21/16 21:00 09/28/16 20:59 09/22/16 20:49 Dextrose (Dextrose 50%) STAT PRN IV Hypoglycemia 09/21/16 19:00 10/21/16 18:59 Insulin Aspart (NovoLOG) Q6HR SUBQ 09/22/16 00:00 10/22/16 00:00 Pantoprazole (Protonix) 40 mg DAILY IV 09/22/16 09:00 10/22/16 08:59 09/22/16 09:26 Sodium Chloride 1,000 ml @ 40 mls/hr Q24H IV 09/21/16 19:00 10/21/16 18:59 09/22/16 20:49 Allergies: Coded Allergies: SULFA (SULFONAMIDE ANTIBIOTICS) (Verified Allergy, Unknown, 09/10/16) Uncoded Allergies: SULFA (Adverse Reaction, Mild, RASH, 04/01/13) Subjective awake, alert, responsive, in KATHYA, NAD, Son's at bedside, refuse opening his mouth, Hgb 11.5 Objective Last Vital Signs Date Time Temp Pulse Resp B/P Pulse Ox O2 Delivery O2 Flow Rate FiO2 09/22/16 20:08 98 Nasal Cannula 2.0 28 09/22/16 20:00 97.7 80 20 138/76 Laboratory Tests Test 09/22/16 03:30 White Blood Count 6.9 K/UL (4.8-10.8) Red Blood Count 3.77 M/UL (4.70-6.10) L Hemoglobin 11.5 G/DL (14.2-18.0) #L Hematocrit 34.6 % (42.0-52.0) #L Mean Corpuscular Volume 92 FL (80-99) Mean Corpuscular Hemoglobin 30.4 PG (27.0-31.0) Mean Corpuscular Hemoglobin Concent 33.1 G/DL (32.0-36.0) Red Cell Distribution Width 14.0 % (11.6-14.8) Platelet Count 86 K/UL (150-450) L Mean Platelet Volume 7.8 FL (6.5-10.1) Neutrophils (%) (Auto) % (45.0-75.0) Lymphocytes (%) (Auto) % (20.0-45.0) Monocytes (%) (Auto) % (1.0-10.0) Eosinophils (%) (Auto) % (0.0-3.0) Basophils (%) (Auto) % (0.0-2.0) Differential Total Cells Counted 100 Neutrophils % (Manual) 72 % (45-75) Lymphocytes % (Manual) 17 % (20-45) L Monocytes % (Manual) 8 % (1-10) Eosinophils % (Manual) 3 % (0-3) Basophils % (Manual) 0 % (0-2) Band Neutrophils 0 % (0-8) Platelet Estimate Decreased L Platelet Morphology Normal Red Blood Cell Morphology Normal Sodium Level 142 mEQ/L (135-145) Potassium Level 4.3 mEQ/L (3.4-4.9) Chloride Level 95 mEQ/L (98-107) L Carbon Dioxide Level 30 mEQ/L (20-30) Anion Gap 17 (5-15) H Blood Urea Nitrogen 37 mg/dL (7-23) #H Creatinine 2.8 mg/dL (0.7-1.2) H Estimat Glomerular Filtration Rate mL/min (>60) Glucose Level 109 mg/dL (74-106) H Uric Acid 4.1 mg/dL (3.0-7.5) Calcium Level 8.4 mg/dL (8.6-10.2) L Phosphorus Level 3.1 mg/dL (2.5-4.8) Magnesium Level 1.8 mg/dL (1.7-2.5) Total Bilirubin 0.7 mg/dL (0.0-1.2) Aspartate Amino Transf (AST/SGOT) 29 U/L (5-40) Alanine Aminotransferase (ALT/SGPT) 18 U/L (3-41) Alkaline Phosphatase 68 U/L (40-129) C-Reactive Protein, Quantitative 2.6 mg/dL (< 0.5) H Pro-B-Type Natriuretic Peptide 04009 pg/mL (0-450) H Total Protein 5.9 g/dL (6.6-8.7) L Albumin 2.7 g/dL (3.5-5.2) L Globulin 3.2 g/dL Albumin/Globulin Ratio 0.8 (1.0-2.7) L Intake and Output 09/21/16 09/22/16 19:00 07:00 Intake Total 480 ml 535 ml Output Total 1700 ml 800 ml Balance -1220 ml -265 ml IV Total 480 ml 535 ml Output Urine Total 630 ml 800 ml Hemodialysis UF 1070 ml Objective General: No acute distress, awake and alert, Cachexia. HEENT: NCAT, sclera anicteric, PERRL, EOMI. Neck: Supple, Right IJ dialysis cath. Lungs: fair inspiratory effort, no Wheeze or Rales, decrease air on bases. Heart: Regular rate and rhythm, normal S1/S2, Left side Pacemaker. Abdomen: soft, nontender, nondistended. Normoactive bowel sounds. : Perry cath Extremities: No Cyanosis , clubbing or edema. Muscle atrophy. Neuro: A&O x 3, Able to move all extremities Psych: Normal mood and affect Assessment/Plan Assessment/Plan 1. Septic shock. 2. Acidosis. 3. 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 4. Anemia. 5. History of upper gastrointestinal bleed with treatment of the visible bleeding vessel previously. 6. [place] on Chronic renal insufficiency on hemodialysis. 7. Coronary artery disease status post percutaneous coronary intervention with what was felt to be a demand related ischemia. 8. History of aspiration. 9. toxic Metabolic encephalopathy due to CKD and infection.. 10. Hypertension. 11. Diabetes mellitus Type 2. 12. thrombocytopenia 13. UTI 14. Hyperkalemia resolved. Plan: Dialysis in AM Monitor Labs and cultures Abx: Cefepime IV PT Mobility Full code DVT prophylaxis: SCD Bedside swallow study. Discuss with Son's at bedside regarding plan of care, Goal of care, and lack of cooperation with speech therapist earlier. Jonathan Sampson MD September 22, 2016 23:07
--- NOTE | 2016-09-22 23:31 | Infectious Diseases Prog Note ---
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 ) LAC improved DM HTN SP pacemaker placement Alzheimer dementia [place] : on HD started 09/14 P: Cefepime d# 9 / 14 ( 09/14 SP Zosyn d# 4 ) Monitor culture Monitor CBC Monitor BMP Monitor LFT Nephro is following HD Subjective Allergies: Coded Allergies: SULFA (SULFONAMIDE ANTIBIOTICS) (Verified Allergy, Unknown, 09/10/16) Uncoded Allergies: SULFA (Adverse Reaction, Mild, RASH, 04/01/13) Subjective febrile Objective Vital Signs Last 24 Hour Vital Signs Date Time Temp Pulse Resp B/P Pulse Ox O2 Delivery O2 Flow Rate FiO2 09/22/16 20:08 98 Nasal Cannula 2.0 28 09/22/16 20:00 75 09/22/16 20:00 97.7 80 20 138/76 98 Nasal Cannula 2.0 09/22/16 19:20 Nasal Cannula 2.0 28 09/22/16 16:00 82 09/22/16 16:00 97.8 81 21 148/83 95 Nasal Cannula 2.0 09/22/16 12:00 97.7 74 20 153/78 94 09/22/16 12:00 77 09/22/16 08:00 74 09/22/16 07:53 97.7 69 19 136/74 09/22/16 07:23 98 Nasal Cannula 2.0 28 09/22/16 07:23 Nasal Cannula 2.0 28 09/22/16 04:00 79 09/22/16 04:00 98.4 82 24 141/73 98 Room Air 09/22/16 00:00 98.0 66 20 128/68 100 Room Air 09/22/16 00:00 63 Height (Feet): 5 Height (Inches): 6.00 Weight (Pounds): 160 HEENT: atraumatic Respiratory/Chest: no respiratory distress Cardiovascular: regular rhythm Abdomen: non distended Laboratory Tests Test 09/22/16 03:30 White Blood Count 6.9 K/UL (4.8-10.8) Red Blood Count 3.77 M/UL (4.70-6.10) L Hemoglobin 11.5 G/DL (14.2-18.0) #L Hematocrit 34.6 % (42.0-52.0) #L Mean Corpuscular Volume 92 FL (80-99) Mean Corpuscular Hemoglobin 30.4 PG (27.0-31.0) Mean Corpuscular Hemoglobin Concent 33.1 G/DL (32.0-36.0) Red Cell Distribution Width 14.0 % (11.6-14.8) Platelet Count 86 K/UL (150-450) L Mean Platelet Volume 7.8 FL (6.5-10.1) Neutrophils (%) (Auto) % (45.0-75.0) Lymphocytes (%) (Auto) % (20.0-45.0) Monocytes (%) (Auto) % (1.0-10.0) Eosinophils (%) (Auto) % (0.0-3.0) Basophils (%) (Auto) % (0.0-2.0) Differential Total Cells Counted 100 Neutrophils % (Manual) 72 % (45-75) Lymphocytes % (Manual) 17 % (20-45) L Monocytes % (Manual) 8 % (1-10) Eosinophils % (Manual) 3 % (0-3) Basophils % (Manual) 0 % (0-2) Band Neutrophils 0 % (0-8) Platelet Estimate Decreased L Platelet Morphology Normal Red Blood Cell Morphology Normal Sodium Level 142 mEQ/L (135-145) Potassium Level 4.3 mEQ/L (3.4-4.9) Chloride Level 95 mEQ/L (98-107) L Carbon Dioxide Level 30 mEQ/L (20-30) Anion Gap 17 (5-15) H Blood Urea Nitrogen 37 mg/dL (7-23) #H Creatinine 2.8 mg/dL (0.7-1.2) H Estimat Glomerular Filtration Rate mL/min (>60) Glucose Level 109 mg/dL (74-106) H Uric Acid 4.1 mg/dL (3.0-7.5) Calcium Level 8.4 mg/dL (8.6-10.2) L Phosphorus Level 3.1 mg/dL (2.5-4.8) Magnesium Level 1.8 mg/dL (1.7-2.5) Total Bilirubin 0.7 mg/dL (0.0-1.2) Aspartate Amino Transf (AST/SGOT) 29 U/L (5-40) Alanine Aminotransferase (ALT/SGPT) 18 U/L (3-41) Alkaline Phosphatase 68 U/L (40-129) C-Reactive Protein, Quantitative 2.6 mg/dL (< 0.5) H Pro-B-Type Natriuretic Peptide 46747 pg/mL (0-450) H Total Protein 5.9 g/dL (6.6-8.7) L Albumin 2.7 g/dL (3.5-5.2) L Globulin 3.2 g/dL Albumin/Globulin Ratio 0.8 (1.0-2.7) L Current Medications Medications (Trade) Dose Ordered Sig/Barrett Route PRN Reason Start Time Stop Time Status Last Admin Dose Admin Cefepime HCl/ Dextrose (Maxipime/D5W) 55 ml @ 110 mls/hr Q24H IVPB 09/21/16 21:00 09/28/16 20:59 09/22/16 20:49 Dextrose (Dextrose 50%) STAT PRN IV Hypoglycemia 09/21/16 19:00 10/21/16 18:59 Insulin Aspart (NovoLOG) Q6HR SUBQ 09/22/16 00:00 10/22/16 00:00 Pantoprazole (Protonix) 40 mg DAILY IV 09/22/16 09:00 10/22/16 08:59 09/22/16 09:26 Sodium Chloride 1,000 ml @ 40 mls/hr Q24H IV 09/21/16 19:00 10/21/16 18:59 09/22/16 20:49 CRISTEL DUFF M.D. September 22, 2016 23:30
[2016-09-23 00:51] VITALS: BP 145/77
[2016-09-23] MEDS: NovoLOG Insulin Flexpen SUBQ SCH ×4 (01:33→17:06)
[2016-09-23 04:00] VITALS: BP 130/88
[2016-09-23 05:30] LABS: MEAN CORPUSCULAR HEMOGLOBIN 30.6 PG (27.0-31.0); MEAN CORPUSCULAR HGB CONC 34.1 G/DL (32.0-36.0); MEAN CORPUSCULAR VOLUME 90 FL (80-99); MEAN PLATELET VOLUME 7.3 FL (6.5-10.1); PLATELET COUNT 109 K/UL (150-450); RED BLOOD COUNT 4.19 M/UL (4.70-6.10); RED CELL DISTRIBUTION WIDTH 13.5 % (11.6-14.8); WHITE BLOOD COUNT 6.5 K/UL (4.8-10.8)
[2016-09-23 05:53] LABS: ALANINE AMINOTRANSFERASE 15 U/L (3-41); ALBUMIN/GLOBULIN RATIO 0.7 (1.0-2.7); ANION GAP 17 (5-15); ASPARTATE AMINO TRANSFERASE 21 U/L (5-40); CALCIUM 8.7 mg/dL (8.6-10.2); CARBON DIOXIDE 29 mEQ/L (20-30); CHLORIDE 97 mEQ/L (98-107); CREATININE 3.3 mg/dL (0.7-1.2); HEMOLYSIS 3; MAGNESIUM 1.7 mg/dL (1.7-2.5); POTASSIUM 4.1 mEQ/L (3.4-4.9); SODIUM 143 mEQ/L (135-145); TOTAL PROTEIN 6.4 g/dL (6.6-8.7)
[2016-09-23 08:00] VITALS: BP 140/84
[2016-09-23 08:06] LABS: BAND NEUTROPHILS % (MANUAL) 1 % (0-8); BASOPHILS % (MANUAL) 0 % (0-2); EOSINOPHILS % (MANUAL) 2 % (0-3); LYMPHOCYTES % (MANUAL) 4 % (20-45); NEUTROPHILS % (MANUAL) 89 % (45-75); PLATELET ESTIMATE DECREASED; PLATELET MORPHOLOGY NORMAL; TOTAL CELLS COUNTED 100
[2016-09-23] MEDS: Pantoprazole Inj IV SCH (08:49)
--- NOTE | 2016-09-23 10:14 | Internal Med Progress Note ---
Subjective Physician Name Jonathan Sampson Attending Physician Jonathan Sampson MD Current Medications Medications (Trade) Dose Ordered Sig/Barrett Route PRN Reason Start Time Stop Time Status Last Admin Dose Admin Cefepime HCl/ Dextrose (Maxipime/D5W) 55 ml @ 110 mls/hr Q24H IVPB 09/21/16 21:00 09/28/16 20:59 09/22/16 20:49 Dextrose (Dextrose 50%) STAT PRN IV Hypoglycemia 09/21/16 19:00 10/21/16 18:59 09/23/16 06:07 Insulin Aspart (NovoLOG) Q6HR SUBQ 09/22/16 00:00 10/22/16 00:00 09/23/16 01:33 Pantoprazole (Protonix) 40 mg DAILY IV 09/22/16 09:00 10/22/16 08:59 09/23/16 08:49 Sodium Chloride 1,000 ml @ 40 mls/hr Q24H IV 09/21/16 19:00 10/21/16 18:59 09/22/16 20:49 Allergies: Coded Allergies: SULFA (SULFONAMIDE ANTIBIOTICS) (Verified Allergy, Unknown, 09/10/16) Uncoded Allergies: SULFA (Adverse Reaction, Mild, RASH, 04/01/13) Subjective awake, alert, responsive, in KATHYA, NAD, Hgb 12.8, no eating Objective Last Vital Signs Date Time Temp Pulse Resp B/P Pulse Ox O2 Delivery O2 Flow Rate FiO2 09/23/16 08:00 97.9 91 28 140/84 95 Nasal Cannula 2.0 09/22/16 20:08 28 Laboratory Tests Test 09/23/16 03:50 White Blood Count 6.5 K/UL (4.8-10.8) Red Blood Count 4.19 M/UL (4.70-6.10) L Hemoglobin 12.8 G/DL (14.2-18.0) L Hematocrit 37.6 % (42.0-52.0) L Mean Corpuscular Volume 90 FL (80-99) Mean Corpuscular Hemoglobin 30.6 PG (27.0-31.0) Mean Corpuscular Hemoglobin Concent 34.1 G/DL (32.0-36.0) Red Cell Distribution Width 13.5 % (11.6-14.8) Platelet Count 109 K/UL (150-450) L Mean Platelet Volume 7.3 FL (6.5-10.1) Neutrophils (%) (Auto) % (45.0-75.0) Lymphocytes (%) (Auto) % (20.0-45.0) Monocytes (%) (Auto) % (1.0-10.0) Eosinophils (%) (Auto) % (0.0-3.0) Basophils (%) (Auto) % (0.0-2.0) Differential Total Cells Counted 100 Neutrophils % (Manual) 89 % (45-75) H Lymphocytes % (Manual) 4 % (20-45) L Monocytes % (Manual) 4 % (1-10) Eosinophils % (Manual) 2 % (0-3) Basophils % (Manual) 0 % (0-2) Band Neutrophils 1 % (0-8) Platelet Estimate Decreased L Platelet Morphology Normal Red Blood Cell Morphology Normal Sodium Level 143 mEQ/L (135-145) Potassium Level 4.1 mEQ/L (3.4-4.9) Chloride Level 97 mEQ/L (98-107) L Carbon Dioxide Level 29 mEQ/L (20-30) Anion Gap 17 (5-15) H Blood Urea Nitrogen 50 mg/dL (7-23) H Creatinine 3.3 mg/dL (0.7-1.2) H Estimat Glomerular Filtration Rate mL/min (>60) Glucose Level 98 mg/dL (74-106) Calcium Level 8.7 mg/dL (8.6-10.2) Phosphorus Level 4.0 mg/dL (2.5-4.8) Magnesium Level 1.7 mg/dL (1.7-2.5) Total Bilirubin 0.7 mg/dL (0.0-1.2) Aspartate Amino Transf (AST/SGOT) 21 U/L (5-40) Alanine Aminotransferase (ALT/SGPT) 15 U/L (3-41) Alkaline Phosphatase 75 U/L (40-129) C-Reactive Protein, Quantitative 7.0 mg/dL (< 0.5) H Pro-B-Type Natriuretic Peptide > 92566 pg/mL (0-450) H Total Protein 6.4 g/dL (6.6-8.7) L Albumin 2.8 g/dL (3.5-5.2) L Globulin 3.6 g/dL Albumin/Globulin Ratio 0.7 (1.0-2.7) L Intake and Output 09/22/16 09/23/16 19:00 07:00 Intake Total 480 ml 502.333 ml Output Total 350 ml 275 ml Balance 130 ml 227.333 ml IV Total 480 ml 502.333 ml Output Urine Total 350 ml 275 ml # Bowel Movements 2 Objective General: No acute distress, awake and alert, Cachexia. HEENT: NCAT, sclera anicteric, PERRL, EOMI. Neck: Supple, Right IJ dialysis cath. Lungs: fair inspiratory effort, no Wheeze or Rales, decrease air on bases. Heart: Regular rate and rhythm, normal S1/S2, Left side Pacemaker. Abdomen: soft, nontender, nondistended. Normoactive bowel sounds. : Perry cath Extremities: No Cyanosis , clubbing or edema. Muscle atrophy. Neuro: A&O x 3, Able to move all extremities Psych: Normal mood and affect Assessment/Plan Assessment/Plan 1. Septic shock. 2. Acidosis. 3. 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 4. Anemia. 5. History of upper gastrointestinal bleed with treatment of the visible bleeding vessel previously. 6. [place] on Chronic renal insufficiency on hemodialysis. 7. Coronary artery disease status post percutaneous coronary intervention with what was felt to be a demand related ischemia. 8. History of aspiration. 9. toxic Metabolic encephalopathy due to CKD and infection.. 10. Hypertension. 11. Diabetes mellitus Type 2. 12. thrombocytopenia 13. UTI 14. Hyperkalemia resolved. Plan: Dialysis soon Monitor Labs and cultures Abx: Cefepime IV PT Mobility Full code DVT prophylaxis: SCD DC Planning to SNF on Monday. Discuss with Patient at bedside regarding plan of care, Goal of care, and encourage to eat more. Jonahtan Sampson MD September 23, 2016 10:14
--- NOTE | 2016-09-23 11:45 | General Progress Note ---
Assessment/Plan Status: unchanged, deteriorating Status Narrative diarrhea+ Assessment/Plan status: Septic Shock leading to acute renal and multiOrgan failure Sever Acidosis , high Lactate , High K , Due to the above: ALL IMPROVED- Seems like patient has CKD , unclear what is the baseline S Cr Other: DM Pacer : Left ventricular ejection fraction estimated to be 50%. Apical wall hypokinesia may be due to ventricular paced effect. OBS Sugg: Stool for C dif- has diarrhea HD 09/21 done post extubation care Phos supplement - K supplement as needed Hemodynamic support Antibiotics discussed with RN monitor renal parameters Subjective ROS Limited/Unobtainable: No Constitutional: Reports: malaise, weakness Allergies: Coded Allergies: SULFA (SULFONAMIDE ANTIBIOTICS) (Verified Allergy, Unknown, 09/10/16) Uncoded Allergies: SULFA (Adverse Reaction, Mild, RASH, 04/01/13) Objective Last 24 Hour Vital Signs Date Time Temp Pulse Resp B/P Pulse Ox O2 Delivery O2 Flow Rate FiO2 09/23/16 08:00 75 09/23/16 08:00 97.9 91 28 140/84 95 Nasal Cannula 2.0 09/23/16 07:59 Nasal Cannula 2.0 09/23/16 07:58 96 Nasal Cannula 2.0 09/23/16 04:00 105 09/23/16 04:00 98.3 85 24 130/88 96 Nasal Cannula 3.0 09/23/16 00:51 98.0 89 20 145/77 95 Nasal Cannula 3.0 09/23/16 00:00 87 09/22/16 20:08 98 Nasal Cannula 2.0 28 09/22/16 20:00 75 09/22/16 20:00 97.7 80 20 138/76 98 Nasal Cannula 2.0 09/22/16 19:20 Nasal Cannula 2.0 28 09/22/16 16:00 82 09/22/16 16:00 97.8 81 21 148/83 95 Nasal Cannula 2.0 09/22/16 12:00 97.7 74 20 153/78 94 09/22/16 12:00 77 Intake and Output 09/22/16 09/23/16 19:00 07:00 Intake Total 480 ml 502.333 ml Output Total 350 ml 275 ml Balance 130 ml 227.333 ml IV Total 480 ml 502.333 ml Output Urine Total 350 ml 275 ml # Bowel Movements 2 Laboratory Tests 09/23/16 03:50: White Blood Count 6.5, Red Blood Count 4.19L, Hemoglobin 12.8L, Hematocrit 37.6L , Mean Corpuscular Volume 90, Mean Corpuscular Hemoglobin 30.6, Mean Corpuscular Hemoglobin Concent 34.1, Red Cell Distribution Width 13.5, Platelet Count 109L, Mean Platelet Volume 7.3, Neutrophils (%) (Auto) , Lymphocytes (%) ( Auto) , Monocytes (%) (Auto) , Eosinophils (%) (Auto) , Basophils (%) (Auto) , Differential Total Cells Counted 100, Neutrophils % (Manual) 89H, Lymphocytes % (Manual) 4L, Monocytes % (Manual) 4, Eosinophils % (Manual) 2, Basophils % ( Manual) 0, Band Neutrophils 1, Platelet Estimate DecreasedL, Platelet Morphology Normal, Red Blood Cell Morphology Normal, Sodium Level 143, Potassium Level 4.1, Chloride Level 97L, Carbon Dioxide Level 29, Anion Gap 17H , Blood Urea Nitrogen 50H, Creatinine 3.3H, Estimat Glomerular Filtration Rate , Glucose Level 98, Calcium Level 8.7, Phosphorus Level 4.0, Magnesium Level 1.7 , Total Bilirubin 0.7, Aspartate Amino Transf (AST/SGOT) 21, Alanine Aminotransferase (ALT/SGPT) 15, Alkaline Phosphatase 75, C-Reactive Protein, Quantitative 7.0H, Pro-B-Type Natriuretic Peptide > [id number], Total Protein 6.4L, Albumin 2.8L, Globulin 3.6, Albumin/Globulin Ratio 0.7L Height (Feet): 5 Height (Inches): 6.00 Weight (Pounds): 160 General Appearance: no apparent distress Cardiovascular: tachycardia Respiratory/Chest: decreased breath sounds Abdomen: soft Objective no change in PE MARIAN KOTHARI September 23, 2016 11:45
[2016-09-23 12:00] VITALS: BP 133/68
[2016-09-23] MEDS: Carvedilol 6.25mg Tab ORAL SCH ×2 (12:02→21:53)
--- NOTE | 2016-09-23 12:36 | Pulmonology Progress Note ---
Assessment/Plan Problems: (1) Respiratory failure (2) Severe sepsis (3) Renal failure (4) Anemia, chronic disease (5) ARF (acute renal failure) (6) Diabetes mellitus type II, uncontrolled Assessment/Plan has diarrhea now tolerating extubation failed swallow study dialyzed on 09/22 pt/ot check labs HD by nephrology might need feeding tube Subjective ROS Limited/Unobtainable: No Constitutional: Reports: no symptoms HEENT: Repors: no symptoms Respiratory: Reports: no symptoms Allergies: Coded Allergies: SULFA (SULFONAMIDE ANTIBIOTICS) (Verified Allergy, Unknown, 09/10/16) Uncoded Allergies: SULFA (Adverse Reaction, Mild, RASH, 04/01/13) Objective Last 24 Hour Vital Signs Date Time Temp Pulse Resp B/P Pulse Ox O2 Delivery O2 Flow Rate FiO2 09/23/16 12:02 75 140/84 09/23/16 08:00 75 09/23/16 08:00 97.9 91 28 140/84 95 Nasal Cannula 2.0 09/23/16 07:59 Nasal Cannula 2.0 09/23/16 07:58 96 Nasal Cannula 2.0 09/23/16 04:00 105 09/23/16 04:00 98.3 85 24 130/88 96 Nasal Cannula 3.0 09/23/16 00:51 98.0 89 20 145/77 95 Nasal Cannula 3.0 09/23/16 00:00 87 09/22/16 20:08 98 Nasal Cannula 2.0 28 09/22/16 20:00 75 09/22/16 20:00 97.7 80 20 138/76 98 Nasal Cannula 2.0 09/22/16 19:20 Nasal Cannula 2.0 28 09/22/16 16:00 82 09/22/16 16:00 97.8 81 21 148/83 95 Nasal Cannula 2.0 Intake and Output 09/22/16 09/23/16 19:00 07:00 Intake Total 480 ml 502.333 ml Output Total 350 ml 275 ml Balance 130 ml 227.333 ml IV Total 480 ml 502.333 ml Output Urine Total 350 ml 275 ml # Bowel Movements 2 General Appearance: cachetic HEENT: normocephalic, atraumatic Respiratory/Chest: chest wall non-tender, lungs clear Cardiovascular: normal peripheral pulses, normal rate Abdomen: normal bowel sounds, soft, non tender Extremities: no cyanosis Skin: no rash Laboratory Tests 09/23/16 03:50: White Blood Count 6.5, Red Blood Count 4.19L, Hemoglobin 12.8L, Hematocrit 37.6L , Mean Corpuscular Volume 90, Mean Corpuscular Hemoglobin 30.6, Mean Corpuscular Hemoglobin Concent 34.1, Red Cell Distribution Width 13.5, Platelet Count 109L, Mean Platelet Volume 7.3, Neutrophils (%) (Auto) , Lymphocytes (%) ( Auto) , Monocytes (%) (Auto) , Eosinophils (%) (Auto) , Basophils (%) (Auto) , Differential Total Cells Counted 100, Neutrophils % (Manual) 89H, Lymphocytes % (Manual) 4L, Monocytes % (Manual) 4, Eosinophils % (Manual) 2, Basophils % ( Manual) 0, Band Neutrophils 1, Platelet Estimate DecreasedL, Platelet Morphology Normal, Red Blood Cell Morphology Normal, Sodium Level 143, Potassium Level 4.1, Chloride Level 97L, Carbon Dioxide Level 29, Anion Gap 17H , Blood Urea Nitrogen 50H, Creatinine 3.3H, Estimat Glomerular Filtration Rate , Glucose Level 98, Calcium Level 8.7, Phosphorus Level 4.0, Magnesium Level 1.7 , Total Bilirubin 0.7, Aspartate Amino Transf (AST/SGOT) 21, Alanine Aminotransferase (ALT/SGPT) 15, Alkaline Phosphatase 75, C-Reactive Protein, Quantitative 7.0H, Pro-B-Type Natriuretic Peptide > 05241B, Total Protein 6.4L, Albumin 2.8L, Globulin 3.6, Albumin/Globulin Ratio 0.7L Current Medications Medications (Trade) Dose Ordered Sig/Barrett Route PRN Reason Start Time Stop Time Status Last Admin Dose Admin Carvedilol (Coreg) 6.25 mg EVERY 12 HOURS ORAL 09/23/16 12:00 10/23/16 11:59 09/23/16 12:02 Cefepime HCl/ Dextrose (Maxipime/D5W) 55 ml @ 110 mls/hr Q24H IVPB 09/21/16 21:00 09/28/16 20:59 09/22/16 20:49 Dextrose (Dextrose 50%) STAT PRN IV Hypoglycemia 09/21/16 19:00 10/21/16 18:59 09/23/16 06:07 Insulin Aspart (NovoLOG) Q6HR SUBQ 09/22/16 00:00 10/22/16 00:00 09/23/16 01:33 Pantoprazole (Protonix) 40 mg DAILY IV 09/22/16 09:00 10/22/16 08:59 09/23/16 08:49 Sodium Chloride 1,000 ml @ 40 mls/hr Q24H IV 09/21/16 19:00 10/21/16 18:59 09/22/16 20:49 LANDEN HERNANDEZ September 23, 2016 12:35
--- NOTE | 2016-09-23 15:21 | Infectious Diseases Prog Note ---
Assessment/Plan Assessment/Plan A: The patient is a 76-year-old male Septic shock SP - off pressors Pneumonia Scx: Lori ( colonizer ) Chest x-ray : atelectasis and pneumonia in the left lung base UTI , UCx: Enterobacter ( probable Extended B-lactamase inhibitor ) Afebrile without leukocytosis DM HTN SP pacemaker placement Alzheimer dementia [place] : on HD started 09/14 Sulfa allergy Full Code P: Cefepime d# 10 / 14 ( 09/14 SP Zosyn d# 4 ) Monitor CBC, temperatures, re-culture if acute change Monitor CMP Nephro is following for HD Subjective Allergies: Coded Allergies: SULFA (SULFONAMIDE ANTIBIOTICS) (Verified Allergy, Unknown, 09/10/16) Uncoded Allergies: SULFA (Adverse Reaction, Mild, RASH, 04/01/13) Subjective remains afebrile Objective Vital Signs Last 24 Hour Vital Signs Date Time Temp Pulse Resp B/P Pulse Ox O2 Delivery O2 Flow Rate FiO2 09/23/16 12:02 75 140/84 09/23/16 12:00 99.1 81 24 133/68 98 Nasal Cannula 2.0 09/23/16 12:00 71 09/23/16 08:00 75 09/23/16 08:00 97.9 91 28 140/84 95 Nasal Cannula 2.0 09/23/16 07:59 Nasal Cannula 2.0 09/23/16 07:58 96 Nasal Cannula 2.0 09/23/16 04:00 105 09/23/16 04:00 98.3 85 24 130/88 96 Nasal Cannula 3.0 09/23/16 00:51 98.0 89 20 145/77 95 Nasal Cannula 3.0 09/23/16 00:00 87 09/22/16 20:08 98 Nasal Cannula 2.0 28 09/22/16 20:00 75 09/22/16 20:00 97.7 80 20 138/76 98 Nasal Cannula 2.0 09/22/16 19:20 Nasal Cannula 2.0 28 09/22/16 16:00 82 09/22/16 16:00 97.8 81 21 148/83 95 Nasal Cannula 2.0 Height (Feet): 5 Height (Inches): 6.00 Weight (Pounds): 160 Laboratory Tests Test 09/23/16 03:50 White Blood Count 6.5 K/UL (4.8-10.8) Red Blood Count 4.19 M/UL (4.70-6.10) L Hemoglobin 12.8 G/DL (14.2-18.0) L Hematocrit 37.6 % (42.0-52.0) L Mean Corpuscular Volume 90 FL (80-99) Mean Corpuscular Hemoglobin 30.6 PG (27.0-31.0) Mean Corpuscular Hemoglobin Concent 34.1 G/DL (32.0-36.0) Red Cell Distribution Width 13.5 % (11.6-14.8) Platelet Count 109 K/UL (150-450) L Mean Platelet Volume 7.3 FL (6.5-10.1) Neutrophils (%) (Auto) % (45.0-75.0) Lymphocytes (%) (Auto) % (20.0-45.0) Monocytes (%) (Auto) % (1.0-10.0) Eosinophils (%) (Auto) % (0.0-3.0) Basophils (%) (Auto) % (0.0-2.0) Differential Total Cells Counted 100 Neutrophils % (Manual) 89 % (45-75) H Lymphocytes % (Manual) 4 % (20-45) L Monocytes % (Manual) 4 % (1-10) Eosinophils % (Manual) 2 % (0-3) Basophils % (Manual) 0 % (0-2) Band Neutrophils 1 % (0-8) Platelet Estimate Decreased L Platelet Morphology Normal Red Blood Cell Morphology Normal Sodium Level 143 mEQ/L (135-145) Potassium Level 4.1 mEQ/L (3.4-4.9) Chloride Level 97 mEQ/L (98-107) L Carbon Dioxide Level 29 mEQ/L (20-30) Anion Gap 17 (5-15) H Blood Urea Nitrogen 50 mg/dL (7-23) H Creatinine 3.3 mg/dL (0.7-1.2) H Estimat Glomerular Filtration Rate mL/min (>60) Glucose Level 98 mg/dL (74-106) Calcium Level 8.7 mg/dL (8.6-10.2) Phosphorus Level 4.0 mg/dL (2.5-4.8) Magnesium Level 1.7 mg/dL (1.7-2.5) Total Bilirubin 0.7 mg/dL (0.0-1.2) Aspartate Amino Transf (AST/SGOT) 21 U/L (5-40) Alanine Aminotransferase (ALT/SGPT) 15 U/L (3-41) Alkaline Phosphatase 75 U/L (40-129) C-Reactive Protein, Quantitative 7.0 mg/dL (< 0.5) H Pro-B-Type Natriuretic Peptide > 13280 pg/mL (0-450) H Total Protein 6.4 g/dL (6.6-8.7) L Albumin 2.8 g/dL (3.5-5.2) L Globulin 3.6 g/dL Albumin/Globulin Ratio 0.7 (1.0-2.7) L Current Medications Medications (Trade) Dose Ordered Sig/Barrett Route PRN Reason Start Time Stop Time Status Last Admin Dose Admin Carvedilol (Coreg) 6.25 mg EVERY 12 HOURS ORAL 09/23/16 12:00 10/23/16 11:59 09/23/16 12:02 Cefepime HCl/ Dextrose (Maxipime/D5W) 55 ml @ 110 mls/hr Q24H IVPB 09/21/16 21:00 09/27/16 23:59 09/22/16 20:49 Dextrose (Dextrose 50%) STAT PRN IV Hypoglycemia 09/21/16 19:00 10/21/16 18:59 09/23/16 06:07 Insulin Aspart (NovoLOG) Q6HR SUBQ 09/22/16 00:00 10/22/16 00:00 09/23/16 01:33 Pantoprazole (Protonix) 40 mg DAILY ORAL 09/24/16 09:00 10/24/16 08:59 Sodium Chloride 1,000 ml @ 40 mls/hr Q24H IV 09/21/16 19:00 10/21/16 18:59 09/22/16 20:49 Vitamin A/Vitamin D (A & D Oint) 1 applic EVERY 12 HOURS TOPIC 09/23/16 21:00 10/23/16 20:59 RICHIE RIVERA September 23, 2016 15:21
[2016-09-23 16:00] VITALS: BP 118/67
--- NOTE | 2016-09-23 17:39 | Cardiology Progress Note ---
Assessment/Plan Assessment/Plan 1. Globally weak/septic shock. 2. Renal failure, acute on chronic. 3. 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 4. Anemia. 5. History of upper gastrointestinal bleed with treatment of the visible bleeding vessel previously. 6. Chronic renal insufficiency. 7. Coronary artery disease status post percutaneous coronary intervention with what was felt to be a demand related ischemia. 8. History of aspiration. 9. Altered mental status. 10. Hypertension. 11. Diabetes mellitus 12. thrombocytopenia pltimproved now has sitter bp is ok to day dialysis as planned remains extubated doign well abx tele reviwed sinus with occasion atrial pacing hgb up Subjective ROS Limited/Unobtainable: Yes Subjective sleeping has been agitated trying to pull off equipment ad lines per staff Objective Last 24 Hour Vital Signs Date Time Temp Pulse Resp B/P Pulse Ox O2 Delivery O2 Flow Rate FiO2 09/23/16 16:00 98.2 77 22 118/67 97 Nasal Cannula 2.0 09/23/16 12:02 75 140/84 09/23/16 12:00 99.1 81 24 133/68 98 Nasal Cannula 2.0 09/23/16 12:00 71 09/23/16 08:00 75 09/23/16 08:00 97.9 91 28 140/84 95 Nasal Cannula 2.0 09/23/16 07:59 Nasal Cannula 2.0 09/23/16 07:58 96 Nasal Cannula 2.0 09/23/16 04:00 105 09/23/16 04:00 98.3 85 24 130/88 96 Nasal Cannula 3.0 09/23/16 00:51 98.0 89 20 145/77 95 Nasal Cannula 3.0 09/23/16 00:00 87 09/22/16 20:08 98 Nasal Cannula 2.0 28 09/22/16 20:00 75 09/22/16 20:00 97.7 80 20 138/76 98 Nasal Cannula 2.0 09/22/16 19:20 Nasal Cannula 2.0 28 General Appearance: no apparent distress Neck: no JVD Cardiovascular: normal rate, regular rhythm Respiratory/Chest: lungs clear - ant Abdomen: normal bowel sounds, non tender, soft Extremities: non-tender, no swelling Intake and Output 09/22/16 09/23/16 19:00 07:00 Intake Total 480 ml 502.333 ml Output Total 350 ml 275 ml Balance 130 ml 227.333 ml IV Total 480 ml 502.333 ml Output Urine Total 350 ml 275 ml # Bowel Movements 2 Laboratory Tests Test 09/23/16 03:50 White Blood Count 6.5 K/UL (4.8-10.8) Red Blood Count 4.19 M/UL (4.70-6.10) L Hemoglobin 12.8 G/DL (14.2-18.0) L Hematocrit 37.6 % (42.0-52.0) L Mean Corpuscular Volume 90 FL (80-99) Mean Corpuscular Hemoglobin 30.6 PG (27.0-31.0) Mean Corpuscular Hemoglobin Concent 34.1 G/DL (32.0-36.0) Red Cell Distribution Width 13.5 % (11.6-14.8) Platelet Count 109 K/UL (150-450) L Mean Platelet Volume 7.3 FL (6.5-10.1) Neutrophils (%) (Auto) % (45.0-75.0) Lymphocytes (%) (Auto) % (20.0-45.0) Monocytes (%) (Auto) % (1.0-10.0) Eosinophils (%) (Auto) % (0.0-3.0) Basophils (%) (Auto) % (0.0-2.0) Differential Total Cells Counted 100 Neutrophils % (Manual) 89 % (45-75) H Lymphocytes % (Manual) 4 % (20-45) L Monocytes % (Manual) 4 % (1-10) Eosinophils % (Manual) 2 % (0-3) Basophils % (Manual) 0 % (0-2) Band Neutrophils 1 % (0-8) Platelet Estimate Decreased L Platelet Morphology Normal Red Blood Cell Morphology Normal Sodium Level 143 mEQ/L (135-145) Potassium Level 4.1 mEQ/L (3.4-4.9) Chloride Level 97 mEQ/L (98-107) L Carbon Dioxide Level 29 mEQ/L (20-30) Anion Gap 17 (5-15) H Blood Urea Nitrogen 50 mg/dL (7-23) H Creatinine 3.3 mg/dL (0.7-1.2) H Estimat Glomerular Filtration Rate mL/min (>60) Glucose Level 98 mg/dL (74-106) Calcium Level 8.7 mg/dL (8.6-10.2) Phosphorus Level 4.0 mg/dL (2.5-4.8) Magnesium Level 1.7 mg/dL (1.7-2.5) Total Bilirubin 0.7 mg/dL (0.0-1.2) Aspartate Amino Transf (AST/SGOT) 21 U/L (5-40) Alanine Aminotransferase (ALT/SGPT) 15 U/L (3-41) Alkaline Phosphatase 75 U/L (40-129) C-Reactive Protein, Quantitative 7.0 mg/dL (< 0.5) H Pro-B-Type Natriuretic Peptide > 15168 pg/mL (0-450) H Total Protein 6.4 g/dL (6.6-8.7) L Albumin 2.8 g/dL (3.5-5.2) L Globulin 3.6 g/dL Albumin/Globulin Ratio 0.7 (1.0-2.7) L RAJ DEL ROSARIO September 23, 2016 17:39
[2016-09-23] MEDS ORDERED: Tubing IV Secondary IV ONE (19:00)
[2016-09-23] MEDS ORDERED: NS 275ml ONE (19:00)
[2016-09-23 20:03] VITALS: BP 137/79
[2016-09-23] MEDS: Cefepime HCl 500 MG in D5W 55 ML IVPB SCH (21:46)
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
[2016-09-23] MEDS: Vitamin A&D Oint 2oz Tube TOPIC SCH (23:01)
[2016-09-24 00:20] VITALS: BP 132/78
[2016-09-24 04:11] VITALS: BP 125/66
[2016-09-24] MEDS: NovoLOG Insulin Flexpen SUBQ SCH ×5 (06:00→23:58)
[2016-09-24 06:18] LABS: MEAN CORPUSCULAR HEMOGLOBIN 30.1 PG (27.0-31.0); MEAN CORPUSCULAR HGB CONC 33.3 G/DL (32.0-36.0); MEAN CORPUSCULAR VOLUME 90 FL (80-99); MEAN PLATELET VOLUME 8.2 FL (6.5-10.1); PLATELET COUNT 87 K/UL (150-450); RED BLOOD COUNT 3.47 M/UL (4.70-6.10); RED CELL DISTRIBUTION WIDTH 13.4 % (11.6-14.8); WHITE BLOOD COUNT 3.2 K/UL (4.8-10.8)
[2016-09-24 06:37] LABS: ALANINE AMINOTRANSFERASE 11 U/L (3-41); ALBUMIN/GLOBULIN RATIO 0.7 (1.0-2.7); ANION GAP 17 (5-15); ASPARTATE AMINO TRANSFERASE 15 U/L (5-40); CALCIUM 8.2 mg/dL (8.6-10.2); CARBON DIOXIDE 29 mEQ/L (20-30); CHLORIDE 99 mEQ/L (98-107); CREATININE 3.7 mg/dL (0.7-1.2); CRP QUANT 11.1 mg/dL (< 0.5); HEMOLYSIS 4; MAGNESIUM 1.6 mg/dL (1.7-2.5); PHOSPHORUS 4.9 mg/dL (2.5-4.8); POTASSIUM 3.3 mEQ/L (3.4-4.9); SODIUM 145 mEQ/L (135-145); TOTAL PROTEIN 5.3 g/dL (6.6-8.7); URIC ACID 6.3 mg/dL (3.0-7.5)
[2016-09-24 08:00] VITALS: BP 129/66
[2016-09-24] MEDS: Vitamin A&D Oint 2oz Tube TOPIC SCH ×2 (09:03→20:48)
[2016-09-24] MEDS: Carvedilol 6.25mg Tab ORAL SCH ×2 (09:03→20:57)
--- NOTE | 2016-09-24 09:46 | General Progress Note ---
Assessment/Plan Status: unchanged Assessment/Plan status: Septic Shock leading to acute renal and multiOrgan failure Sever Acidosis , high Lactate , High K , Due to the above: ALL IMPROVED- Seems like patient has CKD , unclear what is the baseline S Cr Other: DM Pacer : Left ventricular ejection fraction estimated to be 50%. Apical wall hypokinesia may be due to ventricular paced effect. OBS Sugg: HD today- DC IV fluid - Stool for C dif- has diarrhea Last HD 09/21 post extubation care Phos supplement - K supplement as needed Hemodynamic support Antibiotics discussed with RN monitor renal parameters Subjective ROS Limited/Unobtainable: No Constitutional: Reports: malaise, weakness Allergies: Coded Allergies: SULFA (SULFONAMIDE ANTIBIOTICS) (Verified Allergy, Unknown, 09/10/16) Uncoded Allergies: SULFA (Adverse Reaction, Mild, RASH, 04/01/13) Objective Last 24 Hour Vital Signs Date Time Temp Pulse Resp B/P Pulse Ox O2 Delivery O2 Flow Rate FiO2 09/24/16 09:03 70 129/66 09/24/16 08:00 97.7 70 22 129/66 94 Nasal Cannula 2.0 09/24/16 07:56 58 09/24/16 04:11 97.7 61 18 125/66 98 Nasal Cannula 2.0 09/24/16 03:46 65 09/24/16 00:20 98.2 84 18 132/78 98 Nasal Cannula 2.0 09/24/16 00:00 78 09/23/16 21:53 74 137/79 09/23/16 20:03 98.3 74 20 137/79 98 Nasal Cannula 2.0 09/23/16 20:00 75 09/23/16 19:00 Nasal Cannula 2.0 09/23/16 19:00 97 Nasal Cannula 2.0 09/23/16 16:00 81 09/23/16 16:00 98.2 77 22 118/67 97 Nasal Cannula 2.0 09/23/16 12:02 75 140/84 09/23/16 12:00 99.1 81 24 133/68 98 Nasal Cannula 2.0 09/23/16 12:00 71 Intake and Output 09/23/16 09/24/16 19:00 07:00 Intake Total 480 ml 710 ml Output Total 200 ml Balance 280 ml 710 ml Intake Oral 120 ml IV Total 480 ml 590 ml Output Urine Total 200 ml # Bowel Movements 1 Laboratory Tests 09/24/16 05:00: White Blood Count 3.2#L, Red Blood Count 3.47L, Hemoglobin 10.4L, Hematocrit 31.3L, Mean Corpuscular Volume 90, Mean Corpuscular Hemoglobin 30.1, Mean Corpuscular Hemoglobin Concent 33.3, Red Cell Distribution Width 13.4, Platelet Count 87L, Mean Platelet Volume 8.2, Neutrophils (%) (Auto) , Lymphocytes (%) ( Auto) , Monocytes (%) (Auto) , Eosinophils (%) (Auto) , Basophils (%) (Auto) , Neutrophils % (Manual) [Pending], Lymphocytes % (Manual) [Pending], Platelet Estimate [Pending], Platelet Morphology [Pending], Sodium Level 145, Potassium Level 3.3L, Chloride Level 99, Carbon Dioxide Level 29, Anion Gap 17H, Blood Urea Nitrogen 60H, Creatinine 3.7H, Estimat Glomerular Filtration Rate , Glucose Level 98, Uric Acid 6.3, Calcium Level 8.2L, Phosphorus Level 4.9H, Magnesium Level 1.6L, Total Bilirubin 0.5, Aspartate Amino Transf (AST/SGOT) 15 , Alanine Aminotransferase (ALT/SGPT) 11, Alkaline Phosphatase 52, C-Reactive Protein, Quantitative 11.1H, Pro-B-Type Natriuretic Peptide > 69433O, Total Protein 5.3L, Albumin 2.2L, Globulin 3.1, Albumin/Globulin Ratio 0.7L Height (Feet): 5 Height (Inches): 6.00 Weight (Pounds): 160 General Appearance: no apparent distress, lethargic, confused Cardiovascular: normal rate Respiratory/Chest: decreased breath sounds Abdomen: soft Objective no change in PE MARIAN KOTHARI September 24, 2016 09:46
[2016-09-24 11:12] LABS: ANISOCYTOSIS 1+; BAND NEUTROPHILS % (MANUAL) 6 % (0-8); BASOPHILS % (MANUAL) 0 % (0-2); EOSINOPHILS % (MANUAL) 2 % (0-3); HYPOCHROMASIA 1+; LYMPHOCYTES % (MANUAL) 11 % (20-45); NEUTROPHILS % (MANUAL) 74 % (45-75); PLATELET ESTIMATE DECREASED; PLATELET MORPHOLOGY NORMAL; TOTAL CELLS COUNTED 100
[2016-09-24 12:40] VITALS: BP 111/61
--- NOTE | 2016-09-24 12:43 | Pulmonology Progress Note ---
Assessment/Plan Problems: (1) Respiratory failure (2) Severe sepsis (3) Renal failure (4) Anemia, chronic disease (5) ARF (acute renal failure) (6) Diabetes mellitus type II, uncontrolled Assessment/Plan has diarrhea now , has rectal tube tolerating extubation eating good, needs a feeder dialyzed on 09/22 pt/ot check labs HD by nephrology might need feeding tube Subjective ROS Limited/Unobtainable: No Interval Events: awake, being dialyzed Allergies: Coded Allergies: SULFA (SULFONAMIDE ANTIBIOTICS) (Verified Allergy, Unknown, 09/10/16) Uncoded Allergies: SULFA (Adverse Reaction, Mild, RASH, 04/01/13) Objective Last 24 Hour Vital Signs Date Time Temp Pulse Resp B/P Pulse Ox O2 Delivery O2 Flow Rate FiO2 09/24/16 09:03 70 129/66 09/24/16 08:00 97.7 70 22 129/66 94 Nasal Cannula 2.0 09/24/16 07:56 58 09/24/16 04:11 97.7 61 18 125/66 98 Nasal Cannula 2.0 09/24/16 03:46 65 09/24/16 00:20 98.2 84 18 132/78 98 Nasal Cannula 2.0 09/24/16 00:00 78 09/23/16 21:53 74 137/79 09/23/16 20:03 98.3 74 20 137/79 98 Nasal Cannula 2.0 09/23/16 20:00 75 09/23/16 19:00 Nasal Cannula 2.0 09/23/16 19:00 97 Nasal Cannula 2.0 09/23/16 16:00 81 09/23/16 16:00 98.2 77 22 118/67 97 Nasal Cannula 2.0 Intake and Output 09/23/16 09/24/16 19:00 07:00 Intake Total 480 ml 710 ml Output Total 200 ml Balance 280 ml 710 ml Intake Oral 120 ml IV Total 480 ml 590 ml Output Urine Total 200 ml # Bowel Movements 1 General Appearance: cachetic HEENT: normocephalic, atraumatic Respiratory/Chest: chest wall non-tender, lungs clear Cardiovascular: normal peripheral pulses, normal rate, regular rhythm Abdomen: normal bowel sounds, soft, non tender Genitourinary: normal external genitalia Skin: no rash Neurologic/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: 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 grossly normal, no motor/sensory deficits, normal mood/affect Musculoskeletal: normal muscle bulk Laboratory Tests 09/24/16 05:00: White Blood Count 3.2#L, Red Blood Count 3.47L, Hemoglobin 10.4L, Hematocrit 31.3L, Mean Corpuscular Volume 90, Mean Corpuscular Hemoglobin 30.1, Mean Corpuscular Hemoglobin Concent 33.3, Red Cell Distribution Width 13.4, Platelet Count 87L, Mean Platelet Volume 8.2, Neutrophils (%) (Auto) , Lymphocytes (%) ( Auto) , Monocytes (%) (Auto) , Eosinophils (%) (Auto) , Basophils (%) (Auto) , Differential Total Cells Counted 100, Neutrophils % (Manual) 74, Lymphocytes % ( Manual) 11L, Monocytes % (Manual) 7, Eosinophils % (Manual) 2, Basophils % ( Manual) 0, Band Neutrophils 6, Platelet Estimate DecreasedL, Platelet Morphology Normal, Hypochromasia 1+, Anisocytosis 1+, Sodium Level 145, Potassium Level 3.3L, Chloride Level 99, Carbon Dioxide Level 29, Anion Gap 17H , Blood Urea Nitrogen 60H, Creatinine 3.7H, Estimat Glomerular Filtration Rate , Glucose Level 98, Uric Acid 6.3, Calcium Level 8.2L, Phosphorus Level 4.9H, Magnesium Level 1.6L, Total Bilirubin 0.5, Aspartate Amino Transf (AST/SGOT) 15 , Alanine Aminotransferase (ALT/SGPT) 11, Alkaline Phosphatase 52, C-Reactive Protein, Quantitative 11.1H, Pro-B-Type Natriuretic Peptide > 92534T, Total Protein 5.3L, Albumin 2.2L, Globulin 3.1, Albumin/Globulin Ratio 0.7L Current Medications Medications (Trade) Dose Ordered Sig/Barrett Route PRN Reason Start Time Stop Time Status Last Admin Dose Admin Carvedilol (Coreg) 6.25 mg EVERY 12 HOURS ORAL 09/23/16 12:00 10/23/16 11:59 09/24/16 09:03 Cefepime HCl/ Dextrose (Maxipime/D5W) 55 ml @ 110 mls/hr Q24H IVPB 09/21/16 21:00 09/27/16 23:59 09/23/16 21:46 Dextrose (Dextrose 50%) STAT PRN IV Hypoglycemia 09/21/16 19:00 10/21/16 18:59 09/23/16 06:07 Insulin Aspart (NovoLOG) Q6HR SUBQ 09/22/16 00:00 10/22/16 00:00 09/24/16 12:28 Pantoprazole (Protonix) 40 mg DAILY ORAL 09/24/16 09:00 10/24/16 08:59 09/24/16 09:03 Vitamin A/Vitamin D (A & D Oint) 1 applic EVERY 12 HOURS TOPIC 09/23/16 21:00 10/23/16 20:59 09/24/16 09:03 LANDEN HERNANDEZ September 24, 2016 12:43
[2016-09-24] MEDS ORDERED: 1/2 NS 1000ml IV ONE (15:58)
[2016-09-24 16:09] VITALS: BP 118/60
--- NOTE | 2016-09-24 16:46 | Internal Med Progress Note ---
Subjective Date of Service: September 24, 2016 Physician Name King Haynes Attending Physician Jonathan Sampson MD Current Medications Medications (Trade) Dose Ordered Sig/Barrett Route PRN Reason Start Time Stop Time Status Last Admin Dose Admin Carvedilol (Coreg) 6.25 mg EVERY 12 HOURS ORAL 09/23/16 12:00 10/23/16 11:59 09/24/16 09:03 Cefepime HCl/ Dextrose (Maxipime/D5W) 55 ml @ 110 mls/hr Q24H IVPB 09/21/16 21:00 09/27/16 23:59 09/23/16 21:46 Dextrose (Dextrose 50%) STAT PRN IV Hypoglycemia 09/21/16 19:00 10/21/16 18:59 09/23/16 06:07 Insulin Aspart (NovoLOG) Q6HR SUBQ 09/22/16 00:00 10/22/16 00:00 09/24/16 12:28 Pantoprazole (Protonix) 40 mg DAILY ORAL 09/24/16 09:00 10/24/16 08:59 09/24/16 09:03 Vitamin A/Vitamin D (A & D Oint) 1 applic EVERY 12 HOURS TOPIC 09/23/16 21:00 10/23/16 20:59 09/24/16 09:03 Allergies: Coded Allergies: SULFA (SULFONAMIDE ANTIBIOTICS) (Verified Allergy, Unknown, 09/10/16) Uncoded Allergies: SULFA (Adverse Reaction, Mild, RASH, 04/01/13) ROS Limited/Unobtainable: Yes Subjective 76 YO M admitted with hypotension and UTI/sepsis. KATHYA. Tolerating nasal canula. Cover for Int Med-Dr Sampson.. Objective Last Vital Signs Date Time Temp Pulse Resp B/P Pulse Ox O2 Delivery O2 Flow Rate FiO2 09/24/16 16:09 97.7 62 18 118/60 98 Nasal Cannula 2.0 09/22/16 20:08 28 Laboratory Tests Test 09/24/16 05:00 White Blood Count 3.2 K/UL (4.8-10.8) #L Red Blood Count 3.47 M/UL (4.70-6.10) L Hemoglobin 10.4 G/DL (14.2-18.0) L Hematocrit 31.3 % (42.0-52.0) L Mean Corpuscular Volume 90 FL (80-99) Mean Corpuscular Hemoglobin 30.1 PG (27.0-31.0) Mean Corpuscular Hemoglobin Concent 33.3 G/DL (32.0-36.0) Red Cell Distribution Width 13.4 % (11.6-14.8) Platelet Count 87 K/UL (150-450) L Mean Platelet Volume 8.2 FL (6.5-10.1) Neutrophils (%) (Auto) % (45.0-75.0) Lymphocytes (%) (Auto) % (20.0-45.0) Monocytes (%) (Auto) % (1.0-10.0) Eosinophils (%) (Auto) % (0.0-3.0) Basophils (%) (Auto) % (0.0-2.0) Differential Total Cells Counted 100 Neutrophils % (Manual) 74 % (45-75) Lymphocytes % (Manual) 11 % (20-45) L Monocytes % (Manual) 7 % (1-10) Eosinophils % (Manual) 2 % (0-3) Basophils % (Manual) 0 % (0-2) Band Neutrophils 6 % (0-8) Platelet Estimate Decreased L Platelet Morphology Normal Hypochromasia 1+ Anisocytosis 1+ Sodium Level 145 mEQ/L (135-145) Potassium Level 3.3 mEQ/L (3.4-4.9) L Chloride Level 99 mEQ/L (98-107) Carbon Dioxide Level 29 mEQ/L (20-30) Anion Gap 17 (5-15) H Blood Urea Nitrogen 60 mg/dL (7-23) H Creatinine 3.7 mg/dL (0.7-1.2) H Estimat Glomerular Filtration Rate mL/min (>60) Glucose Level 98 mg/dL (74-106) Uric Acid 6.3 mg/dL (3.0-7.5) Calcium Level 8.2 mg/dL (8.6-10.2) L Phosphorus Level 4.9 mg/dL (2.5-4.8) H Magnesium Level 1.6 mg/dL (1.7-2.5) L Total Bilirubin 0.5 mg/dL (0.0-1.2) Aspartate Amino Transf (AST/SGOT) 15 U/L (5-40) Alanine Aminotransferase (ALT/SGPT) 11 U/L (3-41) Alkaline Phosphatase 52 U/L (40-129) C-Reactive Protein, Quantitative 11.1 mg/dL (< 0.5) H Pro-B-Type Natriuretic Peptide > 47807 pg/mL (0-450) H Total Protein 5.3 g/dL (6.6-8.7) L Albumin 2.2 g/dL (3.5-5.2) L Globulin 3.1 g/dL Albumin/Globulin Ratio 0.7 (1.0-2.7) L Intake and Output 09/23/16 09/24/16 19:00 07:00 Intake Total 480 ml 710 ml Output Total 200 ml Balance 280 ml 710 ml Intake Oral 120 ml IV Total 480 ml 590 ml Output Urine Total 200 ml # Bowel Movements 1 Objective General Appearance: WD/WN, moderate distress EENT: normal ENT inspection Neck: non-tender, normal alignment, supple Cardiovascular: normal peripheral pulses, normal rate, regular rhythm, no gallop/murmur, no JVD Respiratory/Chest: Nasal canula; respiratory distress, crackles/rales, rhonchi - bilaterally, expiratory wheezing Abdomen: normal bowel sounds, non tender, soft, no organomegaly, no mass Skin: normal pigmentation, warm/dry Assessment/Plan Problem List: (1) Severe sepsis Assessment & Plan: Cont cefepime per ID (2) Respiratory failure Assessment & Plan: Extubated today per pulmonary (3) Renal failure Assessment & Plan: Last Hemodialysis 09/17/16 per nephrology. (4) Diabetes mellitus type II, uncontrolled Assessment & Plan: Cont novolog sliding scale. (5) BPH (benign prostatic hyperplasia) (6) Hypokalemia (7) Infection caused by Enterobacter cloacae (8) UTI (urinary tract infection) Assessment & Plan: Enterobacter. D/C zosyn. Start cefepime per ID (9) Hypotension Assessment & Plan: Cont levophed (10) Dysphagia Assessment & Plan: Swallow eval Status: progressing KING HAYNES September 24, 2016 16:45
--- NOTE | 2016-09-24 17:33 | Cardiology Progress Note ---
Assessment/Plan Assessment/Plan stable cardiac rhythm, BP is stable, overall is very weak and grail, but no new development, his urine is very dark and brownish, nurse said PCP knows about it Subjective Subjective patient is lethargic, barely opens eyes and does not respond to questions caregiver at the bedside Objective Last 24 Hour Vital Signs Date Time Temp Pulse Resp B/P Pulse Ox O2 Delivery O2 Flow Rate FiO2 09/24/16 16:09 97.7 62 18 118/60 98 Nasal Cannula 2.0 09/24/16 14:30 Nasal Cannula 2.0 09/24/16 12:40 97.2 58 18 111/61 97 Nasal Cannula 2.0 09/24/16 11:45 57 09/24/16 11:25 Nasal Cannula 2.0 09/24/16 09:03 70 129/66 09/24/16 08:00 97.7 70 22 129/66 94 Nasal Cannula 2.0 09/24/16 07:56 58 09/24/16 04:11 97.7 61 18 125/66 98 Nasal Cannula 2.0 09/24/16 03:46 65 09/24/16 00:20 98.2 84 18 132/78 98 Nasal Cannula 2.0 09/24/16 00:00 78 09/23/16 21:53 74 137/79 09/23/16 20:03 98.3 74 20 137/79 98 Nasal Cannula 2.0 09/23/16 20:00 75 09/23/16 19:00 Nasal Cannula 2.0 09/23/16 19:00 97 Nasal Cannula 2.0 General Appearance: other - very ill and frail appearing EENT: PERRL/EOMI Neck: no JVD, other - right sided IJ [place] Rhythm: NSR, other - occasionally paced Cardiovascular: regular rhythm Respiratory/Chest: rhonchi - bilaterally Abdomen: decreased bowel sounds Extremities: other - very thin and ulcer Intake and Output 09/23/16 09/24/16 19:00 07:00 Intake Total 480 ml 710 ml Output Total 200 ml Balance 280 ml 710 ml Intake Oral 120 ml IV Total 480 ml 590 ml Output Urine Total 200 ml # Bowel Movements 1 Laboratory Tests Test 09/24/16 05:00 White Blood Count 3.2 K/UL (4.8-10.8) #L Red Blood Count 3.47 M/UL (4.70-6.10) L Hemoglobin 10.4 G/DL (14.2-18.0) L Hematocrit 31.3 % (42.0-52.0) L Mean Corpuscular Volume 90 FL (80-99) Mean Corpuscular Hemoglobin 30.1 PG (27.0-31.0) Mean Corpuscular Hemoglobin Concent 33.3 G/DL (32.0-36.0) Red Cell Distribution Width 13.4 % (11.6-14.8) Platelet Count 87 K/UL (150-450) L Mean Platelet Volume 8.2 FL (6.5-10.1) Neutrophils (%) (Auto) % (45.0-75.0) Lymphocytes (%) (Auto) % (20.0-45.0) Monocytes (%) (Auto) % (1.0-10.0) Eosinophils (%) (Auto) % (0.0-3.0) Basophils (%) (Auto) % (0.0-2.0) Differential Total Cells Counted 100 Neutrophils % (Manual) 74 % (45-75) Lymphocytes % (Manual) 11 % (20-45) L Monocytes % (Manual) 7 % (1-10) Eosinophils % (Manual) 2 % (0-3) Basophils % (Manual) 0 % (0-2) Band Neutrophils 6 % (0-8) Platelet Estimate Decreased L Platelet Morphology Normal Hypochromasia 1+ Anisocytosis 1+ Sodium Level 145 mEQ/L (135-145) Potassium Level 3.3 mEQ/L (3.4-4.9) L Chloride Level 99 mEQ/L (98-107) Carbon Dioxide Level 29 mEQ/L (20-30) Anion Gap 17 (5-15) H Blood Urea Nitrogen 60 mg/dL (7-23) H Creatinine 3.7 mg/dL (0.7-1.2) H Estimat Glomerular Filtration Rate mL/min (>60) Glucose Level 98 mg/dL (74-106) Uric Acid 6.3 mg/dL (3.0-7.5) Calcium Level 8.2 mg/dL (8.6-10.2) L Phosphorus Level 4.9 mg/dL (2.5-4.8) H Magnesium Level 1.6 mg/dL (1.7-2.5) L Total Bilirubin 0.5 mg/dL (0.0-1.2) Aspartate Amino Transf (AST/SGOT) 15 U/L (5-40) Alanine Aminotransferase (ALT/SGPT) 11 U/L (3-41) Alkaline Phosphatase 52 U/L (40-129) C-Reactive Protein, Quantitative 11.1 mg/dL (< 0.5) H Pro-B-Type Natriuretic Peptide > 62419 pg/mL (0-450) H Total Protein 5.3 g/dL (6.6-8.7) L Albumin 2.2 g/dL (3.5-5.2) L Globulin 3.1 g/dL Albumin/Globulin Ratio 0.7 (1.0-2.7) L PHU ROSA September 24, 2016 17:33
--- NOTE | 2016-09-24 19:30 | Infectious Diseases Prog Note ---
Assessment/Plan Assessment/Plan A: The patient is a 76-year-old male Septic shock SP - off pressors Pneumonia Scx: Lori ( colonizer ) Chest x-ray : atelectasis and pneumonia in the left lung base UTI , UCx: Enterobacter ( probable Extended B-lactamase inhibitor ) Afebrile without leukocytosis DM HTN SP pacemaker placement Alzheimer dementia [place] : on HD started 09/14 Sulfa allergy Full Code P: Cefepime d# / ( 09/14 SP Zosyn d# 4 ) Monitor CBC, temperatures, re-culture if acute change Monitor CMP Nephro is following for HD Subjective Allergies: Coded Allergies: SULFA (SULFONAMIDE ANTIBIOTICS) (Verified Allergy, Unknown, 09/10/16) Uncoded Allergies: SULFA (Adverse Reaction, Mild, RASH, 04/01/13) Subjective remains afebrile Objective Vital Signs Last 24 Hour Vital Signs Date Time Temp Pulse Resp B/P Pulse Ox O2 Delivery O2 Flow Rate FiO2 09/24/16 16:14 57 09/24/16 16:09 97.7 62 18 118/60 98 Nasal Cannula 2.0 09/24/16 14:30 Nasal Cannula 2.0 09/24/16 12:40 97.2 58 18 111/61 97 Nasal Cannula 2.0 09/24/16 11:45 57 09/24/16 11:25 Nasal Cannula 2.0 09/24/16 09:03 70 129/66 09/24/16 08:00 97.7 70 22 129/66 94 Nasal Cannula 2.0 09/24/16 07:56 58 09/24/16 04:11 97.7 61 18 125/66 98 Nasal Cannula 2.0 09/24/16 03:46 65 09/24/16 00:20 98.2 84 18 132/78 98 Nasal Cannula 2.0 09/24/16 00:00 78 09/23/16 21:53 74 137/79 09/23/16 20:03 98.3 74 20 137/79 98 Nasal Cannula 2.0 09/23/16 20:00 75 Height (Feet): 5 Height (Inches): 6.00 Weight (Pounds): 160 General Appearance: no acute distress Respiratory/Chest: no respiratory distress Cardiovascular: normal rate, regular rhythm Abdomen: normal bowel sounds, soft, non tender, non distended Laboratory Tests Test 09/24/16 05:00 White Blood Count 3.2 K/UL (4.8-10.8) #L Red Blood Count 3.47 M/UL (4.70-6.10) L Hemoglobin 10.4 G/DL (14.2-18.0) L Hematocrit 31.3 % (42.0-52.0) L Mean Corpuscular Volume 90 FL (80-99) Mean Corpuscular Hemoglobin 30.1 PG (27.0-31.0) Mean Corpuscular Hemoglobin Concent 33.3 G/DL (32.0-36.0) Red Cell Distribution Width 13.4 % (11.6-14.8) Platelet Count 87 K/UL (150-450) L Mean Platelet Volume 8.2 FL (6.5-10.1) Neutrophils (%) (Auto) % (45.0-75.0) Lymphocytes (%) (Auto) % (20.0-45.0) Monocytes (%) (Auto) % (1.0-10.0) Eosinophils (%) (Auto) % (0.0-3.0) Basophils (%) (Auto) % (0.0-2.0) Differential Total Cells Counted 100 Neutrophils % (Manual) 74 % (45-75) Lymphocytes % (Manual) 11 % (20-45) L Monocytes % (Manual) 7 % (1-10) Eosinophils % (Manual) 2 % (0-3) Basophils % (Manual) 0 % (0-2) Band Neutrophils 6 % (0-8) Platelet Estimate Decreased L Platelet Morphology Normal Hypochromasia 1+ Anisocytosis 1+ Sodium Level 145 mEQ/L (135-145) Potassium Level 3.3 mEQ/L (3.4-4.9) L Chloride Level 99 mEQ/L (98-107) Carbon Dioxide Level 29 mEQ/L (20-30) Anion Gap 17 (5-15) H Blood Urea Nitrogen 60 mg/dL (7-23) H Creatinine 3.7 mg/dL (0.7-1.2) H Estimat Glomerular Filtration Rate mL/min (>60) Glucose Level 98 mg/dL (74-106) Uric Acid 6.3 mg/dL (3.0-7.5) Calcium Level 8.2 mg/dL (8.6-10.2) L Phosphorus Level 4.9 mg/dL (2.5-4.8) H Magnesium Level 1.6 mg/dL (1.7-2.5) L Total Bilirubin 0.5 mg/dL (0.0-1.2) Aspartate Amino Transf (AST/SGOT) 15 U/L (5-40) Alanine Aminotransferase (ALT/SGPT) 11 U/L (3-41) Alkaline Phosphatase 52 U/L (40-129) C-Reactive Protein, Quantitative 11.1 mg/dL (< 0.5) H Pro-B-Type Natriuretic Peptide > 00454 pg/mL (0-450) H Total Protein 5.3 g/dL (6.6-8.7) L Albumin 2.2 g/dL (3.5-5.2) L Globulin 3.1 g/dL Albumin/Globulin Ratio 0.7 (1.0-2.7) L Current Medications Medications (Trade) Dose Ordered Sig/Barrett Route PRN Reason Start Time Stop Time Status Last Admin Dose Admin Carvedilol (Coreg) 6.25 mg EVERY 12 HOURS ORAL 09/23/16 12:00 10/23/16 11:59 09/24/16 09:03 Cefepime HCl/ Dextrose (Maxipime/D5W) 55 ml @ 110 mls/hr Q24H IVPB 09/21/16 21:00 09/27/16 23:59 09/23/16 21:46 Dextrose (Dextrose 50%) STAT PRN IV Hypoglycemia 09/21/16 19:00 10/21/16 18:59 09/23/16 06:07 Insulin Aspart (NovoLOG) Q6HR SUBQ 09/22/16 00:00 10/22/16 00:00 09/24/16 17:44 Pantoprazole (Protonix) 40 mg DAILY ORAL 09/24/16 09:00 10/24/16 08:59 09/24/16 09:03 Vitamin A/Vitamin D (A & D Oint) 1 applic EVERY 12 HOURS TOPIC 09/23/16 21:00 10/23/16 20:59 09/24/16 09:03 RICHIE RIVERA September 24, 2016 19:30
[2016-09-24 20:00] VITALS: BP 113/54
[2016-09-24] MEDS: Cefepime HCl 500 MG in D5W 55 ML IVPB SCH (20:47)
[2016-09-25] VITALS: BP 117/55
[2016-09-25 04:00] VITALS: BP 112/59
[2016-09-25] MEDS: NovoLOG Insulin Flexpen SUBQ SCH ×4 (06:15→21:15)
[2016-09-25] MEDS ORDERED: NovoLOG Insulin Flexpen SUBQ SCH (06:30)
[2016-09-25 08:09] LABS: MEAN CORPUSCULAR HEMOGLOBIN 29.7 PG (27.0-31.0); MEAN CORPUSCULAR HGB CONC 32.3 G/DL (32.0-36.0); MEAN CORPUSCULAR VOLUME 92 FL (80-99); MEAN PLATELET VOLUME 8.5 FL (6.5-10.1); PLATELET COUNT 93 K/UL (150-450); RED BLOOD COUNT 3.53 M/UL (4.70-6.10); RED CELL DISTRIBUTION WIDTH 14.4 % (11.6-14.8); WHITE BLOOD COUNT 3.5 K/UL (4.8-10.8)
[2016-09-25 08:10] VITALS: BP 126/67
[2016-09-25 08:31] LABS: ALANINE AMINOTRANSFERASE 8 U/L (3-41); ALBUMIN/GLOBULIN RATIO 0.8 (1.0-2.7); ANION GAP 16 (5-15); ASPARTATE AMINO TRANSFERASE 13 U/L (5-40); CALCIUM 8.3 mg/dL (8.6-10.2); CARBON DIOXIDE 26 mEQ/L (20-30); CHLORIDE 100 mEQ/L (98-107); HEMOLYSIS 4; POTASSIUM 3.4 mEQ/L (3.4-4.9); SODIUM 142 mEQ/L (135-145); TOTAL PROTEIN 5.3 g/dL (6.6-8.7)
[2016-09-25] MEDS ORDERED: Carvedilol 6.25mg Tab ORAL SCH (09:00)
[2016-09-25] MEDS ORDERED: Vitamin A&D Oint 2oz Tube TOPIC SCH (09:00)
[2016-09-25 09:41] LABS: BAND NEUTROPHILS % (MANUAL) 5 % (0-8); BASOPHILS % (MANUAL) 1 % (0-2); LYMPHOCYTES % (MANUAL) 18 % (20-45); NEUTROPHILS % (MANUAL) 70 % (45-75); TOTAL CELLS COUNTED 100
[2016-09-25 09:42] LABS: ANISOCYTOSIS 1+; EOSINOPHILS % (MANUAL) 0 % (0-3); HYPOCHROMASIA 1+; PLATELET ESTIMATE DECREASED; PLATELET MORPHOLOGY NORMAL
--- NOTE | 2016-09-25 10:39 | Diagnostic Imaging Report ---
Indication: Dyspnea Technique: XRAY CHEST 1 V Comparison: 09/22/16 Findings: Right internal jugular Marco Antonio catheter and left chest pacemaker are again noted. The cardiomediastinal silhouette is stable. Perihilar interstitial and airspace pulmonary edema is again noted. Small bilateral pleural effusions are present. Osseous structures are stable. Impression: Grossly stable congestive heart failure.
--- NOTE | 2016-09-25 11:11 | General Progress Note ---
Assessment/Plan Status: stable Assessment/Plan Status: Septic Shock leading to acute renal and multiOrgan failure Sever Acidosis , high Lactate , High K , Due to the above: ALL IMPROVED- Seems like patient has CKD , unclear what is the baseline S Cr Other: DM Pacer : Left ventricular ejection fraction estimated to be 50%. Apical wall hypokinesia may be due to ventricular paced effect. OBS Sugg: HD 09/24 done DC IV fluid - Stool for C dif- POSITIVE will start Vanco po post extubation care Phos supplement - K supplement as needed Hemodynamic support Antibiotics discussed with RN monitor renal parameters Subjective ROS Limited/Unobtainable: No Constitutional: Reports: malaise Gastrointestinal/Abdominal: Reports: diarrhea Allergies: Coded Allergies: SULFA (SULFONAMIDE ANTIBIOTICS) (Verified Allergy, Unknown, 09/10/16) Uncoded Allergies: SULFA (Adverse Reaction, Mild, RASH, 04/01/13) Objective Last 24 Hour Vital Signs Date Time Temp Pulse Resp B/P Pulse Ox O2 Delivery O2 Flow Rate FiO2 09/25/16 08:19 64 126/67 09/25/16 08:10 97.6 64 19 126/67 98 Nasal Cannula 2.0 09/25/16 08:00 67 09/25/16 04:05 59 09/25/16 04:00 98.2 64 20 112/59 95 Nasal Cannula 2.0 09/25/16 00:00 97.7 59 18 117/55 99 Nasal Cannula 2.0 28 09/25/16 00:00 59 09/24/16 20:57 64 120/60 09/24/16 20:00 71 09/24/16 20:00 97.7 60 18 113/54 98 Nasal Cannula 2.0 28 09/24/16 16:14 57 09/24/16 16:09 97.7 62 18 118/60 98 Nasal Cannula 2.0 09/24/16 14:30 Nasal Cannula 2.0 09/24/16 12:40 97.2 58 18 111/61 97 Nasal Cannula 2.0 09/24/16 11:45 57 09/24/16 11:25 Nasal Cannula 2.0 Intake and Output 09/24/16 09/25/16 19:00 07:00 Intake Total 360 ml 175 ml Output Total 1950 ml 200 ml Balance -1590 ml -25 ml Intake Oral 280 ml 120 ml IV Total 80 ml 55 ml Output Urine Total 0 ml Stool Total 400 ml 200 ml Peritoneal Dialysis UF 1550 ml Laboratory Tests 09/25/16 06:34: White Blood Count 3.5L, Red Blood Count 3.53L, Hemoglobin 10.5L, Hematocrit 32.4L, Mean Corpuscular Volume 92, Mean Corpuscular Hemoglobin 29.7, Mean Corpuscular Hemoglobin Concent 32.3, Red Cell Distribution Width 14.4, Platelet Count 93L, Mean Platelet Volume 8.5, Neutrophils (%) (Auto) , Lymphocytes (%) ( Auto) , Monocytes (%) (Auto) , Eosinophils (%) (Auto) , Basophils (%) (Auto) , Differential Total Cells Counted 100, Neutrophils % (Manual) 70, Lymphocytes % ( Manual) 18L, Monocytes % (Manual) 6, Eosinophils % (Manual) 0, Basophils % ( Manual) 1, Band Neutrophils 5, Platelet Estimate DecreasedL, Platelet Morphology Normal, Hypochromasia 1+, Anisocytosis 1+, Sodium Level 142, Potassium Level 3.4, Chloride Level 100, Carbon Dioxide Level 26, Anion Gap 16H , Blood Urea Nitrogen 43H, Creatinine 3.0H, Estimat Glomerular Filtration Rate , Glucose Level 106, Calcium Level 8.3L, Total Bilirubin 0.6, Aspartate Amino Transf (AST/SGOT) 13, Alanine Aminotransferase (ALT/SGPT) 8, Alkaline Phosphatase 53, Pro-B-Type Natriuretic Peptide > 00133D, Total Protein 5.3L, Albumin 2.4L, Globulin 2.9, Albumin/Globulin Ratio 0.8L Height (Feet): 5 Height (Inches): 6.00 Weight (Pounds): 160 General Appearance: no apparent distress, lethargic Neck: limited range of motion Cardiovascular: normal rate Respiratory/Chest: decreased breath sounds Abdomen: soft, distended Objective no change in PE MARIAN KOTHARI September 25, 2016 11:11
[2016-09-25 12:15] VITALS: BP 128/59
[2016-09-25] MEDS ORDERED: Lactobacillus-GG tablet ORAL SCH ×2 (13:00→18:00)
[2016-09-25] MEDS ORDERED: Vancomycin oral 125mg/2.5ml ORAL SCH ×2 (13:00)
--- NOTE | 2016-09-25 13:04 | Internal Med Progress Note ---
Subjective Date of Service: September 25, 2016 Physician Name Glynn Haynes Attending Physician Jonathan Sampson MD Current Medications Medications (Trade) Dose Ordered Sig/Barrett Route PRN Reason Start Time Stop Time Status Last Admin Dose Admin Carvedilol (Coreg) 6.25 mg EVERY 12 HOURS ORAL 09/25/16 09:00 10/25/16 08:59 09/25/16 08:19 Cefepime HCl/ Dextrose (Maxipime/D5W) 55 ml @ 110 mls/hr Q24H IVPB 09/25/16 21:00 10/02/16 20:59 Dextrose (Dextrose 50%) STAT PRN IV Hypoglycemia 09/25/16 19:00 10/25/16 18:59 Insulin Aspart (NovoLOG) AC+HS SUBQ 09/25/16 06:30 10/25/16 06:29 09/25/16 11:37 Lactobacillus Acidophilus (Culturelle) 1 tab THREE TIMES A DAY ORAL 09/25/16 13:00 10/25/16 12:59 Pantoprazole (Protonix) 40 mg DAILY ORAL 09/25/16 09:00 10/25/16 08:59 09/25/16 08:19 Vancomycin HCl (Vancomycin) 125 mg FOUR TIMES A DAY ORAL 09/25/16 13:00 10/02/16 12:59 Vitamin A/Vitamin D (A & D Oint) 1 applic EVERY 12 HOURS TOPIC 09/25/16 09:00 10/25/16 08:59 09/25/16 09:04 Allergies: Coded Allergies: SULFA (SULFONAMIDE ANTIBIOTICS) (Verified Allergy, Unknown, 09/10/16) Uncoded Allergies: SULFA (Adverse Reaction, Mild, RASH, 04/01/13) ROS Limited/Unobtainable: Yes Subjective 76 YO M admitted with hypotension and UTI/sepsis. Tolerating nasal canula. Cover for Int Med-Dr Sampson.. Objective Last Vital Signs Date Time Temp Pulse Resp B/P Pulse Ox O2 Delivery O2 Flow Rate FiO2 09/25/16 12:15 97.1 64 18 128/59 98 Nasal Cannula 2.0 09/25/16 00:00 28 Laboratory Tests Test 09/25/16 06:34 White Blood Count 3.5 K/UL (4.8-10.8) L Red Blood Count 3.53 M/UL (4.70-6.10) L Hemoglobin 10.5 G/DL (14.2-18.0) L Hematocrit 32.4 % (42.0-52.0) L Mean Corpuscular Volume 92 FL (80-99) Mean Corpuscular Hemoglobin 29.7 PG (27.0-31.0) Mean Corpuscular Hemoglobin Concent 32.3 G/DL (32.0-36.0) Red Cell Distribution Width 14.4 % (11.6-14.8) Platelet Count 93 K/UL (150-450) L Mean Platelet Volume 8.5 FL (6.5-10.1) Neutrophils (%) (Auto) % (45.0-75.0) Lymphocytes (%) (Auto) % (20.0-45.0) Monocytes (%) (Auto) % (1.0-10.0) Eosinophils (%) (Auto) % (0.0-3.0) Basophils (%) (Auto) % (0.0-2.0) Differential Total Cells Counted 100 Neutrophils % (Manual) 70 % (45-75) Lymphocytes % (Manual) 18 % (20-45) L Monocytes % (Manual) 6 % (1-10) Eosinophils % (Manual) 0 % (0-3) Basophils % (Manual) 1 % (0-2) Band Neutrophils 5 % (0-8) Platelet Estimate Decreased L Platelet Morphology Normal Hypochromasia 1+ Anisocytosis 1+ Sodium Level 142 mEQ/L (135-145) Potassium Level 3.4 mEQ/L (3.4-4.9) Chloride Level 100 mEQ/L (98-107) Carbon Dioxide Level 26 mEQ/L (20-30) Anion Gap 16 (5-15) H Blood Urea Nitrogen 43 mg/dL (7-23) H Creatinine 3.0 mg/dL (0.7-1.2) H Estimat Glomerular Filtration Rate mL/min (>60) Glucose Level 106 mg/dL (74-106) Calcium Level 8.3 mg/dL (8.6-10.2) L Total Bilirubin 0.6 mg/dL (0.0-1.2) Aspartate Amino Transf (AST/SGOT) 13 U/L (5-40) Alanine Aminotransferase (ALT/SGPT) 8 U/L (3-41) Alkaline Phosphatase 53 U/L (40-129) Pro-B-Type Natriuretic Peptide > 49443 pg/mL (0-450) H Total Protein 5.3 g/dL (6.6-8.7) L Albumin 2.4 g/dL (3.5-5.2) L Globulin 2.9 g/dL Albumin/Globulin Ratio 0.8 (1.0-2.7) L Microbiology Date/Time Source Procedure Growth Status 09/24/16 14:39 Stool Clostridium difficile Toxin Assay - Final Complete Intake and Output 09/24/16 09/25/16 19:00 07:00 Intake Total 360 ml 175 ml Output Total 1950 ml 200 ml Balance -1590 ml -25 ml Intake Oral 280 ml 120 ml IV Total 80 ml 55 ml Output Urine Total 0 ml Stool Total 400 ml 200 ml Peritoneal Dialysis UF 1550 ml Objective General Appearance: WD/WN, moderate distress EENT: normal ENT inspection Neck: non-tender, normal alignment, supple Cardiovascular: normal peripheral pulses, normal rate, regular rhythm, no gallop/murmur, no JVD Respiratory/Chest: Nasal canula; respiratory distress, crackles/rales, rhonchi - bilaterally, expiratory wheezing Abdomen: normal bowel sounds, non tender, soft, no organomegaly, no mass Skin: normal pigmentation, warm/dry Assessment/Plan Problem List: (1) Severe sepsis Assessment & Plan: Cont cefepime per ID (2) Respiratory failure Assessment & Plan: Extubated today per pulmonary (3) Renal failure Assessment & Plan: Last Hemodialysis 09/24/16 per nephrology. (4) Diabetes mellitus type II, uncontrolled Assessment & Plan: Cont novolog sliding scale. (5) BPH (benign prostatic hyperplasia) (6) Hypokalemia (7) Infection caused by Enterobacter cloacae (8) UTI (urinary tract infection) Assessment & Plan: Enterobacter. D/C zosyn. Start cefepime per ID (9) Hypotension Assessment & Plan: Cont levophed (10) Dysphagia Assessment & Plan: Swallow eval Status: progressing Assessment/Plan Discharge planning GLYNN HAYNES September 25, 2016 13:04
--- NOTE | 2016-09-25 15:19 | Pulmonology Progress Note ---
Assessment/Plan Problems: (1) Respiratory failure (2) Severe sepsis (3) Renal failure (4) Anemia, chronic disease (5) ARF (acute renal failure) (6) Diabetes mellitus type II, uncontrolled Assessment/Plan has diarrhea now , has rectal tube eating well, needs a feeder cxr reviewed: no major changes. pt/ot check labs HD by nephrology might need feeding tube Subjective ROS Limited/Unobtainable: No Constitutional: Reports: anorexia HEENT: Repors: no symptoms Respiratory: Reports: no symptoms Cardiovascular: Reports: no symptoms Gastrointestinal/Abdominal: Reports: no symptoms Allergies: Coded Allergies: SULFA (SULFONAMIDE ANTIBIOTICS) (Verified Allergy, Unknown, 09/10/16) Uncoded Allergies: SULFA (Adverse Reaction, Mild, RASH, 04/01/13) Objective Last 24 Hour Vital Signs Date Time Temp Pulse Resp B/P Pulse Ox O2 Delivery O2 Flow Rate FiO2 09/25/16 12:15 97.1 64 18 128/59 98 Nasal Cannula 2.0 09/25/16 12:00 62 09/25/16 08:19 64 126/67 09/25/16 08:10 97.6 64 19 126/67 98 Nasal Cannula 2.0 09/25/16 08:00 67 09/25/16 04:05 59 09/25/16 04:00 98.2 64 20 112/59 95 Nasal Cannula 2.0 09/25/16 00:00 97.7 59 18 117/55 99 Nasal Cannula 2.0 28 09/25/16 00:00 59 09/24/16 20:57 64 120/60 09/24/16 20:00 71 09/24/16 20:00 97.7 60 18 113/54 98 Nasal Cannula 2.0 28 09/24/16 16:14 57 09/24/16 16:09 97.7 62 18 118/60 98 Nasal Cannula 2.0 Intake and Output 09/24/16 09/25/16 19:00 07:00 Intake Total 360 ml 175 ml Output Total 1950 ml 200 ml Balance -1590 ml -25 ml Intake Oral 280 ml 120 ml IV Total 80 ml 55 ml Output Urine Total 0 ml Stool Total 400 ml 200 ml Peritoneal Dialysis UF 1550 ml General Appearance: cachetic HEENT: normocephalic, atraumatic Respiratory/Chest: chest wall non-tender, crackles/rales Cardiovascular: normal peripheral pulses Abdomen: normal bowel sounds, soft, non tender Genitourinary: normal external genitalia Extremities: no cyanosis Microbiology Date/Time Source Procedure Growth Status 09/24/16 14:39 Stool Clostridium difficile Toxin Assay - Final Complete Laboratory Tests 09/25/16 06:34: White Blood Count 3.5L, Red Blood Count 3.53L, Hemoglobin 10.5L, Hematocrit 32.4L, Mean Corpuscular Volume 92, Mean Corpuscular Hemoglobin 29.7, Mean Corpuscular Hemoglobin Concent 32.3, Red Cell Distribution Width 14.4, Platelet Count 93L, Mean Platelet Volume 8.5, Neutrophils (%) (Auto) , Lymphocytes (%) ( Auto) , Monocytes (%) (Auto) , Eosinophils (%) (Auto) , Basophils (%) (Auto) , Differential Total Cells Counted 100, Neutrophils % (Manual) 70, Lymphocytes % ( Manual) 18L, Monocytes % (Manual) 6, Eosinophils % (Manual) 0, Basophils % ( Manual) 1, Band Neutrophils 5, Platelet Estimate DecreasedL, Platelet Morphology Normal, Hypochromasia 1+, Anisocytosis 1+, Sodium Level 142, Potassium Level 3.4, Chloride Level 100, Carbon Dioxide Level 26, Anion Gap 16H , Blood Urea Nitrogen 43H, Creatinine 3.0H, Estimat Glomerular Filtration Rate , Glucose Level 106, Calcium Level 8.3L, Total Bilirubin 0.6, Aspartate Amino Transf (AST/SGOT) 13, Alanine Aminotransferase (ALT/SGPT) 8, Alkaline Phosphatase 53, Pro-B-Type Natriuretic Peptide > 47481H, Total Protein 5.3L, Albumin 2.4L, Globulin 2.9, Albumin/Globulin Ratio 0.8L Current Medications Medications (Trade) Dose Ordered Sig/Barrett Route PRN Reason Start Time Stop Time Status Last Admin Dose Admin Carvedilol (Coreg) 6.25 mg EVERY 12 HOURS ORAL 09/25/16 09:00 10/25/16 08:59 09/25/16 08:19 Cefepime HCl/ Dextrose (Maxipime/D5W) 55 ml @ 110 mls/hr Q24H IVPB 09/25/16 21:00 10/02/16 20:59 Dextrose (Dextrose 50%) STAT PRN IV Hypoglycemia 09/25/16 19:00 10/25/16 18:59 Insulin Aspart (NovoLOG) AC+HS SUBQ 09/25/16 06:30 10/25/16 06:29 09/25/16 11:37 Lactobacillus Acidophilus (Culturelle) 1 tab THREE TIMES A DAY ORAL 09/25/16 13:00 10/25/16 12:59 09/25/16 13:07 Pantoprazole (Protonix) 40 mg DAILY ORAL 09/25/16 09:00 10/25/16 08:59 09/25/16 08:19 Vancomycin HCl (Vancomycin) 125 mg FOUR TIMES A DAY ORAL 09/25/16 13:00 10/02/16 12:59 09/25/16 13:07 Vitamin A/Vitamin D (A & D Oint) 1 applic EVERY 12 HOURS TOPIC 09/25/16 09:00 10/25/16 08:59 09/25/16 09:04 LANDEN HERNANDEZ September 25, 2016 15:19
--- NOTE | 2016-09-25 16:03 | Cardiology Progress Note ---
Assessment/Plan Assessment/Plan stable cardiac rhythm, BP is stable, overall is very weak and frail, but no new development, his urine is very dark and brownish, nurse said PCP knows about it Subjective Subjective patient is lethargic, barely opens eyes and does not respond to questions caregiver at the bedside Objective Last 24 Hour Vital Signs Date Time Temp Pulse Resp B/P Pulse Ox O2 Delivery O2 Flow Rate FiO2 09/25/16 12:15 97.1 64 18 128/59 98 Nasal Cannula 2.0 09/25/16 12:00 62 09/25/16 08:19 64 126/67 09/25/16 08:10 97.6 64 19 126/67 98 Nasal Cannula 2.0 09/25/16 08:00 67 09/25/16 04:05 59 09/25/16 04:00 98.2 64 20 112/59 95 Nasal Cannula 2.0 09/25/16 00:00 97.7 59 18 117/55 99 Nasal Cannula 2.0 28 09/25/16 00:00 59 09/24/16 20:57 64 120/60 09/24/16 20:00 71 09/24/16 20:00 97.7 60 18 113/54 98 Nasal Cannula 2.0 28 09/24/16 16:14 57 09/24/16 16:09 97.7 62 18 118/60 98 Nasal Cannula 2.0 General Appearance: other - very lethargic and very ill appearing EENT: PERRL/EOMI Neck: no JVD Rhythm: SB Cardiovascular: normal rate Respiratory/Chest: rhonchi - bilaterally Abdomen: soft Extremities: other - thin immobile Intake and Output 09/24/16 09/25/16 19:00 07:00 Intake Total 360 ml 175 ml Output Total 1950 ml 200 ml Balance -1590 ml -25 ml Intake Oral 280 ml 120 ml IV Total 80 ml 55 ml Output Urine Total 0 ml Stool Total 400 ml 200 ml Peritoneal Dialysis UF 1550 ml Laboratory Tests Test 09/25/16 06:34 White Blood Count 3.5 K/UL (4.8-10.8) L Red Blood Count 3.53 M/UL (4.70-6.10) L Hemoglobin 10.5 G/DL (14.2-18.0) L Hematocrit 32.4 % (42.0-52.0) L Mean Corpuscular Volume 92 FL (80-99) Mean Corpuscular Hemoglobin 29.7 PG (27.0-31.0) Mean Corpuscular Hemoglobin Concent 32.3 G/DL (32.0-36.0) Red Cell Distribution Width 14.4 % (11.6-14.8) Platelet Count 93 K/UL (150-450) L Mean Platelet Volume 8.5 FL (6.5-10.1) Neutrophils (%) (Auto) % (45.0-75.0) Lymphocytes (%) (Auto) % (20.0-45.0) Monocytes (%) (Auto) % (1.0-10.0) Eosinophils (%) (Auto) % (0.0-3.0) Basophils (%) (Auto) % (0.0-2.0) Differential Total Cells Counted 100 Neutrophils % (Manual) 70 % (45-75) Lymphocytes % (Manual) 18 % (20-45) L Monocytes % (Manual) 6 % (1-10) Eosinophils % (Manual) 0 % (0-3) Basophils % (Manual) 1 % (0-2) Band Neutrophils 5 % (0-8) Platelet Estimate Decreased L Platelet Morphology Normal Hypochromasia 1+ Anisocytosis 1+ Sodium Level 142 mEQ/L (135-145) Potassium Level 3.4 mEQ/L (3.4-4.9) Chloride Level 100 mEQ/L (98-107) Carbon Dioxide Level 26 mEQ/L (20-30) Anion Gap 16 (5-15) H Blood Urea Nitrogen 43 mg/dL (7-23) H Creatinine 3.0 mg/dL (0.7-1.2) H Estimat Glomerular Filtration Rate mL/min (>60) Glucose Level 106 mg/dL (74-106) Calcium Level 8.3 mg/dL (8.6-10.2) L Total Bilirubin 0.6 mg/dL (0.0-1.2) Aspartate Amino Transf (AST/SGOT) 13 U/L (5-40) Alanine Aminotransferase (ALT/SGPT) 8 U/L (3-41) Alkaline Phosphatase 53 U/L (40-129) Pro-B-Type Natriuretic Peptide > 35432 pg/mL (0-450) H Total Protein 5.3 g/dL (6.6-8.7) L Albumin 2.4 g/dL (3.5-5.2) L Globulin 2.9 g/dL Albumin/Globulin Ratio 0.8 (1.0-2.7) L Microbiology Date/Time Source Procedure Growth Status 09/24/16 14:39 Stool Clostridium difficile Toxin Assay - Final Complete PHU ROSA September 25, 2016 16:03
[2016-09-25 16:15] VITALS: BP 133/65
--- NOTE | 2016-09-25 17:25 | Infectious Diseases Prog Note ---
Assessment/Plan Assessment/Plan A: The patient is a 76-year-old male C.diff+ Septic shock SP - off pressors Pneumonia Scx: Lori ( colonizer ) Chest x-ray : atelectasis and pneumonia in the left lung base UTI , UCx: Enterobacter ( probable Extended B-lactamase inhibitor ) Leukopenia, afebrile DM HTN SP pacemaker placement Alzheimer dementia [place] : on HD started 09/14 Sulfa allergy Full Code P: DC Cefepime d# 12 / in setting of C.diff, continue PO vanco d# / -14 ( 09/14 SP Zosyn d# 4 ) Monitor CBC, temperatures, re-culture if acute change Monitor CMP Nephro is following for HD Subjective Allergies: Coded Allergies: SULFA (SULFONAMIDE ANTIBIOTICS) (Verified Allergy, Unknown, 09/10/16) Uncoded Allergies: SULFA (Adverse Reaction, Mild, RASH, 04/01/13) Subjective remains afebrile C.diff+ Objective Vital Signs Last 24 Hour Vital Signs Date Time Temp Pulse Resp B/P Pulse Ox O2 Delivery O2 Flow Rate FiO2 09/25/16 16:00 62 09/25/16 12:15 97.1 64 18 128/59 98 Nasal Cannula 2.0 09/25/16 12:00 62 09/25/16 08:19 64 126/67 09/25/16 08:10 97.6 64 19 126/67 98 Nasal Cannula 2.0 09/25/16 08:00 67 09/25/16 04:05 59 09/25/16 04:00 98.2 64 20 112/59 95 Nasal Cannula 2.0 09/25/16 00:00 97.7 59 18 117/55 99 Nasal Cannula 2.0 28 09/25/16 00:00 59 09/24/16 20:57 64 120/60 09/24/16 20:00 71 09/24/16 20:00 97.7 60 18 113/54 98 Nasal Cannula 2.0 28 Height (Feet): 5 Height (Inches): 6.00 Weight (Pounds): 160 General Appearance: no acute distress Respiratory/Chest: no respiratory distress Cardiovascular: normal rate, regular rhythm Abdomen: normal bowel sounds, soft, non tender, non distended Microbiology Date/Time Source Procedure Growth Status 09/24/16 14:39 Stool Clostridium difficile Toxin Assay - Final Complete Laboratory Tests Test 09/25/16 06:34 White Blood Count 3.5 K/UL (4.8-10.8) L Red Blood Count 3.53 M/UL (4.70-6.10) L Hemoglobin 10.5 G/DL (14.2-18.0) L Hematocrit 32.4 % (42.0-52.0) L Mean Corpuscular Volume 92 FL (80-99) Mean Corpuscular Hemoglobin 29.7 PG (27.0-31.0) Mean Corpuscular Hemoglobin Concent 32.3 G/DL (32.0-36.0) Red Cell Distribution Width 14.4 % (11.6-14.8) Platelet Count 93 K/UL (150-450) L Mean Platelet Volume 8.5 FL (6.5-10.1) Neutrophils (%) (Auto) % (45.0-75.0) Lymphocytes (%) (Auto) % (20.0-45.0) Monocytes (%) (Auto) % (1.0-10.0) Eosinophils (%) (Auto) % (0.0-3.0) Basophils (%) (Auto) % (0.0-2.0) Differential Total Cells Counted 100 Neutrophils % (Manual) 70 % (45-75) Lymphocytes % (Manual) 18 % (20-45) L Monocytes % (Manual) 6 % (1-10) Eosinophils % (Manual) 0 % (0-3) Basophils % (Manual) 1 % (0-2) Band Neutrophils 5 % (0-8) Platelet Estimate Decreased L Platelet Morphology Normal Hypochromasia 1+ Anisocytosis 1+ Sodium Level 142 mEQ/L (135-145) Potassium Level 3.4 mEQ/L (3.4-4.9) Chloride Level 100 mEQ/L (98-107) Carbon Dioxide Level 26 mEQ/L (20-30) Anion Gap 16 (5-15) H Blood Urea Nitrogen 43 mg/dL (7-23) H Creatinine 3.0 mg/dL (0.7-1.2) H Estimat Glomerular Filtration Rate mL/min (>60) Glucose Level 106 mg/dL (74-106) Calcium Level 8.3 mg/dL (8.6-10.2) L Total Bilirubin 0.6 mg/dL (0.0-1.2) Aspartate Amino Transf (AST/SGOT) 13 U/L (5-40) Alanine Aminotransferase (ALT/SGPT) 8 U/L (3-41) Alkaline Phosphatase 53 U/L (40-129) Pro-B-Type Natriuretic Peptide > 04102 pg/mL (0-450) H Total Protein 5.3 g/dL (6.6-8.7) L Albumin 2.4 g/dL (3.5-5.2) L Globulin 2.9 g/dL Albumin/Globulin Ratio 0.8 (1.0-2.7) L Current Medications Medications (Trade) Dose Ordered Sig/Barrett Route PRN Reason Start Time Stop Time Status Last Admin Dose Admin Carvedilol (Coreg) 6.25 mg EVERY 12 HOURS ORAL 09/25/16 21:00 10/25/16 20:59 UNV Cefepime HCl/ Dextrose (Maxipime/D5W) 55 ml @ 110 mls/hr Q24H IVPB 09/25/16 21:00 10/02/16 20:59 UNV Dextrose (Dextrose 50%) STAT PRN IV Hypoglycemia 09/25/16 19:00 10/25/16 18:59 UNV Insulin Aspart (NovoLOG) AC+HS SUBQ 09/25/16 21:00 10/25/16 20:59 UNV Lactobacillus Acidophilus (Culturelle) 1 tab THREE TIMES A DAY ORAL 09/25/16 18:00 10/25/16 17:59 UNV Pantoprazole (Protonix) 40 mg DAILY ORAL 09/26/16 09:00 10/26/16 08:59 UNV Vancomycin HCl (Vancomycin) 125 mg FOUR TIMES A DAY ORAL 09/25/16 18:00 10/02/16 17:59 UNV Vitamin A/Vitamin D (A & D Oint) 1 applic EVERY 12 HOURS TOPIC 09/25/16 21:00 10/25/16 20:59 UNV RICHIE RIVERA September 25, 2016 17:25
[2016-09-25] MEDS: Vancomycin oral 125mg/2.5ml ORAL SCH ×2 (18:27→21:04)
[2016-09-25] MEDS: Lactobacillus-GG tablet ORAL SCH (18:27)
[2016-09-25 20:02] VITALS: BP 124/57
[2016-09-25] MEDS ORDERED: Cefepime HCl 500 MG in D5W 55 ML IVPB SCH ×4 (21:00)
[2016-09-25] MEDS: Vitamin A&D Oint 2oz Tube TOPIC SCH (21:04)
[2016-09-25] MEDS: Carvedilol 6.25mg Tab ORAL SCH (21:04)
[2016-09-26 00:03] VITALS: BP 118/72
[2016-09-26 04:15] VITALS: BP 143/60
[2016-09-26] MEDS: NovoLOG Insulin Flexpen SUBQ SCH ×4 (05:40→20:37)
[2016-09-26 06:32] LABS: ALANINE AMINOTRANSFERASE 9 U/L (3-41); ALBUMIN/GLOBULIN RATIO 0.7 (1.0-2.7); ANION GAP 17 (5-15); ASPARTATE AMINO TRANSFERASE 14 U/L (5-40); CALCIUM 8.1 mg/dL (8.6-10.2); CARBON DIOXIDE 25 mEQ/L (20-30); CHLORIDE 101 mEQ/L (98-107); CREATININE 3.4 mg/dL (0.7-1.2); HEMOLYSIS 7; PHOSPHORUS 3.1 mg/dL (2.5-4.8); POTASSIUM 3.4 mEQ/L (3.4-4.9); SODIUM 143 mEQ/L (135-145); TOTAL PROTEIN 5.5 g/dL (6.6-8.7)
[2016-09-26 07:12] LABS: BASOPHILS % (AUTO) 1.1 % (0.0-2.0); EOSINOPHILS % (AUTO) 1.9 % (0.0-3.0); LYMPHOCYTES % (AUTO) 21.1 % (20.0-45.0); MEAN CORPUSCULAR HEMOGLOBIN 31.2 PG (27.0-31.0); MEAN CORPUSCULAR VOLUME 92 FL (80-99); MEAN PLATELET VOLUME 7.3 FL (6.5-10.1); MONOCYTES % (AUTO) 8.6 % (1.0-10.0); NEUTROPHILS % (AUTO) 67.2 % (45.0-75.0); PLATELET COUNT 101 K/UL (150-450); RED BLOOD COUNT 3.62 M/UL (4.70-6.10); RED CELL DISTRIBUTION WIDTH 13.9 % (11.6-14.8); WHITE BLOOD COUNT 3.5 K/UL (4.8-10.8)
[2016-09-26 08:00] LABS: CRP QUANT 6.7 mg/dL (< 0.5)
[2016-09-26 08:57] VITALS: BP 130/63
[2016-09-26] MEDS: Vitamin A&D Oint 2oz Tube TOPIC SCH ×2 (09:02→20:39)
[2016-09-26] MEDS: Carvedilol 6.25mg Tab ORAL SCH ×2 (09:02→20:38)
[2016-09-26] MEDS: Vancomycin oral 125mg/2.5ml ORAL SCH ×4 (09:02→20:38)
[2016-09-26] MEDS: Lactobacillus-GG tablet ORAL SCH ×3 (09:02→18:20)
--- NOTE | 2016-09-26 09:27 | Infectious Diseases Prog Note ---
Assessment/Plan Assessment/Plan A: The patient is a 76-year-old male C.diff+ Septic shock SP - off pressors Pneumonia Scx: Lori ( colonizer ) Chest x-ray : atelectasis and pneumonia in the left lung base UTI , UCx: Enterobacter ( probable Extended B-lactamase inhibitor ) Leukopenia, afebrile DM HTN SP pacemaker placement Alzheimer dementia [place] : on HD started 09/14 Sulfa allergy Full Code P: continue PO vanco d# 2 / 10-14 ( 09/25 SP Cefepime d# 12 ) ( 09/14 SP Zosyn d# 4 ) Monitor CBC, temperatures, re-culture if acute change Monitor CMP Nephro is following for HD Subjective Constitutional: Denies: anorexia, chills, drenching sweats, fatigue, fever, no symptoms, other Allergies: Coded Allergies: SULFA (SULFONAMIDE ANTIBIOTICS) (Verified Allergy, Unknown, 09/10/16) Uncoded Allergies: SULFA (Adverse Reaction, Mild, RASH, 04/01/13) Objective Vital Signs Last 24 Hour Vital Signs Date Time Temp Pulse Resp B/P Pulse Ox O2 Delivery O2 Flow Rate FiO2 09/26/16 09:02 61 130/63 09/26/16 08:57 97.9 61 19 130/63 100 09/26/16 07:41 Nasal Cannula 2.0 28 09/26/16 07:40 97 Nasal Cannula 2.0 09/26/16 04:15 97.5 64 20 143/60 98 Nasal Cannula 2.0 09/26/16 00:03 98.1 65 20 118/72 96 Nasal Cannula 2.0 09/25/16 21:04 60 124/57 09/25/16 20:02 97.0 60 20 124/57 98 Nasal Cannula 2.0 09/25/16 19:54 96 Nasal Cannula 2.0 09/25/16 19:54 Nasal Cannula 2.0 28 09/25/16 16:15 97.4 61 19 133/65 98 Nasal Cannula 2.0 09/25/16 16:00 62 09/25/16 12:15 97.1 64 18 128/59 98 Nasal Cannula 2.0 09/25/16 12:00 62 Height (Feet): 5 Height (Inches): 6.00 Weight (Pounds): 160 HEENT: anicteric Respiratory/Chest: no respiratory distress Cardiovascular: regularly irregular Abdomen: no organomegaly Microbiology Date/Time Source Procedure Growth Status 09/24/16 14:39 Stool Clostridium difficile Toxin Assay - Final Complete Laboratory Tests Test 09/26/16 05:20 White Blood Count 3.5 K/UL (4.8-10.8) L Red Blood Count 3.62 M/UL (4.70-6.10) L Hemoglobin 11.3 G/DL (14.2-18.0) L Hematocrit 33.2 % (42.0-52.0) L Mean Corpuscular Volume 92 FL (80-99) Mean Corpuscular Hemoglobin 31.2 PG (27.0-31.0) H Mean Corpuscular Hemoglobin Concent 34.0 G/DL (32.0-36.0) Red Cell Distribution Width 13.9 % (11.6-14.8) Platelet Count 101 K/UL (150-450) L Mean Platelet Volume 7.3 FL (6.5-10.1) Neutrophils (%) (Auto) 67.2 % (45.0-75.0) Lymphocytes (%) (Auto) 21.1 % (20.0-45.0) Monocytes (%) (Auto) 8.6 % (1.0-10.0) Eosinophils (%) (Auto) 1.9 % (0.0-3.0) Basophils (%) (Auto) 1.1 % (0.0-2.0) Sodium Level 143 mEQ/L (135-145) Potassium Level 3.4 mEQ/L (3.4-4.9) Chloride Level 101 mEQ/L (98-107) Carbon Dioxide Level 25 mEQ/L (20-30) Anion Gap 17 (5-15) H Blood Urea Nitrogen 49 mg/dL (7-23) H Creatinine 3.4 mg/dL (0.7-1.2) H Estimat Glomerular Filtration Rate mL/min (>60) Glucose Level 99 mg/dL (74-106) Calcium Level 8.1 mg/dL (8.6-10.2) L Phosphorus Level 3.1 mg/dL (2.5-4.8) Total Bilirubin 0.6 mg/dL (0.0-1.2) Aspartate Amino Transf (AST/SGOT) 14 U/L (5-40) Alanine Aminotransferase (ALT/SGPT) 9 U/L (3-41) Alkaline Phosphatase 64 U/L (40-129) C-Reactive Protein, Quantitative 6.7 mg/dL (< 0.5) H Total Protein 5.5 g/dL (6.6-8.7) L Albumin 2.3 g/dL (3.5-5.2) L Globulin 3.2 g/dL Albumin/Globulin Ratio 0.7 (1.0-2.7) L Hepatitis B Surface Antigen Pending Hepatitis B Surface Antibody, Quant Pending Hepatitis C Antibody Pending Current Medications Medications (Trade) Dose Ordered Sig/Barrett Route PRN Reason Start Time Stop Time Status Last Admin Dose Admin Carvedilol (Coreg) 6.25 mg EVERY 12 HOURS ORAL 09/25/16 21:00 10/25/16 20:59 09/26/16 09:02 Dextrose (Dextrose 50%) STAT PRN IV Hypoglycemia 09/25/16 19:00 10/25/16 18:59 Insulin Aspart (NovoLOG) AC+HS SUBQ 09/25/16 21:00 10/25/16 20:59 09/25/16 21:15 Lactobacillus Acidophilus (Culturelle) 1 tab THREE TIMES A DAY ORAL 09/25/16 18:00 10/25/16 17:59 09/26/16 09:02 Pantoprazole (Protonix) 40 mg DAILY ORAL 09/26/16 09:00 10/26/16 08:59 09/26/16 09:02 Vancomycin HCl (Vancomycin) 125 mg FOUR TIMES A DAY ORAL 09/25/16 18:00 10/02/16 17:59 09/26/16 09:02 Vitamin A/Vitamin D (A & D Oint) 1 applic EVERY 12 HOURS TOPIC 09/25/16 21:00 10/25/16 20:59 09/26/16 09:02 CRISTEL DUFF M.D. September 26, 2016 09:27
[2016-09-26] MEDS ORDERED: Tubing IV Secondary IV ONE (10:01)
--- NOTE | 2016-09-26 11:50 | Internal Med Progress Note ---
Subjective Date of Service: September 26, 2016 Physician Name Glynn Haynes Attending Physician Jonathan Sampson MD Current Medications Medications (Trade) Dose Ordered Sig/Barrett Route PRN Reason Start Time Stop Time Status Last Admin Dose Admin Carvedilol (Coreg) 6.25 mg EVERY 12 HOURS ORAL 09/25/16 21:00 10/25/16 20:59 09/26/16 09:02 Dextrose (Dextrose 50%) STAT PRN IV Hypoglycemia 09/25/16 19:00 10/25/16 18:59 Insulin Aspart (NovoLOG) AC+HS SUBQ 09/25/16 21:00 10/25/16 20:59 09/26/16 11:39 Lactobacillus Acidophilus (Culturelle) 1 tab THREE TIMES A DAY ORAL 09/25/16 18:00 10/25/16 17:59 09/26/16 09:02 Pantoprazole (Protonix) 40 mg DAILY ORAL 09/26/16 09:00 10/26/16 08:59 09/26/16 09:02 Vancomycin HCl (Vancomycin) 125 mg FOUR TIMES A DAY ORAL 09/25/16 18:00 10/02/16 17:59 09/26/16 09:02 Vitamin A/Vitamin D (A & D Oint) 1 applic EVERY 12 HOURS TOPIC 09/25/16 21:00 10/25/16 20:59 09/26/16 09:02 Allergies: Coded Allergies: SULFA (SULFONAMIDE ANTIBIOTICS) (Verified Allergy, Unknown, 09/10/16) Uncoded Allergies: SULFA (Adverse Reaction, Mild, RASH, 04/01/13) ROS Limited/Unobtainable: Yes Subjective 76 YO M admitted with hypotension and UTI/sepsis. Tolerating nasal canula. Cover for Int Med-Dr Sampson.. Objective Last Vital Signs Date Time Temp Pulse Resp B/P Pulse Ox O2 Delivery O2 Flow Rate FiO2 09/26/16 09:02 61 130/63 09/26/16 08:57 97.9 19 100 09/26/16 07:41 Nasal Cannula 2.0 28 Laboratory Tests Test 09/26/16 05:20 White Blood Count 3.5 K/UL (4.8-10.8) L Red Blood Count 3.62 M/UL (4.70-6.10) L Hemoglobin 11.3 G/DL (14.2-18.0) L Hematocrit 33.2 % (42.0-52.0) L Mean Corpuscular Volume 92 FL (80-99) Mean Corpuscular Hemoglobin 31.2 PG (27.0-31.0) H Mean Corpuscular Hemoglobin Concent 34.0 G/DL (32.0-36.0) Red Cell Distribution Width 13.9 % (11.6-14.8) Platelet Count 101 K/UL (150-450) L Mean Platelet Volume 7.3 FL (6.5-10.1) Neutrophils (%) (Auto) 67.2 % (45.0-75.0) Lymphocytes (%) (Auto) 21.1 % (20.0-45.0) Monocytes (%) (Auto) 8.6 % (1.0-10.0) Eosinophils (%) (Auto) 1.9 % (0.0-3.0) Basophils (%) (Auto) 1.1 % (0.0-2.0) Sodium Level 143 mEQ/L (135-145) Potassium Level 3.4 mEQ/L (3.4-4.9) Chloride Level 101 mEQ/L (98-107) Carbon Dioxide Level 25 mEQ/L (20-30) Anion Gap 17 (5-15) H Blood Urea Nitrogen 49 mg/dL (7-23) H Creatinine 3.4 mg/dL (0.7-1.2) H Estimat Glomerular Filtration Rate mL/min (>60) Glucose Level 99 mg/dL (74-106) Calcium Level 8.1 mg/dL (8.6-10.2) L Phosphorus Level 3.1 mg/dL (2.5-4.8) Total Bilirubin 0.6 mg/dL (0.0-1.2) Aspartate Amino Transf (AST/SGOT) 14 U/L (5-40) Alanine Aminotransferase (ALT/SGPT) 9 U/L (3-41) Alkaline Phosphatase 64 U/L (40-129) C-Reactive Protein, Quantitative 6.7 mg/dL (< 0.5) H Total Protein 5.5 g/dL (6.6-8.7) L Albumin 2.3 g/dL (3.5-5.2) L Globulin 3.2 g/dL Albumin/Globulin Ratio 0.7 (1.0-2.7) L Hepatitis B Surface Antigen Pending Hepatitis B Surface Antibody, Quant Pending Hepatitis C Antibody Pending Microbiology Date/Time Source Procedure Growth Status 09/24/16 14:39 Stool Clostridium difficile Toxin Assay - Final Complete Intake and Output 09/25/16 09/26/16 19:00 07:00 Intake Total 420 ml 120 ml Output Total 100 ml 250 ml Balance 320 ml -130 ml Intake Oral 320 ml 120 ml IV Total 100 ml Output Urine Total 100 ml Stool Total 250 ml # Voids 1 # Bowel Movements 3 Objective General Appearance: WD/WN, moderate distress EENT: normal ENT inspection Neck: non-tender, normal alignment, supple Cardiovascular: normal peripheral pulses, normal rate, regular rhythm, no gallop/murmur, no JVD Respiratory/Chest: Nasal canula; respiratory distress, crackles/rales, rhonchi - bilaterally, expiratory wheezing Abdomen: normal bowel sounds, non tender, soft, no organomegaly, no mass Skin: normal pigmentation, warm/dry Assessment/Plan Problem List: (1) Severe sepsis Assessment & Plan: D/Ccefepime per ID (2) Respiratory failure Assessment & Plan: Extubated today per pulmonary (3) Renal failure Assessment & Plan: Last Hemodialysis 09/24/16 per nephrology. (4) Diabetes mellitus type II, uncontrolled Assessment & Plan: Cont novolog sliding scale. (5) BPH (benign prostatic hyperplasia) (6) Hypokalemia (7) Infection caused by Enterobacter cloacae (8) UTI (urinary tract infection) Assessment & Plan: Enterobacter. D/C antibiotics per ID (9) Hypotension Assessment & Plan: Cont levophed (10) Dysphagia Assessment & Plan: Video Swallow eval; PEG eval. (11) Clostridium difficile diarrhea Assessment & Plan: Cont oral vanco per ID Status: progressing Assessment/Plan Discharge planning GLYNN HAYNES September 26, 2016 11:50
[2016-09-26 12:14] VITALS: BP 135/65
--- NOTE | 2016-09-26 14:22 | GI Initial Consult Note ---
CouchFlakita Rinku N.P. 09/26/16 1422: History of Present Illness General Date patient seen: September 26, 2016 Time patient seen: 11:00 Reason for Hospitalization: Altered Level of Consciousness Referring physician: dr Sampson Reason for Consultation: PEG EVALUATION Present Illness HPI HISTORY OF PRESENT ILLNESS: The patient apparently is Farsi speaking. Much of the history and physical is obtained from the patient's son, who is at the bedside. The patient presented to [facility] emergency room. The patient was found to be hypotensive in the 70s/40s. The patient then went into respiratory failure in the emergency room. The patient was emergently intubated in the emergency room. The patient is currently admitted to the intensive care unit with pressors. The patient was admitted for respiratory failure and probable sepsis secondary to urinary tract infection. GI CONSULT: HPI as noted above. GI consulted for PEG evaluation. ROS limited , pt seen on floor awake A&O NAD with no active s/sx of N/V/D. Pt currently placed on nectar thick honey per ST evaluation, able to tolerate almost 50 percent of meal per sitter. The patient is pending a video swallow study today to evaluate for possible silent aspiration. The patient presents tdoay with pancytopenia, hypoalbuminemia and elevated iron levels. Unknown history of any endoscopic procedures. Home Meds Reported Medications Esomeprazole Magnesium (NEXIUM) 40 Mg Capsule., 40 MG ORAL DAILY, CAP 09/11/16 Aspirin* (ASPIR 81*) 81 Mg Tablet.dr, 81 MG ORAL DAILY, TAB 09/11/16 Ferrous Gluconate (FERROUS GLUCONATE) 240 Mg Tablet, 240 MG PO, TAB 09/11/16 Memantine HCl/Donepezil HCl (Namzaric 28 mg-10 mg Capsule) 1 Each Cap.spr.24, 1 EACH PO, CAP 09/11/16 Memantine HCl/Donepezil HCl (Namzaric 28 mg-10 mg Capsule) 1 Each Cap.spr.24, 1 EACH PO, CAP 09/10/16 Linagliptin (TRADJENTA) 5 Mg Tablet, 5 MG PO, TAB 09/10/16 Finasteride* (PROSCAR*) 5 Mg Tablet, 5 MG ORAL DAILY, #30 TAB 0 Refills 09/10/16 Metoprolol Succinate* (METOPROLOL SUCCINATE*) 25 Mg Tab.er.24h, 25 MG ORAL DAILY , TAB 09/10/16 Nitrofurantoin Macrocrystal (Nitrofurantoin) 25 Mg Capsule, 50 MG PO, CAP 09/10/16 Cyproheptadine HCl (Cyproheptadine HCl) 4 Mg/10 Ml Syrup, 4 MG PO, ML 09/10/16 Atorvastatin Calcium* (ATORVASTATIN CALCIUM*) 20 Mg Tablet, 20 MG ORAL BEDTIME, TAB 09/10/16 Aspirin (Aspirin EC) 81 Mg Tabec, 81 MG ORAL DAILY, TAB 04/01/13 Cetirizine Hcl (ZYRTEC) 10 Mg Capsule, 10 MG ORAL DAILY, CAP 03/28/13 Vit D3 & K/Berberine Hcl/Hops (OSTERA TABLET) 1 Each Tablet, 1 TAB ORAL DAILY, TAB 03/28/13 Linagliptin (TRADJENTA) 5 Mg Tablet, 5 MG ORAL DAILY, TAB 03/28/13 Memantine Hcl* (NAMENDA*) 5 Mg Tablet, 5 MG ORAL BEDTIME, TAB 03/28/13 Telmisartan/Hydrochlorothiazid (MICARDIS HCT 80-12.5 MG TABLET) 1 Each Tablet, 1 TAB ORAL DAILY, TAB 03/28/13 Metformin Hcl (METFORMIN HCL ER) 500 Mg Tab.er.24, 500 MG ORAL TWICE A DAY, TAB 03/28/13 Tamsulosin HCl (Flomax) 0.4 Mg Cap, 0.4 MG ORAL BEDTIME, CAP 03/28/13 Celecoxib* (CELEBREX*) 200 Mg Capsule, 200 MG ORAL DAILY, CAP 03/28/13 Lorazepam* (ATIVAN*) 2 Mg Tablet, 2 MG ORAL DAILY, TAB 03/28/13 Med list reviewed/reconciled: Yes Allergies: Coded Allergies: SULFA (SULFONAMIDE ANTIBIOTICS) (Verified Allergy, Unknown, 09/10/16) Patient History History Provided By: Medical Record PM Narrative 1. Type 2 diabetes. 2. Hypertension. 3. Recent urinary tract infection. 4. The patient is bedbound. Review of Systems All Other Systems: limited Physical Exam Vital Signs Date Time Temp Pulse Resp B/P Pulse Ox O2 Delivery O2 Flow Rate FiO2 09/22/16 07:23 Nasal Cannula 2.0 28 09/22/16 07:23 98 09/22/16 07:53 97.7 69 19 136/74 Labs Laboratory Tests Test 09/26/16 05:20 White Blood Count 3.5 K/UL (4.8-10.8) L Red Blood Count 3.62 M/UL (4.70-6.10) L Hemoglobin 11.3 G/DL (14.2-18.0) L Hematocrit 33.2 % (42.0-52.0) L Mean Corpuscular Volume 92 FL (80-99) Mean Corpuscular Hemoglobin 31.2 PG (27.0-31.0) H Mean Corpuscular Hemoglobin Concent 34.0 G/DL (32.0-36.0) Red Cell Distribution Width 13.9 % (11.6-14.8) Platelet Count 101 K/UL (150-450) L Mean Platelet Volume 7.3 FL (6.5-10.1) Neutrophils (%) (Auto) 67.2 % (45.0-75.0) Lymphocytes (%) (Auto) 21.1 % (20.0-45.0) Monocytes (%) (Auto) 8.6 % (1.0-10.0) Eosinophils (%) (Auto) 1.9 % (0.0-3.0) Basophils (%) (Auto) 1.1 % (0.0-2.0) Sodium Level 143 mEQ/L (135-145) Potassium Level 3.4 mEQ/L (3.4-4.9) Chloride Level 101 mEQ/L (98-107) Carbon Dioxide Level 25 mEQ/L (20-30) Anion Gap 17 (5-15) H Blood Urea Nitrogen 49 mg/dL (7-23) H Creatinine 3.4 mg/dL (0.7-1.2) H Estimat Glomerular Filtration Rate mL/min (>60) Glucose Level 99 mg/dL (74-106) Calcium Level 8.1 mg/dL (8.6-10.2) L Phosphorus Level 3.1 mg/dL (2.5-4.8) Total Bilirubin 0.6 mg/dL (0.0-1.2) Aspartate Amino Transf (AST/SGOT) 14 U/L (5-40) Alanine Aminotransferase (ALT/SGPT) 9 U/L (3-41) Alkaline Phosphatase 64 U/L (40-129) C-Reactive Protein, Quantitative 6.7 mg/dL (< 0.5) H Total Protein 5.5 g/dL (6.6-8.7) L Albumin 2.3 g/dL (3.5-5.2) L Globulin 3.2 g/dL Albumin/Globulin Ratio 0.7 (1.0-2.7) L Hepatitis B Surface Antigen Pending Hepatitis B Surface Antibody, Quant Pending Hepatitis C Antibody Pending General Appearance: normal inspection, well appearing, no apparent distress Head: normocephalic EENT: normal ENT inspection Neck: supple Respiratory: other - 2LNC Cardiovascular: normal rate Gastrointestinal: normal inspection, non tender, soft Neurologic: alert Skin: normal inspection, normal color, no rash Lymphatic: normal inspection, no adenopathy Current Medications Current Medications Medications (Trade) Dose Ordered Sig/Barrett Route PRN Reason Start Time Stop Time Status Last Admin Dose Admin Carvedilol (Coreg) 6.25 mg EVERY 12 HOURS ORAL 09/25/16 21:00 10/25/16 20:59 09/26/16 09:02 Dextrose (Dextrose 50%) STAT PRN IV Hypoglycemia 09/25/16 19:00 10/25/16 18:59 Insulin Aspart (NovoLOG) AC+HS SUBQ 09/25/16 21:00 10/25/16 20:59 09/26/16 11:39 Lactobacillus Acidophilus (Culturelle) 1 tab THREE TIMES A DAY ORAL 09/25/16 18:00 10/25/16 17:59 09/26/16 14:06 Pantoprazole (Protonix) 40 mg DAILY ORAL 09/26/16 09:00 10/26/16 08:59 09/26/16 09:02 Vancomycin HCl (Vancomycin) 125 mg FOUR TIMES A DAY ORAL 09/25/16 18:00 10/02/16 17:59 09/26/16 14:05 Vitamin A/Vitamin D (A & D Oint) 1 applic EVERY 12 HOURS TOPIC 09/25/16 21:00 10/25/16 20:59 09/26/16 09:02 GI: Plan Problems: (1) Encounter for PEG (percutaneous endoscopic gastrostomy) (2) Clostridium difficile diarrhea (3) Dysphagia (4) DM (diabetes mellitus) (5) Anemia, chronic disease Plan PEG cancelled >> Family refused >> Dr. Vosoghi has spoken to the family regarding the risks and benefits. will adv diet per ST eval to honey thick nectar soup ST eval noted >> high risk for silent aspiration aspiration precautions monitor LFTs >> elevated iron levels fu hep panel fu calorie count ppi fu labs Discussed with Dr. Hansen. Thank you for referring this patient, we will follow. [id number] 09/27/16 1043: History of Present Illness General Reason for Hospitalization: Altered Level of Consciousness Present Illness Home Meds Reported Medications Esomeprazole Magnesium (NEXIUM) 40 Mg Capsule.dr, 40 MG ORAL DAILY, CAP 09/11/16 Aspirin* (ASPIR 81*) 81 Mg Tablet.dr, 81 MG ORAL DAILY, TAB 09/11/16 Ferrous Gluconate (FERROUS GLUCONATE) 240 Mg Tablet, 240 MG PO, TAB 09/11/16 Memantine HCl/Donepezil HCl (Namzaric 28 mg-10 mg Capsule) 1 Each Cap.spr.24, 1 EACH PO, CAP 09/11/16 Memantine HCl/Donepezil HCl (Namzaric 28 mg-10 mg Capsule) 1 Each Cap.spr.24, 1 EACH PO, CAP 09/10/16 Linagliptin (TRADJENTA) 5 Mg Tablet, 5 MG PO, TAB 09/10/16 Finasteride* (PROSCAR*) 5 Mg Tablet, 5 MG ORAL DAILY, #30 TAB 0 Refills 09/10/16 Metoprolol Succinate* (METOPROLOL SUCCINATE*) 25 Mg Tab.er.24h, 25 MG ORAL DAILY , TAB 09/10/16 Nitrofurantoin Macrocrystal (Nitrofurantoin) 25 Mg Capsule, 50 MG PO, CAP 09/10/16 Cyproheptadine HCl (Cyproheptadine HCl) 4 Mg/10 Ml Syrup, 4 MG PO, ML 09/10/16 Atorvastatin Calcium* (ATORVASTATIN CALCIUM*) 20 Mg Tablet, 20 MG ORAL BEDTIME, TAB 09/10/16 Aspirin (Aspirin EC) 81 Mg Tabec, 81 MG ORAL DAILY, TAB 04/01/13 Cetirizine Hcl (ZYRTEC) 10 Mg Capsule, 10 MG ORAL DAILY, CAP 03/28/13 Vit D3 & K/Berberine Hcl/Hops (OSTERA TABLET) 1 Each Tablet, 1 TAB ORAL DAILY, TAB 03/28/13 Linagliptin (TRADJENTA) 5 Mg Tablet, 5 MG ORAL DAILY, TAB 03/28/13 Memantine Hcl* (NAMENDA*) 5 Mg Tablet, 5 MG ORAL BEDTIME, TAB 03/28/13 Telmisartan/Hydrochlorothiazid (MICARDIS HCT 80-12.5 MG TABLET) 1 Each Tablet, 1 TAB ORAL DAILY, TAB 03/28/13 Metformin Hcl (METFORMIN HCL ER) 500 Mg Tab.er.24, 500 MG ORAL TWICE A DAY, TAB 03/28/13 Tamsulosin HCl (Flomax) 0.4 Mg Cap, 0.4 MG ORAL BEDTIME, CAP 03/28/13 Celecoxib* (CELEBREX*) 200 Mg Capsule, 200 MG ORAL DAILY, CAP 03/28/13 Lorazepam* (ATIVAN*) 2 Mg Tablet, 2 MG ORAL DAILY, TAB 03/28/13 Allergies: Coded Allergies: SULFA (SULFONAMIDE ANTIBIOTICS) (Verified Allergy, Unknown, 09/10/16) GI: Plan Plan The patient was seen and examined at bedside and all new and available data was reviewed in the patients chart. I agree with the above findings, impression and plan. (Patient seen earlier today. Signature stamp does not reflect patient encounter time.). -Lucía Balderrama MDh iRnku Ortiz September 26, 2016 14:22 JAYANT HANSEN September 27, 2016 10:43
[2016-09-26 16:30] VITALS: BP 130/67
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
--- NOTE | 2016-09-26 18:58 | General Progress Note ---
Assessment/Plan Status: stable - from renal stand point on HD Assessment/Plan Status: Septic Shock leading to acute renal and multiOrgan failure Sever Acidosis , high Lactate , High K , Due to the above: ALL IMPROVED- Seems like patient has CKD , unclear what is the baseline S Cr Other: DM Pacer : Left ventricular ejection fraction estimated to be 50%. Apical wall hypokinesia may be due to ventricular paced effect. OBS Sugg: HD 09/24 done, repeat 09/27 DC IV fluid - Stool for C dif- POSITIVE will start Vanco po post extubation care Phos supplement - K supplement as needed Hemodynamic support Antibiotics discussed with RN monitor renal parameters Subjective ROS Limited/Unobtainable: No Constitutional: Reports: malaise, weakness Allergies: Coded Allergies: SULFA (SULFONAMIDE ANTIBIOTICS) (Verified Allergy, Unknown, 09/10/16) Objective Last 24 Hour Vital Signs Date Time Temp Pulse Resp B/P Pulse Ox O2 Delivery O2 Flow Rate FiO2 09/26/16 16:30 97.0 60 19 130/67 100 Room Air 09/26/16 12:14 97.7 59 20 135/65 100 Nasal Cannula 2.0 09/26/16 09:02 61 130/63 09/26/16 08:57 97.9 61 19 130/63 100 09/26/16 07:41 Nasal Cannula 2.0 28 09/26/16 07:40 97 Nasal Cannula 2.0 09/26/16 04:15 97.5 64 20 143/60 98 Nasal Cannula 2.0 09/26/16 00:03 98.1 65 20 118/72 96 Nasal Cannula 2.0 09/25/16 21:04 60 124/57 09/25/16 20:02 97.0 60 20 124/57 98 Nasal Cannula 2.0 09/25/16 19:54 96 Nasal Cannula 2.0 09/25/16 19:54 Nasal Cannula 2.0 28 Intake and Output 09/25/16 09/26/16 19:00 07:00 Intake Total 420 ml 120 ml Output Total 100 ml 250 ml Balance 320 ml -130 ml Intake Oral 320 ml 120 ml IV Total 100 ml Output Urine Total 100 ml Stool Total 250 ml # Voids 1 # Bowel Movements 3 Laboratory Tests 09/26/16 05:20: White Blood Count 3.5L, Red Blood Count 3.62L, Hemoglobin 11.3L, Hematocrit 33.2L, Mean Corpuscular Volume 92, Mean Corpuscular Hemoglobin 31.2H, Mean Corpuscular Hemoglobin Concent 34.0, Red Cell Distribution Width 13.9, Platelet Count 101L, Mean Platelet Volume 7.3, Neutrophils (%) (Auto) 67.2, Lymphocytes ( %) (Auto) 21.1, Monocytes (%) (Auto) 8.6, Eosinophils (%) (Auto) 1.9, Basophils (%) (Auto) 1.1, Sodium Level 143, Potassium Level 3.4, Chloride Level 101, Carbon Dioxide Level 25, Anion Gap 17H, Blood Urea Nitrogen 49H, Creatinine 3.4H , Estimat Glomerular Filtration Rate , Glucose Level 99, Calcium Level 8.1L, Phosphorus Level 3.1, Total Bilirubin 0.6, Aspartate Amino Transf (AST/SGOT) 14 , Alanine Aminotransferase (ALT/SGPT) 9, Alkaline Phosphatase 64, C-Reactive Protein, Quantitative 6.7H, Total Protein 5.5L, Albumin 2.3L, Globulin 3.2, Albumin/Globulin Ratio 0.7L, Hepatitis B Surface Antigen [Pending], Hepatitis B Surface Antibody, Quant [Pending], Hepatitis C Antibody [Pending] Height (Feet): 5 Height (Inches): 6.00 Weight (Pounds): 160 General Appearance: no apparent distress Neck: limited range of motion Respiratory/Chest: decreased breath sounds Abdomen: soft Objective no change in PE MARIAN KOTHARI September 26, 2016 18:57
[2016-09-26] MEDS ORDERED: KCl 10% 20 mEq/15ml liquid NG ONE (19:00)
[2016-09-26] MEDS ORDERED: KCl 10% 20 mEq/15ml liquid ORAL ONE (19:30)
[2016-09-26 20:08] VITALS: BP 130/61
--- NOTE | 2016-09-26 22:54 | Pulmonology Progress Note ---
Assessment/Plan Problems: (1) Respiratory failure (2) Severe sepsis (3) Renal failure (4) Anemia, chronic disease (5) ARF (acute renal failure) (6) Diabetes mellitus type II, uncontrolled Assessment/Plan eating well, needs a feeder cxr reviewed: no major changes. pt/ot check labs HD by nephrology, last time on 09/21 dc planning sons are against feeding tube. Subjective ROS Limited/Unobtainable: No Allergies: Coded Allergies: SULFA (SULFONAMIDE ANTIBIOTICS) (Verified Allergy, Unknown, 09/10/16) Objective Last 24 Hour Vital Signs Date Time Temp Pulse Resp B/P Pulse Ox O2 Delivery O2 Flow Rate FiO2 09/26/16 20:38 64 130/61 09/26/16 20:08 97.9 64 17 130/61 96 Nasal Cannula 2.0 09/26/16 19:49 Nasal Cannula 2.0 28 09/26/16 19:48 96 Nasal Cannula 2.0 09/26/16 16:30 97.0 60 19 130/67 100 Room Air 09/26/16 12:14 97.7 59 20 135/65 100 Nasal Cannula 2.0 09/26/16 09:02 61 130/63 09/26/16 08:57 97.9 61 19 130/63 100 09/26/16 07:41 Nasal Cannula 2.0 09/26/16 07:40 97 Nasal Cannula 2.0 09/26/16 04:15 97.5 64 20 143/60 98 Nasal Cannula 2.0 09/26/16 00:03 98.1 65 20 118/72 96 Nasal Cannula 2.0 Intake and Output 09/25/16 09/26/16 19:00 07:00 Intake Total 420 ml 120 ml Output Total 100 ml 250 ml Balance 320 ml -130 ml Intake Oral 320 ml 120 ml IV Total 100 ml Output Urine Total 100 ml Stool Total 250 ml # Voids 1 # Bowel Movements 3 Objective General Appearance: chronically ill, thin HEENT: normocephalic Respiratory/Chest: chest wall non-tender, rhonchi Cardiovascular: normal peripheral pulses, normal rate Abdomen: normal bowel sounds, soft, non tender Genitourinary: normal external genitalia Extremities: no cyanosis Skin: no rash, no ulcers Lymphatic: no neck adenopathy Microbiology Date/Time Source Procedure Growth Status 09/24/16 14:39 Stool Clostridium difficile Toxin Assay - Final Complete Laboratory Tests 09/26/16 05:20: White Blood Count 3.5L, Red Blood Count 3.62L, Hemoglobin 11.3L, Hematocrit 33.2L, Mean Corpuscular Volume 92, Mean Corpuscular Hemoglobin 31.2H, Mean Corpuscular Hemoglobin Concent 34.0, Red Cell Distribution Width 13.9, Platelet Count 101L, Mean Platelet Volume 7.3, Neutrophils (%) (Auto) 67.2, Lymphocytes ( %) (Auto) 21.1, Monocytes (%) (Auto) 8.6, Eosinophils (%) (Auto) 1.9, Basophils (%) (Auto) 1.1, Sodium Level 143, Potassium Level 3.4, Chloride Level 101, Carbon Dioxide Level 25, Anion Gap 17H, Blood Urea Nitrogen 49H, Creatinine 3.4H , Estimat Glomerular Filtration Rate , Glucose Level 99, Calcium Level 8.1L, Phosphorus Level 3.1, Total Bilirubin 0.6, Aspartate Amino Transf (AST/SGOT) 14 , Alanine Aminotransferase (ALT/SGPT) 9, Alkaline Phosphatase 64, C-Reactive Protein, Quantitative 6.7H, Total Protein 5.5L, Albumin 2.3L, Globulin 3.2, Albumin/Globulin Ratio 0.7L, Hepatitis B Surface Antigen [Pending], Hepatitis B Surface Antibody, Quant [Pending], Hepatitis C Antibody [Pending] Current Medications Medications (Trade) Dose Ordered Sig/Barrett Route PRN Reason Start Time Stop Time Status Last Admin Dose Admin Carvedilol (Coreg) 6.25 mg EVERY 12 HOURS ORAL 09/25/16 21:00 10/25/16 20:59 09/26/16 20:38 Cefoxitin Sodium/ Dextrose (Mefoxin/D5W) 55 ml @ 110 mls/hr ONCE ONCE IV 09/27/16 07:00 09/27/16 07:29 Dextrose (Dextrose 50%) STAT PRN IV Hypoglycemia 09/25/16 19:00 10/25/16 18:59 Insulin Aspart (NovoLOG) AC+HS SUBQ 09/25/16 21:00 10/25/16 20:59 09/26/16 20:37 Lactobacillus Acidophilus (Culturelle) 1 tab THREE TIMES A DAY ORAL 09/25/16 18:00 10/25/16 17:59 09/26/16 18:20 Pantoprazole (Protonix) 40 mg DAILY ORAL 09/26/16 09:00 10/26/16 08:59 09/26/16 09:02 Vancomycin HCl (Vancomycin) 125 mg FOUR TIMES A DAY ORAL 09/25/16 18:00 10/02/16 17:59 09/26/16 20:38 Vitamin A/Vitamin D 1 applic 1 applic EVERY 12 HOURS TOPIC 09/25/16 21:00 10/25/16 20:59 09/26/16 20:39 LANDEN HERNANDEZ September 26, 2016 22:54
[2016-09-27] VITALS (8 sets, daily range): BP systolic 93–154; BP diastolic 44–74
[2016-09-27] MEDS: NovoLOG Insulin Flexpen SUBQ SCH ×4 (06:14→20:34)
[2016-09-27] MEDS ORDERED: cefOXitin Sod 1 GM in D5W 55 ML IV ONE (07:00)
[2016-09-27 07:06] LABS: INR 1.1 (0.9-1.1); PROTHROMBIN TIME 11.5 SEC (9.30-11.50)
[2016-09-27 07:08] LABS: MEAN CORPUSCULAR HEMOGLOBIN 29.7 PG (27.0-31.0); MEAN CORPUSCULAR HGB CONC 31.7 G/DL (32.0-36.0); MEAN CORPUSCULAR VOLUME 94 FL (80-99); MEAN PLATELET VOLUME 7.5 FL (6.5-10.1); PLATELET COUNT 112 K/UL (150-450); RED BLOOD COUNT 3.97 M/UL (4.70-6.10); RED CELL DISTRIBUTION WIDTH 14.3 % (11.6-14.8); WHITE BLOOD COUNT 2.7 K/UL (4.8-10.8)
--- NOTE | 2016-09-27 07:22 | Pre-Procedure Note/Attestation ---
Pre-Procedure Note/Attestation Complete Prior to Procedure Planned Procedure: not applicable Procedure Narrative: egd/peg Indications for Procedure Pre-Operative Diagnosis: dysphagia Attestation I attest that I discussed the nature of the procedure; its benefits; risks and complications; and alternatives (and the risks and benefits of such alternatives ), prior to the procedure, with the patient (or the patient's legal bilingual call center representative). I attest that, if there was a reasonable possibility of needing a blood transfusion, the patient (or the patient's legal bilingual call center representative) was given the [facility] standardized written summary, pursuant to the [place] Jason Blood Safety Act ([place] Health and Safety Code # 1645, as amended). I attest that I re-evaluated the patient just prior to the surgery and that there has been no change in the patient's H&P, except as documented below: JAYANT HANSEN September 27, 2016 07:22
[2016-09-27 07:35] LABS: ANION GAP 18 (5-15); CALCIUM 8.3 mg/dL (8.6-10.2); CARBON DIOXIDE 23 mEQ/L (20-30); CHLORIDE 102 mEQ/L (98-107); CREATININE 4.1 mg/dL (0.7-1.2); HEMOLYSIS 6; POTASSIUM 3.4 mEQ/L (3.4-4.9); SODIUM 143 mEQ/L (135-145)
[2016-09-27] MEDS: Carvedilol 6.25mg Tab ORAL SCH ×2 (08:07→20:33)
[2016-09-27] MEDS: Lactobacillus-GG tablet ORAL SCH ×3 (08:07→17:16)
[2016-09-27] MEDS: Vancomycin oral 125mg/2.5ml ORAL SCH ×4 (08:08→20:33)
[2016-09-27 08:37] LABS: BASOPHILS % (MANUAL) 2 % (0-2); LYMPHOCYTES % (MANUAL) 29 % (20-45); NEUTROPHILS % (MANUAL) 61 % (45-75); TOTAL CELLS COUNTED 100
[2016-09-27 08:38] LABS: ANISOCYTOSIS 1+; BAND NEUTROPHILS % (MANUAL) 0 % (0-8); EOSINOPHILS % (MANUAL) 0 % (0-3); HYPOCHROMASIA 1+; PLATELET ESTIMATE DECREASED; PLATELET MORPHOLOGY NORMAL
--- NOTE | 2016-09-27 09:30 | GI Progress Note ---
Assessment/Plan Problems: (1) Dysphagia ICD Codes: R13.10 - Dysphagia, unspecified SNOMED: 20145755, 787736432 (2) Encounter for PEG (percutaneous endoscopic gastrostomy) ICD Codes: Z43.1 - Encounter for attention to gastrostomy SNOMED: 016301963, 126290120 (3) Clostridium difficile diarrhea ICD Codes: A04.7 - Enterocolitis due to Clostridium difficile SNOMED: 43552866, 325120091 (4) Severe sepsis ICD Codes: A41.9 - Sepsis, unspecified organism; R65.20 - Severe sepsis without septic shock SNOMED: 69586101 (5) Anemia, chronic disease ICD Codes: D63.8 - Anemia in other chronic diseases classified elsewhere SNOMED: 842839223 Status: unchanged Status Narrative Discussed with Dr. Blanchard. Assessment/Plan cdiff positive ST eval noted >> high risk for silent aspiration PEG cancelled >> Family refused >> Dr. Blanchard & ST has spoken to the son regarding the risks and benefits. diet per ST eval to honey thick nectar soup aspiration precautions monitor LFTs >> elevated iron levels fu hep panel calorie count x 48 hours ppi fu labs family request transfer to [facility] Subjective Subjective limited Objective Last 24 Hour Vital Signs Date Time Temp Pulse Resp B/P Pulse Ox O2 Delivery O2 Flow Rate FiO2 09/27/16 08:07 58 142/66 09/27/16 07:53 Nasal Cannula 2.0 28 09/27/16 07:52 98 Nasal Cannula 2.0 09/27/16 07:39 96.3 58 18 142/66 100 Nasal Cannula 2.0 09/27/16 04:10 96.3 64 19 144/72 99 Nasal Cannula 2.0 09/27/16 00:17 96.8 62 18 154/74 100 Nasal Cannula 2.0 09/26/16 20:38 64 130/61 09/26/16 20:08 97.9 64 17 130/61 96 Nasal Cannula 2.0 09/26/16 19:49 Nasal Cannula 2.0 28 09/26/16 19:48 96 Nasal Cannula 2.0 09/26/16 16:30 97.0 60 19 130/67 100 Room Air 09/26/16 12:14 97.7 59 20 135/65 100 Nasal Cannula 2.0 Intake and Output 09/26/16 09/27/16 19:00 07:00 Intake Total 240 ml Output Total 250 ml Balance -10 ml Intake Oral 240 ml Output Urine Total 250 ml # Bowel Movements 5 Laboratory Tests Test 09/27/16 05:30 White Blood Count 2.7 K/UL (4.8-10.8) L Red Blood Count 3.97 M/UL (4.70-6.10) L Hemoglobin 11.8 G/DL (14.2-18.0) L Hematocrit 37.1 % (42.0-52.0) L Mean Corpuscular Volume 94 FL (80-99) Mean Corpuscular Hemoglobin 29.7 PG (27.0-31.0) Mean Corpuscular Hemoglobin Concent 31.7 G/DL (32.0-36.0) L Red Cell Distribution Width 14.3 % (11.6-14.8) Platelet Count 112 K/UL (150-450) L Mean Platelet Volume 7.5 FL (6.5-10.1) Neutrophils (%) (Auto) % (45.0-75.0) Lymphocytes (%) (Auto) % (20.0-45.0) Monocytes (%) (Auto) % (1.0-10.0) Eosinophils (%) (Auto) % (0.0-3.0) Basophils (%) (Auto) % (0.0-2.0) Differential Total Cells Counted 100 Neutrophils % (Manual) 61 % (45-75) Lymphocytes % (Manual) 29 % (20-45) Monocytes % (Manual) 8 % (1-10) Eosinophils % (Manual) 0 % (0-3) Basophils % (Manual) 2 % (0-2) Band Neutrophils 0 % (0-8) Platelet Estimate Decreased L Platelet Morphology Normal Hypochromasia 1+ Anisocytosis 1+ Prothrombin Time 11.5 SEC (9.30-11.50) Prothromb Time International Ratio 1.1 (0.9-1.1) Activated Partial Thromboplast Time 29 SEC (23-33) Sodium Level 143 mEQ/L (135-145) Potassium Level 3.4 mEQ/L (3.4-4.9) Chloride Level 102 mEQ/L (98-107) Carbon Dioxide Level 23 mEQ/L (20-30) Anion Gap 18 (5-15) H Blood Urea Nitrogen 62 mg/dL (7-23) H Creatinine 4.1 mg/dL (0.7-1.2) H Estimat Glomerular Filtration Rate mL/min (>60) Glucose Level 119 mg/dL (74-106) H Calcium Level 8.3 mg/dL (8.6-10.2) L Height (Feet): 5 Height (Inches): 6.00 Weight (Pounds): 160 General Appearance: no apparent distress, alert Cardiovascular: normal rate Respiratory/Chest: no respiratory distress Abdominal Exam: normal bowel sounds, non tender, soft Flakita Couch N.Trinity September 27, 2016 09:30
--- NOTE | 2016-09-27 10:23 | Infectious Diseases Prog Note ---
Assessment/Plan Assessment/Plan A: The patient is a 76-year-old male Diarrhea , C.diff+ Septic shock SP - off pressors Pneumonia Scx: Lori ( colonizer ) SP Rx Chest x-ray : atelectasis and pneumonia in the left lung base UTI , UCx: Enterobacter ( probable Extended B-lactamase inhibitor ) SP Rx Leukopenia, afebrile DM HTN SP pacemaker placement Alzheimer dementia [place] : on HD started 09/14 Sulfa allergy Full Code P: continue PO vanco d# 3 / -14 ( 09/25 SP Cefepime d# 12 ) ( 09/14 SP Zosyn d# 4 ) Monitor CBC, temperatures, re-culture if acute change Monitor CMP Nephro is following for HD Subjective Constitutional: Denies: anorexia, chills, drenching sweats, fatigue, fever, no symptoms, other Allergies: Coded Allergies: SULFA (SULFONAMIDE ANTIBIOTICS) (Verified Allergy, Unknown, 09/10/16) Objective Vital Signs Last 24 Hour Vital Signs Date Time Temp Pulse Resp B/P Pulse Ox O2 Delivery O2 Flow Rate FiO2 09/27/16 09:00 97.3 58 22 137/73 98 2.0 09/27/16 09:00 Room Air 2.0 09/27/16 08:07 58 142/66 09/27/16 07:53 Nasal Cannula 2.0 28 09/27/16 07:52 98 Nasal Cannula 2.0 09/27/16 07:39 96.3 58 18 142/66 100 Nasal Cannula 2.0 09/27/16 04:10 96.3 64 19 144/72 99 Nasal Cannula 2.0 09/27/16 00:17 96.8 62 18 154/74 100 Nasal Cannula 2.0 09/26/16 20:38 64 130/61 09/26/16 20:08 97.9 64 17 130/61 96 Nasal Cannula 2.0 09/26/16 19:49 Nasal Cannula 2.0 28 09/26/16 19:48 96 Nasal Cannula 2.0 09/26/16 16:30 97.0 60 19 130/67 100 Room Air 09/26/16 12:14 97.7 59 20 135/65 100 Nasal Cannula 2.0 Height (Feet): 5 Height (Inches): 6.00 Weight (Pounds): 160 HEENT: anicteric Respiratory/Chest: no accessory muscle use Cardiovascular: regularly irregular Abdomen: no organomegaly Microbiology Date/Time Source Procedure Growth Status 09/24/16 14:39 Stool Clostridium difficile Toxin Assay - Final Complete Laboratory Tests Test 09/27/16 05:30 White Blood Count 2.7 K/UL (4.8-10.8) L Red Blood Count 3.97 M/UL (4.70-6.10) L Hemoglobin 11.8 G/DL (14.2-18.0) L Hematocrit 37.1 % (42.0-52.0) L Mean Corpuscular Volume 94 FL (80-99) Mean Corpuscular Hemoglobin 29.7 PG (27.0-31.0) Mean Corpuscular Hemoglobin Concent 31.7 G/DL (32.0-36.0) L Red Cell Distribution Width 14.3 % (11.6-14.8) Platelet Count 112 K/UL (150-450) L Mean Platelet Volume 7.5 FL (6.5-10.1) Neutrophils (%) (Auto) % (45.0-75.0) Lymphocytes (%) (Auto) % (20.0-45.0) Monocytes (%) (Auto) % (1.0-10.0) Eosinophils (%) (Auto) % (0.0-3.0) Basophils (%) (Auto) % (0.0-2.0) Differential Total Cells Counted 100 Neutrophils % (Manual) 61 % (45-75) Lymphocytes % (Manual) 29 % (20-45) Monocytes % (Manual) 8 % (1-10) Eosinophils % (Manual) 0 % (0-3) Basophils % (Manual) 2 % (0-2) Band Neutrophils 0 % (0-8) Platelet Estimate Decreased L Platelet Morphology Normal Hypochromasia 1+ Anisocytosis 1+ Prothrombin Time 11.5 SEC (9.30-11.50) Prothromb Time International Ratio 1.1 (0.9-1.1) Activated Partial Thromboplast Time 29 SEC (23-33) Sodium Level 143 mEQ/L (135-145) Potassium Level 3.4 mEQ/L (3.4-4.9) Chloride Level 102 mEQ/L (98-107) Carbon Dioxide Level 23 mEQ/L (20-30) Anion Gap 18 (5-15) H Blood Urea Nitrogen 62 mg/dL (7-23) H Creatinine 4.1 mg/dL (0.7-1.2) H Estimat Glomerular Filtration Rate mL/min (>60) Glucose Level 119 mg/dL (74-106) H Calcium Level 8.3 mg/dL (8.6-10.2) L Current Medications Medications (Trade) Dose Ordered Sig/Barrett Route PRN Reason Start Time Stop Time Status Last Admin Dose Admin Carvedilol (Coreg) 6.25 mg EVERY 12 HOURS ORAL 09/25/16 21:00 10/25/16 20:59 09/27/16 08:07 Dextrose (Dextrose 50%) STAT PRN IV Hypoglycemia 09/25/16 19:00 10/25/16 18:59 Insulin Aspart (NovoLOG) AC+HS SUBQ 09/25/16 21:00 10/25/16 20:59 09/27/16 06:14 Lactobacillus Acidophilus (Culturelle) 1 tab THREE TIMES A DAY ORAL 09/25/16 18:00 10/25/16 17:59 09/27/16 08:07 Pantoprazole (Protonix) 40 mg DAILY ORAL 09/26/16 09:00 10/26/16 08:59 09/27/16 08:07 Vancomycin HCl (Vancomycin) 125 mg FOUR TIMES A DAY ORAL 09/25/16 18:00 10/02/16 17:59 09/27/16 08:08 Vitamin A/Vitamin D (A & D Oint) 1 applic EVERY 12 HOURS TOPIC 09/25/16 21:00 10/25/16 20:59 09/26/16 20:39 CRISTEL DUFF M.D. September 27, 2016 10:23
[2016-09-27] MEDS: Vitamin A&D Oint 2oz Tube TOPIC SCH ×2 (11:47→20:35)
--- NOTE | 2016-09-27 13:43 | General Progress Note ---
Assessment/Plan Status: stable Assessment/Plan Status: Septic Shock leading to acute renal and multiOrgan failure Sever Acidosis , high Lactate , High K , Due to the above: ALL IMPROVED- Seems like patient has CKD , unclear what is the baseline S Cr Other: DM Pacer : Left ventricular ejection fraction estimated to be 50%. Apical wall hypokinesia may be due to ventricular paced effect. OBS Sugg: HD 09/27 DC IV fluid - Stool for C dif- POSITIVE will start Vanco po post extubation care Phos supplement - K supplement as needed Hemodynamic support Antibiotics discussed with RN monitor renal parameters Subjective ROS Limited/Unobtainable: No Constitutional: Reports: malaise, weakness Allergies: Coded Allergies: SULFA (SULFONAMIDE ANTIBIOTICS) (Verified Allergy, Unknown, 09/10/16) Objective Last 24 Hour Vital Signs Date Time Temp Pulse Resp B/P Pulse Ox O2 Delivery O2 Flow Rate FiO2 09/27/16 12:48 Nasal Cannula 2.0 09/27/16 12:47 97.0 64 21 125/70 96 Nasal Cannula 2.0 09/27/16 11:59 97.7 16 93/44 97 Nasal Cannula 2.0 09/27/16 09:00 97.3 58 22 137/73 98 2.0 09/27/16 09:00 Room Air 2.0 09/27/16 08:07 58 142/66 09/27/16 07:53 Nasal Cannula 2.0 28 09/27/16 07:52 98 Nasal Cannula 2.0 09/27/16 07:39 96.3 58 18 142/66 100 Nasal Cannula 2.0 09/27/16 04:10 96.3 64 19 144/72 99 Nasal Cannula 2.0 09/27/16 00:17 96.8 62 18 154/74 100 Nasal Cannula 2.0 09/26/16 20:38 64 130/61 09/26/16 20:08 97.9 64 17 130/61 96 Nasal Cannula 2.0 09/26/16 19:49 Nasal Cannula 2.0 28 09/26/16 19:48 96 Nasal Cannula 2.0 09/26/16 16:30 97.0 60 19 130/67 100 Room Air Intake and Output 09/26/16 09/27/16 19:00 07:00 Intake Total 240 ml Output Total 250 ml Balance -10 ml Intake Oral 240 ml Output Urine Total 250 ml # Bowel Movements 5 Laboratory Tests 09/27/16 05:30: White Blood Count 2.7L, Red Blood Count 3.97L, Hemoglobin 11.8L, Hematocrit 37.1L, Mean Corpuscular Volume 94, Mean Corpuscular Hemoglobin 29.7, Mean Corpuscular Hemoglobin Concent 31.7L, Red Cell Distribution Width 14.3, Platelet Count 112L, Mean Platelet Volume 7.5, Neutrophils (%) (Auto) , Lymphocytes (%) (Auto) , Monocytes (%) (Auto) , Eosinophils (%) (Auto) , Basophils (%) (Auto) , Differential Total Cells Counted 100, Neutrophils % ( Manual) 61, Lymphocytes % (Manual) 29, Monocytes % (Manual) 8, Eosinophils % ( Manual) 0, Basophils % (Manual) 2, Band Neutrophils 0, Platelet Estimate DecreasedL, Platelet Morphology Normal, Hypochromasia 1+, Anisocytosis 1+, Prothrombin Time 11.5, Prothromb Time International Ratio 1.1, Activated Partial Thromboplast Time 29, Sodium Level 143, Potassium Level 3.4, Chloride Level 102, Carbon Dioxide Level 23, Anion Gap 18H, Blood Urea Nitrogen 62H, Creatinine 4.1H, Estimat Glomerular Filtration Rate , Glucose Level 119H, Calcium Level 8.3L Height (Feet): 5 Height (Inches): 6.00 Weight (Pounds): 160 General Appearance: no apparent distress Objective no change in PE MARIAN KOTHARI September 27, 2016 13:43
--- NOTE | 2016-09-27 16:24 | Cardiology Progress Note ---
Assessment/Plan Assessment/Plan 1. Globally weak/septic shock. 2. Renal failure, acute on chronic. 3. 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 4. Anemia. 5. History of upper gastrointestinal bleed with treatment of the visible bleeding vessel previously. 6. Chronic renal insufficiency. 7. Coronary artery disease status post percutaneous coronary intervention with what was felt to be a demand related ischemia. 8. History of aspiration. 9. Altered mental status. 10. Hypertension. 11. Diabetes mellitus 12. thrombocytopenia plt bettdr bp is fine dialysis as planned for luid overload remains extubated doign well abx hgb up Subjective Cardiovascular: Denies: chest pain, lightheadedness Respiratory: Reports: shortness of breath Gastrointestinal/Abdominal: Denies: abdominal pain Genitourinary: Denies: burning Subjective awake Objective Last 24 Hour Vital Signs Date Time Temp Pulse Resp B/P Pulse Ox O2 Delivery O2 Flow Rate FiO2 09/27/16 16:00 97.2 62 20 134/65 97 Nasal Cannula 2.0 09/27/16 12:48 Nasal Cannula 2.0 09/27/16 12:47 97.0 64 21 125/70 96 Nasal Cannula 2.0 09/27/16 11:59 97.7 16 93/44 97 Nasal Cannula 2.0 09/27/16 09:00 97.3 58 22 137/73 98 2.0 09/27/16 09:00 Room Air 2.0 09/27/16 08:07 58 142/66 09/27/16 07:53 Nasal Cannula 2.0 28 09/27/16 07:52 98 Nasal Cannula 2.0 09/27/16 07:39 96.3 58 18 142/66 100 Nasal Cannula 2.0 09/27/16 04:10 96.3 64 19 144/72 99 Nasal Cannula 2.0 09/27/16 00:17 96.8 62 18 154/74 100 Nasal Cannula 2.0 09/26/16 20:38 64 130/61 09/26/16 20:08 97.9 64 17 130/61 96 Nasal Cannula 2.0 09/26/16 19:49 Nasal Cannula 2.0 28 09/26/16 19:48 96 Nasal Cannula 2.0 09/26/16 16:30 97.0 60 19 130/67 100 Room Air General Appearance: no apparent distress Cardiovascular: normal rate Respiratory/Chest: lungs clear - ant Abdomen: normal bowel sounds, non tender, soft Extremities: no swelling Intake and Output 09/26/16 09/27/16 18:59 06:59 Intake Total 240 ml Output Total 250 ml Balance -10 ml Intake Oral 240 ml Output Urine Total 250 ml # Bowel Movements 5 Laboratory Tests Test 09/27/16 05:30 White Blood Count 2.7 K/UL (4.8-10.8) L Red Blood Count 3.97 M/UL (4.70-6.10) L Hemoglobin 11.8 G/DL (14.2-18.0) L Hematocrit 37.1 % (42.0-52.0) L Mean Corpuscular Volume 94 FL (80-99) Mean Corpuscular Hemoglobin 29.7 PG (27.0-31.0) Mean Corpuscular Hemoglobin Concent 31.7 G/DL (32.0-36.0) L Red Cell Distribution Width 14.3 % (11.6-14.8) Platelet Count 112 K/UL (150-450) L Mean Platelet Volume 7.5 FL (6.5-10.1) Neutrophils (%) (Auto) % (45.0-75.0) Lymphocytes (%) (Auto) % (20.0-45.0) Monocytes (%) (Auto) % (1.0-10.0) Eosinophils (%) (Auto) % (0.0-3.0) Basophils (%) (Auto) % (0.0-2.0) Differential Total Cells Counted 100 Neutrophils % (Manual) 61 % (45-75) Lymphocytes % (Manual) 29 % (20-45) Monocytes % (Manual) 8 % (1-10) Eosinophils % (Manual) 0 % (0-3) Basophils % (Manual) 2 % (0-2) Band Neutrophils 0 % (0-8) Platelet Estimate Decreased L Platelet Morphology Normal Hypochromasia 1+ Anisocytosis 1+ Prothrombin Time 11.5 SEC (9.30-11.50) Prothromb Time International Ratio 1.1 (0.9-1.1) Activated Partial Thromboplast Time 29 SEC (23-33) Sodium Level 143 mEQ/L (135-145) Potassium Level 3.4 mEQ/L (3.4-4.9) Chloride Level 102 mEQ/L (98-107) Carbon Dioxide Level 23 mEQ/L (20-30) Anion Gap 18 (5-15) H Blood Urea Nitrogen 62 mg/dL (7-23) H Creatinine 4.1 mg/dL (0.7-1.2) H Estimat Glomerular Filtration Rate mL/min (>60) Glucose Level 119 mg/dL (74-106) H Calcium Level 8.3 mg/dL (8.6-10.2) L RAJ DEL ROSARIO September 27, 2016 16:23
--- NOTE | 2016-09-27 16:40 | Diagnostic Imaging Report ---
Indications: Dysphagia Technique: Multiphasic barium dysphagia study was performed under fluoroscopic control with Audrey Shelby speech pathologist. Cinegraphic images were obtained. Total fluoroscopy time: 311.9 sec Dose-area product: 0.33 mGy-m2 Findings: Comparison: None Oral and pharyngeal phases of swallowing demonstrate multiple mechanical abnormalities, as enumerated on speech pathology evaluation form. The patient demonstrates tracheal aspiration of honey or nectar thickness barium not eliciting cough reflex, deep laryngeal penetration of thin liquid barium not ejected, deep laryngeal penetration of pudding thickness barium, ejected. There is diffuse barium coating of pharyngeal structures after swallowing.. Esophageal phase of swallowing demonstrates no obvious barium pooling. IMPRESSION: Abnormal oropharyngeal mechanics with tracheal aspiration of honey or nectar thickness barium without cough reflex, deep laryngeal penetration of thin liquid barium not cleared, deep laryngeal penetration of pudding thickness barium cleared.. Diffuse post swallow pharyngeal residue No obvious esophageal dysmotility Recommendation per speech pathology evaluation form.
[2016-09-27] MEDS ORDERED: NS 275ml ONE (17:18)
[2016-09-27] MEDS ORDERED: Tubing IV Secondary IV ONE (17:18)
--- NOTE | 2016-09-27 17:20 | Internal Med Progress Note ---
Subjective Date of Service: September 27, 2016 Physician Name Glynn Haynes Attending Physician Jonathan Sampson MD Current Medications Medications (Trade) Dose Ordered Sig/Barrett Route PRN Reason Start Time Stop Time Status Last Admin Dose Admin Carvedilol (Coreg) 6.25 mg EVERY 12 HOURS ORAL 09/25/16 21:00 10/25/16 20:59 09/27/16 08:07 Dextrose (Dextrose 50%) STAT PRN IV Hypoglycemia 09/25/16 19:00 10/25/16 18:59 Insulin Aspart (NovoLOG) AC+HS SUBQ 09/25/16 21:00 10/25/16 20:59 09/27/16 06:14 Lactobacillus Acidophilus (Culturelle) 1 tab THREE TIMES A DAY ORAL 09/25/16 18:00 10/25/16 17:59 09/27/16 13:33 Pantoprazole (Protonix) 40 mg DAILY ORAL 09/26/16 09:00 10/26/16 08:59 09/27/16 08:07 Vancomycin HCl (Vancomycin) 125 mg FOUR TIMES A DAY ORAL 09/25/16 18:00 10/02/16 17:59 09/27/16 13:33 Vitamin A/Vitamin D (A & D Oint) 1 applic EVERY 12 HOURS TOPIC 09/25/16 21:00 10/25/16 20:59 09/26/16 20:39 Allergies: Coded Allergies: SULFA (SULFONAMIDE ANTIBIOTICS) (Verified Allergy, Unknown, 09/10/16) ROS Limited/Unobtainable: Yes Subjective 76 YO M admitted with hypotension and UTI/sepsis. Tolerating nasal canula. Cover for Int Med-Dr Sampson.. Objective Last Vital Signs Date Time Temp Pulse Resp B/P Pulse Ox O2 Delivery O2 Flow Rate FiO2 09/27/16 16:00 97.2 62 20 134/65 97 Nasal Cannula 2.0 09/27/16 07:53 28 Laboratory Tests Test 09/27/16 05:30 White Blood Count 2.7 K/UL (4.8-10.8) L Red Blood Count 3.97 M/UL (4.70-6.10) L Hemoglobin 11.8 G/DL (14.2-18.0) L Hematocrit 37.1 % (42.0-52.0) L Mean Corpuscular Volume 94 FL (80-99) Mean Corpuscular Hemoglobin 29.7 PG (27.0-31.0) Mean Corpuscular Hemoglobin Concent 31.7 G/DL (32.0-36.0) L Red Cell Distribution Width 14.3 % (11.6-14.8) Platelet Count 112 K/UL (150-450) L Mean Platelet Volume 7.5 FL (6.5-10.1) Neutrophils (%) (Auto) % (45.0-75.0) Lymphocytes (%) (Auto) % (20.0-45.0) Monocytes (%) (Auto) % (1.0-10.0) Eosinophils (%) (Auto) % (0.0-3.0) Basophils (%) (Auto) % (0.0-2.0) Differential Total Cells Counted 100 Neutrophils % (Manual) 61 % (45-75) Lymphocytes % (Manual) 29 % (20-45) Monocytes % (Manual) 8 % (1-10) Eosinophils % (Manual) 0 % (0-3) Basophils % (Manual) 2 % (0-2) Band Neutrophils 0 % (0-8) Platelet Estimate Decreased L Platelet Morphology Normal Hypochromasia 1+ Anisocytosis 1+ Prothrombin Time 11.5 SEC (9.30-11.50) Prothromb Time International Ratio 1.1 (0.9-1.1) Activated Partial Thromboplast Time 29 SEC (23-33) Sodium Level 143 mEQ/L (135-145) Potassium Level 3.4 mEQ/L (3.4-4.9) Chloride Level 102 mEQ/L (98-107) Carbon Dioxide Level 23 mEQ/L (20-30) Anion Gap 18 (5-15) H Blood Urea Nitrogen 62 mg/dL (7-23) H Creatinine 4.1 mg/dL (0.7-1.2) H Estimat Glomerular Filtration Rate mL/min (>60) Glucose Level 119 mg/dL (74-106) H Calcium Level 8.3 mg/dL (8.6-10.2) L Intake and Output 09/26/16 09/27/16 19:00 07:00 Intake Total 240 ml Output Total 250 ml Balance -10 ml Intake Oral 240 ml Output Urine Total 250 ml # Bowel Movements 5 Objective General Appearance: WD/WN, moderate distress EENT: normal ENT inspection Neck: non-tender, normal alignment, supple Cardiovascular: normal peripheral pulses, normal rate, regular rhythm, no gallop/murmur, no JVD Respiratory/Chest: Nasal canula; respiratory distress, crackles/rales, rhonchi - bilaterally, expiratory wheezing Abdomen: normal bowel sounds, non tender, soft, no organomegaly, no mass Skin: normal pigmentation, warm/dry Assessment/Plan Problem List: (1) Severe sepsis Assessment & Plan: D/Ccefepime per ID (2) Respiratory failure Assessment & Plan: Tolerating nasal canula per pulmonary (3) Renal failure Assessment & Plan: Last Hemodialysis 09/27/16 per nephrology. (4) Diabetes mellitus type II, uncontrolled Assessment & Plan: Cont novolog sliding scale. (5) BPH (benign prostatic hyperplasia) (6) Hypokalemia (7) Infection caused by Enterobacter cloacae (8) UTI (urinary tract infection) Assessment & Plan: Enterobacter. D/C antibiotics per ID (9) Hypotension Assessment & Plan: Resolved (10) Dysphagia Assessment & Plan: Video Swallow eval; PEG eval. 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
--- NOTE | 2016-09-27 22:06 | Consultation ---
Consult Note Consult Note PODIATRY CONSULTATION DATE OF ADMISSION: 09/11/16 DATE OF CONSULTATION: 09/27/2016 CONSULTING PHYSICIAN: Amadeo Marmolejo DPM COVERING FOR: Flavio Thompson DPM REASON FOR REFERRAL: Diabetic foot care HISTORY OF PRESENT ILLNESS: 76 year old male who has difficulty providing history. Therefore, history was obtained from reviewing the chart. Patient was brought to the Emergency room due to altered mental status and because he had not been eating for 2 days. No reports of nausea, vomiting, fevers, or chills. PAST MEDICAL HISTORY: T2DM, chronic renal insufficiency, dementia, Alzheimer's, CAD, and bradycardia ALLERGIES: Sulfa MEDICATIONS: Reviewed. Please refer to chart for details SURGICAL HISTORY: Transurethral resection of prostate in 2013 and coronary angioplasty and stent in 2013. SOCIAL HISTORY: Patient is a former smoker with no current tobacco, alcohol, or illicit drug use. Patient lives with son and at home. PHYSICAL EXAMINATION: DERM: Thick, dystrophic, and elongated toenails x 10. Right hallux nail is incurvated and painful with palpation. There are deep tissue injuries noted at the left medial 1st metatarsal head and left lateral leg. Not currently open, draining, with no surrounding cellulitis NEURO: Patient reacts to sharp stimulus VASC: Pedal pulses difficult to palpate MSK: Bilateral bunion and hammertoes 2-5 Last 24 Hour Vital Signs Date Time Temp Pulse Resp B/P Pulse Ox O2 Delivery O2 Flow Rate FiO2 09/27/16 20:33 64 126/64 09/27/16 20:18 99 Nasal Cannula 2.0 09/27/16 20:18 Nasal Cannula 2.0 28 09/27/16 20:00 97.9 64 18 126/64 99 Nasal Cannula 2.0 09/27/16 16:00 97.2 62 20 134/65 97 Nasal Cannula 2.0 09/27/16 12:48 Nasal Cannula 2.0 09/27/16 12:47 97.0 64 21 125/70 96 Nasal Cannula 2.0 09/27/16 11:59 97.7 16 93/44 97 Nasal Cannula 2.0 09/27/16 09:00 97.3 58 22 137/73 98 2.0 09/27/16 09:00 Room Air 2.0 09/27/16 08:07 58 142/66 09/27/16 07:53 Nasal Cannula 2.0 28 09/27/16 07:52 98 Nasal Cannula 2.0 09/27/16 07:39 96.3 58 18 142/66 100 Nasal Cannula 2.0 09/27/16 04:10 96.3 64 19 144/72 99 Nasal Cannula 2.0 09/27/16 00:17 96.8 62 18 154/74 100 Nasal Cannula 2.0 Laboratory Tests Test 09/27/16 05:30 White Blood Count 2.7 K/UL (4.8-10.8) L Red Blood Count 3.97 M/UL (4.70-6.10) L Hemoglobin 11.8 G/DL (14.2-18.0) L Hematocrit 37.1 % (42.0-52.0) L Mean Corpuscular Volume 94 FL (80-99) Mean Corpuscular Hemoglobin 29.7 PG (27.0-31.0) Mean Corpuscular Hemoglobin Concent 31.7 G/DL (32.0-36.0) L Red Cell Distribution Width 14.3 % (11.6-14.8) Platelet Count 112 K/UL (150-450) L Mean Platelet Volume 7.5 FL (6.5-10.1) Neutrophils (%) (Auto) % (45.0-75.0) Lymphocytes (%) (Auto) % (20.0-45.0) Monocytes (%) (Auto) % (1.0-10.0) Eosinophils (%) (Auto) % (0.0-3.0) Basophils (%) (Auto) % (0.0-2.0) Differential Total Cells Counted 100 Neutrophils % (Manual) 61 % (45-75) Lymphocytes % (Manual) 29 % (20-45) Monocytes % (Manual) 8 % (1-10) Eosinophils % (Manual) 0 % (0-3) Basophils % (Manual) 2 % (0-2) Band Neutrophils 0 % (0-8) Platelet Estimate Decreased L Platelet Morphology Normal Hypochromasia 1+ Anisocytosis 1+ Prothrombin Time 11.5 SEC (9.30-11.50) Prothromb Time International Ratio 1.1 (0.9-1.1) Activated Partial Thromboplast Time 29 SEC (23-33) Sodium Level 143 mEQ/L (135-145) Potassium Level 3.4 mEQ/L (3.4-4.9) Chloride Level 102 mEQ/L (98-107) Carbon Dioxide Level 23 mEQ/L (20-30) Anion Gap 18 (5-15) H Blood Urea Nitrogen 62 mg/dL (7-23) H Creatinine 4.1 mg/dL (0.7-1.2) H Estimat Glomerular Filtration Rate mL/min (>60) Glucose Level 119 mg/dL (74-106) H Calcium Level 8.3 mg/dL (8.6-10.2) L Microbiology Date/Time Source Procedure Growth Status 09/10/16 23:00 Blood Blood Culture - Final NO GROWTH AFTER 5 DAYS Complete 09/14/16 10:45 Sputum Gram Stain - Final Complete 09/14/16 10:45 Sputum Culture - Final Lori Albicans Complete 09/24/16 14:39 Stool Clostridium difficile Toxin Assay - Final Complete 09/11/16 17:45 Indwelling Cath Urine Culture - Final Enterobacter Cloacae Complex Complete 09/11/16 03:50 Rectum VRE Culture - Final NO VANCOMYCIN RESISTANT ENTEROCOCCUS ... Complete . Assessment/Plan 1. T2DM with peripheral vascular disease 2. Onychomycosis with elongated toenails. Right hallux with pincer nail which is painful with palpation 3. Deep tissue injury to the left medial 1st metatarsal head and lateral leg. Not currently open and without surrounding cellulitis 4. Bilateral bunion and hammertoes 2-5 - Debrided toenails x 10 without complications - Continue to offload heels - Monitor areas of deep tissue injury daily Amadeo Marmolejo DPM September 27, 2016 22:06
--- NOTE | 2016-09-27 22:20 | Pulmonology Progress Note ---
Assessment/Plan Problems: (1) Respiratory failure (2) Severe sepsis (3) Renal failure (4) Anemia, chronic disease (5) ARF (acute renal failure) (6) Diabetes mellitus type II, uncontrolled Assessment/Plan eating well, needs a feeder cxr reviewed: no major changes. pt/ot check labs HD by nephrology, last time on 09/21 dc planning sons are against feeding tube. Subjective Allergies: Coded Allergies: SULFA (SULFONAMIDE ANTIBIOTICS) (Verified Allergy, Unknown, 09/10/16) Objective Last 24 Hour Vital Signs Date Time Temp Pulse Resp B/P Pulse Ox O2 Delivery O2 Flow Rate FiO2 09/27/16 20:33 64 126/64 09/27/16 20:18 99 Nasal Cannula 2.0 09/27/16 20:18 Nasal Cannula 2.0 28 09/27/16 20:00 97.9 64 18 126/64 99 Nasal Cannula 2.0 09/27/16 16:00 97.2 62 20 134/65 97 Nasal Cannula 2.0 09/27/16 12:48 Nasal Cannula 2.0 09/27/16 12:47 97.0 64 21 125/70 96 Nasal Cannula 2.0 09/27/16 11:59 97.7 16 93/44 97 Nasal Cannula 2.0 09/27/16 09:00 97.3 58 22 137/73 98 2.0 09/27/16 09:00 Room Air 2.0 09/27/16 08:07 58 142/66 09/27/16 07:53 Nasal Cannula 2.0 28 09/27/16 07:52 98 Nasal Cannula 2.0 09/27/16 07:39 96.3 58 18 142/66 100 Nasal Cannula 2.0 09/27/16 04:10 96.3 64 19 144/72 99 Nasal Cannula 2.0 09/27/16 00:17 96.8 62 18 154/74 100 Nasal Cannula 2.0 Intake and Output 09/26/16 09/27/16 18:59 06:59 Intake Total 240 ml Output Total 250 ml Balance -10 ml Intake Oral 240 ml Output Urine Total 250 ml # Bowel Movements 5 Objective General Appearance: chronically ill, thin HEENT: normocephalic Respiratory/Chest: chest wall non-tender, rhonchi Cardiovascular: normal peripheral pulses, normal rate Abdomen: normal bowel sounds, soft, non tender Genitourinary: normal external genitalia Extremities: no cyanosis Skin: no rash, no ulcers Lymphatic: no neck adenopathy Laboratory Tests 09/27/16 05:30: White Blood Count 2.7L, Red Blood Count 3.97L, Hemoglobin 11.8L, Hematocrit 37.1L, Mean Corpuscular Volume 94, Mean Corpuscular Hemoglobin 29.7, Mean Corpuscular Hemoglobin Concent 31.7L, Red Cell Distribution Width 14.3, Platelet Count 112L, Mean Platelet Volume 7.5, Neutrophils (%) (Auto) , Lymphocytes (%) (Auto) , Monocytes (%) (Auto) , Eosinophils (%) (Auto) , Basophils (%) (Auto) , Differential Total Cells Counted 100, Neutrophils % ( Manual) 61, Lymphocytes % (Manual) 29, Monocytes % (Manual) 8, Eosinophils % ( Manual) 0, Basophils % (Manual) 2, Band Neutrophils 0, Platelet Estimate DecreasedL, Platelet Morphology Normal, Hypochromasia 1+, Anisocytosis 1+, Prothrombin Time 11.5, Prothromb Time International Ratio 1.1, Activated Partial Thromboplast Time 29, Sodium Level 143, Potassium Level 3.4, Chloride Level 102, Carbon Dioxide Level 23, Anion Gap 18H, Blood Urea Nitrogen 62H, Creatinine 4.1H, Estimat Glomerular Filtration Rate , Glucose Level 119H, Calcium Level 8.3L Current Medications Medications (Trade) Dose Ordered Sig/Barrett Route PRN Reason Start Time Stop Time Status Last Admin Dose Admin Carvedilol (Coreg) 6.25 mg EVERY 12 HOURS ORAL 09/25/16 21:00 10/25/16 20:59 09/27/16 20:33 Dextrose (Dextrose 50%) STAT PRN IV Hypoglycemia 09/25/16 19:00 10/25/16 18:59 Insulin Aspart (NovoLOG) AC+HS SUBQ 09/25/16 21:00 10/25/16 20:59 09/27/16 20:34 Lactobacillus Acidophilus (Culturelle) 1 tab THREE TIMES A DAY ORAL 09/25/16 18:00 10/25/16 17:59 09/27/16 17:16 Pantoprazole (Protonix) 40 mg DAILY ORAL 09/26/16 09:00 10/26/16 08:59 09/27/16 08:07 Vancomycin HCl (Vancomycin) 125 mg FOUR TIMES A DAY ORAL 09/25/16 18:00 10/02/16 17:59 09/27/16 20:33 Vitamin A/Vitamin D (A & D Oint) 1 applic EVERY 12 HOURS TOPIC 09/25/16 21:00 10/25/16 20:59 09/27/16 20:35 LANDEN HERNANDEZ September 27, 2016 22:20
[2016-09-28] VITALS (7 sets, daily range): BP systolic 120–135; BP diastolic 62–77
[2016-09-28] MEDS: NovoLOG Insulin Flexpen SUBQ SCH ×4 (06:30→20:29)
[2016-09-28 06:37] LABS: MEAN CORPUSCULAR HGB CONC 32.4 G/DL (32.0-36.0); MEAN CORPUSCULAR VOLUME 93 FL (80-99); MEAN PLATELET VOLUME 7.2 FL (6.5-10.1); PLATELET COUNT 98 K/UL (150-450); RED BLOOD COUNT 4.07 M/UL (4.70-6.10); WHITE BLOOD COUNT 2.5 K/UL (4.8-10.8)
[2016-09-28 07:01] LABS: BILIRUBIN,DIRECT 0.1 mg/dL (0.1-0.3); MAGNESIUM 1.6 mg/dL (1.7-2.5); PHOSPHORUS 2.8 mg/dL (2.5-4.8); TOTAL PROTEIN 5.7 g/dL (6.6-8.7)
[2016-09-28 07:08] LABS: ANION GAP 15 (5-15); CALCIUM 8.2 mg/dL (8.6-10.2); CARBON DIOXIDE 28 mEQ/L (20-30); CHLORIDE 96 mEQ/L (98-107); CREATININE 3.1 mg/dL (0.7-1.2); HEMOLYSIS 11; POTASSIUM 3.4 mEQ/L (3.4-4.9); SODIUM 139 mEQ/L (135-145)
--- NOTE | 2016-09-28 08:50 | General Progress Note ---
Assessment/Plan Status: doing well, stable Assessment/Plan Status: Septic Shock leading to acute renal and multiOrgan failure Sever Acidosis , high Lactate , High K , Due to the above: ALL IMPROVED- Seems like patient has CKD , unclear what is the baseline S Cr Requires HD 3 times a week Other: DM Pacer : Left ventricular ejection fraction estimated to be 50%. Apical wall hypokinesia may be due to ventricular paced effect. OBS Sugg: HD 09/27 next 09/29 Permacath today if family agrees K and Mag supplement DC IV fluid - Stool for C dif- POSITIVE will start Vanco po post extubation care Phos supplement - K supplement as needed Hemodynamic support Antibiotics discussed with RN monitor renal parameters Subjective ROS Limited/Unobtainable: No Constitutional: Reports: malaise, weakness Allergies: Coded Allergies: SULFA (SULFONAMIDE ANTIBIOTICS) (Verified Allergy, Unknown, 09/10/16) Objective Last 24 Hour Vital Signs Date Time Temp Pulse Resp B/P Pulse Ox O2 Delivery O2 Flow Rate FiO2 09/28/16 08:06 96.4 24 134/71 97 Nasal Cannula 2.0 09/28/16 07:32 Nasal Cannula 2.0 28 09/28/16 07:31 99 Nasal Cannula 2.0 09/28/16 04:00 97.0 61 18 135/64 100 Nasal Cannula 2.0 28 09/28/16 00:00 97.0 61 18 128/65 100 Nasal Cannula 2.0 09/27/16 20:33 64 126/64 09/27/16 20:18 99 Nasal Cannula 2.0 09/27/16 20:18 Nasal Cannula 2.0 28 09/27/16 20:00 97.9 64 18 126/64 99 Nasal Cannula 2.0 09/27/16 16:00 97.2 62 20 134/65 97 Nasal Cannula 2.0 09/27/16 12:48 Nasal Cannula 2.0 09/27/16 12:47 97.0 64 21 125/70 96 Nasal Cannula 2.0 09/27/16 11:59 97.7 16 93/44 97 Nasal Cannula 2.0 09/27/16 09:00 97.3 58 22 137/73 98 2.0 09/27/16 09:00 Room Air 2.0 Intake and Output 09/27/16 09/28/16 19:00 07:00 Intake Total 720 ml Output Total 1800 ml 250 ml Balance -1080 ml -250 ml Intake Oral 720 ml Output Urine Total 250 ml Hemodialysis UF 1800 ml Laboratory Tests 09/28/16 05:30: White Blood Count 2.5L, Red Blood Count 4.07L, Hemoglobin 12.2L, Hematocrit 37.7L, Mean Corpuscular Volume 93, Mean Corpuscular Hemoglobin 30.0, Mean Corpuscular Hemoglobin Concent 32.4, Red Cell Distribution Width 14.0, Platelet Count 98L, Mean Platelet Volume 7.2, Neutrophils (%) (Auto) , Lymphocytes (%) ( Auto) , Monocytes (%) (Auto) , Eosinophils (%) (Auto) , Basophils (%) (Auto) , Neutrophils % (Manual) [Pending], Lymphocytes % (Manual) [Pending], Platelet Estimate [Pending], Platelet Morphology [Pending], Sodium Level 139, Potassium Level 3.4, Chloride Level 96L, Carbon Dioxide Level 28, Anion Gap 15, Blood Urea Nitrogen 37#H, Creatinine 3.1H, Estimat Glomerular Filtration Rate , Glucose Level 127H, Calcium Level 8.2L, Phosphorus Level 2.8, Magnesium Level 1.6L, Total Bilirubin 0.6, Direct Bilirubin 0.1, Aspartate Amino Transf (AST/ SGOT) 12, Alanine Aminotransferase (ALT/SGPT) 9, Alkaline Phosphatase 60, Total Protein 5.7L, Albumin 2.4L Height (Feet): 5 Height (Inches): 6.00 Weight (Pounds): 160 General Appearance: no apparent distress Neck: other - right neck Marco Antonio Cardiovascular: normal rate Respiratory/Chest: decreased breath sounds Abdomen: soft, distended Objective no change in PE MARIAN KOTHARI September 28, 2016 08:50
[2016-09-28] MEDS: Vitamin A&D Oint 2oz Tube TOPIC SCH ×2 (09:00→20:29)
[2016-09-28] MEDS: Carvedilol 6.25mg Tab ORAL SCH ×2 (09:00→20:24)
[2016-09-28] MEDS: Vancomycin oral 125mg/2.5ml ORAL SCH ×4 (09:00→20:25)
[2016-09-28] MEDS: Lactobacillus-GG tablet ORAL SCH ×3 (09:53→17:11)
[2016-09-28] MEDS ORDERED: KCl 10% 20 mEq/15ml liquid ORAL ONE (10:00)
[2016-09-28 10:49] LABS: BAND NEUTROPHILS % (MANUAL) 1 % (0-8); BASOPHILS % (MANUAL) 0 % (0-2); EOSINOPHILS % (MANUAL) 2 % (0-3); LYMPHOCYTES % (MANUAL) 40 % (20-45); NEUTROPHILS % (MANUAL) 50 % (45-75); PLATELET ESTIMATE DECREASED; PLATELET MORPHOLOGY NORMAL; TOTAL CELLS COUNTED 100
--- NOTE | 2016-09-28 11:26 | GI Progress Note ---
Assessment/Plan Problems: (1) Dysphagia ICD Codes: R13.10 - Dysphagia, unspecified SNOMED: 82061295, 335330480 (2) Encounter for PEG (percutaneous endoscopic gastrostomy) ICD Codes: Z43.1 - Encounter for attention to gastrostomy SNOMED: 725986891, 244047096 (3) Clostridium difficile diarrhea ICD Codes: A04.7 - Enterocolitis due to Clostridium difficile SNOMED: 23061054, 449888813 (4) Severe sepsis ICD Codes: A41.9 - Sepsis, unspecified organism; R65.20 - Severe sepsis without septic shock SNOMED: 42682375 (5) Anemia, chronic disease ICD Codes: D63.8 - Anemia in other chronic diseases classified elsewhere SNOMED: 612811242 Status: stable Status Narrative Discussed with Dr. Blanchard. Assessment/Plan cdiff positive ST eval noted >> high risk for silent aspiration PEG cancelled >> Family refused >> Dr. Blanchard & ST has spoken to the son regarding the risks and benefits. diet honey thick nectar soup, tolerating calorie count x 48 hours >> eating above 50% aspiration precautions monitor LFTs >> elevated iron levels ppi fu hep panel fu labs The patient was seen and examined at bedside and all new and available data was reviewed in the patients chart. I agree with the above findings, impression and plan. (Patient seen earlier today. Signature stamp does not reflect patient encounter time.). -Jam Blanchard MD Subjective Subjective limited Objective Last 24 Hour Vital Signs Date Time Temp Pulse Resp B/P Pulse Ox O2 Delivery O2 Flow Rate FiO2 09/28/16 08:06 96.4 24 134/71 97 Nasal Cannula 2.0 09/28/16 07:32 Nasal Cannula 2.0 28 09/28/16 07:31 99 Nasal Cannula 2.0 09/28/16 04:00 97.0 61 18 135/64 100 Nasal Cannula 2.0 28 09/28/16 00:00 97.0 61 18 128/65 100 Nasal Cannula 2.0 09/27/16 20:33 64 126/64 09/27/16 20:18 99 Nasal Cannula 2.0 09/27/16 20:18 Nasal Cannula 2.0 28 09/27/16 20:00 97.9 64 18 126/64 99 Nasal Cannula 2.0 09/27/16 16:00 97.2 62 20 134/65 97 Nasal Cannula 2.0 09/27/16 12:48 Nasal Cannula 2.0 09/27/16 12:47 97.0 64 21 125/70 96 Nasal Cannula 2.0 09/27/16 11:59 97.7 16 93/44 97 Nasal Cannula 2.0 Intake and Output 09/27/16 09/28/16 19:00 07:00 Intake Total 720 ml Output Total 1800 ml 250 ml Balance -1080 ml -250 ml Intake Oral 720 ml Output Urine Total 250 ml Hemodialysis UF 1800 ml Laboratory Tests Test 09/28/16 05:30 White Blood Count 2.5 K/UL (4.8-10.8) L Red Blood Count 4.07 M/UL (4.70-6.10) L Hemoglobin 12.2 G/DL (14.2-18.0) L Hematocrit 37.7 % (42.0-52.0) L Mean Corpuscular Volume 93 FL (80-99) Mean Corpuscular Hemoglobin 30.0 PG (27.0-31.0) Mean Corpuscular Hemoglobin Concent 32.4 G/DL (32.0-36.0) Red Cell Distribution Width 14.0 % (11.6-14.8) Platelet Count 98 K/UL (150-450) L Mean Platelet Volume 7.2 FL (6.5-10.1) Neutrophils (%) (Auto) % (45.0-75.0) Lymphocytes (%) (Auto) % (20.0-45.0) Monocytes (%) (Auto) % (1.0-10.0) Eosinophils (%) (Auto) % (0.0-3.0) Basophils (%) (Auto) % (0.0-2.0) Differential Total Cells Counted 100 Neutrophils % (Manual) 50 % (45-75) Lymphocytes % (Manual) 40 % (20-45) Monocytes % (Manual) 7 % (1-10) Eosinophils % (Manual) 2 % (0-3) Basophils % (Manual) 0 % (0-2) Band Neutrophils 1 % (0-8) Platelet Estimate Decreased L Platelet Morphology Normal Red Blood Cell Morphology Normal Sodium Level 139 mEQ/L (135-145) Potassium Level 3.4 mEQ/L (3.4-4.9) Chloride Level 96 mEQ/L (98-107) L Carbon Dioxide Level 28 mEQ/L (20-30) Anion Gap 15 (5-15) Blood Urea Nitrogen 37 mg/dL (7-23) #H Creatinine 3.1 mg/dL (0.7-1.2) H Estimat Glomerular Filtration Rate mL/min (>60) Glucose Level 127 mg/dL (74-106) H Calcium Level 8.2 mg/dL (8.6-10.2) L Phosphorus Level 2.8 mg/dL (2.5-4.8) Magnesium Level 1.6 mg/dL (1.7-2.5) L Total Bilirubin 0.6 mg/dL (0.0-1.2) Direct Bilirubin 0.1 mg/dL (0.1-0.3) Aspartate Amino Transf (AST/SGOT) 12 U/L (5-40) Alanine Aminotransferase (ALT/SGPT) 9 U/L (3-41) Alkaline Phosphatase 60 U/L (40-129) Total Protein 5.7 g/dL (6.6-8.7) L Albumin 2.4 g/dL (3.5-5.2) L Height (Feet): 5 Height (Inches): 6.00 Weight (Pounds): 160 General Appearance: no apparent distress, alert Cardiovascular: normal rate Respiratory/Chest: normal breath sounds, no respiratory distress Abdominal Exam: normal bowel sounds, non tender, soft Flakita Couch N.P. September 28, 2016 11:26 JAM BLANCHARD September 30, 2016 09:15
--- NOTE | 2016-09-28 18:05 | Internal Med Progress Note ---
Subjective Date of Service: September 28, 2016 Physician Name Glynn Haynes Attending Physician Jonathan Sampson MD Current Medications Medications (Trade) Dose Ordered Sig/Barrett Route PRN Reason Start Time Stop Time Status Last Admin Dose Admin Carvedilol (Coreg) 6.25 mg EVERY 12 HOURS ORAL 09/25/16 21:00 10/25/16 20:59 09/27/16 20:33 Dextrose (Dextrose 50%) STAT PRN IV Hypoglycemia 09/25/16 19:00 10/25/16 18:59 Insulin Aspart (NovoLOG) AC+HS SUBQ 09/25/16 21:00 10/25/16 20:59 09/28/16 16:32 Lactobacillus Acidophilus (Culturelle) 1 tab THREE TIMES A DAY ORAL 09/25/16 18:00 10/25/16 17:59 09/28/16 17:11 Pantoprazole (Protonix) 40 mg DAILY ORAL 09/26/16 09:00 10/26/16 08:59 09/28/16 09:53 Vancomycin HCl (Vancomycin) 125 mg FOUR TIMES A DAY ORAL 09/25/16 18:00 10/02/16 17:59 09/28/16 17:11 Vitamin A/Vitamin D (A & D Oint) 1 applic EVERY 12 HOURS TOPIC 09/25/16 21:00 10/25/16 20:59 09/28/16 09:00 Allergies: Coded Allergies: SULFA (SULFONAMIDE ANTIBIOTICS) (Verified Allergy, Unknown, 09/10/16) ROS Limited/Unobtainable: Yes Subjective 76 YO M admitted with hypotension and UTI/sepsis. Tolerating nasal canula. Cover for Int Med-Dr Sampson.. Objective Last Vital Signs Date Time Temp Pulse Resp B/P Pulse Ox O2 Delivery O2 Flow Rate FiO2 09/28/16 16:00 96.8 59 17 120/63 100 Nasal Cannula 2.0 09/28/16 07:32 28 Laboratory Tests Test 09/28/16 05:30 White Blood Count 2.5 K/UL (4.8-10.8) L Red Blood Count 4.07 M/UL (4.70-6.10) L Hemoglobin 12.2 G/DL (14.2-18.0) L Hematocrit 37.7 % (42.0-52.0) L Mean Corpuscular Volume 93 FL (80-99) Mean Corpuscular Hemoglobin 30.0 PG (27.0-31.0) Mean Corpuscular Hemoglobin Concent 32.4 G/DL (32.0-36.0) Red Cell Distribution Width 14.0 % (11.6-14.8) Platelet Count 98 K/UL (150-450) L Mean Platelet Volume 7.2 FL (6.5-10.1) Neutrophils (%) (Auto) % (45.0-75.0) Lymphocytes (%) (Auto) % (20.0-45.0) Monocytes (%) (Auto) % (1.0-10.0) Eosinophils (%) (Auto) % (0.0-3.0) Basophils (%) (Auto) % (0.0-2.0) Differential Total Cells Counted 100 Neutrophils % (Manual) 50 % (45-75) Lymphocytes % (Manual) 40 % (20-45) Monocytes % (Manual) 7 % (1-10) Eosinophils % (Manual) 2 % (0-3) Basophils % (Manual) 0 % (0-2) Band Neutrophils 1 % (0-8) Platelet Estimate Decreased L Platelet Morphology Normal Red Blood Cell Morphology Normal Sodium Level 139 mEQ/L (135-145) Potassium Level 3.4 mEQ/L (3.4-4.9) Chloride Level 96 mEQ/L (98-107) L Carbon Dioxide Level 28 mEQ/L (20-30) Anion Gap 15 (5-15) Blood Urea Nitrogen 37 mg/dL (7-23) #H Creatinine 3.1 mg/dL (0.7-1.2) H Estimat Glomerular Filtration Rate mL/min (>60) Glucose Level 127 mg/dL (74-106) H Calcium Level 8.2 mg/dL (8.6-10.2) L Phosphorus Level 2.8 mg/dL (2.5-4.8) Magnesium Level 1.6 mg/dL (1.7-2.5) L Total Bilirubin 0.6 mg/dL (0.0-1.2) Direct Bilirubin 0.1 mg/dL (0.1-0.3) Aspartate Amino Transf (AST/SGOT) 12 U/L (5-40) Alanine Aminotransferase (ALT/SGPT) 9 U/L (3-41) Alkaline Phosphatase 60 U/L (40-129) Total Protein 5.7 g/dL (6.6-8.7) L Albumin 2.4 g/dL (3.5-5.2) L Intake and Output 09/27/16 09/28/16 19:00 07:00 Intake Total 720 ml Output Total 1800 ml 250 ml Balance -1080 ml -250 ml Intake Oral 720 ml Output Urine Total 250 ml Hemodialysis UF 1800 ml Objective General Appearance: WD/WN, moderate distress EENT: normal ENT inspection Neck: non-tender, normal alignment, supple Cardiovascular: normal peripheral pulses, normal rate, regular rhythm, no gallop/murmur, no JVD Respiratory/Chest: Nasal canula; respiratory distress, crackles/rales, rhonchi - bilaterally, expiratory wheezing Abdomen: normal bowel sounds, non tender, soft, no organomegaly, no mass Skin: normal pigmentation, warm/dry Assessment/Plan Problem List: (1) Severe sepsis Assessment & Plan: D/Ccefepime per ID (2) Respiratory failure Assessment & Plan: Tolerating nasal canula per pulmonary (3) Renal failure Assessment & Plan: Last Hemodialysis 09/27/16 per nephrology. (4) Diabetes mellitus type II, uncontrolled Assessment & Plan: Cont novolog sliding scale. (5) BPH (benign prostatic hyperplasia) (6) Hypokalemia (7) Infection caused by Enterobacter cloacae (8) UTI (urinary tract infection) Assessment & Plan: Enterobacter. D/C antibiotics per ID (9) Hypotension Assessment & Plan: Resolved (10) Dysphagia Assessment & Plan: See Video Swallow eval. PEG eval.per GI (11) Clostridium difficile diarrhea Assessment & Plan: Cont oral vanco per ID Assessment/Plan Discharge planning: [facility] fac vs terminologist acute care fac GLYNN HAYNES September 28, 2016 18:05
--- NOTE | 2016-09-28 18:42 | Infectious Diseases Prog Note ---
Assessment/Plan Assessment/Plan A: The patient is a 76-year-old male Diarrhea , C.diff+ Septic shock SP - off pressors Pneumonia Scx: Lori ( colonizer ) SP Rx Chest x-ray : atelectasis and pneumonia in the left lung base UTI , UCx: Enterobacter ( probable Extended B-lactamase inhibitor ) SP Rx Leukopenia, afebrile Swallow eval : Abnormal oropharyngeal mechanics with tracheal aspiration of honey or nectar DM HTN SP pacemaker placement Alzheimer dementia [place] : on HD started 09/14 Sulfa allergy Full Code P: continue PO vanco d# 4 / -14 ( 09/25 SP Cefepime d# 12 ) ( 09/14 SP Zosyn d# 4 ) Monitor CBC, temperatures, re-culture if acute change Monitor CMP Nephro is following for HD Subjective Constitutional: Denies: anorexia, chills, drenching sweats, fatigue, fever, no symptoms, other Allergies: Coded Allergies: SULFA (SULFONAMIDE ANTIBIOTICS) (Verified Allergy, Unknown, 09/10/16) Objective Vital Signs Last 24 Hour Vital Signs Date Time Temp Pulse Resp B/P Pulse Ox O2 Delivery O2 Flow Rate FiO2 09/28/16 16:00 96.8 59 17 120/63 100 Nasal Cannula 2.0 09/28/16 12:13 94.6 56 18 129/68 100 Nasal Cannula 2.0 09/28/16 08:06 96.4 24 134/71 97 Nasal Cannula 2.0 09/28/16 07:32 Nasal Cannula 2.0 28 09/28/16 07:31 99 Nasal Cannula 2.0 09/28/16 04:00 97.0 61 18 135/64 100 Nasal Cannula 2.0 28 09/28/16 00:00 97.0 61 18 128/65 100 Nasal Cannula 2.0 09/27/16 20:33 64 126/64 09/27/16 20:18 99 Nasal Cannula 2.0 09/27/16 20:18 Nasal Cannula 2.0 28 09/27/16 20:00 97.9 64 18 126/64 99 Nasal Cannula 2.0 Height (Feet): 5 Height (Inches): 6.00 Weight (Pounds): 160 HEENT: anicteric Respiratory/Chest: normal breath sounds Cardiovascular: normal rate Abdomen: normal bowel sounds Laboratory Tests Test 09/28/16 05:30 White Blood Count 2.5 K/UL (4.8-10.8) L Red Blood Count 4.07 M/UL (4.70-6.10) L Hemoglobin 12.2 G/DL (14.2-18.0) L Hematocrit 37.7 % (42.0-52.0) L Mean Corpuscular Volume 93 FL (80-99) Mean Corpuscular Hemoglobin 30.0 PG (27.0-31.0) Mean Corpuscular Hemoglobin Concent 32.4 G/DL (32.0-36.0) Red Cell Distribution Width 14.0 % (11.6-14.8) Platelet Count 98 K/UL (150-450) L Mean Platelet Volume 7.2 FL (6.5-10.1) Neutrophils (%) (Auto) % (45.0-75.0) Lymphocytes (%) (Auto) % (20.0-45.0) Monocytes (%) (Auto) % (1.0-10.0) Eosinophils (%) (Auto) % (0.0-3.0) Basophils (%) (Auto) % (0.0-2.0) Differential Total Cells Counted 100 Neutrophils % (Manual) 50 % (45-75) Lymphocytes % (Manual) 40 % (20-45) Monocytes % (Manual) 7 % (1-10) Eosinophils % (Manual) 2 % (0-3) Basophils % (Manual) 0 % (0-2) Band Neutrophils 1 % (0-8) Platelet Estimate Decreased L Platelet Morphology Normal Red Blood Cell Morphology Normal Sodium Level 139 mEQ/L (135-145) Potassium Level 3.4 mEQ/L (3.4-4.9) Chloride Level 96 mEQ/L (98-107) L Carbon Dioxide Level 28 mEQ/L (20-30) Anion Gap 15 (5-15) Blood Urea Nitrogen 37 mg/dL (7-23) #H Creatinine 3.1 mg/dL (0.7-1.2) H Estimat Glomerular Filtration Rate mL/min (>60) Glucose Level 127 mg/dL (74-106) H Calcium Level 8.2 mg/dL (8.6-10.2) L Phosphorus Level 2.8 mg/dL (2.5-4.8) Magnesium Level 1.6 mg/dL (1.7-2.5) L Total Bilirubin 0.6 mg/dL (0.0-1.2) Direct Bilirubin 0.1 mg/dL (0.1-0.3) Aspartate Amino Transf (AST/SGOT) 12 U/L (5-40) Alanine Aminotransferase (ALT/SGPT) 9 U/L (3-41) Alkaline Phosphatase 60 U/L (40-129) Total Protein 5.7 g/dL (6.6-8.7) L Albumin 2.4 g/dL (3.5-5.2) L Current Medications Medications (Trade) Dose Ordered Sig/Barrett Route PRN Reason Start Time Stop Time Status Last Admin Dose Admin Carvedilol (Coreg) 6.25 mg EVERY 12 HOURS ORAL 09/25/16 21:00 10/25/16 20:59 09/27/16 20:33 Dextrose (Dextrose 50%) STAT PRN IV Hypoglycemia 09/25/16 19:00 10/25/16 18:59 Insulin Aspart (NovoLOG) AC+HS SUBQ 09/25/16 21:00 10/25/16 20:59 09/28/16 16:32 Lactobacillus Acidophilus (Culturelle) 1 tab THREE TIMES A DAY ORAL 09/25/16 18:00 10/25/16 17:59 09/28/16 17:11 Pantoprazole (Protonix) 40 mg DAILY ORAL 09/26/16 09:00 10/26/16 08:59 09/28/16 09:53 Vancomycin HCl (Vancomycin) 125 mg FOUR TIMES A DAY ORAL 09/25/16 18:00 10/02/16 17:59 09/28/16 17:11 Vitamin A/Vitamin D (A & D Oint) 1 applic EVERY 12 HOURS TOPIC 09/25/16 21:00 10/25/16 20:59 09/28/16 09:00 CRISTEL DUFF M.D. September 28, 2016 18:41
--- NOTE | 2016-09-28 22:12 | Pulmonology Progress Note ---
Assessment/Plan Problems: (1) Respiratory failure (2) Severe sepsis (3) Renal failure (4) Anemia, chronic disease (5) ARF (acute renal failure) (6) Diabetes mellitus type II, uncontrolled Assessment/Plan eating well, needs a feeder cxr reviewed: no major changes. pt/ot check labs HD by nephrology, last time on 09/21 dc planning sons are against feeding tube. Subjective Allergies: Coded Allergies: SULFA (SULFONAMIDE ANTIBIOTICS) (Verified Allergy, Unknown, 09/10/16) Objective Last 24 Hour Vital Signs Date Time Temp Pulse Resp B/P Pulse Ox O2 Delivery O2 Flow Rate FiO2 09/28/16 20:24 63 128/62 09/28/16 20:00 96.4 63 18 128/62 99 Room Air 09/28/16 19:48 99 Nasal Cannula 2.0 09/28/16 19:48 Nasal Cannula 2.0 28 09/28/16 16:00 96.8 59 17 120/63 100 Nasal Cannula 2.0 09/28/16 12:13 94.6 56 18 129/68 100 Nasal Cannula 2.0 09/28/16 08:06 96.4 24 134/71 97 Nasal Cannula 2.0 09/28/16 07:32 Nasal Cannula 2.0 28 09/28/16 07:31 99 Nasal Cannula 2.0 09/28/16 04:00 97.0 61 18 135/64 100 Nasal Cannula 2.0 28 09/28/16 00:00 97.0 61 18 128/65 100 Nasal Cannula 2.0 Intake and Output 09/27/16 09/28/16 19:00 07:00 Intake Total 720 ml Output Total 1800 ml 250 ml Balance -1080 ml -250 ml Intake Oral 720 ml Output Urine Total 250 ml Hemodialysis UF 1800 ml Objective General Appearance: chronically ill, thin HEENT: normocephalic Respiratory/Chest: chest wall non-tender, rhonchi Cardiovascular: normal peripheral pulses, normal rate Abdomen: normal bowel sounds, soft, non tender Genitourinary: normal external genitalia Extremities: no cyanosis Skin: no rash, no ulcers Lymphatic: no neck adenopathy Laboratory Tests 09/28/16 05:30: White Blood Count 2.5L, Red Blood Count 4.07L, Hemoglobin 12.2L, Hematocrit 37.7L, Mean Corpuscular Volume 93, Mean Corpuscular Hemoglobin 30.0, Mean Corpuscular Hemoglobin Concent 32.4, Red Cell Distribution Width 14.0, Platelet Count 98L, Mean Platelet Volume 7.2, Neutrophils (%) (Auto) , Lymphocytes (%) ( Auto) , Monocytes (%) (Auto) , Eosinophils (%) (Auto) , Basophils (%) (Auto) , Differential Total Cells Counted 100, Neutrophils % (Manual) 50, Lymphocytes % ( Manual) 40, Monocytes % (Manual) 7, Eosinophils % (Manual) 2, Basophils % ( Manual) 0, Band Neutrophils 1, Platelet Estimate DecreasedL, Platelet Morphology Normal, Red Blood Cell Morphology Normal, Sodium Level 139, Potassium Level 3.4, Chloride Level 96L, Carbon Dioxide Level 28, Anion Gap 15, Blood Urea Nitrogen 37#H, Creatinine 3.1H, Estimat Glomerular Filtration Rate , Glucose Level 127H, Calcium Level 8.2L, Phosphorus Level 2.8, Magnesium Level 1.6L, Total Bilirubin 0.6, Direct Bilirubin 0.1, Aspartate Amino Transf (AST/ SGOT) 12, Alanine Aminotransferase (ALT/SGPT) 9, Alkaline Phosphatase 60, Total Protein 5.7L, Albumin 2.4L Current Medications Medications (Trade) Dose Ordered Sig/Barrett Route PRN Reason Start Time Stop Time Status Last Admin Dose Admin Carvedilol (Coreg) 6.25 mg EVERY 12 HOURS ORAL 09/25/16 21:00 10/25/16 20:59 09/28/16 20:24 Dextrose (Dextrose 50%) STAT PRN IV Hypoglycemia 09/25/16 19:00 10/25/16 18:59 Insulin Aspart (NovoLOG) AC+HS SUBQ 09/25/16 21:00 10/25/16 20:59 09/28/16 20:29 Lactobacillus Acidophilus (Culturelle) 1 tab THREE TIMES A DAY ORAL 09/25/16 18:00 10/25/16 17:59 09/28/16 17:11 Pantoprazole (Protonix) 40 mg DAILY ORAL 09/26/16 09:00 10/26/16 08:59 09/28/16 09:53 Vancomycin HCl (Vancomycin) 125 mg FOUR TIMES A DAY ORAL 09/25/16 18:00 10/02/16 17:59 09/28/16 20:25 Vitamin A/Vitamin D (A & D Oint) 1 applic EVERY 12 HOURS TOPIC 09/25/16 21:00 10/25/16 20:59 09/28/16 20:29 LANDNE HERNANDEZ September 28, 2016 22:12
[2016-09-29 04:00] VITALS: BP 149/90
[2016-09-29] MEDS: NovoLOG Insulin Flexpen SUBQ SCH ×2 (06:39→11:34)
[2016-09-29 07:16] LABS: BASOPHILS % (AUTO) 1.3 % (0.0-2.0); EOSINOPHILS % (AUTO) 1.6 % (0.0-3.0); LYMPHOCYTES % (AUTO) 33.3 % (20.0-45.0); MEAN CORPUSCULAR HEMOGLOBIN 29.6 PG (27.0-31.0); MEAN CORPUSCULAR HGB CONC 31.6 G/DL (32.0-36.0); MEAN CORPUSCULAR VOLUME 94 FL (80-99); MEAN PLATELET VOLUME 7.5 FL (6.5-10.1); MONOCYTES % (AUTO) 11.6 % (1.0-10.0); NEUTROPHILS % (AUTO) 52.3 % (45.0-75.0); PLATELET COUNT 126 K/UL (150-450); RED BLOOD COUNT 5.04 M/UL (4.70-6.10); RED CELL DISTRIBUTION WIDTH 14.2 % (11.6-14.8); WHITE BLOOD COUNT 3.8 K/UL (4.8-10.8)
[2016-09-29 07:35] LABS: ANION GAP 17 (5-15); CALCIUM 8.9 mg/dL (8.6-10.2); CARBON DIOXIDE 27 mEQ/L (20-30); CHLORIDE 96 mEQ/L (98-107); CREATININE 3.7 mg/dL (0.7-1.2); HEMOLYSIS 4; MAGNESIUM 2.2 mg/dL (1.7-2.5); POTASSIUM 3.7 mEQ/L (3.4-4.9); SODIUM 140 mEQ/L (135-145)
[2016-09-29 08:16] VITALS: BP 119/81
[2016-09-29] MEDS: Lactobacillus-GG tablet ORAL SCH (09:00)
[2016-09-29] MEDS: Vitamin A&D Oint 2oz Tube TOPIC SCH (09:00)
[2016-09-29] MEDS: Carvedilol 6.25mg Tab ORAL SCH (09:00)
[2016-09-29] MEDS: Vancomycin oral 125mg/2.5ml ORAL SCH (09:00)
[2016-09-29 09:20] VITALS: BP 135/67
--- NOTE | 2016-09-29 10:35 | GI Progress Note ---
Assessment/Plan Problems: (1) Dysphagia ICD Codes: R13.10 - Dysphagia, unspecified SNOMED: 33606294, 614123702 (2) Encounter for PEG (percutaneous endoscopic gastrostomy) ICD Codes: Z43.1 - Encounter for attention to gastrostomy SNOMED: 995884818, 657820526 (3) Clostridium difficile diarrhea ICD Codes: A04.7 - Enterocolitis due to Clostridium difficile SNOMED: 94897338, 941505506 (4) Severe sepsis ICD Codes: A41.9 - Sepsis, unspecified organism; R65.20 - Severe sepsis without septic shock SNOMED: 91300623 (5) Anemia, chronic disease ICD Codes: D63.8 - Anemia in other chronic diseases classified elsewhere SNOMED: 761027729 Status: stable, unchanged Status Narrative Discussed with Dr. Blanchard. Assessment/Plan cdiff positive ST eval noted >> high risk for silent aspiration elevated iron levels PEG cancelled >> Family refused >> Dr. Blanchard & ST has spoken to the son regarding the risks and benefits. diet honey thick nectar soup, tolerating calorie count x 48 hours >> eating above 50% aspiration precautions monitor LFTs ppi fu hep panel fu labs The patient was seen and examined at bedside and all new and available data was reviewed in the patients chart. I agree with the above findings, impression and plan. (Patient seen earlier today. Signature stamp does not reflect patient encounter time.). -Jam Blanchard MD Subjective Subjective limited Objective Last 24 Hour Vital Signs Date Time Temp Pulse Resp B/P Pulse Ox O2 Delivery O2 Flow Rate FiO2 09/29/16 09:20 97.0 60 20 135/67 96 Nasal Cannula 2.0 09/29/16 09:20 Nasal Cannula 2.0 09/29/16 08:16 97.0 77 20 119/81 93 Nasal Cannula 09/29/16 07:06 Nasal Cannula 2.0 09/29/16 07:05 97 Nasal Cannula 2.0 09/29/16 04:00 97.4 75 18 149/90 99 Room Air 09/28/16 23:51 96.9 68 18 134/77 100 Room Air 09/28/16 20:24 63 128/62 09/28/16 20:00 96.4 63 18 128/62 99 Room Air 09/28/16 19:48 99 Nasal Cannula 2.0 09/28/16 19:48 Nasal Cannula 2.0 28 09/28/16 16:00 96.8 59 17 120/63 100 Nasal Cannula 2.0 09/28/16 12:13 94.6 56 18 129/68 100 Nasal Cannula 2.0 Intake and Output 09/28/16 09/29/16 19:00 07:00 Intake Total 590 ml 110 ml Output Total 920 ml 310 ml Balance -330 ml -200 ml Intake Oral 390 ml 110 ml IV Total 200 ml Output Urine Total 620 ml 310 ml Stool Total 300 ml Laboratory Tests Test 09/29/16 05:25 White Blood Count 3.8 K/UL (4.8-10.8) #L Red Blood Count 5.04 M/UL (4.70-6.10) Hemoglobin 14.9 G/DL (14.2-18.0) Hematocrit 47.2 % (42.0-52.0) Mean Corpuscular Volume 94 FL (80-99) Mean Corpuscular Hemoglobin 29.6 PG (27.0-31.0) Mean Corpuscular Hemoglobin Concent 31.6 G/DL (32.0-36.0) L Red Cell Distribution Width 14.2 % (11.6-14.8) Platelet Count 126 K/UL (150-450) L Mean Platelet Volume 7.5 FL (6.5-10.1) Neutrophils (%) (Auto) 52.3 % (45.0-75.0) Lymphocytes (%) (Auto) 33.3 % (20.0-45.0) Monocytes (%) (Auto) 11.6 % (1.0-10.0) H Eosinophils (%) (Auto) 1.6 % (0.0-3.0) Basophils (%) (Auto) 1.3 % (0.0-2.0) Sodium Level 140 mEQ/L (135-145) Potassium Level 3.7 mEQ/L (3.4-4.9) Chloride Level 96 mEQ/L (98-107) L Carbon Dioxide Level 27 mEQ/L (20-30) Anion Gap 17 (5-15) H Blood Urea Nitrogen 42 mg/dL (7-23) H Creatinine 3.7 mg/dL (0.7-1.2) H Estimat Glomerular Filtration Rate mL/min (>60) Glucose Level 139 mg/dL (74-106) H Calcium Level 8.9 mg/dL (8.6-10.2) Magnesium Level 2.2 mg/dL (1.7-2.5) Height (Feet): 5 Height (Inches): 6.00 Weight (Pounds): 160 General Appearance: no apparent distress, alert Cardiovascular: normal rate Respiratory/Chest: normal breath sounds, no respiratory distress Abdominal Exam: normal bowel sounds, non tender, soft Flakita Couch N.PDanyelle September 29, 2016 10:35 JAM BLANCHARD September 30, 2016 09:18
[2016-09-29 12:55] VITALS: BP 116/70
--- NOTE | 2016-09-29 13:01 | Infectious Diseases Prog Note ---
Assessment/Plan Assessment/Plan A: The patient is a 76-year-old male Diarrhea , C.diff+ Septic shock SP - off pressors Pneumonia Scx: Lori ( colonizer ) SP Rx Chest x-ray : atelectasis and pneumonia in the left lung base UTI , UCx: Enterobacter ( probable Extended B-lactamase inhibitor ) SP Rx Leukopenia, afebrile Swallow eval : Abnormal oropharyngeal mechanics with tracheal aspiration of honey or nectar DM HTN SP pacemaker placement Alzheimer dementia [place] : on HD started 09/14 Sulfa allergy Full Code P: continue PO vanco d# / - ( 09/25 SP Cefepime d# 12 ) ( 09/14 SP Zosyn d# 4 ) Monitor CBC, temperatures, re-culture if acute change Monitor CMP Nephro is following for HD Subjective Constitutional: Denies: anorexia, chills, drenching sweats, fatigue, fever, no symptoms, other Allergies: Coded Allergies: SULFA (SULFONAMIDE ANTIBIOTICS) (Verified Allergy, Unknown, 09/10/16) Objective Vital Signs Last 24 Hour Vital Signs Date Time Temp Pulse Resp B/P Pulse Ox O2 Delivery O2 Flow Rate FiO2 09/29/16 12:56 Nasal Cannula 2.0 09/29/16 12:55 97.0 62 20 116/70 Nasal Cannula 2.0 09/29/16 09:20 97.0 60 20 135/67 96 Nasal Cannula 2.0 09/29/16 09:20 Nasal Cannula 2.0 09/29/16 08:16 97.0 77 20 119/81 93 Nasal Cannula 09/29/16 07:06 Nasal Cannula 2.0 09/29/16 07:05 97 Nasal Cannula 2.0 09/29/16 04:00 97.4 75 18 149/90 99 Room Air 09/28/16 23:51 96.9 68 18 134/77 100 Room Air 09/28/16 20:24 63 128/62 09/28/16 20:00 96.4 63 18 128/62 99 Room Air 09/28/16 19:48 99 Nasal Cannula 2.0 09/28/16 19:48 Nasal Cannula 2.0 28 09/28/16 16:00 96.8 59 17 120/63 100 Nasal Cannula 2.0 Height (Feet): 5 Height (Inches): 6.00 Weight (Pounds): 160 HEENT: anicteric Respiratory/Chest: normal breath sounds Cardiovascular: regular rhythm Abdomen: no organomegaly Laboratory Tests Test 09/29/16 05:25 White Blood Count 3.8 K/UL (4.8-10.8) #L Red Blood Count 5.04 M/UL (4.70-6.10) Hemoglobin 14.9 G/DL (14.2-18.0) Hematocrit 47.2 % (42.0-52.0) Mean Corpuscular Volume 94 FL (80-99) Mean Corpuscular Hemoglobin 29.6 PG (27.0-31.0) Mean Corpuscular Hemoglobin Concent 31.6 G/DL (32.0-36.0) L Red Cell Distribution Width 14.2 % (11.6-14.8) Platelet Count 126 K/UL (150-450) L Mean Platelet Volume 7.5 FL (6.5-10.1) Neutrophils (%) (Auto) 52.3 % (45.0-75.0) Lymphocytes (%) (Auto) 33.3 % (20.0-45.0) Monocytes (%) (Auto) 11.6 % (1.0-10.0) H Eosinophils (%) (Auto) 1.6 % (0.0-3.0) Basophils (%) (Auto) 1.3 % (0.0-2.0) Sodium Level 140 mEQ/L (135-145) Potassium Level 3.7 mEQ/L (3.4-4.9) Chloride Level 96 mEQ/L (98-107) L Carbon Dioxide Level 27 mEQ/L (20-30) Anion Gap 17 (5-15) H Blood Urea Nitrogen 42 mg/dL (7-23) H Creatinine 3.7 mg/dL (0.7-1.2) H Estimat Glomerular Filtration Rate mL/min (>60) Glucose Level 139 mg/dL (74-106) H Calcium Level 8.9 mg/dL (8.6-10.2) Magnesium Level 2.2 mg/dL (1.7-2.5) Current Medications Medications (Trade) Dose Ordered Sig/Barrett Route PRN Reason Start Time Stop Time Status Last Admin Dose Admin Carvedilol (Coreg) 6.25 mg EVERY 12 HOURS ORAL 09/25/16 21:00 10/25/16 20:59 09/28/16 20:24 Dextrose (Dextrose 50%) STAT PRN IV Hypoglycemia 09/25/16 19:00 10/25/16 18:59 Insulin Aspart (NovoLOG) AC+HS SUBQ 09/25/16 21:00 10/25/16 20:59 09/29/16 11:34 Lactobacillus Acidophilus (Culturelle) 1 tab THREE TIMES A DAY ORAL 09/25/16 18:00 10/25/16 17:59 09/28/16 17:11 Pantoprazole (Protonix) 40 mg DAILY ORAL 09/26/16 09:00 10/26/16 08:59 09/28/16 09:53 Vancomycin HCl (Vancomycin) 125 mg FOUR TIMES A DAY ORAL 09/25/16 18:00 10/02/16 17:59 09/28/16 20:25 Vitamin A/Vitamin D (A & D Oint) 1 applic EVERY 12 HOURS TOPIC 09/25/16 21:00 10/25/16 20:59 09/29/16 09:00 CRISTEL DUFF M.D. September 29, 2016 13:01
--- NOTE | 2016-09-29 15:12 | General Progress Note ---
Assessment/Plan Status: unchanged Assessment/Plan Status: Septic Shock leading to acute renal and multiOrgan failure Sever Acidosis , high Lactate , High K , Due to the above: ALL IMPROVED- Seems like patient has CKD , unclear what is the baseline S Cr Requires HD 3 times a week Other: DM Pacer : Left ventricular ejection fraction estimated to be 50%. Apical wall hypokinesia may be due to ventricular paced effect. OBS Sugg: HD 09/29 , family are aiming to take the patient AMA after HD !!! Permacath voted down by family Off IV fluid - Stool for C dif- POSITIVE will start Vanco po post extubation care Phos supplement - K supplement as needed Hemodynamic support Antibiotics discussed with RN monitor renal parameters Subjective Date patient seen: September 29, 2016 Time patient seen: 09:00 ROS Limited/Unobtainable: No Constitutional: Reports: malaise Allergies: Coded Allergies: SULFA (SULFONAMIDE ANTIBIOTICS) (Verified Allergy, Unknown, 09/10/16) Objective Last 24 Hour Vital Signs Date Time Temp Pulse Resp B/P Pulse Ox O2 Delivery O2 Flow Rate FiO2 09/29/16 12:56 Nasal Cannula 2.0 09/29/16 12:55 97.0 62 20 116/70 Nasal Cannula 2.0 09/29/16 09:20 97.0 60 20 135/67 96 Nasal Cannula 2.0 09/29/16 09:20 Nasal Cannula 2.0 09/29/16 08:16 97.0 77 20 119/81 93 Nasal Cannula 09/29/16 07:06 Nasal Cannula 2.0 09/29/16 07:05 97 Nasal Cannula 2.0 09/29/16 04:00 97.4 75 18 149/90 99 Room Air 09/28/16 23:51 96.9 68 18 134/77 100 Room Air 09/28/16 20:24 63 128/62 09/28/16 20:00 96.4 63 18 128/62 99 Room Air 09/28/16 19:48 99 Nasal Cannula 2.0 09/28/16 19:48 Nasal Cannula 2.0 28 09/28/16 16:00 96.8 59 17 120/63 100 Nasal Cannula 2.0 Intake and Output 09/28/16 09/29/16 19:00 07:00 Intake Total 590 ml 110 ml Output Total 920 ml 310 ml Balance -330 ml -200 ml Intake Oral 390 ml 110 ml IV Total 200 ml Output Urine Total 620 ml 310 ml Stool Total 300 ml Laboratory Tests 09/29/16 05:25: White Blood Count 3.8#L, Red Blood Count 5.04, Hemoglobin 14.9, Hematocrit 47.2 , Mean Corpuscular Volume 94, Mean Corpuscular Hemoglobin 29.6, Mean Corpuscular Hemoglobin Concent 31.6L, Red Cell Distribution Width 14.2, Platelet Count 126L, Mean Platelet Volume 7.5, Neutrophils (%) (Auto) 52.3, Lymphocytes (%) (Auto) 33.3, Monocytes (%) (Auto) 11.6H, Eosinophils (%) (Auto) 1.6, Basophils (%) (Auto) 1.3, Sodium Level 140, Potassium Level 3.7, Chloride Level 96L, Carbon Dioxide Level 27, Anion Gap 17H, Blood Urea Nitrogen 42H, Creatinine 3.7H, Estimat Glomerular Filtration Rate , Glucose Level 139H, Calcium Level 8.9, Magnesium Level 2.2 Height (Feet): 5 Height (Inches): 6.00 Weight (Pounds): 160 General Appearance: no apparent distress Objective no change in PE MARIAN KOTHARI September 29, 2016 15:12
--- NOTE | 2016-09-29 23:16 | Pulmonology Progress Note ---
Assessment/Plan Problems: (1) Respiratory failure (2) Severe sepsis (3) Renal failure (4) Anemia, chronic disease (5) ARF (acute renal failure) (6) Diabetes mellitus type II, uncontrolled Assessment/Plan eating well, needs a feeder cxr reviewed: no major changes. pt/ot check labs HD by nephrology, last time on 09/21 dc planning sons are against feeding tube. Subjective Allergies: Coded Allergies: SULFA (SULFONAMIDE ANTIBIOTICS) (Verified Allergy, Unknown, 09/10/16) Objective Last 24 Hour Vital Signs Date Time Temp Pulse Resp B/P Pulse Ox O2 Delivery O2 Flow Rate FiO2 09/29/16 12:56 Nasal Cannula 2.0 09/29/16 12:55 97.0 62 20 116/70 Nasal Cannula 2.0 09/29/16 09:20 97.0 60 20 135/67 96 Nasal Cannula 2.0 09/29/16 09:20 Nasal Cannula 2.0 09/29/16 08:16 97.0 77 20 119/81 93 Nasal Cannula 09/29/16 07:06 Nasal Cannula 2.0 09/29/16 07:05 97 Nasal Cannula 2.0 09/29/16 04:00 97.4 75 18 149/90 99 Room Air 09/28/16 23:51 96.9 68 18 134/77 100 Room Air Intake and Output 09/28/16 09/29/16 19:00 07:00 Intake Total 590 ml 110 ml Output Total 920 ml 310 ml Balance -330 ml -200 ml Intake Oral 390 ml 110 ml IV Total 200 ml Output Urine Total 620 ml 310 ml Stool Total 300 ml Objective General Appearance: chronically ill, thin HEENT: normocephalic Respiratory/Chest: chest wall non-tender, rhonchi Cardiovascular: normal peripheral pulses, normal rate Abdomen: normal bowel sounds, soft, non tender Genitourinary: normal external genitalia Extremities: no cyanosis Skin: no rash, no ulcers Lymphatic: no neck adenopathy Laboratory Tests 09/29/16 05:25: White Blood Count 3.8#L, Red Blood Count 5.04, Hemoglobin 14.9, Hematocrit 47.2 , Mean Corpuscular Volume 94, Mean Corpuscular Hemoglobin 29.6, Mean Corpuscular Hemoglobin Concent 31.6L, Red Cell Distribution Width 14.2, Platelet Count 126L, Mean Platelet Volume 7.5, Neutrophils (%) (Auto) 52.3, Lymphocytes (%) (Auto) 33.3, Monocytes (%) (Auto) 11.6H, Eosinophils (%) (Auto) 1.6, Basophils (%) (Auto) 1.3, Sodium Level 140, Potassium Level 3.7, Chloride Level 96L, Carbon Dioxide Level 27, Anion Gap 17H, Blood Urea Nitrogen 42H, Creatinine 3.7H, Estimat Glomerular Filtration Rate , Glucose Level 139H, Calcium Level 8.9, Magnesium Level 2.2 LANDEN HERNANDEZ September 29, 2016 23:16
--- NOTE | 2016-09-30 15:52 | Discharge Summary ---
Discharge Summary Hospital Course Date of Admission Sep 11, 2016 at 00:50 Date of Discharge September 29, 2016 at 13:40 Admitting Diagnosis Sepsis, urinary tract infection HPI Chaz Paulson is a 76 year old male who was admitted on Sep 11, 2016 at 00: 50 for Sepsis,Urinary Tract Infection Hospital Course [id number] Discharge Discharge Disposition Patient was discharged AMA Discharge Diagnoses: Amy Gtz NP September 30, 2016 15:51
--- NOTE | 2016-10-01 00:01 | Discharge Summary 2 SIG ---
DATE OF ADMISSION: 09/11/2016 DATE OF DISCHARGE: 09/29/2016 CONSULTANTS: 1. Nash Guerra M.D. 2. Maurilio Oh M.D. 3. Papi Castro M.D. 4. Jam Blanchard M.D. 5. Amadeo Marmolejo DPM. 6. Paxton Olivarez M.D. BRIEF HOSPITAL COURSE: The patient is a 76-year-old Farsi-speaking male, who presented with chief complaint of altered mental status. According to the patient's son, he recently had urinary tract infection and was treated with Macrobid and the patient just recently finished a course of ciprofloxacin. The patient was noted to have decreased appetite for the past several days and was taken to [facility]. On evaluation, he was found to be hypotensive in the 70s/40s and the patient was in respiratory failure. He was emergently intubated at ED and a central line was placed in and was started with IV pressors. He was admitted to ICU. He was given IV hydration and was followed by Dr. Olivarez. Cardiac-steward, there was no evidence of significant myonecrosis and electrocardiogram showed right bundle-branch conduction defect. Echocardiogram showed ejection fraction of 50% with moderate tricuspid regurgitation and elevated RA pressure and pulmonary hypertension. Venous Duplex was negative. He was started on empiric antibiotics, pending culture results, and was followed by Infectious Disease specialist. Dr. Oh was also consulted for evaluation of renal failure. The patient had septic shock leading to acute renal and multiorgan failure and was found to have severe acidosis with high lactate and high potassium levels. He was given hemodynamic support and bicarbonate. On arrival, his creatinine was elevated to 6.6 with potassium of 7.8 and lactic acid of 11. Renal ultrasound showed bilateral echogenic kidneys with chronic medical renal disease and hydronephrosis. Hemodialysis was done. He had a non- tunneled hemodialysis catheter inserted to the right jugular and hemodialysis was done on 09/14/2016. He was also taken off of IV pressors. Electrolytes improved post dialysis. He was eventually extubated on 09/22/2016. He had episodes of drop in hemoglobin and received blood transfusion. Urine culture showed growth of Enterobacter, which is probable extended beta-lactamase inhibitor. Sputum culture showed growth of Lori with chest x-ray findings of atelectasis and pneumonia in the left lung. He had episodes of diarrhea and stool culture was positive for C. difficile. He was given p.o. vancomycin. Dr. Blanchard was consulted for possible PEG evaluation. The patient underwent bedside swallow and video swallow exam. Family refused PEG tube placement. Diet was eventually advanced and thorough speech therapy recommendation and was advised strict aspiration precaution. Dr. Marmolejo was also consulted for evaluation of diabetic foot and on evaluation, had thick dystrophic elongated toenails with deep tissue injuries noted in the left medial first metatarsal head and left lateral leg with no surrounding cellulitis. The patient has peripheral vascular disease and onychomycosis. Debridement of the toenails were done x10 without any complications and the patient also came in with pressure ulcers and was given local wound care with low air loss mattress. The patient was for discharge planning to a half-way facility versus a long-term acute care facility, however family refused and the patient left against medical advice. FINAL DIAGNOSES: 1. Severe sepsis with septic shock. 2. Multiorgan failure. 3. Acidosis. 4. Acute toxic metabolic encephalopathy due to chronic kidney disease infection. 5. Acute kidney injury on chronic renal insufficiency, requiring hemodialysis. 6. 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 7. Hyperkalemia. 8. Urinary tract infection. 9. Pneumonia. 10. Clostridium difficile diarrhea. 11. Alzheimer's dementia. 12. Acute respiratory failure, requiring intubation, status post extubation. 13. Anemia of chronic disease. 14. Dysphagia 15. Benign prostatic hypertrophy. 16. Type 2 diabetes mellitus, uncontrolled. 17. Multiple pressure ulcers present on admission. Glynn Key M.D. I have been assigned to dictate discharge summary on this account and I was not involved in the patient's management. Amy Gtz N.P. DR: Kyle JOB#: [id number] CC:
== END 2016-09-29 13:40 | disposition left against medical advice (07) | DRG 870 ==
LOC: EDBD 22:28 → EMR 23:13 → ICU 09-11 00:50 → EDBEDREQ 09-11 00:58 → EDBEDREQSVC 09-11 00:58 → EDBEDREQ 09-11 05:07 → 2W 09-21 18:53 → 2E 09-25 01:49 → 4W 09-25 17:24
PROC: 0BH17EZ Insertion of Endotracheal Airway into Trachea, Via Natural or Artificial Opening (ICD-10-PCS; principal; 2016-09-11)
PROC: 5A1955Z Respiratory Ventilation, Greater than 96 Consecutive Hours (ICD-10-PCS; principal; 2016-09-11)
PROC: 5A1D60Z (ICD-10-PCS; 2016-09-13)
PROC: 05HM33Z Insertion of Infusion Device into Right Internal Jugular Vein, Percutaneous Approach (ICD-10-PCS; 2016-09-13)
PROC: B543ZZA Ultrasonography of Right Jugular Veins, Guidance (ICD-10-PCS; 2016-09-13)
PROC: 0HBRXZZ Excision of Toe Nail, External Approach (ICD-10-PCS; 2016-09-27)
DX: A41.9 Sepsis, unspecified organism (principal); J96.90 Respiratory failure, unspecified, unspecified whether with hypoxia or hypercapnia; R65.21 Severe sepsis with septic shock; J18.9 Pneumonia, unspecified organism; G92 Toxic encephalopathy; N17.9 Acute kidney failure, unspecified; A04.7 Enterocolitis due to Clostridium difficile; D69.6 Thrombocytopenia, unspecified; N39.0 Urinary tract infection, site not specified; J98.11 Atelectasis; E86.0 Dehydration; E11.8 Type 2 diabetes mellitus with unspecified complications; Z95.0 Presence of cardiac pacemaker; G30.9 Alzheimer's disease, unspecified; F02.80 Dementia in other diseases classified elsewhere, unspecified severity, without behavioral disturbance, psychotic disturbance, mood disturbance, and anxiety; E87.5 Hyperkalemia; I12.9 Hypertensive chronic kidney disease with stage 1 through stage 4 chronic kidney disease, or unspecified chronic kidney disease; N18.9 Chronic kidney disease, unspecified; E11.65 Type 2 diabetes mellitus with hyperglycemia; E11.51 Type 2 diabetes mellitus with diabetic peripheral angiopathy without gangrene; Z74.01 Bed confinement status; N40.0 Benign prostatic hyperplasia without lower urinary tract symptoms; R13.10 Dysphagia, unspecified; E78.5 Hyperlipidemia, unspecified; I25.10 Atherosclerotic heart disease of native coronary artery without angina pectoris; Z98.61 Coronary angioplasty status; M20.42 Other hammer toe(s) (acquired), left foot; M20.41 Other hammer toe(s) (acquired), right foot; M21.612 Bunion of left foot; M21.611 Bunion of right foot; B35.1 Tinea unguium; D63.8 Anemia in other chronic diseases classified elsewhere
CPT/HCPCS: 36415; 36569; 36600; 70450; 71010; 74000; 74230; 76775; 76937; 80048; 80053; 80076; 81003; 82550; 82553; 82607; 82728; 82746; 82803; 82962; 82977; 83540; 83550; 83605; 83735; 83880; 84100; 84484; 84550; 85007; 85025; 85610; 85730; 86140; 86706; 86707; 86803; 86850; 86900; 86901; 86920; 87040; 87070; 87081; 87086; 87181; 87205; 87324; 92610; 93005; 93306; 93970; 94002; 94003; 94760; C9399; J1815; J8499